=== PATIENT | male | born 1950 | race Caucasian/White ===

== ENCOUNTER 2018-08-28 22:16 | Emergency (ER) | payer MEDICARE, SELFPAY ==
[2018-08-28 22:17] VITALS: BP 112/76; PULSE 125; RESP 20; TEMP 36.4; O2SAT 97; BMI 33.7
[2018-08-28 22:33] VITALS: PULSE 122; RESP 18; O2SAT 99
[2018-08-28 22:34] VITALS: O2SAT 99
--- NOTE | 2018-08-28 22:42 | EKG12_ITS ---
Test Reason : Blood Pressure : / mmHG Vent. Rate : 127 BPM Atrial Rate : 127 BPM P-R Int : 000 ms QRS Dur : 168 ms QT Int : 432 ms P-R-T Axes : 000 258 088 degrees QTc Int : 627 ms Atrial fibrillation with rapid ventricular response with occasional ventricular-paced complexes Right bundle branch block Septal infarct , age undetermined Possible Lateral infarct , age undetermined Inferior infarct , age undetermined Abnormal ECG Confirmed by WOLF MACK, NESTOR ([id number]), video news editor NANI REA ([id number]) on 08/30/2018 2:43:21 PM Referred By: PATY Confirmed By:NESTOR BLOOM MD
--- NOTE | 2018-08-28 22:42 | RAD_ITS ---
STUDY: X-RAY CHEST REASON FOR EXAM: Male, 67 years old. Patient felt a flutter in this chest TECHNIQUE: Single AP portable view of the chest. COMPARISON: None. FINDINGS: Central catheter on the right extending to the right atrium. Pacemaker device on the left. There are monitoring devices The lungs are clear and expanded. There is no demonstrated pleural abnormality. Sternal cerclage wires are present from a prior sternotomy. There is cardiac enlargement. Normal mediastinum and elle. Normal visualized pulmonary arteries. Normal visualized aortic arch and descending thoracic aorta. There are diffuse degenerative changes of the visualized thoracic spine. Normal visualized ribs, clavicles, and shoulders. There is no demonstrated abnormality of the visualized soft tissue structures of the upper abdomen. RAD/Chest 1 View (Portable) IMPRESSION: Cardiac enlargement. Electronically Signed: Corey Staley MD at 23:06 EST , Service support ,
[2018-08-28 22:49] VITALS: O2SAT 99
--- NOTE | 2018-08-28 22:51 | ED.VISSUMM ---
- ER Visit Summary Date of Service: 08/28/18 Chief Complaint: Serious flutter History of Present Illness: The patient is a 67 M with a history of atrial fibrillation. He presents today for heart racing and palpitations. This has been going on for over a week. Symptoms are worse with ambulation and they were worse at bedtime tonight, so he came in to be evaluated. He has a history of ablation, but continues to have issues with atrial fibrillation. He had synchronized cardioversion in the past, and he returned to atrial fibrillation. He is waiting on a repeat ablation and some type of 3 wire device to be placed at [facility]. He is denying chest pain but does get short of breath with walking. He has also had some chest congestion. He recently started hemodialysis, and he thinks that his session today made his symptoms worse. He was told that hemodialysis should make his heart better. He is on Eliquis and compliant. Physical Examination: Afebrile. Heart rate 122. Blood pressure 112/76. 99% on room air. The patient is sitting upright in no apparent distress. Speaking in full sentences and breathing comfortably. Heart is irregularly irregular. Lungs are clear. Skin appears normal. Test Results: EKG shows atrial fibrillation at a rate of 127 with right bundle branch block. Laboratory studies and chest x-ray pending. Emergency Department Course and Treatment: Patient was placed on a monitor. He is having some symptomatic shortness of breath and palpitations but is otherwise stable. He was treated with Cardizem. We will check basic labs, EKG, and chest x-ray. X-rays show degenerative changes and postoperative changes. Nothing acute. Troponin normal. Hemoglobin 10.9. BUN 25 and creatinine 3.47, consistent with his end-stage renal disease. On reevaluation, the patient remained tachycardic and in atrial fibrillation after the Cardizem. His pressure dropped to the 80s systolic. He had no new or worsening of his symptoms. At this point, we consented him for synchronized cardioversion. Risks were discussed. He had this before 3 weeks ago. He had propofol before. He received a total of 70 mg of propofol and was cardioverted with 150 J, synchronized. Patient tolerated the procedure well. Sinus rhythm rate of 78. Pressures stable for him. Feeling better. Patient will be discharged to follow-up with his bobbin inspector tomorrow. Treatment Plan: As above Disposition: Discharge Impression: 1. Atrial fibrillation with RVR This note was generated with [employer] dictation software. It may contain incorrect words, spelling, and punctuation that were not noted in review of the chart prior to signing ED Disposition - Plan for ED Patient: Chief Complaint: Shortness of Breath Referrals: NOT,DEFINED [NON-STAFF] -
--- NOTE | 2018-08-28 22:55 | ED.DCSUM_ITS ---
- ER Visit Summary Date of Service: 08/28/18 Chief Complaint: Serious flutter History of Present Illness: The patient is a 67 M with a history of atrial fibrillation. He presents today for heart racing and palpitations. This has been going on for over a week. Symptoms are worse with ambulation and they were worse at bedtime tonight, so he came in to be evaluated. He has a history of ablation, but continues to have issues with atrial fibrillation. He had synchronized cardioversion in the past, and he returned to atrial fibrillation. He is waiting on a repeat ablation and some type of 3 wire device to be placed at [facility]. He is denying chest pain but does get short of breath with walking. He has also had some chest congestion. He recently started hemodialysis, and he thinks that his session today made his symptoms worse. He was told that hemodialysis should make his heart better. He is on Eliquis and compliant. Physical Examination: Afebrile. Heart rate 122. Blood pressure 112/76. 99% on room air. The patient is sitting upright in no apparent distress. Speaking in full sentences and breathing comfortably. Heart is irregularly irregular. Lungs are clear. Skin appears normal. Test Results: EKG shows atrial fibrillation at a rate of 127 with right bundle branch block. Laboratory studies and chest x-ray pending. Emergency Department Course and Treatment: Patient was placed on a monitor. He is having some symptomatic shortness of breath and palpitations but is otherwise stable. He was treated with Cardizem. We will check basic labs, EKG, and chest x-ray. X-rays show degenerative changes and postoperative changes. Nothing acute. Troponin normal. Hemoglobin 10.9. BUN 25 and creatinine 3.47, consistent with his end-stage renal disease. On reevaluation, the patient remained tachycardic and in atrial fibrillation after the Cardizem. His pressure dropped to the 80s systolic. He had no new or worsening of his symptoms. At this point, we consented him for synchronized cardioversion. Risks were discussed. He had this before 3 weeks ago. He had propofol before. He received a total of 70 mg of propofol and was cardioverted with 150 J, synchronized. Patient tolerated the procedure well. Sinus rhythm rate of 78. Pressures stable for him. Feeling better. Patient will be discharged to follow-up with his company pilot tomorrow. Treatment Plan: As above Disposition: Discharge Impression: 1. Atrial fibrillation with RVR This note was generated with [employer] dictation software. It may contain incorrect words, spelling, and punctuation that were not noted in review of the chart prior to signing ED Disposition - Plan for ED Patient: Chief Complaint: Shortness of Breath Referrals: NOT,DEFINED [NON-STAFF] -
[2018-08-28] MEDS: dilTIAZem 25 MG/5 ML Vial 10 MG IV BOLUS (22:58)
[2018-08-28 23:00] LABS: Absolute Lymphocyte Count 1.22 X10^3/ul (0.83-4.51); Absolute Neutrophil Count 4.3 X10^3/uL (2.0-7.7); Basophil# 0.02 X10^3/uL; Basophil% 0.3 % (0-1); Eosinophil# 0.09 X10^3/uL; Eosinophils% 1.4 % (0-5); Hematocrit 34.4 % (40-54); Hemoglobin 10.9 g/dl (13.0-16.5); Lymphocyte # 1.22 X10^3/ul (4.0); Lymphocyte % 19.5 % (19-41); Mean Corp Hgb Conc 31.7 g/gl (32-36); Mean Corpuscular Hgb 27.9 pg (27.0-32.0); Mean Platelet Vol. 11.5 fl (6.2-12.0); Monocyte# 0.59 X10^3/uL; Monocyte% 9.4 % (0-10); Neutrophil % 68.8 % (47-70); Platelet Count 176 K/mm3 (150-450); RBC Distribution Width CV 15.5 % (11.6-14.6); RBC Distribution Width SD 48.8 fl (35.1-43.9); Red Blood Count 3.91 M/mm3 (4.6-6.2); White Blood Count 6.3 K/mm3 (4.4-11.0)
[2018-08-28 23:01] LABS: POSITIVE COUNT NO; POSITIVE DIFFERENTIAL NO; POSITIVE MORPHOLOGY NO
[2018-08-28 23:16] LABS: Anion Gap 11 (5-15); BUN 25 mg/dL (7-18); BUN/Creat Ratio 7.2 RATIO (10-20); Calcium,Total 8.3 mg/dL (8.5-10.1); Chloride 97 mmol/L (98-107); Creatinine, Serum 3.47 mg/dL (0.70-1.30); EST Glomerular Filtration Rate 19 mL/min (>60); Est Glom Filt Rate - Afr Amer 23 mL/min (>60); Glucose 217 mg/dL (74-106); Sodium Level 136 mmol/L (136-145)
[2018-08-29] VITALS (7 sets, daily range): BP systolic 77–96; BP diastolic 60–68; PULSE 70–120; RESP 18–22; O2SAT 96–100
[2018-08-29] MEDS: Propofol 200 MG/20 ML Vial 70 MG IV BOLUS (00:38)
--- NOTE | 2018-08-29 00:59 | EKG12_ITS ---
Test Reason : REPEAT Blood Pressure : / mmHG Vent. Rate : 078 BPM Atrial Rate : 078 BPM P-R Int : 168 ms QRS Dur : 148 ms QT Int : 512 ms P-R-T Axes : 081 255 017 degrees QTc Int : 583 ms Normal sinus rhythm Right bundle branch block Abnormal ECG Confirmed by NESTOR BLOOM MD ([id number]), news copy editor NANI REA ([id number]) on 08/30/2018 2:44:52 PM Referred By: HERNANDO Confirmed By:NESTOR BLOOM MD
--- NOTE | 2018-08-29 01:21 | ED.DEP ---
ED Disposition - Plan for ED Patient: Chief Complaint: Shortness of Breath Instructions: ED Cardioversion Electrical Additional Instructions: Follow-up with your refrigeration technician. Call tomorrow.
== END 2018-08-29 01:33 | disposition home or self-care (01) ==
LOC: ED 23:23
PROVIDERS: Emergency Provider Emergency Medicine
DX: I48.91 Unspecified atrial fibrillation (principal); I45.10 Unspecified right bundle-branch block; I12.0 Hypertensive chronic kidney disease with stage 5 chronic kidney disease or end stage renal disease; E11.22 Type 2 diabetes mellitus with diabetic chronic kidney disease; N18.6 End stage renal disease; I25.10 Atherosclerotic heart disease of native coronary artery without angina pectoris; K21.9 Gastro-esophageal reflux disease without esophagitis; Z99.2 Dependence on renal dialysis; Z79.4 Long term (current) use of insulin; Z79.01 Long term (current) use of anticoagulants; Z79.899 Other long term (current) drug therapy; Z95.1 Presence of aortocoronary bypass graft
CPT/HCPCS: 71045; 80048; 84484; 85025; 93005; 96374; 99152; 99284; J7030; A4216

== ENCOUNTER 2018-09-02 15:46 | Emergency (ER) | payer MEDICARE, MEDICAID, SELFPAY ==
[2018-09-02 15:48] VITALS: BP 109/89; PULSE 111; RESP 22; TEMP 36.6; O2SAT 97; BMI 34.7
--- NOTE | 2018-09-02 16:01 | EKG12_ITS ---
Test Reason : SOB Blood Pressure : / mmHG Vent. Rate : 127 BPM Atrial Rate : 136 BPM P-R Int : 000 ms QRS Dur : 158 ms QT Int : 438 ms P-R-T Axes : 000 261 049 degrees QTc Int : 636 ms Atrial fibrillation Right bundle branch block Abnormal ECG Confirmed by NESTOR BLOMO MD ([id number]), photograph editor NANI REA ([id number]) on 09/06/2018 10:42:57 AM Referred By: KIRTI Confirmed By:NESTOR BLOOM MD
--- NOTE | 2018-09-02 16:05 | ED.VISSUMM ---
- ER Visit Summary Date of Service: 09/02/18 Chief Complaint: [] A. fib RVR shortness of breath end-stage renal disease malfunctioning dialysis catheter History of Present Illness: The patient is a 67 M [] history of A. fib RVR, cardiac pacemaker, renal failure, right chest dialysis catheter dialysis Sunday, he indicates that basically he has been going in and out of A. fib RVR for months he is scheduled to be seen at [facility] by Dr. Li to have his cardiac pacemaker change to he describes a 3-lead cardiac pacemaker that will blunt the effects of his A. fib RVR, that procedure is to be done later this month, in addition he is dialyzed Sunday via right chest dialysis catheter, the catheter was placed , dialysis unit today was unable to dialyzing the catheter would not function he was given some type of medication through the catheter and told to return Sunday he indicates he is too short of breath to be at home, he presents with a heart rate of 130 irregular he has no fever cough or other complaints he was in the emergency room about a week ago and was cardioverted he is taking amiodarone only for his A. fib Physical Examination: [] Heart rate 130 A. fib RVR pulse ox 97% on oxygen General, no distress resting comfortably HEENT is generally unremarkable The neck is supple no adenopathy Cardiovascular, irregular rate and rhythm Lungs, clear bilateral Abdomen, soft nontender Extremities, 3-4 edema bilaterally able Neurologic, awake alert answering questions appropriately moving all 4 extremities To establish IV access within screening labs All the above will obtain IV access screening labs, discussed with Dr. cline on-call for [facility] service arrange for transfer to [facility] for all the above Test Results: [] Emergency Department Course and Treatment: [] EKG shows irregular rhythm some components wide-complex some narrow consistent with history of A. fib rate 127, troponin returns at 0.104 creatinine elevated 6, the rest of the chemistry panel and CBC were unremarkable chest x-ray was unremarkable per radiology [facility] transfer service they spoke with the physician team there, they have accepted him in transfer with [place] to slow down his heart rate, he remains very stable here in the department he agrees to the transfer, and I explained to the [facility] team that he would need to be seen by cardiology and dialysis and would require urgent dialysis on arrival and they would arrange for that Treatment Plan: [] Disposition: [] Transfer to [facility] to be seen by patient subspecialty physicians Impression: [] A. fib RVR with history of same, end-stage renal disease, malfunctioning dialysis catheter This note was generated with [employer] dictation software. It may contain incorrect words, spelling, and punctuation that were not noted in review of the chart prior to signing ED Disposition - Plan for ED Patient: Chief Complaint: Shortness of Breath Referrals: Care Physician,No Primary [NON-STAFF] -
--- NOTE | 2018-09-02 16:06 | RAD_ITS ---
STUDY: X-RAY CHEST REASON FOR EXAM: Male, 67 years old. Shortness of breath TECHNIQUE: Frontal view of the chest COMPARISON: 08/28/2018 FINDINGS: The lungs are clear. There are no pleural effusions. There is no pneumothorax. The heart is enlarged, but stable. Again noted is a pacemaker and a right-sided central catheter with its tip in the superior vena cava. The patient is status post sternotomy. RAD/Chest 1 View (Portable) IMPRESSION: Stable cardiomegaly. No acute thoracic pathology. Electronically Signed: Jose Elias Malone, at 16:22 EST Tel , Service support ,
--- NOTE | 2018-09-02 16:11 | ED.DCSUM_ITS ---
- ER Visit Summary Date of Service: 09/02/18 Chief Complaint: [] A. fib RVR shortness of breath end-stage renal disease malfunctioning dialysis catheter History of Present Illness: The patient is a 67 M [] history of A. fib RVR, cardiac pacemaker, renal failure, right chest dialysis catheter dialysis Sunday, he indicates that basically he has been going in and out of A. fib RVR for months he is scheduled to be seen at [facility] by Dr. Li to have his cardiac pacemaker change to he describes a 3-lead cardiac pacemaker that will blunt the effects of his A. fib RVR, that procedure is to be done later this month, in addition he is dialyzed Sunday via right chest dialysis catheter, the catheter was placed , dialysis unit today was unable to dialyzing the catheter would not function he was given some type of medication through the catheter and told to return Sunday he indicates he is too short of breath to be at home, he presents with a heart rate of 130 irregular he has no fever cough or other complaints he was in the emergency room about a week ago and was cardioverted he is taking amiodarone only for his A. fib Physical Examination: [] Heart rate 130 A. fib RVR pulse ox 97% on oxygen General, no distress resting comfortably HEENT is generally unremarkable The neck is supple no adenopathy Cardiovascular, irregular rate and rhythm Lungs, clear bilateral Abdomen, soft nontender Extremities, 3-4 edema bilaterally able Neurologic, awake alert answering questions appropriately moving all 4 extremities To establish IV access within screening labs All the above will obtain IV access screening labs, discussed with Dr. cline on-call for [facility] service arrange for transfer to [facility] for all the above Test Results: [] Emergency Department Course and Treatment: [] EKG shows irregular rhythm some components wide-complex some narrow consistent with history of A. fib rate 127, troponin returns at 0.104 creatinine elevated 6, the rest of the chemistry panel and CBC were unremarkable chest x-ray was unremarkable per radiology [facility] transfer service they spoke with the physician team there, they have accepted him in transfer with [place] to slow down his heart rate, he remains very stable here in the department he agrees to the transfer, and I explained to the [facility] team that he would need to be seen by cardiology and dialysis and would require urgent dialysis on arrival and they would arrange for that Treatment Plan: [] Disposition: [] Transfer to [facility] to be seen by patient subspecialty physicians Impression: [] A. fib RVR with history of same, end-stage renal disease, malfunctioning dialysis catheter This note was generated with [employer] dictation software. It may contain incorrect words, spelling, and punctuation that were not noted in review of the chart prior to signing ED Disposition - Plan for ED Patient: Chief Complaint: Shortness of Breath Referrals: Care Physician,No Primary [NON-STAFF] -
[2018-09-02 16:18] LABS: Absolute Lymphocyte Count 1.98 X10^3/ul (0.83-4.51); Basophil# 0.02 X10^3/uL; Basophil% 0.2 % (0-1); Eosinophil# 0.01 X10^3/uL; Eosinophils% 0.1 % (0-5); Hematocrit 34.8 % (40-54); Hemoglobin 10.8 g/dl (13.0-16.5); Lymphocyte # 1.98 X10^3/ul (4.0); Lymphocyte % 22.3 % (19-41); Mean Corpuscular Hgb 26.9 pg (27.0-32.0); Mean Corpuscular Volume 86.6 fL (80-94); Mean Platelet Vol. 11.8 fl (6.2-12.0); Neutrophil # 6.03 X10^3/uL (2.7-7.7); Neutrophil % 67.9 % (47-70); Platelet Count 214 K/mm3 (150-450); RBC Distribution Width CV 16.3 % (11.6-14.6); Red Blood Count 4.02 M/mm3 (4.6-6.2); White Blood Count 8.9 K/mm3 (4.4-11.0)
[2018-09-02 16:26] LABS: Anion Gap 13 (5-15); BUN 73 mg/dL (7-18); BUN/Creat Ratio 12.5 RATIO (10-20); Calcium,Total 9.3 mg/dL (8.5-10.1); Chloride 99 mmol/L (98-107); Creatinine, Serum 5.84 mg/dL (0.70-1.30); EST Glomerular Filtration Rate 10 mL/min (>60); Est Glom Filt Rate - Afr Amer 12 mL/min (>60); Estimated Creatinine Clearance 12.71 ml/min; Glucose 238 mg/dL (74-106); Potassium 4.7 mmol/L (3.5-5.1); Sodium Level 137 mmol/L (136-145)
[2018-09-02 16:31] LABS: POSITIVE COUNT NO; POSITIVE DIFFERENTIAL NO; POSITIVE MORPHOLOGY NO
[2018-09-02 16:33] VITALS: O2SAT 100
[2018-09-02] MEDS: dilTIAZem 25 MG/5 ML Vial 10 MG IV BOLUS (16:56)
[2018-09-02 17:54] VITALS: BP 102/86; PULSE 101; RESP 22; O2SAT 96
[2018-09-02 18:38] VITALS: BP 103/62; PULSE 114; RESP 18; O2SAT 99
--- OUTSIDE RECORDS SUMMARY | 2018-10-20 01:16 | XMS RPT_ITS ---
:1950 Author Organization OHIP Support Name Relationship Address Phone Colleen Piña Unavailable Unavailable + D Unavailable Unavailable Unavailable PIÑA, GOPAL Unavailable [address] + [place] [address] PIÑA, COLLEEN Unavailable [address] + [place] [address] D Unavailable Unavailable Unavailable PIÑA, GOPAL Unavailable [address] + [place] [address] PIÑA, COLLEEN Unavailable [address] + [place] [address] D Unavailable Unavailable Unavailable PIÑA, GOPAL Unavailable [address] + [place] [address] PIÑA, COLLEEN Unavailable [address] + [place] [address] Piña, Colleen Unavailable Unavailable + D Unavailable Unavailable Unavailable PIÑA, GOPAL Unavailable [address] + [place] [address] PIÑA, COLLEEN Unavailable [address] + [place] [address] D Unavailable Unavailable Unavailable PIÑA, GOPAL Unavailable [address] + [place] [address] PIÑA, COLLEEN Unavailable [address] + [place] [address] D Unavailable Unavailable Unavailable PIÑA, GOPAL Unavailable [address] + [place] [address] PIÑA, COLLEEN Unavailable [address] + [place] [address] D Unavailable Unavailable Unavailable Piña, Gopal Unavailable [address] + [place] [address] Piña, Colleen Unavailable [address] + [place] [address] Piña, Colleen Unavailable Unavailable + Piña, Colleen Unavailable Unavailable + D Unavailable Unavailable Unavailable AYANA, GOPAL Unavailable [address] + [place] [address] PIÑA, COLLEEN Unavailable [address] + [place] [address] Piña, Colleen Unavailable Unavailable + D Unavailable Unavailable Unavailable Piña, Gopal Unavailable [address] + [place] [address] Piña, Colleen Unavailable [address] + [place] [address] Piña, Colleen Unavailable Unavailable + Piña, Colleen Unavailable Unavailable + Piña, Colleen Unavailable Unavailable + Piña, Colleen Unavailable Unavailable + Piña, Colleen Unavailable Unavailable + Piña, Colleen Unavailable Unavailable + Piña, Colleen Unavailable Unavailable + Piña, Colleen Unavailable Unavailable + Piña, Colleen Unavailable Unavailable + Piña, Colleen Unavailable Unavailable + Care Team Providers Name Role Phone Lola Monte Attending Unavailable Darryl Kennedy Referring Unavailable Darryl Kennedy Primary Care Unavailable PRASHANTH WANG Attending Unavailable Darryl Kennedy Referring Unavailable Darryl Kennedy Primary Care Unavailable PRASHANTH WANG Attending Unavailable Darryl Kennedy Referring Unavailable Sukhwinder'Darryl Lowe Primary Care Unavailable BOOKER JOYA Attending Unavailable Sukhwinder'Darryl Lowe Referring Unavailable Sukhwinder'Darryl Lowe Primary Care Unavailable Lola Monte Attending Unavailable Sukhwinder'Darryl Lowe Referring Unavailable Sukhwinder'ChrissyDarryl Primary Care Unavailable Lola Monte Attending Unavailable Sukhwinder'Darryl Lowe Referring Unavailable Sukhwinder'Darryl Lowe Primary Care Unavailable PRASHANTH WANG Attending Unavailable Sukhwinder'Darryl Lowe Referring Unavailable Sukhwinder'Darryl Lowe Primary Care Unavailable PRASHANTH WANG Attending Unavailable Darryl Kennedy Referring Unavailable O'Chrissy, Darryl Primary Care Unavailable O'Chrissy, Darryl Referring Unavailable O'Chrissy, Darryl Primary Care Unavailable JAYDE ALBA Attending Unavailable [place], Darryl Referring Unavailable [place], Darryl Primary Care Unavailable Jagdish Lopes Attending Unavailable Neil Marie Attending Unavailable O'Chrissy, Darryl Referring Unavailable [place], Darryl Primary Care Unavailable O'Chrissy, Darryl Attending Unavailable O'Chrissy, Darryl Referring Unavailable [place], Darryl Primary Care Unavailable PROVIDER, UNKNOWN Attending Unavailable O'Chriss[place], Darryl Referring Unavailable PROVIDER, UNKNOWN Primary Care Unavailable O'Chrissy, Darryl Referring Unavailable O'Chrissy, Darryl Primary Care Unavailable Ney Dave Attending Unavailable Neil Marie Attending Unavailable O'Chrissy, Darryl Referring Unavailable O'[place]iss[place], Darryl Primary Care Unavailable Primay Care Physicia, No Primary Care Unavailable Darlin Montanez Attending Unavailable Vikas Pastrana Attending Unavailable Pastrana, Vikas Attending Unavailable Vikas Pastrana Attending Unavailable Suhas Womack Attending Unavailable Primay Care Physicia, No Primary Care Unavailable Pastrana, Vikas Attending Unavailable Pastrana, Vikas Primary Care Unavailable Jopperi, Naresh Admitting Unavailable Jozoniaeri, Naresh Attending Unavailable Barrington Welsh Consulting Unavailable Saba, Jayaprakash Consulting Unavailable Jopperi, Naresh Admitting Unavailable Jopperi, Naresh Attending Unavailable Pastrana, Vikas Primary Care Unavailable Jopperi, Naresh Consulting Unavailable Jopperi, Naresh Admitting Unavailable Barrington Welsh Attending Unavailable Pastrana, Vikas Primary Care Unavailable Blaise, Barrington Consulting Unavailable Saba, Jayaprakash Consulting Unavailable Jopperi, Naresh Consulting Unavailable PROBLEMS PROBLEMS DATE TYPE CONDITION / CODE ATTENDING STATUS SOURCE Unknown B34.9 - Viral infection, Vikas Pastrana Active [facility] 9 unspecified / Community B34.9(ICD-10) Hospital Repository Unknown I48.91 - Unspecified Vikas Pastrana Active [facility] 9 atrial fibrillation / Community I48.91(ICD-10) Hospital Repository Unknown E78.5 - Hyperlipidemia, Vikas Pastrana Active [facility] 9 unspecified / Community E78.5(ICD-10) Hospital Repository Admitting Athscl heart disease of Feitl, [facility] 8 Diagnosis [place] coronary artery System w/o ang pctrs / Repository I25.10(ICD-10) Admitting watermaster (current) use Jolie, [facility] 8 Diagnosis of insulin / System Z79.4(ICD-10) Repository Admitting Acute on chronic [facility], [facility] 8 Diagnosis systolic (congestive) System heart failure / Repository I50.23(ICD-10) Admitting End stage renal disease Jolie, [facility] [facility] 8 Diagnosis / N18.6(ICD-10) System Repository Admitting Hyp chr kidney disease w Jolie, [facility] 8 Diagnosis stage 5 chr kidney System disease or ESRD / Repository I12.0(ICD-10) Admitting skilled nursing (current) use Jolie, [facility] 8 Diagnosis of systemic steroids / System Z79.52(ICD-10) Repository Admitting Type 2 diabetes mellitus [facility] 8 Diagnosis w diabetic chronic System kidney disease / Repository E11.22(ICD-10) Admitting Dependence on renal Jolie [employer] 8 Diagnosis dialysis / Z99.2(ICD-10) System Repository Admitting Obesity, unspecified / [facility], [facility] 8 Diagnosis E66.9(ICD-10) System Repository Admitting Presence of automatic Jolie [facility] 8 Diagnosis (implantable) cardiac System defibrillator / Repository Z95.810(ICD-10) Admitting Other malaise / [place], [facility] [facility] 8 Diagnosis R53.81(ICD-10) System Repository Admitting Presence of [place], [employer] 8 Diagnosis aortocoronary bypass System graft / Z95.1(ICD-10) Repository Admitting Presence of coronary Jolie, [facility] 8 Diagnosis angioplasty implant and System graft / Z95.5(ICD-10) Repository Admitting Hyperlipidemia, [place], [employer] 8 Diagnosis unspecified / System E78.5(ICD-10) Repository Admitting Foot drop, left foot / Ney Dave [facility] 8 Diagnosis M21.372(ICD-10) System Repository Admitting Ischemic cardiomyopathy [facility] 8 Diagnosis / I25.5(ICD-10) System Repository Admitting Anemia in chronic kidney Ney Dave [employer] 8 Diagnosis disease / D63.1(ICD-10) System Repository Admitting Unspecified atrial Jolie [employer] 8 Diagnosis flutter / I48.92(ICD-10) System Repository Admitting skilled nursing (current) use [facility] 8 Diagnosis of anticoagulants / System Z79.01(ICD-10) Repository Admitting Chronic atrial Jolie [employer] 8 Diagnosis fibrillation / System I48.2(ICD-10) Repository Admitting Pneumonia, unspecified [facility] 8 Diagnosis organism / J18.9(ICD-10) System Repository Admitting Osteomyelitis, [facility] 8 Diagnosis unspecified / System M86.9(ICD-10) Repository Admitting Hemiplga following [facility] 8 Diagnosis cerebral infrc affecting System left nondom side / Repository I69.354(ICD-10) Admitting Oth complication of [facility] 8 Diagnosis vascular prosth System dev/grft, init / Repository T82.898A(ICD-10) Admitting Type 2 diabetes mellitus Jolie [employer] 8 Diagnosis with other specified System complication / Repository E11.69(ICD-10) Admitting Type 2 diabetes mellitus [facility] [employer] 8 Diagnosis with hyperglycemia / System E11.65(ICD-10) Repository Admitting Nonspec elev of levels [facility] 8 Diagnosis of transamns & lactic System acid dehydrgnse / Repository R74.0(ICD-10) Admitting Other abnormalities of Ney Dave [place] [address] Diagnosis breathing / System R06.89(ICD-10) Repository Admitting Rheumatoid arthritis [facility]ander [facility] [employer] [place] [address] Diagnosis with rheumatoid factor, System unspecified / Repository M05.9(ICD-10) Admitting Body mass index (BMI) [place] [address] Diagnosis 33.0-33.9, adult / System Z68.33(ICD-10) Repository Admitting Other nonspecific Ney Dave [place] [address] Diagnosis abnormal finding of lung System field / R91.8(ICD-10) Repository Admitting Adverse effect of other [facility] [employer] [place] [address] Diagnosis antidysrhythmic drugs, System init encntr / Repository T46.2X5A(ICD-10) Admitting Pressure ulcer of left Jolie Ney [employer] [place] [address] Diagnosis heel, stage 2 / System L89.622(ICD-10) Repository Admitting Venous insufficiency [place] [place] [address] Diagnosis (chronic) (peripheral) / System I87.2(ICD-10) Repository Admitting Oth complication of Unknown [facility] [employer] Diagnosis vascular dialysis System catheter, init encntr / Repository T82.49XA(ICD-10) Unknown I49.8 - Other specified Suhas Womack [facility] 9 cardiac arrhythmias / Community I49.8(ICD-10) Hospital Repository Admitting Cardiomegaly / O'Chrissy, [facility] 8 Diagnosis I51.7(ICD-10) Darryl System Repository Admitting Interstitial pulmonary O'Chrissy, [facility] 8 Diagnosis disease, unspecified / Darryl System J84.9(ICD-10) Repository Admitting Dyspnea, unspecified / Jagdish Lopes [employer] [facility] 8 Diagnosis R06.00(ICD-10) System Repository Admitting Persistent atrial Jagdish Lopes [employer] [facility] 8 Diagnosis fibrillation / System I48.1(ICD-10) Repository Admitting Rheumatoid arthritis, Evelyne Lopesry [employer] 8 Diagnosis unspecified / System M06.9(ICD-10) Repository Admitting Hemiplga following Moses Jagdish [facility] 8 Diagnosis cerebral infarction System affecting unsp side / Repository I69.359(ICD-10) Admitting Hyp hrt & chr kdny dis w Moses Jagdish [facility] 8 Diagnosis hrt fail and w stg 5 chr System kdny/ESRD / Repository I13.2(ICD-10) Admitting Heart failure, Moses Jagdish [employer] 8 Diagnosis unspecified / System I50.9(ICD-10) Repository Admitting Cataract extraction Moses Jagdish [employer] 8 Diagnosis status, unspecified eye System / Z98.49(ICD-10) Repository Admitting Shortness of breath / Moses Jagdish [employer] 8 Diagnosis R06.02(ICD-10) System Repository Admitting Hemiplga fol oth ntrm ANJALI [employer] 8 Diagnosis intcrn hemor aff left JAYDE M System nondom side / Repository I69.254(ICD-10) Admitting Secondary ANJALI [employer] 8 Diagnosis hyperparathyroidism of JAYDE M System renal origin / Repository N25.81(ICD-10) Admitting Encounter for ANJALI [employer] 8 Diagnosis immunization / JAYDE M System Z23(ICD-10) Repository Admitting Body mass index (BMI) ANJALI [employer] 8 Diagnosis 34.0-34.9, adult / JAYDE M System Z68.34(ICD-10) Repository Admitting Paroxysmal atrial PIETROLUNGO, Active [facility] 8 Diagnosis fibrillation / PRASHANTH System I48.0(ICD-10) Repository Admitting Rheumatic tricuspid PIETROLUNGO, 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 / PRASHANTH System I07.1(ICD-10) Repository Admitting Nonrheumatic mitral PIETROLUNGO, Active [facility] 8 Diagnosis (valve) insufficiency / PRASHANTH System I34.0(ICD-10) Repository Admitting Atherosclerosis of aorta [facility], Active [facility] Diagnosis / I70.0(ICD-10) PRASHANTH System Repository Admitting Pulmonary hypertension, [facility], [place] [address] Diagnosis unspecified / PRASHANTH System I27.20(ICD-10) Repository Admitting Hypertensive heart [facility], Active [place] [address] Diagnosis disease with heart PRASHANTH System failure / I11.0(ICD-10) Repository Admitting Unspecified systolic [facility], Active [place] [address] Diagnosis (congestive) heart PRASHANTH System failure / I50.20(ICD-10) Repository Admitting Old myocardial [facility], [place] [address] Diagnosis infarction / PRASHANTH System I25.2(ICD-10) Repository Admitting Peripheral vascular [facility], [place] [address] Diagnosis disease, unspecified / PRASHANTH System I73.9(ICD-10) Repository Admitting Type 2 diabetes mellitus [facility], [place] [address] Diagnosis without complications / PRASHANTH System E11.9(ICD-10) Repository Admitting Unspecified kidney [facility], [place] [address] Diagnosis failure / N19(ICD-10) PRASHANTH System Repository Admitting Prsnl hx of TIA (TIA), [facility], [place] [address] Diagnosis and cereb infrc w/o PRASHANTH System resid deficits / Repository Z86.73(ICD-10) PROCEDURES PROCEDURES No Procedure Records FoundRESULTS RESULTS 12 LEAD ELECTROCARDIOGRAM Observed: 10/02/2018 Status: F Source: [place] 2:38 PM [facility] REPOSITORY [facility] Cardiovascular Services [address] [place] [address] 12 Lead EKG 09/30/18 1055 MR#: [id number] Acct: [id number] Name: CEFERINO PIÑA Rep #: [id number] : 1950 67 From: Vikas Fontaine MD Attending Dr: Naresh Rose DO Status: DIS IN Ordering Dr: Suhas Womack MD Date: 09/30/18 Location: ICU Sex: M C Admitted: 09/30/18 Test Reason : AFIB Blood Pressure : / mmHG Vent. Rate : 120 BPM Atrial Rate : 120 BPM P-R Int : 000 ms QRS Dur : 148 ms QT Int : 378 ms P-R-T Axes : 000 252 114 degrees QTc Int : 534 ms Atrial fibrillation with rapid ventricular response with frequent ventricular-paced complexes Right bundle branch block T wave abnormality, consider lateral ischemia Abnormal ECG Confirmed by SHAWNA MACK, VIKAS ([id number]), assistant editor NANI REA ([id number]) on 10/02/2018 2:38:27 PM Referred By: PATY Confirmed By:VIKAS FONTAINE MD 10/02/18 1438 Date Vikas Fontaine MD CC: Suhas Womack MD; Naresh Rose DO; Vikas Pastrana MD Signed CONSULTATION Observed: 10/01/2018 Status: F Source: [place] 5:51 AM [facility] REPOSITORY [facility] Medical Records Department [address] [place] [address] Consultation 09/30/18 1501 MR#: [id number] Acct: [id number] Name: CEFERINO PIÑA Rep #: [id number] : 1950 67 From: Barrington Welsh MD PCP: Vikas Pastrana MD Status: DIS IN Y Location: ICU ICU02-1 Problem List (1) Hx of CABG Status: Chronic (2) Diabetes mellitus, type 2 Status: Chronic Qualifiers: Diabetes mellitus terminal worker insulin use: with terminal worker use Diabetes mellitus complication status: with kidney complications Diabetes mellitus complication detail: with chronic kidney disease Chronic kidney disease stage: on chronic dialysis Qualified Code(s): E11.22 - Type 2 diabetes mellitus with diabetic chronic kidney disease; N18.6 - End stage renal disease; Z79.4 - watermaster (current) use of insulin; Z99.2 - Dependence on renal dialysis (3) GERD (gastroesophageal reflux disease) Status: Chronic Qualifiers: Esophagitis presence: esophagitis presence not specified Qualified Code(s): K21.9 - Gastro-esophageal reflux disease without esophagitis (4) Hyperlipemia Status: Chronic Qualifiers: Hyperlipidemia type: pure hypercholesterolemia Qualified Code(s): E78.00 - Pure hypercholesterolemia, unspecified; E78.0 - Pure hypercholesterolemia (5) Hypertension Status: Chronic Qualifiers: Hypertension type: essential hypertension Qualified Code(s): I10 - Essential (primary) hypertension (6) Cerebral aneurysm Status: Chronic (7) Chronic kidney disease Status: Chronic (8) Coronary artery disease Status: Chronic Qualifiers: Coronary Disease-Associated Artery/Lesion type: [place] artery [place] vs. transplanted heart: [place] heart Associated angina: with unspecified angina Qualified Code(s): I25.119 - Atherosclerotic heart disease of [place] coronary artery with unspecified angina pectoris (9) Left hemiparesis Status: Chronic (10) Metabolic encephalopathy Status: Acute (11) Septic shock Status: Acute (12) Acute respiratory failure with hypoxia Status: Acute Reason for Consult Date of Consultation: 09/30/18 Reason for Consultation: Septic shock History of Present Illness: The patient is a 67 year old M, with past medical history listed below, who presented to [facility] on 09/30/2018 after being found unresponsive at a senior care facility. At that time, patient reportedly had a blood sugar in the 30s and EMS was contacted and transported to the ER for evaluation. Patient reportedly did not receive any glucose therapy prior to that point. At that time, patient was given 2 A of D50 and still remained unresponsive. Patient was intubated emergently by ER staff. Patient did receive IV fluids given hypotension and was started on Levophed. Patient also was initiated on D10 secondary to blood sugars. Patient is reportedly on vancomycin and Zosyn secondary to osteomyelitis of his left foot. Patient reportedly has been at the senior care facility for 2 weeks, but has had multiple admissions at [facility] secondary to A. fib with RVR and osteomyelitis. Patient was evaluated in the ER, but had been intubated and paralyzed at that point. Discussion with family at the bedside states the patient was of his usual health until at least approximately 7 PM last night. The patient reportedly has had a very complicated course over the last 2-4 weeks. Did discuss with the family about CODE STATUS. After review of all options, patient will be made a DNR Comfort Care arrest with intubation. Family would like to initiate aggressive measures for at least 24-48 hours, but may choose palliative measures if patient is not responsive. Unable to perform a review of systems secondary to paralytic. Family thought he was of his baseline health yesterday. Past Medical History Past Medical History (Chronic Problems): Chronic Problems (Last Updated 09/30/18 @ 13:54 by Naresh Rose DO) Hx of CABG (Chronic) Diabetes mellitus, type 2 (Chronic) GERD (gastroesophageal reflux disease) (Chronic) Hyperlipemia (Chronic) Hypertension (Chronic) Cerebral aneurysm (Chronic) Chronic kidney disease (Chronic) Coronary artery disease (Chronic) Left hemiparesis (Chronic) Medical History: Medical History (Last Updated 09/30/18 @ 13:54 by Naresh Rose DO) CAD (coronary artery disease) I25.10 CVA (cerebrovascular accident due to intracerebral hemorrhage) I61.9 DM2 (diabetes mellitus, type 2) E11.9 ESRD (end stage renal disease) N18.6 Hyperlipidemia E78.5 PAD (peripheral artery disease) I73.9 HTN (hypertension) I10 Allergies No Known Allergies Allergy (Verified 09/30/18 11:08) Home Medications: Ambulatory Orders Medication Instructions Recorded Allopurinol [Zyloprim] 200 mg PO DAILY 08/28/18 Apixaban [Eliquis] 2.5 mg PO BID 08/28/18 Surgical History: Surgical History (Last Updated 09/30/18 @ 13:55 by Naresh Rose DO) History of appendectomy Z90.49 Hx of CABG Z95.1 Surgical History: angioplasty, appendectomy, coronary bypass surgery Lives: [facility] Smoking Status: Never smoker Tobacco Use: Non-smoker Alcohol: None Drugs: None - *Family History Maternal Family History: Family History (Last Updated 09/30/18 @ 13:55 by Naresh Rose DO) Other CAD (coronary artery disease) Review of Systems Comment: See HPI Patient Problems: Active and Suspected Problems (Last Updated 09/30/18 @ 13:54 by Naresh Rose DO) Metabolic encephalopathy (Acute) Septic shock (Acute) Acute respiratory failure with hypoxia (Acute) Objective: CT of the head was personally reviewed and showed no acute bleed. Chest x-ray showed patchy bilateral infiltrates. - Physical Exam General: - - Intubated and paralyzed. Obese. Good chest rise with ventilation. HEENT: Atraumatic, Normocephalic, - - No pupillary response noted. Oral: No Gingival or Mucosal Lesions/ Ulcerations, Dry Mucosa, - - Crowded posterior pharynx Neck: Supple, No Nodes, Trachea Midline, JVD, Right Lungs: No rhonchi, No wheeze, No rales, Diminished, - - Hemodialysis catheter noted in right chest, tunneled PICC line noted in left chest. Cardiovascular: Normal S1, Normal S2, No murmurs, Irregular Rate, No rub noted, No Gallop, - - A. fib with aberrancy and occasional pacemaker overdrive noted on telemetry Abdomen: Bowel Sounds Present, Soft, Non Tender, Non-Distended, Obese Extremities: No cyanosis, Clubbing Skin: - - Erythema noted of the right flank. Significant venous stasis changes of bilateral lower extremities, left greater than right with superficial ulcers. Buttock appears to have multiple healed Musculoskeletal: No Tenderness to Palpation of Joints or Extremities, Muscle Wasting Lymphatic: No Cervical, Supraclavicular, or Inguinal Adenopathy Neurological: - - Currently paralyzed Psych/Mental Status: Flat Affect Vital Signs Temp Pulse Resp BP Pulse Ox 38.1 C H 105 H 17 56/29 L 100 09/30/18 13:17 09/30/18 14:38 09/30/18 14:38 09/30/18 14:03 09/30/18 14:38 Oxygen Flow Rate (L/min) 4 Oxygen Delivery Method Mechanical Ventilator Weight: 119.1 kg Body Mass Index (BMI) 35.6 Finger Stick Blood Glucose 132 Laboratory Tests Past 24 Hrs WBC 1.7 L RBC 4.12 L WBC RBC Hgb Hct MCV MCH MCHC RDW RDW Differential Plt Count MPV POC Glucose POC Glucose 132 H 137 H 92 Clinical Impression(s) from Imaging Studies Chest X-Ray 09/30/18 10:59 IMPRESSION: Findings in keeping with vascular congestion and mild CHF. Electronically Signed: Tyshawn Gleason MD at 11:25 EST Tel [phone], Service support , Brain CT 09/30/18 11:24 IMPRESSION: Chronic involutional changes of the brain. 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 Electronically Signed: Tyshawn Gleason MD at 14:48 EST Tel [phone], Service support , Chest X-Ray 09/30/18 13:05 IMPRESSION: The tip of the endotracheal tube is at 3.5 cm proximal to caroline. Findings incomplete with mild degree of CHF with bibasilar atelectasis. Electronically Signed: Tyshawn Gleason MD at 13:28 EST Tel [phone], Service support , Assessment/Plan Active and Suspected Problems (Last Updated 09/30/18 @ 13:54 by Naresh Rose DO) Metabolic encephalopathy (Acute) Septic shock (Acute) Acute respiratory failure with hypoxia (Acute) RECOMMENDATIONS: 1. Transition antibiotics to meropenem and vancomycin 2. Initiate stress dose steroids, vasopressin if needed 3. Wean FiO2 and PEEP as tolerated 4. Initiate sedation 5. Change CODE STATUS to DNR Comfort Care arrest 6. Transition to D10 water, wean as tolerated 7. Discontinue allopurinol and Eliquis IMPRESSIONS: 1. 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 Patient should have random vancomycin level obtained. Echocardiogram has been ordered. Pressors will be transition to central access. Zepeda cultures are currently pending. Another possible etiology would be line sepsis. The patient have an element of adrenal insufficiency as he is reportedly on 10 mg of prednisone at baseline. Patient will be placed on stress dose steroids for relative adrenal insufficiency area 2. Acute hypoxic respiratory failure Unclear etiology at this time. Differential diagnosis would include ARDS versus congestive heart failure. Patient with significant PEEP requirements at this time, but this may have a perfusion component. We will continue to wean FiO2 and PEEP as tolerated. Possibly repeat chest x-ray tomorrow for evaluation if not improving. Doubt pneumonia given lack of reported prodromal symptoms unless embolic in nature 3. Reported metabolic encephalopathy secondary to hypoglycemia Patient currently paralyzed, so evaluation of mental status is severely limited. Patient was significantly hypoglycemic initially, but this has been normalized. We will continue to wean D10 as tolerated. 4. End-stage renal disease Patient is reportedly receiving dialysis every Sunday, Sunday and Sunday. Patient has tunneled access. Nephrology has been consulted. Unclear if patient would be able to tolerate hemodialysis at this time given blood pressure requirements. Patient does have significant uremia at this time. May tolerate 24 hours until hemodynamic stability can be obtained. 5. Diabetes mellitus type 2 Patient is on Lantus and Levemir at baseline. Patient was significantly hypoglycemic earlier today. Patient currently on D10. We will continue to wean D10 as tolerated. 6. A. fib with RVR status post pacemaker Likely secondary to #1. We will continue to monitor with telemetry. Patient does have serial troponins. Initial elevation may be secondary to supply demand mismatch. 7. History of cerebral aneurysm/hypertension/hyperlipidemia/GERD/history of CABG/obesity/debility Complicates care, management, recovery and prognosis. Patient reportedly has a history of left-sided hemiparesis. This cannot be verified at this time. Reasonable to continue with PPI. ADDENDUM 4:12 PM: Called to patient's bedside at the end of patient's echocardiogram. Patient was not having definitive pass through the left side of the heart. Patient was evaluated and thought to have a thready pulse. Patient was given 2 A of bicarbonate with no improvement. Family was brought to the bedside. Patient was pronounced at 4:10 PM by myself after no heart sounds could be auscultated. No spontaneous breathing was noted. No CPR was performed given patient's CODE STATUS. TIME: 145 minutes of critical care time spent addressing patient's septic shock, respiratory failure, metabolic encephalopathy, hypoglycemia, review of all data and collaboration with care team (1:45 PM to 4:10 PM) Code Visit Procedures: 75705 Critial Care Addl 30 Min - 16745 x 3. 145 total time of critical care time. 9xxxx: 30232 Critical care first hour 10/01/18 0551 <Electronically signed by Barrington Welsh MD> Date Barrington Welsh MD Cosigner Signature (if applicable): Date CC: Barrington Welsh MD; Shwetha Walter M.D.; Vikas Pastrana MD Signed ECHO, COMPLETE W/ Observed: 09/30/2018 Status: F Source: [place] CONTRAST 5:55 PM [facility] REPOSITORY [facility] Cardiovascular Services [address] [place] [address] Echo Complete W/ Contrast 09/30/18 1532 MR#: [id number] Acct: [id number] Name: CEFERINO PIÑA Rep #: [id number] : 1950 67 From: Don Bowie MD Attending Dr: Naresh Rose DO Status: ADM IN Ordering Dr: Naresh Rose DO Date: 09/30/18 Location: ICU Sex: M C Admitted: 09/30/18 Reason For Study: HYPOTENSION Procedure This was a 2D Doppler, Color Flow transthoracic echocardiogram. Contrast injection was performed. Exam performed portable in ICU/CCU. Left Ventricle Moderately dilated left ventricle. The estimated ejection fraction is 25 %. Severe segmental systolic dysfunction (see wall motion). There are regional wall motion abnormalities as specified. Right Ventricle Normal RV size. ICD or pacer leads identified within the right ventricle. Normal systolic function. Atria The left atrium is moderately enlarged. The right atrium is mildly enlarged. Mitral Valve Normal mitral valve. Mild (1+) eccentric mitral valve insufficiency. Tricuspid Valve Normal tricuspid valve. Mild tricuspid valve insufficiency. Aortic Valve Normal aortic valve. Pulmonic Valve Normal pulmonic valve. Great Vessels Normal aortic root. The pulmonary artery is normal size. Normal inferior vena cava. Pericardium/Pleural No pericardial effusion. Medication Diluted definity 2ml given slow IV push to enhance endocardial definition. MMode/2D Measurements AND Calculations LVIDd: 6.1 cm IVSd: 1.2 cm Ao root diam: 3.5 cm LVIDs: 5.5 cm LVPWd: 1.2 cm FS: 9.7 % LAV(MOD-bp): 86.9 ml LA A4 area: 23.4 cm2 LA dimension(2D): 5.5 cm LAV(MOD-bp) Indexed: 36.3 ml/m2 LAV(MOD-sp2): 108.5 ml LAV(MOD-sp4): 65.4 ml RA A4 area: 20.5 cm2 Doppler Measurements AND Calculations Ao V2 max: 123.6 cm/sec LV V1 max: 54.9 cm/sec TR max maximo: 204.1 cm/sec Ao max P.1 mmHg LV V1 max P.3 mmHg TR max P.7 mmHg Interpretation Summary Moderately dilated left ventricle. The estimated ejection fraction is 25 %. Severe segmental systolic dysfunction (see wall motion). Mild (1+) eccentric mitral valve insufficiency. Mild tricuspid valve insufficiency. Ordering Physician: Naresh Rose Referring Physician: VIKAS PASTRANA Performed By: Liana Santiago, LITO, RVT 09/30/18 1754 Date Don Bowie MD CC: Naresh Rose DO; Vikas Pastrana MD Date Dictated: 09/30/18 1532 Date Transcribed: 09/30/18 430 Freight Car Cleaner: Signed EMERGENCY DEPARTMENT Observed: 09/30/2018 Status: F Source: [place] SUMMARY 5:07 PM [facility] REPOSITORY [facility] Medical Records Department [address] [place] [address] Emergency Department Summary 09/30/18 1651 MR#: [id number] Acct: [id number] Name: CEFERINO PIÑA Rep #: [id number] : 1950 67 From: Suhas Womack MD PCP: Vikas Pastrana MD Status: ADM IN - ER Visit Summary Date of Service: 09/30/18 Chief Complaint: Unresponsive History of Present Illness: The patient is a 67 M who presents for a change in mental status. History is obtained through EMS and family. He has been residing at a rehab facility, trying to get his strength back. He is being treated for a bone infection in his left foot and is on Zosyn. He has multiple medical issues including but not limited to atrial fibrillation and he is on Eliquis, diabetes, end-stage renal disease on dialysis, CHF, stroke. Per family, the patient was altered at the rehab facility for 2 hours. He was found to have a blood sugar of 50. He was treated with glucose gel and then glucagon. EMS was contacted. EMS noted that his blood sugar was 38 and they apparently treated with bicarb instead of D50. Patient responds to verbal and gives very short responses. He is denying any focal pain. Denies any shortness of breath. Denying any other recent symptoms or new issues. History is extremely limited. He is full code. Physical Examination: Tachycardic at 126 and respiratory rate 31. Blood pressure 67/47. 95% on nasal cannula. Temperature is 98 degrees. Head and neck are atraumatic. He has moist mucous membranes. Heart is irregularly irregular and tachycardic. Lung sounds are diminished in all walker. Abdomen is soft and nontender. He has bilateral lower extremity wounds that are wrapped. He is responding to verbal and gives only very short responses. GCS is 13. Test Results: EKG showed atrial fibrillation at a rate of 120 with a right bundle branch block pattern and T wave changes laterally, possibly rate related or related to ischemia. Blood sugar was 33 on arrival here and he was treated with D50. Repeat blood sugar was normal. See below for the remainder of his results. Emergency Department Course and Treatment: Patient presents in shock. I was concerned for septic shock primarily, but other causes of shock were considered. Fluid resuscitation started and shock orders were placed. Patient was altered, but he was maintaining his airway and had good oxygenation. He was placed on a nasal cannula. I wanted to see if he would respond to glucose and fluids. Patient had a liter of fluids, and he continued to be hypotensive. His lab work showed a white count of 1.7, hemoglobin 11, platelets 84, CO2 18, anion gap 19, glucose 107, BUN 128, and creatinine 5.59. INR 1.7. Urinalysis fairly unremarkable after a Almeida catheter was placed. Troponin was 0.267 and lactate was 8.1. I continued fluid resuscitation, but his labs indicated shock. He began to spike a fever, and I suspect this was septic shock. He was cultured. Started on Azactam and vancomycin for broad-spectrum coverage. Patient was not responding to fluids and did not improve with correction of his hypoglycemia. He was becoming less responsive. His oxygen was dropping into the low 90s on nasal cannula. He was prepared for intubation. Patient was treated with etomidate and rocuronium. He was bagged on 100% oxygen. First attempt with the direct visualization was unsuccessful. He was rebagged without oxygen desaturation, and then the second attempt with the glidescope was successful. Tube was visualized passing through the cords. He had good color change. Good chest rise. Equal breath sounds. Quiet stomach. Confirmed on chest x-ray which also showed findings concerning for CHF. A third liter of fluids was ordered, but the patient continued to be hypotensive. Levophed was ordered. I suspect the patient is in septic shock from his wounds. His glucose is improved. I did check a head CT which showed chronic changes. The hospitalist and consulting utility forester were contacted. They both evaluated the patient in the emergency department. Patient was continued on fluids and pressors. Continued on antibiotics. His family made him DNR Comfort Care arrest. He was admitted to the ICU. See template for additional notes. Treatment Plan: As above Disposition: Admission to ICU Impression: 1. Septic shock 2. Respiratory failure 3. Hypoglycemia 4. End-stage renal disease 5. Elevated troponin This note was generated with [employer] software. It may contain incorrect words, spelling, and punctuation that were not noted in review of the chart prior to signing ED Disposition - Plan for ED Patient: Disposition: Acute Care Hospital [facility] Chief Complaint: Hypoglycemia What to do if you have Problems For any increased pain, shortness of breath, bleeding, nausea or vomiting, chest pain, or any unexpected problems, contact your Primary Care Provider. Call [facility] ([phone]) or report to the closest Emergency Room. Call 911 if necessary. 09/30/18 1707 <Electronically signed by Suhas Womack MD> Date Suhas Womack MD Cosigner Signature (If Indicated): Date CC: Vikas Pastrana MD SUMMARY Observed: 09/30/2018 Status: F Source: [place] 5:05 PM [facility] REPOSITORY [facility] Medical Records Department [address] [place] [address] Summary 09/30/18 1700 MR#: [id number] Acct: [id number] Name: CEFERINO PIÑA Rep #: [id number] : 1950 67 From: Naresh Rose DO PCP: Vikas Pastrana MD Status: ADM IN Location: ICU ICU02-1 Preliminary Cause of septic shock Date of Admission: 09/30/18 Date of : 09/30/18 - Principle Diagnosis septic shock Problem List: Active and Suspected Problems (Last Updated 09/30/18 @ 13:54 by Naresh Rose DO) Metabolic encephalopathy (Acute) Septic shock (Acute) Acute respiratory failure with hypoxia (Acute) Hospital Course 67-year was noted to be hypoglycemic with micro-blood sugar in the 30s. Patient did receive D50 and serum. Patient continued to be unresponsive. Patient was intubated in the emergency room. Patient was hypotensive throughout. Patient did receive IV fluids as well as levo fed. Patient was admitted to the ICU. In the ICU, patient remained hypotensive despite Levophed and vasopressin. Stress dose steroids were also initiated. Patient received 2 A of bicarbonate. Patient was pronounced at 1610. Patient's CODE STATUS was changed to DNR Comfort Care arrest. Cause of appeared to be related with his septic shock, source of which was not clearly evident. Greater than 45 minutes spent on H+P, family discussion. Code Visit OBSV E AND M: [id number] Observ/hosp same date L3 09/30/18 1705 <Electronically signed by Naresh Rose DO> Date Naresh Rose DO Cosigner Signature (if applicable): Date CC: Barrington Welsh MD; Shwetha Walter M.D.; Vikas Pastrana MD Signed BEDSIDE GLUCOSE Collected: 09/30/2018 Status: F Source: [place] 3:15 PM [facility] REPOSITORY TYPE CODE TESTS RESULT OUT OF REFERENCE UNITS RANGE LAB L501.080 70-110 mg/dL High BEDSIDE GLU 123 Result Comment: MANAGEMENT OF PATIENT CARE PER NURSING PROTOCOL Performed By: #### L501.080 #### [facility] Laboratory Point of Care [address] [place] [address] TROPONIN-I Collected: 09/30/2018 Status: F Source: [place] 3:00 PM [facility] REPOSITORY TYPE CODE TESTS RESULT OUT OF RANGE REFERENCE UNITS LAB L501.4010 <0.045 ng/mL High 0.247 TROPONIN-I Result Comment: TROPONIN-I EXPECTED VALUES <0.045 Negative 0.045 - 0.590 Consistent with Cardiac Damage > OR = 0.600 Critical Value Not every elevated troponin is indicative of NE. These values should be used with clinical judgement in examining the patient's clinical picture for diagnosis. To establish a diagnosis of NE versus myocardial injury, there must be a demonstrated rise and/or fall in the troponin values, in addition to ischemic symptoms, EKG changes, new regional wall motion abnormality, and/or angiographical evidence. PLEASE NOTE: REFERENCE RANGES EDITED 18 Performed By: #### L501.4010 #### [facility] Laboratory [address] [place], [address] LACTIC ACID Collected: 09/30/2018 Status: F Source: [place] 3:00 PM [facility] REPOSITORY Order Comment: Yes/No query for Sepsis Lactate Rule Y TYPE CODE TESTS RESULT OUT OF REFERENCE UNITS RANGE LAB L503.6005 0.4-2.0 mmol/L High alert LACTIC ACID 6.9 Result Comment: Critical Result(s) Called at: 16:14:36 09/30/2018 by: Ginny Garcia to DKnoble Performed By: #### L503.6005 #### [facility] Laboratory [address] [place], [address] HISTORY AND PHYSICAL Observed: 09/30/2018 Status: F Source: [place] EXAM 2:06 PM [facility] REPOSITORY [facility] Medical Records Department [address] [place] [address] History and Physical 09/30/18 1349 MR#: [id number] Acct: [id number] Name: CEFERINO PIÑA Rep #: [id number] : 1950 67 From: Naresh Rose DO PCP: Vikas Pastrana MD Status: ADM IN Y Location: ICU ICU02-1 Problem List (1) Metabolic encephalopathy Status: Acute (2) Septic shock Status: Acute (3) Acute respiratory failure with hypoxia Status: Acute History of Present Illness Date of Admission: 09/30/18 Chief Complaint: unresponsive. The patient is a 67 year old M found unresponsive that is a senior care facility. Patient did have blood sugar that was noted to be in the 30s. EMS was contacted and per emergency room physician, patient did not receive D50 until he arrived. She did receive 2 ampoules of D50. Patient still remained unresponsive. Patient was intubated emergently. Patient was concerned to have a septic shock with a lactic acid of 8, white count of 1.7 and tachycardia and tachypnea. Patient received years of IV fluids and still remained hypotensive and started on levo fed. Patient was started on D10 to maintain his blood sugars. Patient was on Zosyn for osteomyelitis of his left foot. Patient did receive aztreonam and vancomycin in the emergency room. Patient is intubated and sedated and unable provide any history is obtained through the emergency room physician but also patient's family. Patient states that he has been at the senior care facility for the past 2weeks. Patient was in [facility] for atrial fibrillation with RVR and a left foot infection and osteomyelitis. The left foot infection has healed up well but there is no plans for any surgery for the osteomyelitis. Patient's family stated that he was doing well as night and other than being fatigued since being started on dialysis around , there is been no new complaints. [] Past Medical History Past Medical History (Chronic Problems): Chronic Problems Left hemiparesis (Chronic) Coronary artery disease (Chronic) Chronic kidney disease (Chronic) Cerebral aneurysm (Chronic) Hypertension (Chronic) Hyperlipemia (Chronic) GERD (gastroesophageal reflux disease) (Chronic) Diabetes mellitus, type 2 (Chronic) Hx of CABG (Chronic) Medical History: Medical History (Last Updated 09/30/18 @ 13:54 by Naresh Rose DO) CAD (coronary artery disease) I25.10 CVA (cerebrovascular accident due to intracerebral hemorrhage) I61.9 DM2 (diabetes mellitus, type 2) E11.9 ESRD (end stage renal disease) N18.6 Hyperlipidemia E78.5 PAD (peripheral artery disease) I73.9 HTN (hypertension) I10 Allergies No Known Allergies Allergy (Verified 09/30/18 11:08) Home Medications: Ambulatory Orders Medication Instructions Recorded Allopurinol [Zyloprim] 100 mg PO DAILY 08/28/18 Surgical History: Surgical History (Last Updated 09/30/18 @ 13:55 by Naresh Rose DO) History of appendectomy Z90.49 Hx of CABG Z95.1 Surgical History: angioplasty, appendectomy, coronary bypass surgery Lives: [facility] Smoking Status: Never smoker Tobacco Use: Non-smoker Alcohol: None Drugs: None - *Family History Maternal Family History: Family History (Last Updated 09/30/18 @ 13:55 by Naresh Rose DO) Other CAD (coronary artery disease) Review of Systems Comment: Patient intubated and sedated, therefore, unable to get any review of systems. VTE Information - Inpt Only VTE Present on Admission: No VTE Pharm Prophylaxis ordered?: Yes Patient Problems: Active and Suspected Problems Metabolic encephalopathy (Acute) Septic shock (Acute) Acute respiratory failure with hypoxia (Acute) - Physical Exam General: - - Weighted. Sedated. Afebrile. HEENT: Atraumatic, PERRLA, Normocephalic Oral: Moist Mucosa, No Gingival or Mucosal Lesions/ Ulcerations, - - The tracheal tube and orogastric tube in place Neck: No Nodes, Thyroid Normal Size and Texture Lungs: Diminished, - - Coarse breath sounds bilaterally Cardiovascular: No murmurs, Irregular Rate, Tachycardic Abdomen: Soft, Non Tender, Non-Distended, Hypoactive Bowel Sounds Extremities: - - 2+ right lower extremity edema. Diminished pulses bilaterally in lower extremities. Skin: - - Venous stasis dermatitis of the lower extremities bilaterally. Appears to be an unroofed bullae on the dorsum of the right foot. No surrounding erythema. Musculoskeletal: No Tenderness to Palpation of Joints or Extremities, No Muscle Wasting Lymphatic: No Cervical, Supraclavicular, or Inguinal Adenopathy Neurological: - - No clonus. Vital Signs Temp Pulse Resp BP Pulse Ox 38.1 C H 112 H 21 H 67/40 L 100 09/30/18 13:17 09/30/18 13:41 09/30/18 13:41 09/30/18 13:41 09/30/18 13:17 Oxygen Flow Rate (L/min) 4 Oxygen Delivery Method Mechanical Ventilator Weight: 119.1 kg Body Mass Index (BMI) 35.6 Finger Stick Blood Glucose 132 Laboratory Tests Past 24 Hrs WBC 1.7 L RBC 4.12 L WBC RBC Hgb Hct MCV MCH MCHC RDW RDW Differential Plt Count MPV POC Glucose POC Glucose 132 H 137 H 92 Clinical Impression(s) from Imaging Studies Chest X-Ray 09/30/18 10:59 IMPRESSION: Findings in keeping with vascular congestion and mild CHF. Electronically Signed: Tyshawn Gleason MD at 11:25 EST Tel [phone], Service support , Chest X-Ray 09/30/18 13:05 IMPRESSION: The tip of the endotracheal tube is at 3.5 cm proximal to caroline. Findings incomplete with mild degree of CHF with bibasilar atelectasis. Electronically Signed: Tyshawn Gleason MD at 13:28 EST Tel [phone], Service support , Assessment/Plan All Active Problems Metabolic encephalopathy (Acute) Septic shock (Acute) Acute respiratory failure with hypoxia (Acute) 1. Septic shock Presumed with tachycardia, tachypnea, lactic acidosis and leukopenia. Continue with aztreonam and vancomycin Follow-up cultures Unclear source at this time Troponin slightly elevated and we will cycle another 1 and check an echocardiogram 2. Acute hypoxic respiratory failure PO2 on ABG was 42 and patient was tachypneic with respiratory rates in the 20s. Patient intubated and on vent Critical care medicine for ventilator management ABG consistent with metabolic acidosis and alkalosis 3. Metabolic encephalopathy Presumably due to hypoglycemia Unclear how long the patient was hypoglycemic and if there are any sequelae due to potential sustained hypoglycemic episode May need further evaluation and assessment depending on the patient's clinical course Head CT ordered and currently pending no mention of any head trauma, but given the patient being on Eliquis, will need to rule out intracranial hemorrhage before the patient can be admitted to this hospital 4. End-stage renal disease Patient's dialysis days every Sunday Has a right chest vascular catheter Nephrology on consultation Patient follows up with Dr. Cao in [place] 5. diabetes mellitus type II Was hypoglycemic in the field Improved We will continue with D10 for now but will likely need to de-escalate depending on the patient's blood sugars 6. Atrial fibrillation Has been in RVR, but I feel that much of this is reactive with the patient clinical presentation Amiodarone is currently on the med list with patient's family denies that he is on this anymore said he was taken off during his most recent hospitalization in [facility] We will request the records from [facility] Patient follows up with Dr. Izaguirre for cardiology 7. DVT prophylaxis: Patient on Eliquis and we will add SCDs 8. Advanced care planning: Discussed with the patient's son and daughter. They confirmed that the patient has desire to be full CODE STATUS. Code Visit Inpatient E AND M: 92940 Init Hosp L3 09/30/18 1406 <Electronically signed by Naresh Rose DO> Date Naresh Rose DO Cosigner Signature: Date (if applicable) CC: Naresh Rose DO; Bennie Finnegan MD; Vikas Pastrana MD Signed CHEST 1 VIEW Observed: 09/30/2018 Status: F Source: [place] (PORTABLE) 1:06 PM [facility] REPOSITORY [facility] Imaging Services [address] [place] [address] Chest 1 View (Portable) MR#: [id number] Acct: [id number] Name: CEFERINO PIÑA Rep #: [id number] : 1950 M 67 From: Tyshawn Gleason MD PCP: Vikas Pastrana MD Status: REG ER Study: Chest 1 View (Portable) Date of Exam: 09/30/18 Exam# [id number] Ordering Dr: Suhas Womack MD STUDY: X-RAY CHEST REASON FOR EXAM: Male, 67 years old. Endotracheal tube and nasogastric tube placement. TECHNIQUE: Single AP portable view of the chest. COMPARISON: Comparison is made with prior study done earlier today. FINDINGS: An endotracheal tube is in situ. The tip is at 3.5 cm proximal to the caroline. An orogastric tube is seen with the tip below the left hemidiaphragm. A right-sided double-lumen catheter is seen with the tip at the junction of the superior vena cava and right atrium. Configuration at both lung bases secondary to poor inspiratory effort. Basket congestion and mild degree of CHF. Sternal cerclage wires and vascular clips are present from a prior sternotomy and coronary artery bypass graft procedure (CABG). A left-sided ventricular chamber pacemaker is seen. Cardiomegaly. Normal mediastinum and elle. Normal visualized pulmonary arteries. Normal visualized aortic arch and descending thoracic aorta. Normal visualized thoracic spine. Normal visualized ribs, clavicles, and shoulders. There is no demonstrated abnormality of the visualized soft tissue structures of the upper abdomen. RAD/Chest 1 View (Portable) IMPRESSION: The tip of the endotracheal tube is at 3.5 cm proximal to caroline. Findings incomplete with mild degree of CHF with bibasilar atelectasis. Electronically Signed: Tyshawn Gleason MD at 13:28 EST Tel [phone], Service support , CC: Suhas Womack MD; Vikas Pastrana MD Freight Car Cleaner: Signed BEDSIDE GLUCOSE Collected: 09/30/2018 Status: F Source: [place] 1:04 PM [facility] REPOSITORY TYPE CODE TESTS RESULT OUT OF REFERENCE UNITS RANGE LAB L501.080 70-110 mg/dL High BEDSIDE GLU 132 Result Comment: MANAGEMENT OF PATIENT CARE PER NURSING PROTOCOL Performed By: #### L501.080 #### [facility] Laboratory Point of Care [address] [place] [address] BLOOD GASES BY CPS Collected: 09/30/2018 Status: F Source: [place] 12[facility] [place] REPOSITORY TYPE CODE TESTS RESULT OUT OF RANGE REFERENCE UNITS LAB L9000.9990 Normal BLD GAS TYPE ART LAB L9001.1000 Normal SITE R Radial LAB L9001.1010 Normal EVE TEST POS LAB L9001.1050 O2 Normal Delivery Dev Nasal Can LAB L9001.1055 /min Normal LPM 4.0 LAB L9001.1104 Normal Results To ED LAB L9001.1105 Normal Time Given 1220 LAB L9001.1110 7.35-7.45 Low pH - I-STAT 7.33 LAB L9001.1210 35-45 mmHg Low pCO2 - ISTAT 21.9 LAB L9001.1310 75-100 mmHG Low PO2 I-STAT 42 LAB L9001.2300 22-26 mmol/L Low HCO3 ISTAT 11.6 LAB L9001.2400 -2 to +2 mmol/L Low BE ISTAT -14 LAB L9001.2415 mmol/L Normal TOTAL CO2 12 ISTAT LAB L9001.2425 95-99 % Low SO2 ISTAT 76 Performed By: #### L9000.0800 #### [facility] Point of Care [address] [place] [address] BEDSIDE GLUCOSE Collected: 09/30/2018 Status: F Source: [place] 12:00 PM [facility] [place] REPOSITORY TYPE CODE TESTS RESULT OUT OF REFERENCE UNITS RANGE LAB L501.080 70-110 mg/dL High BEDSIDE GLU 137 Result Comment: MANAGEMENT OF PATIENT CARE PER NURSING PROTOCOL Performed By: #### L501.080 #### [facility] Point of Care [address] [place] [address] URINALYSIS, COMPLETE Collected: 09/30/2018 Status: F Source: [place] 11:58 AM [facility] [place] REPOSITORY Order Comment: How was Urine Obtained? FOOD TRAY ASSEMBLER TO SPECIFY TYPE CODE TESTS RESULT OUT OF RANGE REFERENCE UNITS LAB L400.3000 Yellow COLOR Normal Yellow LAB L400.3050 Clear Normal CLARITY Sl. Cloudy LAB L400.3200 Normal mg/dl High GLUCOSE, UR 100 LAB L400.3300 Negative mg/dL Normal BILIRUBIN URINE Negative LAB L400.3400 Negative mg/dl Normal KETONE UR Negative LAB L400.3465 1.002-1.030 Normal SP.GR. DIPSTX 1.015 LAB L400.3550 5.0 - 8.0 pH UR Normal 5.0 LAB L400.3600 Negative mg/dl High PROT DIPSTX 100 LAB L400.3700 Normal mg/dl Normal UROBILI Normal LAB L400.3750 Negative Normal NITRITE UR Negative LAB L400.3780 Negative /ul High 10 OCCULT BLOOD-UR LAB L400.3800 Negative /ul High LEUK 25 ESTERASE LAB L400.4050 0-5 /hpf WBC Normal 0-5 SEEN LAB L400.4100 0-5 /hpf Normal RBC-UA 0-5 SEEN LAB L400.4150 0-5 /hpf SQUAM Normal EPI 0-5 SEEN LAB L400.4300 None Seen /hpf 3+ Normal BACTERIA LAB L400.4350 <or=2+ /hpf 1+ Normal MUCUS, URINE Performed By: #### L400.0001 #### [facility] [address] [place], [address] Observed: 09/30/2018 Status: F Source: [place] CULTURE, URINE 11:58 AM [facility] [place] REPOSITORY Urine Culture Culture exhibits no growth. Performed By: #### M100.0650 #### [facility] [address] [place], [address] BEDSIDE GLUCOSE Collected: 09/30/2018 Status: F Source: [place] 11:33 AM [facility] [place] REPOSITORY TYPE CODE TESTS RESULT OUT OF RANGE REFERENCE UNITS LAB L501.080 70-110 mg/dL Normal BEDSIDE GLU 92 Result Comment: MANAGEMENT OF PATIENT CARE PER NURSING PROTOCOL Performed By: #### L501.080 #### [facility] Point of Care [address] [place] [address] BRAIN/HEAD WITHOUT Observed: 09/30/2018 Status: F Source: [place] CONTRAST 11:25 AM [facility] [place] REPOSITORY [facility] Imaging Services [address] [place] [address] Brain/Head without Contrast MR#: [id number] Acct: [id number] Name: CEFERINO PIÑA Rep #: [id number] : 1950 M 67 From: Tyshawn Gleason MD PCP: Vikas Pastrana MD Status: ADM IN Study: Brain/Head without Contrast Date of Exam: 09/30/18 Exam# [id number] Ordering Dr: Suhas Womack MD STUDY: CT BRAIN WITHOUT CONTRAST REASON FOR EXAM: Male, 67 years old. Altered mental status. Unresponsive. Hypotension. RADIATION DOSAGE (If Supplied By Facility): CTDIvol = ( 44.99 ) mGy, DLP = ( 812.98 ) mGycm TECHNIQUE: Transaxial CT imaging of the brain was performed without administration of intravenous contrast material. Individualized dose optimization techniques were used for this CT. COMPARISON: None. FINDINGS: Normal soft tissue structures. Normal calvarium. There is mild cerebral atrophy with widening of the extra- axial spaces and ventricular dilatation. Encephalomalacia is seen in the insular cortex of the right temporal lobe. Normal basal ganglia and thalami. Normal brainstem. Normal cerebellum. There is no intracranial hemorrhage. There are no findings of an acute ischemic infarction. Normal visualized paranasal sinuses. CT/Brain/Head without Contrast IMPRESSION: Chronic involutional changes of the brain. 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 Electronically Signed: Tyshawn Gleason MD at 14:48 EST Tel [phone], Service support , CC: Suhas Womack MD; Vikas Pastrana MD Freight Car Cleaner: Signed Observed: 09/30/2018 Status: F Source: [place] CULTURE, BLOOD (WB) 11:15 AM [facility] [place] REPOSITORY BC AEROBIC BOTTLE GRAM STAIN COLLECTED ON 09/30/18 AT 1115. UPON FURTHER REVIEW, GRAM NEGATIVE RODS ARE PRESENT. REFER TO BC74 FOR ID AND SENSITIVITY. ORGANISM 1: Gram negative aki Performed By: #### M200.1000 #### [facility] [address] [place], [address] PROTHROMBIN TIME W/INR Collected: 09/30/2018 Status: F Source: [place] 11:10 AM [facility] [place] REPOSITORY TYPE CODE TESTS RESULT OUT OF RANGE REFERENCE UNITS LAB L300.4150 11.7-14.9 SECONDS High PROTIME 20.1 LAB L300.4200 Normal INR 1.7 Performed By: #### L300.3900, L300.4310 #### [facility] [address] [place], [address] PARTIAL THROMBOPLAST Collected: 09/30/2018 Status: F Source: [place] TIME 11:10 AM [facility] [place] REPOSITORY TYPE CODE TESTS RESULT OUT OF RANGE REFERENCE UNITS LAB L300.4310 24.1-36.2 Seconds Normal PTT 35.8 Performed By: #### L300.3900, L300.4310 #### [facility] [address] [place], [address] CBC W/DIFF, AUTOMATED Collected: 09/30/2018 Status: C Source: [place] 11:10 AM [facility] [place] REPOSITORY TYPE CODE TESTS RESULT OUT OF RANGE REFERENCE UNITS LAB L100.1000 4.4-11.0 K/mm3 Low WBC 1.7 LAB L100.1200 4.6-6.2 M/mm3 Low RBC 4.12 LAB L100.1300 13.0-16.5 g/dl Low HGB 11.0 LAB L100.1400 40-54 % Low HCT 35.4 LAB L100.1500 80-94 fL Normal MCV 85.9 LAB L100.1600 27.0-32.0 pg Low MCH 26.7 LAB L100.1700 32-36 g/gl Low MCHC 31.1 LAB L100.1810 11.6-14.6 % High RDW CV 19.8 LAB L100.1820 35.1-43.9 fl High RDW SD 59.9 LAB L100.1900 150-450 K/mm3 Low PLT 84 LAB L100.2000 6.2-12.0 fl High MPV 12.2 LAB L100.2100 47-70 % Normal NEUT% 65.3 LAB L100.2200 19-41 % Normal LY% 31.2 LAB L100.2300 0-10 % Normal MONO% 2.3 LAB L100.2400 0-5 % Normal EO% 0.0 LAB L100.2500 0-1 % Normal BASO% 0.6 LAB L100.2550 0.0-0.9 % Normal IM GRAN % 0.600 Result Comment: IG% - Immature Granulocytes (promyelocytes, myelocytes and metamyelocytes) > 1% indicates that a LEFT SHIFT is Present. LAB L100.2620 2.0-7.7 X10 3/uL Low Absolute Neut 1.1 LAB L100.2720 0.83-4.51 X10 3/ul Low Absolute Lymph 0.54 LAB L100.4500 SMEAR Normal COMMENT Result Comment: LYMPHOPENIA NOTED LAB L100.5500 ADEQ Normal PLT MOD DEC EST LAB L100.7000 NORM C AND NORMAL C N Normal RED CHROM CELL MORPH LAB L100.7300 1+ Normal ANISO LAB L100.9900 Normal PATH Reviewed REV Result Comment: Pancytopenia. Leukopenia. Normocytic anemia. Moderate Thrombocytopenia. Clinical correlation necessary. Gera Carpenter D.O. 10/01/18 AMENDED REPORT 10/01/18 1333 PATH REV previously reported as: Rowena dunlap Performed By: #### L100.0100, L100.4425 #### [facility] [address] [place], [address] NRBC PANEL Collected: 09/30/2018 Status: F Source: [place] 11:10 AM [facility] [place] REPOSITORY TYPE CODE TESTS RESULT OUT OF RANGE REFERENCE UNITS LAB L100.4450 0-5 % High NRBC, FLAGGED 15.6 LAB L100.4455 0-5 10 3/uL Normal NRBC # 0.27 Performed By: #### L100.0100, L100.4425 #### [facility] [address] [place], [address] COMPREHENSIVE METABOLIC Collected: 09/30/2018 Status: F Source: [place] [facility] 11:10 AM [facility] [place] REPOSITORY Order Comment: 'TROP' Serial specimen #1, #2, #3, or #4: 1 TYPE CODE TESTS RESULT OUT OF RANGE REFERENCE UNITS LAB L501.0100 74-106 mg/dL High GLU 107 Result Comment: Fasting Glucose result from 100 to 125 mg/dL suggests IMPAIRED HOMEOSTASIS per A.D.A. criteria. Please note revised GLUCOSE reference range effective 2017. LAB L501.1000 7-18 mg/dL High alert BUN 128 LAB L501.1100 0.70-1.30 mg/dL High 5.59 CREAT,SERUM Result Comment: The validity of the calculated GFR AND GFRAA in patients over 70 years has not been determined. Clinical correlation is essential. LAB L501.1110 >60 mL/min Low EST GFR 11 Result Comment: Non- GFR Calc LAB L501.1115 >60 mL/min Low EST GFR - AA 13 Result Comment: GFR Calc LAB L501.1255 ml/min Normal Estimated CRCL 13.69 LAB L501.1300 10-20 RATIO High BUN/CRE 22.9 LAB L501.1500 6.4-8. g/dL Low 2 T PROT 4.9 LAB L501.1800 3.2-5. g/dL Low 0 ALB 1.9 LAB L501.1950 2.2-4. g/dL Normal 2 GLOB 3.0 LAB L501.2000 0.9-2. RATIO Low 4 A/G 0.6 LAB L501.2200 8.5-10 mg/dL Low .1 CA 7.9 LAB L501.4100 15-37 U/L Normal AST 27 LAB L501.4305 45-117 U/L Normal ALK P 100 LAB L501.4405 16-61 U/L Normal ALT 39 LAB L501.4600 0.20-1 mg/dL Normal .00 T BILI 1.00 LAB L501.5300 136-14 mmol/L Normal 5 NA 137 Result Comment: Critical Result(s) Called at: 12:09:29 09/30/2018 by: Jreemy Israel RN (). LAB L501.5600 3.5-5.1 mmol/L Normal K 4.8 LAB L501.5900 98-107 mmol/L Normal CL 100 LAB L501.6100 21.0-32.0 mmol/L Low CO2 18.0 LAB L501.6200 5-15 High GAP 19 Performed By: #### L500.4050, L501.4010 #### [facility] [address] [place], [place], [address] TROPONIN-I Collected: 09/30/2018 Status: F Source: [place] 11:10 AM [facility] REPOSITORY Order Comment: 'TROP' Serial specimen #1, #2, #3, or #4: 1 TYPE CODE TESTS RESULT OUT OF RANGE REFERENCE UNITS LAB L501.4010 <0.045 ng/mL High 0.267 TROPONIN-I Result Comment: TROPONIN-I EXPECTED VALUES <0.045 Negative 0.045 - 0.590 Consistent with Cardiac Damage > OR = 0.600 Critical Value Not every elevated troponin is indicative of NE. These values should be used with clinical judgement in examining the patient's clinical picture for diagnosis. To establish a diagnosis of NE versus myocardial injury, there must be a demonstrated rise and/or fall in the troponin values, in addition to ischemic symptoms, EKG changes, new regional wall motion abnormality, and/or angiographical evidence. PLEASE NOTE: REFERENCE RANGES EDITED 18 Performed By: #### L500.4050, L501.4010 #### [facility] [address] [place], [address] LACTIC ACID Collected: 09/30/2018 Status: F Source: [place] 11:10 AM [facility] REPOSITORY Order Comment: Yes/No query for Sepsis Lactate Rule Y TYPE CODE TESTS RESULT OUT OF REFERENCE UNITS RANGE LAB L503.6005 0.4-2.0 mmol/L High alert LACTIC ACID 8.1 Result Comment: Critical Result(s) Called at: 12:11:07 09/30/2018 by: Patti Huddleston RN (ER). Performed By: #### L503.6005 #### [facility] [address] [place], [address] Observed: 09/30/2018 Status: F Source: [place] CULTURE, BLOOD (WB) 11:10 AM [facility] REPOSITORY BC AEROBIC BOTTLE GRAM STAIN COLLECTED ON 09/30/18 AT 1110. UPON FURTHER REVIEW, GRAM NEGATIVE RODS ARE PRESENT. Possible Multi-Drug Resistant Organism. ORGANISM 1: Acinetobacter baumannii Amount Growth Growth Acinetobacter baumannii: REACTION Meropenem $ >=16 R Tigecycline $$$$ 2 S Tetracycline NF >=16 R (NF) indicates non-formulary drug at [facility]. Approval by Infectious Disease Specialist required before non-formulary drugs may be ordered and/or dispensed. Acinetobacter baumannii: REACTION Cefepime $ 32 R Ceftazidime *NF 4 R Ceftriaxone $ 32 I Ciprofloxacin $ >=4 R Gentamicin $ 4 S Imipenem *NF >=16 R Levofloxacin $ >=8 R Tobramycin $ 8 I Trimethoprim/Sulfametho $ >=320 R (NF) indicates non-formulary drug at [facility]. Approval by Infectious Disease Specialist required before non-formulary drugs may be ordered and/or dispensed. Performed By: #### M200.1000 #### [facility] [address] [place], [address] BEDSIDE GLUCOSE Collected: 09/30/2018 Status: F Source: [place] 11:06 AM [facility] [place] REPOSITORY TYPE CODE TESTS RESULT OUT OF REFERENCE UNITS RANGE LAB L501.080 70-110 mg/dL High BEDSIDE GLU 132 Result Comment: MANAGEMENT OF PATIENT CARE PER NURSING PROTOCOL Performed By: #### L501.080 #### [facility] Point of Care [address] [place] [address] CHEST 1 VIEW Observed: 09/30/2018 Status: F Source: [place] (PORTABLE) 11:03 AM [facility] [place] REPOSITORY [facility] Imaging Services [address] [place] [address] Chest 1 View (Portable) MR#: [id number] Acct: [id number] Name: Ceferino Piña Rep #: [id number] : 1950 M 67 From: Tyshawn Gleason MD PCP: Care Physician, No Primary Status: PRE ER Study: Chest 1 View (Portable) Date of Exam: 09/30/18 Exam# [id number] Ordering Dr: Suhas Womack MD STUDY: X-RAY CHEST REASON FOR EXAM: Male, 67 years old. Unresponsive. Hypoglycemic. Hypotensive. TECHNIQUE: Single AP portable view of the chest. COMPARISON: Comparison is made with prior study dated September 02, 2018. FINDINGS: A right-sided double-lumen catheter is seen with the tip at the junction of the superior vena cava and right atrium. There is evidence of vascular congestion and mild degree of CHF. There is no demonstrated pleural abnormality. Sternal cerclage wires and vascular clips are present from a prior sternotomy and coronary artery bypass graft procedure (CABG). Mild cardiomegaly. A left-sided dual-chamber pacemaker is seen. Normal mediastinum and elle. Normal visualized pulmonary arteries. Normal visualized aortic arch and descending thoracic aorta. Normal visualized thoracic spine. Normal visualized ribs, clavicles, and shoulders. There is no demonstrated abnormality of the visualized soft tissue structures of the upper abdomen. RAD/Chest 1 View (Portable) IMPRESSION: Findings in keeping with vascular congestion and mild CHF. Electronically Signed: Tyshawn Gleason MD at 11:25 EST Tel [phone], Service support , CC: No Primary Care Physician; Suhas Womack MD Freight Car Cleaner: Signed BEDSIDE GLUCOSE Collected: 09/30/2018 Status: F Source: [place] 10:53 AM [facility] REPOSITORY TYPE CODE TESTS RESULT OUT OF REFERENCE UNITS RANGE LAB L501.080 70-110 mg/dL High BEDSIDE GLU 136 Result Comment: MANAGEMENT OF PATIENT CARE PER NURSING PROTOCOL Performed By: #### L501.080 #### [facility] Point of Care [address] [place], [place] [id number] BEDSIDE GLUCOSE Collected: 09/30/2018 Status: F Source: [place] 10:42 AM [facility] REPOSITORY TYPE CODE TESTS RESULT OUT OF REFERENCE UNITS RANGE LAB L501.080 70-110 mg/dL Low alert BEDSIDE GLU 33 Result Comment: Dextrose 50 Given MANAGEMENT OF PATIENT CARE PER NURSING PROTOCOL Performed By: #### L501.080 #### [facility] Point of Care [address] [place] [address] COMPREHENSIVE METABOLIC Collected: 09/28/2018 Status: F [facility] RE[facility] TYPE CODE TESTS RESULT OUT OF RANGE REFERENCE UNITS LAB L501.0100 74-106 mg/dL Normal GLU 94 Result Comment: Please note revised GLUCOSE reference range effective 2017. LAB L501.1000 7-18 mg/dL High BUN 96 LAB L501.1100 0.70-1.30 mg/dL High CREAT,SERUM 4.16 Result Comment: The validity of the calculated GFR AND GFRAA in patients over 70 years has not been determined. Clinical correlation is essential. LAB L501.1110 >60 mL/min Low EST GFR 15 Result Comment: Non- GFR Calc LAB L501.1115 >60 mL/min Low EST GFR - AA 18 Result Comment: GFR Calc LAB L501.1300 10-20 RATIO High BUN/CRE 23.1 LAB L501.1500 6.4-8.2 g/dL T Normal PROT 6.7 LAB L501.1800 3.2-5.0 g/dL Low ALB 2.9 LAB L501.1950 2.2-4.2 g/dL Normal GLOB 3.8 LAB L501.2000 0.9-2.4 RATIO Low A/G 0.8 LAB L501.2200 8.5-10.1 mg/dL CA Normal 8.7 LAB L501.4100 15-37 U/L Normal AST 28 LAB L501.4305 45-117 U/L High ALK P 159 LAB L501.4405 16-61 U/L High ALT 65 LAB L501.4600 0.20-1.00 mg/dL T Normal BILI 0.70 LAB L501.5300 136-145 mmol/L NA Normal 137 LAB L501.5600 3.5-5.1 mmol/L K Normal 4.5 LAB L501.5900 98-107 mmol/L CL Normal 98 LAB L501.6100 21.0-32.0 mmol/L Normal CO2 24.0 LAB L501.6200 5-15 Normal GAP 15 Performed By: #### L500.4050 #### [facility] [address] [place], [address] CBC W/DIFF, AUTOMATED Collected: 09/27/2018 Status: C Source: [place] 6:35 AM [facility] REPOSITORY Order Comment: 110 TYPE CODE TESTS RESULT OUT OF RANGE REFERENCE UNITS LAB L100.1000 4.4-11.0 K/mm3 Normal WBC 8.7 LAB L100.1200 4.6-6.2 M/mm3 Low RBC 4.48 LAB L100.1300 13.0-16.5 g/dl Low HGB 12.2 LAB L100.1400 40-54 % Low HCT 38.8 LAB L100.1500 80-94 fL Normal MCV 86.6 LAB L100.1600 27.0-32.0 pg Normal MCH 27.2 LAB L100.1700 32-36 g/gl Low MCHC 31.4 LAB L100.1810 11.6-14.6 % High RDW CV 19.3 LAB L100.1820 35.1-43.9 fl High RDW SD 58.3 LAB L100.1900 150-450 K/mm3 Low PLT 112 LAB L100.2000 6.2-12.0 fl Normal MPV 12.0 LAB L100.2100 47-70 % High NEUT% 78.5 LAB L100.2200 19-41 % Low LY% 14.1 LAB L100.2300 0-10 % Normal MONO% 4.5 LAB L100.2400 0-5 % Normal EO% 0.5 LAB L100.2500 0-1 % Normal BASO% 0.2 LAB L100.2550 0.0-0.9 % High IM GRAN % 2.200 Result Comment: IG% - Immature Granulocytes (promyelocytes, myelocytes and metamyelocytes) > 1% indicates that a LEFT SHIFT is Present. LAB L100.2620 2.0-7.7 X10 3/uL Normal Absolute Neut 6.9 LAB L100.2720 0.83-4.51 X10 3/ul Normal Absolute Lymph 1.23 LAB L100.9900 Normal PATH REV Reviewed Result Comment: Neutrophilic left shift. Mild Thrombocytopenia. Clinical correlation necessary. Odilon Tavares M.D. 09/27/18 AMENDED REPORT 09/27/18 1358 PATH REV previously reported as: January germán Performed By: #### L100.0100 #### [facility] [address] [place] [address]. [place], [place], [address] CBC W/DIFF, AUTOMATED Collected: 09/23/2018 Status: C Source: [place] 4:50 AM [facility] REPOSITORY Order Comment: 110 TYPE CODE TESTS RESULT OUT OF RANGE REFERENCE UNITS LAB L100.1000 4.4-11.0 K/mm3 High WBC 11.4 LAB L100.1200 4.6-6.2 M/mm3 Low RBC 4.36 LAB L100.1300 13.0-16.5 g/dl Low HGB 11.8 LAB L100.1400 40-54 % Low HCT 37.6 LAB L100.1500 80-94 fL Normal MCV 86.2 LAB L100.1600 27.0-32.0 pg Normal MCH 27.1 LAB L100.1700 32-36 g/gl Low MCHC 31.4 LAB L100.1810 11.6-14.6 % High RDW CV 18.5 LAB L100.1820 35.1-43.9 fl High RDW SD 55.4 LAB L100.1900 150-450 K/mm3 Normal PLT 162 LAB L100.2000 6.2-12.0 fl Normal MPV 11.7 LAB L100.2100 47-70 % High NEUT% 75.4 LAB L100.2200 19-41 % Low LY% 15.0 LAB L100.2300 0-10 % Normal MONO% 7.2 LAB L100.2400 0-5 % Normal EO% 0.2 LAB L100.2500 0-1 % Normal BASO% 0.2 LAB L100.2550 0.0-0.9 % High IM GRAN % 2.000 Result Comment: IG% - Immature Granulocytes (promyelocytes, myelocytes and metamyelocytes) > 1% indicates that a LEFT SHIFT is Present. LAB L100.2620 2.0-7.7 X10 3/uL High Absolute Neut 8.6 LAB L100.2720 0.83-4.51 X10 3/ul Normal Absolute Lymph 1.70 LAB L100.9900 Normal PATH REV Reviewed Result Comment: Neutrophilic leukocytosis. Clinical correlation necessary. Odilon Tavares M.D. 09/25/18 AMENDED REPORT 09/25/18 1320 PATH REV previously reported as: January Performed By: #### L100.0100, L100.4425 #### [facility] [address] [place] [address]. [place], [place], [id number] NRBC PANEL Collected: 09/23/2018 Status: F Source: [place] 4:50 AM [facility] REPOSITORY Order Comment: 110 TYPE CODE TESTS RESULT OUT OF RANGE REFERENCE UNITS LAB L100.4450 0-5 % Normal NRBC, FLAGGED 0.9 LAB L100.4455 0-5 10 3/uL Normal NRBC # 0.10 Performed By: #### L100.0100, L100.4425 #### [facility] [address] [facility] [place], [place], [address] COMPREHENSIVE METABOLIC Collected: 09/23/2018 Status: F Source: [facility] 4:50 AM [facility] REPOSITORY Order Comment: 110 TYPE CODE TESTS RESULT OUT OF RANGE REFERENCE UNITS LAB L501.0100 74-106 mg/dL Normal GLU 94 Result Comment: Please note revised GLUCOSE reference range effective 2017. LAB L501.1000 7-18 mg/dL High BUN 68 LAB L501.1100 0.70-1.30 mg/dL High CREAT,SERUM 3.46 Result Comment: The validity of the calculated GFR AND GFRAA in patients over 70 years has not been determined. Clinical correlation is essential. LAB L501.1110 >60 mL/min Low EST GFR 19 Result Comment: Non- GFR Calc LAB L501.1115 >60 mL/min Low EST GFR - AA 23 Result Comment: GFR Calc LAB L501.1300 10-20 RATIO Normal BUN/CRE 19.7 LAB L501.1500 6.4-8.2 g/dL T Normal PROT 6.7 LAB L501.1800 3.2-5.0 g/dL Low ALB 2.8 LAB L501.1950 2.2-4.2 g/dL Normal GLOB 3.9 LAB L501.2000 0.9-2.4 RATIO Low A/G 0.7 LAB L501.2200 8.5-10.1 mg/dL CA Normal 8.7 LAB L501.4100 15-37 U/L Normal AST 25 LAB L501.4305 45-117 U/L High ALK P 203 LAB L501.4405 16-61 U/L High ALT 87 LAB L501.4600 0.20-1.00 mg/dL T Normal BILI 0.60 LAB L501.5300 136-145 mmol/L NA Normal 138 LAB L501.5600 3.5-5.1 mmol/L K Normal 4.8 LAB L501.5900 98-107 mmol/L Low CL 96 LAB L501.6100 21.0-32.0 mmol/L Normal CO2 28.0 LAB L501.6200 5-15 Normal GAP 14 Performed By: #### L500.4050 #### [facility] [address] [place], [address] CBC W/DIFF, AUTOMATED Collected: 09/20/2018 Status: F Source: [place] 5:35 AM [facility] REPOSITORY Order Comment: 110 TYPE CODE TESTS RESULT OUT OF RANGE REFERENCE UNITS LAB L100.1000 4.4-11.0 K/mm3 High WBC 13.6 LAB L100.1200 4.6-6.2 M/mm3 Normal RBC 4.67 LAB L100.1300 13.0-16.5 g/dl Low HGB 12.5 LAB L100.1400 40-54 % Normal HCT 40.0 LAB L100.1500 80-94 fL Normal MCV 85.7 LAB L100.1600 27.0-32.0 pg Low MCH 26.8 LAB L100.1700 32-36 g/gl Low MCHC 31.3 LAB L100.1810 11.6-14.6 % High RDW CV 17.9 LAB L100.1820 35.1-43.9 fl High RDW SD 53.5 LAB L100.1900 150-450 K/mm3 Normal PLT 196 LAB L100.2000 6.2-12.0 fl Normal MPV 11.8 LAB L100.2100 47-70 % High NEUT% 71.4 LAB L100.2200 19-41 % Low LY% 18.6 LAB L100.2300 0-10 % Normal MONO% 8.1 LAB L100.2400 0-5 % Normal EO% 0.1 LAB L100.2500 0-1 % Normal BASO% 0.2 LAB L100.2550 0.0-0.9 % High IM GRAN % 1.600 Result Comment: IG% - Immature Granulocytes (promyelocytes, myelocytes and metamyelocytes) > 1% indicates that a LEFT SHIFT is Present. LAB L100.2620 2.0-7.7 X10 3/uL High Absolute Neut 9.7 LAB L100.2720 0.83-4.51 X10 3/ul Normal Absolute Lymph 2.52 Performed By: #### L100.0100 #### [facility] [address] [facility] [place], [address] GLUCOSE,BEDSIDE Collected: 09/14/2018 Status: F Source: [facility] 3:51 PM SYSTEM REPOSITORY TYPE CODE TESTS RESULT OUT OF RANGE REFERENCE UNITS LAB BGLU 70-100 mg/dL High 242 Glucose,Beds gaby Result Comment: Test performed by glucose meter. Results may be 10%-15% lower than serum/plasma values. (CLIA ID [id number]) Performed By: #### BGLU #### [facility] [address] [place] [id number] XA SPECIAL ANGIOGRAPHY Observed: 09/14/2018 Status: F Source: [facility] PROCEDURE 3:07 PM SYSTEM REPOSITORY Patient Name: CEFERINO PIÑA Special Procedures Exam Date/Time 09/14/2018 15:05:17 EST Exam XA Special Angiography Procedure Ordering Physician MOUSTAPHA GONSALEZ ANDREA Accession Number [id number] Reason For Exam tunneled catheter Report FLUOROSCOPIC AND ULTRASOUND-GUIDED TUNNELED CENTRAL VENOUS CATHETER PLACEMENT. 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 All of the patient's questions were answered and the patient signed informed consent. The patient was brought into the interventional radiology suite and placed supine on the table. An audible timeout was performed. The patient's right internal jugular vein was interrogated with ultrasound and found to be severely stenotic at the level that the existing right internal jugular tunneled hemodialysis catheter enters the vein. Therefore, the left internal jugular vein was interrogated with ultrasound and was found to be widely patent and compressible. The patient's left neck and chest were prepped and draped in the usual sterile fashion. Maximal sterile barrier technique was utilized. All elements of maximal sterile barrier technique including a mask, hat, sterile gown, sterile gloves, and large sterile sheet were utilized. 2% Chlorhexidine antiseptic was utilized for skin sterilization. Sterile ultrasound gel and a sterile ultrasound probe cover were also used. The subcutaneous tissues were anesthetized using 1 % lidocaine. Under direct ultrasound visualization, a 21-gauge micropuncture needle was advanced into the left internal jugular vein. A 0.018 micro puncture wire was then advanced through the needle and into the SVC under fluoroscopic guidance and the access needle was exchanged for a peel-away sheath over the wire. Attention was then directed to the patient's left chest. A subcutaneous tract was created in the right chest to the venotomy site after subcutaneous anesthesia using 1% lidocaine. A dual-lumen tunneled powerline was then pulled through the tunnel and out the venotomy site. The catheter was placed through the peel-away sheath. Postplacement imaging showed proper positioning of the tunneled central venous catheter with the tip terminating in the proximal right atrium. Both lumens of the catheter flushed and aspirated appropriately. The catheter was then sutured to the patient's skin using 2-0 silk suture. The venotomy site was closed using skin glue. The patient tolerated the procedure well and suffered no immediate complication. The patient was transferred to the recovery area in stable condition. IMPRESSION: 1. Successful uncomplicated ultrasound and fluoroscopic guided placement of a left internal jugular tunneled central venous catheter. The catheter is ready for use. Report Dictated on Final Dictated: 09/14/2018 3:07 pm Dictating Physician: MD GIFTY, QUINCY NASSAR Signed Date and Time: 09/14/2018 3:11 pm Signed by: MD DURBIN GEORGE RICHARD Transcribed Date and Time: 09/14/2018 3:07 GLUCOSE,BEDSIDE Collected: 09/14/2018 Status: F Source: [facility] 11:56 AM SYSTEM REPOSITORY TYPE CODE TESTS RESULT OUT OF RANGE REFERENCE UNITS LAB BGLU 70-100 mg/dL High 228 Glucose,Beds gaby Result Comment: Test performed by glucose meter. Results may be 10%-15% lower than serum/plasma values. (CLIA ID [id number]) Performed By: #### BGLU #### [facility] [address] [place] [phone] DISCHARGE SUMMARY Observed: 09/14/2018 Status: F Source: [facility] 7:24 AM SYSTEM REPOSITORY [facility] Discharge Summary with Discharge DayProgress Note and Transition Note Ceferino Piña : 1950 ADMIT DATE: 09/02/2018 DISCHARGE DATE: 09/14/2018 PRIMARYCARE PHYSICIAN: Darryl Kennedy MD VISIT STATUS: Admission CODE STATUS: Full Code DISCHARGE DIAGNOSES: Principal Problem: Permanent atrial fibrillation with rapid ventricular response (HCC) Active Problems: Type 2 diabetes mellitus with hyperglycemia, with long-term current use of insulin (HCC) Acute on chronic systolic heart failure (HCC) ESRD (end stage renal disease) on dialysis (HCC) Transaminitis Pulmonary infiltrate Current chronic use of systemic steroids Acute respiratory insufficiency Acute osteomyelitis (HCC) Resolved Problems: * No resolved hospital problems. * HOSPITAL COURSE: 67 yo male with multiple medical problems presents to the hospital complaining of shortness of breath. 1. Acute respiratory insufficiency --> multifactorial due to below 2. A/C HFrEF due to ischemic cardiomyopathy exacerbated by atrial fibrillation --> I/O negative 7 liters --> discharge weight 239 punds 3. Atrial fibrillation on apixaban --> amiodarone discontinued due to toxicity --> per cardiology fdc plan would be AV node ablation and BiV device placement 4. GGO on CT thorax --> nonspecific but differential includes amiodarone toxicity, pneumonia, pulmonary edema. Treatment with steroid taper, antibiotcs, volume management by HD. Needs repeat CT thorax in 4-6 weeks. 5. Transaminitis --> significantly improving --> due to amiodarone --> statin temporarily on hold as well, if LFTs normalize this needs to be resumed. 6. ESRD on HD --> access has been a challenge but now tolerating HD via tunneled catheter 7. Osteomyelitis left foot --> tunneled PICC placed and plan for 6 weeks of antimicrobial therapy, wound care, hyperbaric oxygen 8. DMII --> blood glucose needs close monitor while on higher dose prednisone 9. RA with chronic prednisone use --> baseline dose 10mg daily 10. Physical debility He is discharged to SNF. DAY OF DISCHARGE: Review of Systems Respiratory: Negative for cough and wheezing. Cardiovascular: Negative for chest pain and palpitations. Patient Vitals for the past 24 hrs: BP Temp Temp src Pulse Resp SpO2 Weight 09/14/18 0713 117/79 97.6 ?F (36.4 ?C) Temporal 81 16 97 % - 09/14/18 0458 100/69 97.3 ?F (36.3 ?C) Temporal 88 20 99 % 239 lb 4.8 oz (108.5 kg) 09/13/18 2352 98/71 97.7 ?F (36.5 ?C) Temporal 85 18 98 % - 09/13/18 2048 104/70 96.1 ?F (35.6 ?C) Temporal 91 18 93 % - 09/13/18 1540 97/72 97.3 ?F (36.3 ?C) Temporal 70 18 99 % - 09/13/18 1252 117/66 97.4 ?F (36.3 ?C) Temporal 81 18 99 % - 09/13/18 1211 93/66 98.6 ?F (37 ?C) - 60 - - 237 lb 14 oz (107.9 kg) 09/13/18 0756 126/77 97.9 ?F (36.6 ?C) Temporal 78 18 98 % - Average, Min, and Max forlast 24 hours Vitals: TEMPERATURE: Temp Av.5 ?F (36.4 ?C) Min: 96.1 ?F (35.6 ?C) Max: 98.6 ?F (37 ?C) RESPIRATIONS RANGE: Resp Av Min: 16 Max: 20 PULSE RANGE: Pulse Av.3 Min: 60 Max: 91 BLOOD PRESSURE RANGE: Systolic (24hrs), Av , Min:93 , Max:126 ; Diastolic (24hrs), Av, Min:66, Max:79 PULSE OXIMETRYRANGE: SpO2 Av.6 % Min: 93 % Max: 99 % I/O last 3 completed shifts: In: 800 [P.O.:300] Out: 3300 [Urine:300] Physical Exam Constitutional: He is oriented to person, place, and time. He appears well-developed and well-nourished. HENT: Head: Normocephalic. Mouth/Throat: Oropharynx is clear and moist. Eyes: Conjunctivae are normal. No scleral icterus. Neck: Neck supple. No JVD present. Cardiovascular: Normal rate. An irregularly irregular rhythm present. Exam reveals no gallop. No murmur heard. Pulmonary/Chest: Effort normal. He has no wheezes. He has no rales. He exhibits no tenderness. Abdominal: Soft. Bowel sounds are normal. He exhibits no distension. There is no tenderness. Musculoskeletal: He exhibits no edema or tenderness. Left foot in dressing Neurological: He is alert and oriented to person, place, and time. No cranial nerve deficit. Coordination normal. Skin: Skin is warm and dry. Psychiatric: He has a normal mood and affect. Judgment normal. PROCEDURES: Multiple revisions of VasCath Tunneled PICC CONSULTANTS: Cardiology - Dr. Wang Pulmonology - Dr. Mino ROGERS - Dr. Gomez Nephrology - Dr. Ross Vascular surgery - Dr. Marie [facility] DISCHARGE MEDICATIONS: Significant Medication Changes: amiodarone discontinued toprol XL increased Prednisone taper Atorvastatin on hold --> ok to resume when LFTs normalize renvela started Ceferino Piña Home Medication Instructions [place]:[id number] Printed on:09/14/18 8096 Medication Information allopurinol (ZYLOPRIM) 100 MG tablet Take 2 tablets by mouth daily apixaban (ELIQUIS) 2.5 MG TABS tablet Take 1 tablet by mouth 2 times daily blood glucose monitor strips Test twice daily. Brand: accucheck esperanza or patient/insurance preference. Dx: E11.9. Blood Glucose Monitoring Suppl ERIKA Test twice daily. Brand: accucheck esperanza or patient/insurance preference. Dx: E11.9. calcitRIOL (ROCALTROL) 0.25 MCG capsule Take 1 capsule by mouth daily insulin detemir (LEVEMIR FLEXTOUCH) 100 UNIT/ML injection pen Inject 21 Units into the skin nightly insulin lispro (HUMALOG) 100 UNIT/ML injection vial Inject 0-3 Units into the skin nightly insulin lispro (HUMALOG) 100 UNIT/ML injection vial Inject 0-6 Units into the skin 3 times daily (with meals) Insulin Pen Needle 30G X 8 MM MISC 1 each by Does not apply route 4 times daily Lancets MISC Test twice daily. Brand: patient/insurance preference. Dx: E11.9. LORazepam (ATIVAN) 0.5 MG tablet Take 1 tablet by mouth 2 times daily as needed for Anxiety for up to 30 days.. metoprolol succinate (TOPROL XL) 200 MG extended release tablet Take 1 tablet by mouth daily piperacillin-tazobactam (ZOSYN) infusion See IV antibiotic orders predniSONE (DELTASONE) 10 MG tablet 4 po daily x3 weeks, then 3 po daily x3 weeks, then 2 po daily x3 weeks, then resume 1 po daily indefinitely sevelamer (RENVELA) 800 MG tablet Take 2 tablets by mouth 3 times daily (with meals) vancomycin (VANCOCIN) infusion See IV antibiotic infusion sheet for instructions DIET: carb controlled ACTIVITY: resume regular activity SIGNIFICANT DIAGNOSTIC STUDIES: n/a DISPOSITION: Skilled Facility FACILITY/HOME CARE AGENCY NAME: [facility] Follow up with Darryl Kennedy MD when out of SNF Notification (telephone encounter) to PCP initiated: [x] Yes [] No INSTRUCTIONS TO MA/SW: Please call patient on day after discharge (must document patient contacted within 2 business days of discharge). FOLLOW UP QUESTIONS FOR MA/SW: 1. Did you get medications filled and takingthem as instructed from discharge? 2. Are you following your discharge instructions from your hospital stay? 3. Please confirm patient is scheduled for a follow up appointment within the above time frame. DISCHARGE TIME: > 30 minutes OSE,BEDSIDE Collected: 09/14/2018 Status: F Source: [facility] 7:14 AM SYSTEM REPOSITORY TYPE CODE TESTS RESULT OUT OF RANGE REFERENCE UNITS LAB BGLU 70-100 mg/dL High 254 Glucose,Beds gaby Result Comment: Test performed by glucose meter. Results may be 10%-15% lower than serum/plasma values. (CLIA ID [id number]) Performed By: #### BGLU #### [facility] [address] [place] [phone] HEMOGRAM Collected: 09/14/2018 Status: F Source: [facility] 5:15 AM SYSTEM REPOSITORY TYPE CODE TESTS RESULT OUT OF RANGE REFERENCE UNITS LAB IWBC 3.6-10.7 10*3/uL WBC Normal 7.8 LAB RBC 4.40-5.90 10*6/uL Low RBC 4.13 LAB HGB 13.0-18.0 g/dL Low Hemoglobin 11.2 LAB HCT 40.0-52.0 % Low Hematocrit 34.5 LAB MCV 80.0-98.0 fL MCV Normal 83.6 LAB MCH 26.0-34.0 pg MCH Normal 27.1 LAB MCHC 32.0-36.0 % MCHC Normal 32.4 LAB RDW 11.5-14.5 % High RDW 17.4 LAB PLT 140-440 10*3/uL Platelet Normal 187 LAB MPV 7.4-10.4 fL MPV Normal 10.0 Performed By: #### HEMOG, BMP3M, PHOS3, LFT3 #### [facility] [address] [place] [phone] BASIC METABOLIC PANEL Collected: 09/14/2018 Status: F Source: [facility] 5:15 AM SYSTEM REPOSITORY TYPE CODE TESTS RESULT OUT OF REFERENCE UNITS RANGE LAB NA3 135-145 mmol/L Low Sodium 132 Result Comment: NOTE: New Sodium Reference Range effective 2018 @ 10:00 LAB K3 3.5-5.1 mmol/L Normal Potassium 4.2 LAB CL3 98-107 mmol/L Low Chloride 94 LAB CO23 22-30 mmol/L Normal Carbon Dioxide 25 LAB ANIN3 NA Anion Gap 13 LAB GLUC3 70-100 mg/dL High Glucose 252 LAB BUN3 7-20 mg/dL High Urea Nitrogen 81 LAB CRET3 0.52-1.25 mg/dL High Creatinine 5.11 LAB GF3BR >60 mL/min eGFR 13.6 LAB GF3WR >60 mL/min eGFR OTHER 11.2 Result Comment: Source- MDRD equation with creatinine calibration to IDMS(NKDEP) eGFR not recommended for drug dose adjustment LAB CA3 8.4-10.4 mg/dL Normal Calcium 8.6 Performed By: #### HEMOG, BMP3M, PHOS3, LFT3 #### [facility] [address] [place] [phone] PHOSPHORUS Collected: 09/14/2018 Status: F Source: [facility] 5:15 AM SYSTEM REPOSITORY TYPE CODE TESTS RESULT OUT OF REFERENCE UNITS RANGE LAB PHOS3 2.5-4.5 mg/dL High Phosphorus 6.6 Performed By: #### HEMOG, BMP3M, PHOS3, LFT3 #### [facility] [address] [place] [phone] HEPATIC FUNCTION Collected: 09/14/2018 Status: F Source: [facility] 5:15 AM SYSTEM REPOSITORY TYPE CODE TESTS RESULT OUT OF RANGE REFERENCE UNITS LAB ALB3 3.5-5.0 g/dL Low Albumin, Serum 3.3 LAB TP3 6.3-8.2 g/dL Low Total Protein 6.0 LAB BILT3 0.2-1.3 mg/dL Normal Bilirubin,Total 0.8 LAB BILD3 0.0-0.3 mg/dL Normal Bilirubin,Direct 0.0 LAB ALKP3 38-126 U/L High Alkaline Phosphatase 192 LAB ALT3 13-69 U/L High ALT (SGPT) 221 LAB AST3 15-46 U/L High AST (SGOT) 66 Performed By: #### HEMOG, BMP3M, PHOS3, LFT3 #### [facility] [address] [place] [address] GLUCOSE,BEDSIDE Collected: 09/13/2018 Status: F Source: [facility] 9:06 PM SYSTEM REPOSITORY TYPE CODE TESTS RESULT OUT OF RANGE REFERENCE UNITS LAB BGLU 70-100 mg/dL High 254 Glucose,Beds gaby Result Comment: Test performed by glucose meter. Results may be 10%-15% lower than serum/plasma values. (CLIA ID [id number]) Performed By: #### BGLU #### [facility] [address] [place] [address] GLUCOSE,BEDSIDE Collected: 09/13/2018 Status: F Source: [facility] 2:35 PM SYSTEM REPOSITORY TYPE CODE TESTS RESULT OUT OF RANGE REFERENCE UNITS LAB BGLU 70-100 mg/dL High 134 Glucose,Beds gaby Result Comment: Test performed by glucose meter. Results may be 10%-15% lower than serum/plasma values. (CLIA ID [id number]) Performed By: #### BGLU #### [facility] [address] [place] [address] GLUCOSE,BEDSIDE Collected: 09/13/2018 Status: F Source: [facility] 12:54 PM SYSTEM REPOSITORY TYPE CODE TESTS RESULT OUT OF RANGE REFERENCE UNITS LAB BGLU 70-100 mg/dL High 182 Glucose,Beds gaby Result Comment: Test performed by glucose meter. Results may be 10%-15% lower than serum/plasma values. (CLIA ID [id number]) Performed By: #### BGLU #### [facility] [address] [place] [address] GLUCOSE,BEDSIDE Collected: 09/13/2018 Status: F Source: [facility] 7:08 AM SYSTEM REPOSITORY TYPE CODE TESTS RESULT OUT OF RANGE REFERENCE UNITS LAB BGLU 70-100 mg/dL High 177 Glucose,Beds gaby Result Comment: Test performed by glucose meter. Results may be 10%-15% lower than serum/plasma values. (CLIA ID [id number]) Performed By: #### BGLU #### [facility] [address] [place] [address] HEMOGRAM Collected: 09/13/2018 Status: F Source: [facility] 4:54 AM SYSTEM REPOSITORY TYPE CODE TESTS RESULT OUT OF RANGE REFERENCE UNITS LAB IWBC 3.6-10.7 10*3/uL WBC Normal 8.4 LAB RBC 4.40-5.90 10*6/uL Low RBC 4.15 LAB HGB 13.0-18.0 g/dL Low Hemoglobin 11.2 LAB HCT 40.0-52.0 % Low Hematocrit 34.7 LAB MCV 80.0-98.0 fL MCV Normal 83.6 LAB MCH 26.0-34.0 pg MCH Normal 26.9 LAB MCHC 32.0-36.0 % MCHC Normal 32.2 LAB RDW 11.5-14.5 % High RDW 17.6 LAB PLT 140-440 10*3/uL Platelet Normal 173 LAB MPV 7.4-10.4 fL MPV Normal 9.7 Performed By: #### HEMOG, BMP3M, PHOS3, LFT3 #### [facility] [address] [place] [phone] BASIC METABOLIC PANEL Collected: 09/13/2018 Status: F Source: [facility] 4:54 AM SYSTEM REPOSITORY TYPE CODE TESTS RESULT OUT OF RANGE REFERENCE UNITS LAB NA3 135-145 mmol/L Normal Sodium 138 Result Comment: NOTE: New Sodium Reference Range effective 2018 @ 10:00 LAB K3 3.5-5.1 mmol/L Normal Potassium 3.7 LAB CL3 98-107 mmol/L Low Chloride 97 LAB CO23 22-30 mmol/L Normal Carbon Dioxide 25 LAB ANIN3 NA Anion Gap 15 LAB GLUC3 70-100 mg/dL High Glucose 148 LAB BUN3 7-20 mg/dL High Urea Nitrogen 93 LAB CRET3 0.52-1.25 mg/dL High Creatinine 5.45 LAB GF3BR >60 mL/min eGFR 12.7 LAB GF3WR >60 mL/min eGFR OTHER 10.4 Result Comment: Source- MDRD equation with creatinine calibration to IDMS(NKDEP) eGFR not recommended for drug dose adjustment LAB CA3 8.4-10.4 mg/dL Low Calcium 8.3 Performed By: #### HEMOG, BMP3M, PHOS3, LFT3 #### [facility] [address] [phone] PHOSPHORUS Collected: 09/13/2018 Status: F Source: [facility] 4:54 AM SYSTEM REPOSITORY TYPE CODE TESTS RESULT OUT OF REFERENCE UNITS RANGE LAB PHOS3 2.5-4.5 mg/dL High Phosphorus 7.4 Performed By: #### HEMOG, BMP3M, PHOS3, LFT3 #### [facility] [address] [place] [phone] HEPATIC FUNCTION Collected: 09/13/2018 Status: F Source: [facility] 4:54 AM SYSTEM REPOSITORY TYPE CODE TESTS RESULT OUT OF RANGE REFERENCE UNITS LAB ALB3 3.5-5.0 g/dL Low Albumin, Serum 3.1 LAB TP3 6.3-8.2 g/dL Low Total Protein 5.6 LAB BILT3 0.2-1.3 mg/dL Normal Bilirubin,Total 0.8 LAB BILD3 0.0-0.3 mg/dL Normal Bilirubin,Direct 0.0 LAB ALKP3 38-126 U/L High Alkaline Phosphatase 143 LAB ALT3 13-69 U/L High ALT (SGPT) 271 LAB AST3 15-46 U/L High AST (SGOT) 82 Performed By: #### HEMOG, BMP3M, PHOS3, LFT3 #### [facility] [address] [place] [address] GLUCOSE,BEDSIDE Collected: 09/12/2018 Status: F Source: [facility] 9:41 PM SYSTEM REPOSITORY TYPE CODE TESTS RESULT OUT OF RANGE REFERENCE UNITS LAB BGLU 70-100 mg/dL High 181 Glucose,Beds gaby Result Comment: Test performed by glucose meter. Results may be 10%-15% lower than serum/plasma values. (CLIA ID [id number]) Performed By: #### BGLU #### [facility] [address] [address] GLUCOSE,BEDSIDE Collected: 09/12/2018 Status: F Source: [facility] 6:27 PM SYSTEM REPOSITORY TYPE CODE TESTS RESULT OUT OF RANGE REFERENCE UNITS LAB BGLU 70-100 mg/dL High 156 Glucose,Beds gaby Result Comment: Test performed by glucose meter. Results may be 10%-15% lower than serum/plasma values. (CLIA ID [id number]) Performed By: #### BGLU #### [facility] [address] [place] [address] GLUCOSE,BEDSIDE Collected: 09/12/2018 Status: F Source: [facility] 12:04 PM SYSTEM REPOSITORY TYPE CODE TESTS RESULT OUT OF RANGE REFERENCE UNITS LAB BGLU 70-100 mg/dL High 219 Glucose,Beds gaby Result Comment: Test performed by glucose meter. Results may be 10%-15% lower than serum/plasma values. (CLIA ID [id number]) Performed By: #### BGLU #### [facility] [address] [place] [address] ADD ON TEST FROM Collected: 09/12/2018 Status: F Source: [facility] 11:36 AM SYSTEM REPOSITORY TYPE CODE TESTS RESULT OUT OF REFERENCE UNITS RANGE LAB ADDON NA Add Accepted on test from [facility] Result Comment: Specimen available & acceptable for analysis. Performed By: #### ADDON #### [facility] [address] [place] [address] GLUCOSE,BEDSIDE Collected: 09/12/2018 Status: F Source: [facility] 7:15 AM SYSTEM REPOSITORY TYPE CODE TESTS RESULT OUT OF RANGE REFERENCE UNITS LAB BGLU 70-100 mg/dL High 130 Glucose,Beds gaby Result Comment: Test performed by glucose meter. Results may be 10%-15% lower than serum/plasma values. (CLIA ID [id number]) Performed By: #### BGLU #### [facility] [address] [place] [address] [address] CHEST W/O CONTRAST Observed: 09/12/2018 Status: F Source: [facility] 5:48 AM SYSTEM REPOSITORY Patient Name: CEFERINO PIÑA CT Exam Date/Time 09/11/2018 21:54:[address] Chest w/o Contrast Ordering Physician DO AC BENSON Accession Number [id number] CPT4 Codes 88638 (CT Chest w/o Contrast) Reason For Exam INTERSTITIAL LUNG DISEASE Report CT CHEST WITHOUT CONTRAST: CLINICAL INDICATION: Shortness of breath and interstitial lung disease. Renal failure TECHNIQUE: Transaxial sequence through the chest from apices through the bases at 1 mm reconstruction interval. Coronal and sagittal reconstruction images reviewed. Dose reduction was employed with automated exposure control. COMPARISON: Chest radiograph from 09/03/2018 FINDINGS: Lungs: Extensive groundglass opacities are noted throughout the right lung and throughout the left lower lobe with relative sparing of the periphery and sparing of the left upper lobe. There are also thin irregular reticular opacities in association with the groundglass opacities as well. A bleb is noted in the left lower hemithorax adjacent to the major fissure measuring 2.5 cm. There is no other evidence for emphysema. No bronchiectasis is noted. There are no nodular foci and no honeycombing is noted. There is no parenchymal or pleural-based nodule throughout the aerated portions of the lungs. Pleural fluid: None. Heart/Great vessels: Cardiac chambers are moderately enlarged. Pacemaker wires are noted. There are dense coronary artery calcifications, although there has been coronary artery bypass surgery. Mediastinum/Elle: No enlarged mediastinal or hilar lymph nodes are identified. Chest wall and lower neck: Pacemaker device is noted in the left chest wall without other abnormality. Upper abdomen: No abnormality throughout the visualized portions of liver. Visualized portions of the spleen are normal. The adrenals are unremarkable. Multiple gallstones fill the gallbladder. The kidneys are diminutive in size Osseous structures: Degenerative change of the thoracic spine is noted. IMPRESSION: 1. Pattern of interstitial opacities mostly groundglass throughout the right lung and left lower lobe with sparing of the periphery and absent honeycombing. This may correspond to nonspecific interstitial pneumonitis 2. Cardiomegaly. 3. Cholelithiasis Report Dictated on Workstation: [id number] Final Dictated: 09/12/2018 5:48 am Dictating Physician: MD ABURTO JEFFREY Signed Date and Time: 09/12/2018 5:53 am Signed by: MD ABURTO JEFFREY Transcribed Date and Time: 09/12/2018 5:48 HEMOGRAM Collected: 09/12/2018 Status: F Source: [facility] 2:30 AM SYSTEM REPOSITORY TYPE CODE TESTS RESULT OUT OF RANGE REFERENCE UNITS LAB IWBC 3.6-10.7 10*3/uL WBC Normal 9.4 LAB RBC 4.40-5.90 10*6/uL RBC Normal 4.53 LAB HGB 13.0-18.0 g/dL Low Hemoglobin 12.2 LAB HCT 40.0-52.0 % Low Hematocrit 37.6 LAB MCV 80.0-98.0 fL MCV Normal 83.1 LAB MCH 26.0-34.0 pg MCH Normal 26.9 LAB MCHC 32.0-36.0 % MCHC Normal 32.4 LAB RDW 11.5-14.5 % High RDW 17.5 LAB PLT 140-440 10*3/uL Platelet Normal 196 LAB MPV 7.4-10.4 fL MPV Normal 9.9 Performed By: #### HEMOG, BMP3M, PHOS3, LFT3, VANCT, PCAL #### [facility] [address] [place] [phone] BASIC METABOLIC PANEL Collected: 09/12/2018 Status: F Source: [facility] 2:30 AM SYSTEM REPOSITORY TYPE CODE TESTS RESULT OUT OF RANGE REFERENCE UNITS LAB NA3 135-145 mmol/L Normal Sodium 137 Result Comment: NOTE: New Sodium Reference Range effective 2018 @ 10:00 LAB K3 3.5-5.1 mmol/L Normal Potassium 4.1 LAB CL3 98-107 mmol/L Low Chloride 96 LAB CO23 22-30 mmol/L Normal Carbon Dioxide 27 LAB ANIN3 NA Anion Gap 15 LAB GLUC3 70-100 mg/dL High Glucose 107 LAB BUN3 7-20 mg/dL High Urea Nitrogen 81 LAB CRET3 0.52-1.25 mg/dL High Creatinine 5.02 LAB GF3BR >60 mL/min eGFR 13.9 LAB GF3WR >60 mL/min eGFR OTHER 11.5 Result Comment: Source- MDRD equation with creatinine calibration to IDMS(NKDEP) eGFR not recommended for drug dose adjustment LAB CA3 8.4-10.4 mg/dL Normal Calcium 8.8 Performed By: #### HEMOG, BMP3M, PHOS3, LFT3, VANCT, PCAL #### [facility] [address] [place] [phone] PHOSPHORUS Collected: 09/12/2018 Status: F Source: [facility] 2:30 AM SYSTEM REPOSITORY TYPE CODE TESTS RESULT OUT OF REFERENCE UNITS RANGE LAB PHOS3 2.5-4.5 mg/dL High Phosphorus 6.8 Performed By: #### HEMOG, BMP3M, PHOS3, LFT3, VANCT, PCAL #### [facility] [address] [place] [phone] HEPATIC FUNCTION Collected: 09/12/2018 Status: F Source: [facility] 2:30 AM SYSTEM REPOSITORY TYPE CODE TESTS RESULT OUT OF RANGE REFERENCE UNITS LAB ALB3 3.5-5.0 g/dL Low Albumin, Serum 3.3 LAB TP3 6.3-8.2 g/dL Low Total Protein 6.1 LAB BILT3 0.2-1.3 mg/dL Normal Bilirubin,Total 0.8 LAB BILD3 0.0-0.3 mg/dL Normal Bilirubin,Direct 0.0 LAB ALKP3 38-126 U/L High Alkaline Phosphatase 194 LAB ALT3 13-69 U/L High ALT (SGPT) 374 LAB AST3 15-46 U/L High AST (SGOT) 161 Performed By: #### HEMOG, BMP3M, PHOS3, LFT3, VANCT, PCAL #### [facility] [address] [place] [phone] VANCOMYCIN TROUGH Collected: 09/12/2018 Status: F Source: [facility] 2:30 AM SYSTEM REPOSITORY TYPE CODE TESTS RESULT OUT OF REFERENCE UNITS RANGE LAB VNCT 15.0-20.0 ug/mL High Vancomycin 23.0 Trough Result Comment: . Performed By: #### HEMOG, BMP3M, PHOS3, LFT3, VANCT, PCAL #### [facility] [address] [place] [phone] PROCALCITONIN Collected: 09/12/2018 Status: F Source: [facility] 2:30 AM SYSTEM REPOSITORY TYPE CODE TESTS RESULT OUT OF RANGE REFERENCE UNITS LAB PRO <0.10 ng/mL Procalcitonin Abnormal 1.04 LAB INT3 NA Interpretation See Below Result Comment: PCT <0.50 = Low risk of severe sepsis and/or septic shock. PCT >2.00 = High risk of severe sepsis and/or septic shock. Performed By: #### HEMOG, BMP3M, PHOS3, LFT3, VANCT, PCAL #### [facility] [address] [place] [phone] GLUCOSE,BEDSIDE Collected: 09/11/2018 Status: F Source: [facility] 8:27 PM SYSTEM REPOSITORY TYPE CODE TESTS RESULT OUT OF RANGE REFERENCE UNITS LAB BGLU 70-100 mg/dL High 207 Glucose,Beds gaby Result Comment: Test performed by glucose meter. Results may be 10%-15% lower than serum/plasma values. (CLIA ID [id number]) Performed By: #### BGLU #### [facility] [address] [place], [place] GLUCOSE,BEDSIDE Collected: 09/11/2018 Status: F Source: [facility] 5:26 PM SYSTEM REPOSITORY TYPE CODE TESTS RESULT OUT OF RANGE REFERENCE UNITS LAB BGLU 70-100 mg/dL High 139 Glucose,Beds gaby Result Comment: Test performed by glucose meter. Results may be 10%-15% lower than serum/plasma values. (CLIA ID [id number]) Performed By: #### BGLU #### [facility] [place], [place] GLUCOSE,BEDSIDE Collected: 09/11/2018 Status: F Source: [facility] 11:58 AM SYSTEM REPOSITORY TYPE CODE TESTS RESULT OUT OF RANGE REFERENCE UNITS LAB BGLU 70-100 mg/dL High 164 Glucose,Beds gaby Result Comment: Test performed by glucose meter. Results may be 10%-15% lower than serum/plasma values. (CLIA ID [id number]) Performed By: #### BGLU #### [facility] [place], [place] C-REACTIVE PROTEIN Collected: 09/11/2018 Status: F Source: [facility] 11:45 AM SYSTEM REPOSITORY TYPE CODE TESTS RESULT OUT OF REFERENCE UNITS RANGE LAB 2CRP 0.0-6.0 mg/L High C-Reactive 65.0 Protein Result Comment: . Performed By: #### CRP2, ESR #### [facility] [address] [place], [place] SED RATE Collected: 09/11/2018 Status: F Source: [facility] 11:45 AM SYSTEM REPOSITORY TYPE CODE TESTS RESULT OUT OF RANGE REFERENCE UNITS LAB ESR 0-10 mm/h High Sed Rate 24 Performed By: #### CRP2, ESR #### [facility] [place], [place] XA SPECIAL ANGIOGRAPHY Observed: 09/11/2018 Status: F Source: [facility] PROCEDURE 11:40 AM SYSTEM REPOSITORY Patient Name: CEFERINO PIÑA Special Procedures Exam Date/Time 09/11/2018 10:56:23 EST Exam XA Special Angiography Procedure Ordering Physician MD ROSANNA JERE Accession Number [id number] Reason For Exam Patient needs new tunnel dialysis cvc , can push, no pull. worked on arterial got some will not run at 50 ml/minute and need 400 ml/minute. Report EXAM: Superior venacavogram with replacement of right IJ dialysis catheter. CLINICAL INFORMATION: End stage renal disease. Poorly functioning catheter. IV access required fdc for hemodialysis. ANESTHESIA: Local anesthesia is maintained with Lidocaine. OTHER MEDICATIONS: Patient was on pre-existing IV antibiotics. Contrast: 10 mL of Isovue 300. FLUOROSCOPY TIME: 0.4 minutes. FLUOROSCOPIC DOSE: Angiographic runs: 0. Fluoroscopic spot images: 0. Note: Fluoroscopic saved images were obtained. These images do not add additional exposure to ionizing radiation and were captured electronically from the imaging chain. PROCEDURE: The patient was placed supine on the angiographic table. The right neck and chest were prepped and draped in the usual fashion. All elements of sterile technique were applied: cap, mask, sterile gown, proper hand hygiene including sterile gloves, a large sterile sheet, and hospital-approved cutaneous antisepsis at the site. A wire was advanced into the existing right-sided tunneled catheter into the inferior vena cava. Over a stiff Glidewire, the pre- existing catheter was withdrawn to the proximal IVC and contrast was injected. Digital fluoroscopic images show a long segment fibrin sleeve within the superior vena cava attached to the catheter tip. Catheter was then removed over the wire and a 10 x 40 mm balloon was used to dislodge the SVC fibrin sleeve. Balloon was removed over the wire. Over a guidewire the new 23 cm double lumen cuffed hemodialysis catheter was inserted into position. Fluoroscopic spot image was saved. The distal tip of the catheter is within the distal SVC. There were no immediate applications. The patient tolerated the procedure without difficulty and was transferred to the recovery room in stable condition. IMPRESSION: 1. Technically successful disruption of the SVC fibrin sleeve with a balloon angioplasty catheter. 2. Successful exchange of a 23 cm right-sided double- lumen tunneled cuffed catheter as detailed above. The distal tip is in the right atrium and it is ready for use. Report Dictated on Final Dictated: 09/11/2018 11:40 am Dictating Physician: PAYTON JO DO, I Signed Date and Time: 09/11/2018 11:44 am Signed by: PAYTON JO DO, I Transcribed Date and Time: 09/11/2018 11:40 GLUCOSE,BEDSIDE Collected: 09/11/2018 Status: F Source: [facility] 7:02 AM SYSTEM REPOSITORY TYPE CODE TESTS RESULT OUT OF RANGE REFERENCE UNITS LAB BGLU 70-100 mg/dL High 129 Glucose,Beds gaby Result Comment: Test performed by glucose meter. Results may be 10%-15% lower than serum/plasma values. (CLIA ID [id number]) Performed By: #### BGLU #### [facility] [address] [place] [phone] HEMOGRAM Collected: 09/11/2018 Status: F Source: [facility] 4:33 AM SYSTEM REPOSITORY TYPE CODE TESTS RESULT OUT OF RANGE REFERENCE UNITS LAB IWBC 3.6-10.7 10*3/uL WBC Normal 7.3 LAB RBC 4.40-5.90 10*6/uL RBC Normal 4.52 LAB HGB 13.0-18.0 g/dL Low Hemoglobin 12.3 LAB HCT 40.0-52.0 % Low Hematocrit 38.0 LAB MCV 80.0-98.0 fL MCV Normal 84.1 LAB MCH 26.0-34.0 pg MCH Normal 27.1 LAB MCHC 32.0-36.0 % MCHC Normal 32.3 LAB RDW 11.5-14.5 % High RDW 17.2 LAB PLT 140-440 10*3/uL Platelet Normal 232 LAB MPV 7.4-10.4 fL High MPV 10.7 Performed By: #### HEMOG, BMP3M, PHOS3, LFT3 #### [facility] [address] [place] [phone] BASIC METABOLIC PANEL Collected: 09/11/2018 Status: F Source: [facility] 4:33 AM SYSTEM REPOSITORY TYPE CODE TESTS RESULT OUT OF RANGE REFERENCE UNITS LAB NA3 135-145 mmol/L Normal Sodium 137 Result Comment: NOTE: New Sodium Reference Range effective 2018 @ 10:00 LAB K3 3.5-5.1 mmol/L High Potassium 5.3 Result Comment: Moderately hemolysed, interpret with caution. LAB CL3 98-107 mmol/L Low Chloride 94 LAB CO23 22-30 mmol/L Normal Carbon Dioxide 25 LAB ANIN3 NA Anion Gap 18 LAB GLUC3 70-100 mg/dL High Glucose 171 LAB BUN3 7-20 mg/dL High Urea Nitrogen 102 LAB CRET3 0.52-1.25 mg/dL High Creatinine 5.94 LAB GF3BR >60 mL/min eGFR 11.5 LAB GF3WR >60 mL/min eGFR OTHER 9.5 Result Comment: Source- MDRD equation with creatinine calibration to IDMS(NKDEP) eGFR not recommended for drug dose adjustment LAB CA3 8.4-10.4 mg/dL Normal Calcium 8.7 Performed By: #### HEMOG, BMP3M, PHOS3, LFT3 #### [facility] [address] [place] [phone] PHOSPHORUS Collected: 09/11/2018 Status: F Source: [facility] 4:33 AM SYSTEM REPOSITORY TYPE CODE TESTS RESULT OUT OF REFERENCE UNITS RANGE LAB PHOS3 2.5-4.5 mg/dL High Phosphorus 8.8 Performed By: #### HEMOG, BMP3M, PHOS3, LFT3 #### [facility] [address] [place] [phone] HEPATIC FUNCTION Collected: 09/11/2018 Status: F Source: [facility] 4:33 AM SYSTEM REPOSITORY TYPE CODE TESTS RESULT OUT OF RANGE REFERENCE UNITS LAB ALB3 3.5-5.0 g/dL Albumin, Normal Serum 3.6 LAB TP3 6.3-8.2 g/dL Total Normal Protein 6.6 LAB BILT3 0.2-1.3 mg/dL High Bilirubin,Total 1.4 LAB BILD3 0.0-0.3 mg/dL Normal Bilirubin,Direct 0.0 LAB ALKP3 38-126 U/L High Alkaline Phosphatase 193 LAB ALT3 13-69 U/L High ALT (SGPT) 447 LAB AST3 15-46 U/L High AST (SGOT) 314 Result Comment: Moderately hemolysed, interpret with caution. Performed By: #### HEMOG, BMP3M, PHOS3, LFT3 #### [facility] [address] [place] [address] GLUCOSE,BEDSIDE Collected: 09/10/2018 Status: F Source: [facility] 8:48 PM SYSTEM REPOSITORY TYPE CODE TESTS RESULT OUT OF RANGE REFERENCE UNITS LAB BGLU 70-100 mg/dL High 223 Glucose,Beds gaby Result Comment: Test performed by glucose meter. Results may be 10%-15% lower than serum/plasma values. (CLIA ID [id number]) Performed By: #### BGLU #### [facility] [address] [place] [address] GLUCOSE,BEDSIDE Collected: 09/10/2018 Status: F Source: [facility] 5:58 PM SYSTEM REPOSITORY TYPE CODE TESTS RESULT OUT OF RANGE REFERENCE UNITS LAB BGLU 70-100 mg/dL Normal 100 Glucose,Beds gaby Result Comment: Test performed by glucose meter. Results may be 10%-15% lower than serum/plasma values. (CLIA ID [id number]) Performed By: #### BGLU #### [facility] [address] [place] [address] XA SPECIAL ANGIOGRAPHY Observed: 09/10/2018 Status: F Source: [facility] PROCEDURE 5:39 PM SYSTEM REPOSITORY Patient Name: CEFERINO PIÑA Special Procedures Exam Date/Time 09/10/2018 17:35:43 EST Exam XA Special Angiography Procedure [facility]ion Number [id number] Reason For Exam place new tunnel dialysis cvc , not running well. poor flows. no pull with venous port. 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 Report RIGHT INTERNAL JUGULAR VEIN TUNNELED DIALYSIS CATHETER EXCHANGE The benefits and risks of the procedure were discussed with the patient. The patient agreed to proceed. Sterile technique was utilized. The skin was cleaned with 2% chlorhexidine. Sterile drapes were placed. I washed my hands prior to the procedure. I wore a cap, mask, sterile gown and sterile gloves during the procedure. Lidocaine was applied for local anesthesia. The right IJ catheter was removed over a wire. A new 19 cm [place] Path catheter was advanced over the wire. Fluoroscopic guidance was utilized. The catheter was flushed and secured to the skin. The tip of the catheter is in the lower SVC as demonstrated by a last image hold fluoroscopic image. Fluoroscopic time: Less than six seconds Fluoroscopic images: Zero IMPRESSION: Right IJ tunneled dialysis catheter was exchanged. Report Dictated on Final Dictated: 09/10/2018 5:39 pm Dictating Physician: MD BLACKWELL MALAY Signed Date and Time: 09/10/2018 5:40 pm Signed by: MD BLACKWELL MALAY Transcribed Date and Time: 09/10/2018 5:39 NM BONE THREE PHASE Observed: 09/10/2018 Status: F Source: [facility] 3:00 PM SYSTEM REPOSITORY Patient Name: CEFERINO PIÑA Nuc Med Exam Date/Time 09/10/2018 14:29:19 EST Exam NM Bone Three Phase Study Ordering Physician MD ELEANOR, SHELLIE WALDEMAR Accession Number [id number] CPT4 Codes 81351 () Reason For Exam OSTEOMYELITIS Report Indication: Osteoarthritis. Dose: 22.9 mCi technetium 99m MDP. Comparison x-ray 09/06/2018. FINDINGS: A radionuclide angiogram shows increased flow to the left foot. Immediate blood pool imaging was performed of the feet and shows abnormal blood pooling involving the left lower extremity to the extent to which it is visualized, about the mid shaft tibia at the toes. Slightly greater activity seen in the mid foot and first digit. Limited imaging of the feet in multiple projections was performed. There is limitation related to poor tissue clearance. There is however significant asymmetric abnormal uptake involving the left midfoot, ankle region, and the first metatarsophalangeal joint region. Most intense uptake is in the mid foot corresponding to some degenerative spurring on plain film. Uptake in the first metatarsophalangeal joint region corresponds to erosive changes and soft tissue swelling. Please see that report. IMPRESSION: Abnormal study. +3 phase bone scan of the left foot. Multiple focal areas of increased uptake on delayed imaging. The etiology is uncertain. Multiple etiologies possible. Inflammatory conditions including osteomyelitis of the first digit and injury including microfractures of the midfoot are possibilities. This study has intermediate likelihood for the presence of osteomyelitis. Comparison to white blood cell scan may be helpful. Report Dictated on Final Dictated: 09/10/2018 3:00 pm Dictating Physician: MD IPKE JOHN Signed Date and Time: 09/10/2018 3:06 pm Signed by: MD PIKE JOHN Transcribed Date and Time: 09/10/2018 3:00 GLUCOSE,BEDSIDE Collected: 09/10/2018 Status: F Source: [facility] 7:07 AM SYSTEM REPOSITORY TYPE CODE TESTS RESULT OUT OF RANGE REFERENCE UNITS LAB BGLU 70-100 mg/dL Normal 95 Glucose,Beds gaby Result Comment: Test performed by glucose meter. Results may be 10%-15% lower than serum/plasma values. (CLIA ID [id number]) Performed By: #### BGLU #### [facility] [address] [place] [phone] HEMOGRAM Collected: 09/10/2018 Status: F Source: [facility] 3:15 AM SYSTEM REPOSITORY TYPE CODE TESTS RESULT OUT OF RANGE REFERENCE UNITS LAB IWBC 3.6-10.7 10*3/uL WBC Normal 8.5 LAB RBC 4.40-5.90 10*6/uL RBC Normal 4.50 LAB HGB 13.0-18.0 g/dL Low Hemoglobin 12.0 LAB HCT 40.0-52.0 % Low Hematocrit 36.9 LAB MCV 80.0-98.0 fL MCV Normal 82.0 LAB MCH 26.0-34.0 pg MCH Normal 26.8 LAB MCHC 32.0-36.0 % MCHC Normal 32.7 LAB RDW 11.5-14.5 % High RDW 16.8 LAB PLT 140-440 10*3/uL Platelet Normal 210 LAB MPV 7.4-10.4 fL MPV Normal 10.1 Performed By: #### HEMOG, BMP3M, PHOS3, LFT3 #### [facility] [address] [place] [phone] BASIC METABOLIC PANEL Collected: 09/10/2018 Status: F Source: [facility] 3:15 AM SYSTEM REPOSITORY TYPE CODE TESTS RESULT OUT OF RANGE REFERENCE UNITS LAB NA3 135-145 mmol/L Normal Sodium 137 Result Comment: NOTE: New Sodium Reference Range effective 2018 @ 10:00 LAB K3 3.5-5.1 mmol/L Normal Potassium 4.6 LAB CL3 98-107 mmol/L Low Chloride 96 LAB CO23 22-30 mmol/L Normal Carbon Dioxide 23 LAB ANIN3 NA Anion Gap 18 LAB GLUC3 70-100 mg/dL High Glucose 115 LAB BUN3 7-20 mg/dL High Urea Nitrogen 105 LAB CRET3 0.52-1.25 mg/dL High Creatinine 6.25 LAB GF3BR >60 mL/min eGFR 10.8 LAB GF3WR >60 mL/min eGFR OTHER 8.9 Result Comment: Source- MDRD equation with creatinine calibration to IDMS(NKDEP) eGFR not recommended for drug dose adjustment LAB CA3 8.4-10.4 mg/dL Normal Calcium 9.0 Performed By: #### HEMOG, BMP3M, PHOS3, LFT3 #### [facility] [address] [place] [phone] PHOSPHORUS Collected: 09/10/2018 Status: F Source: [facility] 3:15 AM SYSTEM REPOSITORY TYPE CODE TESTS RESULT OUT OF REFERENCE UNITS RANGE LAB PHOS3 2.5-4.5 mg/dL High Phosphorus 9.2 Performed By: #### HEMOG, BMP3M, PHOS3, LFT3 #### [facility] [address] [place] [phone] HEPATIC FUNCTION Collected: 09/10/2018 Status: F Source: [facility] 3:15 AM SYSTEM REPOSITORY TYPE CODE TESTS RESULT OUT OF RANGE REFERENCE UNITS LAB ALB3 3.5-5.0 g/dL Albumin, Normal Serum 3.5 LAB TP3 6.3-8.2 g/dL Low Total Protein 6.1 LAB BILT3 0.2-1.3 mg/dL High Bilirubin,Total 1.4 LAB BILD3 0.0-0.3 mg/dL Normal Bilirubin,Direct 0.0 LAB ALKP3 38-126 U/L High Alkaline Phosphatase 193 LAB ALT3 13-69 U/L High ALT (SGPT) 604 LAB AST3 15-46 U/L High AST (SGOT) 742 Performed By: #### HEMOG, BMP3M, PHOS3, LFT3 #### [facility] [address] [place] [address] GLUCOSE,BEDSIDE Collected: 09/09/2018 Status: F Source: [facility] 11:01 PM SYSTEM REPOSITORY TYPE CODE TESTS RESULT OUT OF RANGE REFERENCE UNITS LAB BGLU 70-100 mg/dL High 107 Glucose,Beds gaby Result Comment: Test performed by glucose meter. Results may be 10%-15% lower than serum/plasma values. (CLIA ID [id number]) Performed By: #### BGLU #### [facility] [place] [address] GLUCOSE,BEDSIDE Collected: 09/09/2018 Status: F Source: [facility] 6:07 PM SYSTEM REPOSITORY TYPE CODE TESTS RESULT OUT OF RANGE REFERENCE UNITS LAB BGLU 70-100 mg/dL High 137 Glucose,Beds gaby Result Comment: Test performed by glucose meter. Results may be 10%-15% lower than serum/plasma values. (CLIA ID [id number]) Performed By: #### BGLU #### [facility] [address] [place] [phone] VANCOMYCIN TROUGH Collected: 09/09/2018 Status: F Source: [facility] 3:15 PM SYSTEM REPOSITORY TYPE CODE TESTS RESULT OUT OF RANGE REFERENCE UNITS LAB VNCT 15.0-20.0 ug/mL Normal Vancomycin 19.4 Trough Result Comment: . Performed By: #### VANCT #### [facility] [address] [address] XA SPECIAL ANGIOGRAPHY Observed: 09/09/2018 Status: F Source: [facility] PROCEDURE 1:13 PM SYSTEM REPOSITORY Patient Name: CEFERINO PIÑA Special Procedures Exam Date/Time 09/09/2018 10:56:35 EST Exam XA Special Angiography Procedure Ordering Physician MD ROSANNA, [facility] Accession Number [id number] Reason For Exam exchange tunnel dialysis catheter will not run on dialysis high pressures tried activase without success. Report Dialysis catheter exchange under fluoroscopy, 09/09/2018. Reason for procedure: Poor blood flow rates using right internal jugular tunneled dialysis catheter. Anesthesia: The procedure was performed local anesthesia. Fluoroscopy time: 0.3 minutes. Images obtained: Two fluoroscopy screen save images. COMPLICATIONS: None immediate. Procedure details and findings: The patient's previous studies were reviewed. After obtaining informed consent the patient brought to the special procedure suite and positioned supine on angiographic table. The right upper chest, including the existing tunneled dialysis catheter, was prepped and draped in usual sterile fashion. A fluoroscopic spot image demonstrates apparent satisfactory course and position of the patient's tunnel dialysis catheter. Following administration of local anesthetic along the subcutaneous catheter tract, the hub of the catheter was freed from the subcutaneous tunnel using a combination of sharp and blunt dissection. The catheter was removed over a 0.035 inch angled tip stiff Glidewire. A new 14 [place] x 23 cm Glidepath catheter was placed over the Glidewire with tips in the superior right atrium, without impingement. Satisfactory catheter position was confirmed by fluoroscopy. The Glidewire was removed. Both lumens of the catheter aspirate and flush easily. The catheter was flushed and capped. The catheter was secured using 2-0 silk suture. A sterile dressing was applied at the access site. The patient tolerated the procedure well. IMPRESSION: Satisfactory exchange of right internal jugular tunneled dialysis catheter. Report Dictated on Final Dictated: 09/09/2018 1:13 pm Dictating Physician: MD CHEATHAM JOE M Signed Date and Time: 09/09/2018 1:14 pm Signed by: MD CHEATHAM JOE M Transcribed Date and Time: 09/09/2018 1:13 GLUCOSE,BEDSIDE Collected: 09/09/2018 Status: F Source: [facility] 12:26 PM SYSTEM REPOSITORY TYPE CODE TESTS RESULT OUT OF RANGE REFERENCE UNITS LAB BGLU 70-100 mg/dL High 258 Glucose,Beds gaby Result Comment: Test performed by glucose meter. Results may be 10%-15% lower than serum/plasma values. (CLIA ID [id number]) Performed By: #### BGLU #### [facility] [address] [place] [phone] GLUCOSE,BEDSIDE Collected: 09/09/2018 Status: F Source: [facility] 6:53 AM SYSTEM REPOSITORY TYPE CODE TESTS RESULT OUT OF RANGE REFERENCE UNITS LAB BGLU 70-100 mg/dL High 210 Glucose,Beds gaby Result Comment: Test performed by glucose meter. Results may be 10%-15% lower than serum/plasma values. (CLIA ID [id number]) Performed By: #### BGLU #### [facility] [address] [phone] HEMOGRAM Collected: 09/09/2018 Status: F Source: [facility] 5:44 AM SYSTEM REPOSITORY TYPE CODE TESTS RESULT OUT OF RANGE REFERENCE UNITS LAB IWBC 3.6-10.7 10*3/uL WBC Normal 6.8 LAB RBC 4.40-5.90 10*6/uL Low RBC 3.99 LAB HGB 13.0-18.0 g/dL Low Hemoglobin 10.9 LAB HCT 40.0-52.0 % Low Hematocrit 33.3 LAB MCV 80.0-98.0 fL MCV Normal 83.5 LAB MCH 26.0-34.0 pg MCH Normal 27.3 LAB MCHC 32.0-36.0 % MCHC Normal 32.7 LAB RDW 11.5-14.5 % High RDW 17.0 LAB PLT 140-440 10*3/uL Platelet Normal 206 LAB MPV 7.4-10.4 fL MPV Normal 9.9 Performed By: #### HEMOG, BMP3M, PHOS3, LFT3 #### [facility] [address] [address] BASIC METABOLIC PANEL Collected: 09/09/2018 Status: F Source: [facility] 5:44 AM SYSTEM REPOSITORY TYPE CODE TESTS RESULT OUT OF RANGE REFERENCE UNITS LAB NA3 135-145 mmol/L Normal Sodium 136 Result Comment: NOTE: New Sodium Reference Range effective 2018 @ 10:00 LAB K3 3.5-5.1 mmol/L Normal Potassium 4.5 LAB CL3 98-107 mmol/L Low Chloride 96 LAB CO23 22-30 mmol/L Normal Carbon Dioxide 22 LAB ANIN3 NA Anion Gap 18 LAB GLUC3 70-100 mg/dL High Glucose 212 LAB BUN3 7-20 mg/dL High Urea Nitrogen 110 LAB CRET3 0.52-1.25 mg/dL High Creatinine 6.45 LAB GF3BR >60 mL/min eGFR 10.4 LAB GF3WR >60 mL/min eGFR OTHER 8.6 Result Comment: Source- MDRD equation with creatinine calibration to IDMS(NKDEP) eGFR not recommended for drug dose adjustment LAB CA3 8.4-10.4 mg/dL Normal Calcium 9.0 Performed By: #### HEMOG, BMP3M, PHOS3, LFT3 #### [facility] [address] [place] [phone] PHOSPHORUS Collected: 09/09/2018 Status: F Source: [facility] 5:44 AM SYSTEM REPOSITORY TYPE CODE TESTS RESULT OUT OF REFERENCE UNITS RANGE LAB PHOS3 2.5-4.5 mg/dL High Phosphorus 9.0 Performed By: #### HEMOG, BMP3M, PHOS3, LFT3 #### [facility] [address] [place] [address] HEPATIC FUNCTION Collected: 09/09/2018 Status: F Source: [facility] 5:44 AM SYSTEM REPOSITORY TYPE CODE TESTS RESULT OUT OF RANGE REFERENCE UNITS LAB ALB3 3.5-5.0 g/dL Low Albumin, Serum 3.3 LAB TP3 6.3-8.2 g/dL Low Total Protein 6.0 LAB BILT3 0.2-1.3 mg/dL Normal Bilirubin,Total 1.0 LAB BILD3 0.0-0.3 mg/dL Normal Bilirubin,Direct 0.0 LAB ALKP3 38-126 U/L High Alkaline Phosphatase 184 LAB ALT3 13-69 U/L High ALT (SGPT) 209 LAB AST3 15-46 U/L High AST (SGOT) 135 Performed By: #### HEMOG, BMP3M, PHOS3, LFT3 #### [facility] [address] [place] [address] GLUCOSE,BEDSIDE Collected: 09/08/2018 Status: F Source: [facility] 9:15 PM SYSTEM REPOSITORY TYPE CODE TESTS RESULT OUT OF RANGE REFERENCE UNITS LAB BGLU 70-100 mg/dL High 127 Glucose,Beds gaby Result Comment: Test performed by glucose meter. Results may be 10%-15% lower than serum/plasma values. (CLIA ID [id number]) Performed By: #### BGLU #### [facility] [address] [address] US ABDOMEN COMPLETE Observed: 09/08/2018 Status: F Source: [facility] 9:01 PM SYSTEM REPOSITORY Patient Name: CEFERINO PIÑA Ultrasound Exam Date/Time 09/08/2018 20:44:51 EST Exam US Abdomen Complete Ordering Physician CORDELL MARTINEZ Accession Number [id number] CPT4 Codes 10984 () Reason For Exam elevated LFTs Report COMPLETE ULTRASOUND OF THE ABDOMEN CLINICAL INDICATION: elevated LFTs TECHNIQUE: Real-time ultrasound of the abdomen. COMPARISON: None FINDINGS: Pancreas is largely obscured by bowel gas. Visualized portions of the liver show no mass or biliary tree dilatation. Common bile duct is 2.6 mm. There are multiple gallstones. Negative sonographic Lion's sign. Gallbladder wall is 3 mm, which is normal. No pericholecystic fluid. Right kidney measures 9.2 x 4.5 x 4.9 cm. Left kidney measures 9.9 x 4.6 x 5.6 cm. No hydronephrosis on either side. Kidneys show increased cortical echotexture, compatible with medical renal disease. Normal appearance of the spleen. Limited visualization of aorta and IVC unremarkable. IMPRESSION: 1. Echogenic kidneys compatible with medical renal disease. Gallstones. Report Dictated on Final Dictated: 09/08/2018 9:01 pm Dictating Physician: MD CEE JOHN R Signed Date and Time: 09/08/2018 9:05 pm Signed by: MD CEE JOHN R Transcribed Date and Time: 09/08/2018 9:01 GLUCOSE,BEDSIDE Collected: 09/08/2018 Status: F Source: [facility] 5:38 PM SYSTEM REPOSITORY TYPE CODE TESTS RESULT OUT OF RANGE REFERENCE UNITS LAB BGLU 70-100 mg/dL High 140 Glucose,Beds gaby Result Comment: Test performed by glucose meter. Results may be 10%-15% lower than serum/plasma values. (CLIA ID [id number]) Performed By: #### BGLU #### [facility] [address] [place] [phone] GLUCOSE,BEDSIDE Collected: 09/08/2018 Status: F Source: [facility] 12:06 PM SYSTEM REPOSITORY TYPE CODE TESTS RESULT OUT OF RANGE REFERENCE UNITS LAB BGLU 70-100 mg/dL High 154 Glucose,Beds gaby Result Comment: Test performed by glucose meter. Results may be 10%-15% lower than serum/plasma values. (CLIA ID [id number]) Performed By: #### BGLU #### [facility] [address] [place] [address] GLUCOSE,BEDSIDE Collected: 09/08/2018 Status: F Source: [facility] 7:50 AM SYSTEM REPOSITORY TYPE CODE TESTS RESULT OUT OF RANGE REFERENCE UNITS LAB BGLU 70-100 mg/dL High 156 Glucose,Beds gaby Result Comment: Test performed by glucose meter. Results may be 10%-15% lower than serum/plasma values. (CLIA ID [id number]) Performed By: #### BGLU #### [facility] [address] [place] [phone] HEMOGRAM Collected: 09/08/2018 Status: F Source: [facility] 4:08 AM SYSTEM REPOSITORY TYPE CODE TESTS RESULT OUT OF RANGE REFERENCE UNITS LAB IWBC 3.6-10.7 10*3/uL WBC Normal 8.2 LAB RBC 4.40-5.90 10*6/uL Low RBC 4.27 LAB HGB 13.0-18.0 g/dL Low Hemoglobin 11.7 LAB HCT 40.0-52.0 % Low Hematocrit 35.6 LAB MCV 80.0-98.0 fL MCV Normal 83.4 LAB MCH 26.0-34.0 pg MCH Normal 27.3 LAB MCHC 32.0-36.0 % MCHC Normal 32.8 LAB RDW 11.5-14.5 % High RDW 16.9 LAB PLT 140-440 10*3/uL Platelet Normal 235 LAB MPV 7.4-10.4 fL MPV Normal 10.4 Performed By: #### HEMOG, BMP3M, PHOS3, LFT3, VANL #### [facility] [address] [place] [phone] BASIC METABOLIC PANEL Collected: 09/08/2018 Status: F Source: [facility] 4:08 AM SYSTEM REPOSITORY TYPE CODE TESTS RESULT OUT OF RANGE REFERENCE UNITS LAB NA3 135-145 mmol/L Normal Sodium 136 Result Comment: NOTE: New Sodium Reference Range effective 2018 @ 10:00 LAB K3 3.5-5.1 mmol/L Normal Potassium 4.4 LAB CL3 98-107 mmol/L Low Chloride 93 LAB CO23 22-30 mmol/L Normal Carbon Dioxide 24 LAB ANIN3 NA Anion Gap 19 LAB GLUC3 70-100 mg/dL High Glucose 176 LAB BUN3 7-20 mg/dL High Urea Nitrogen 88 LAB CRET3 0.52-1.25 mg/dL High Creatinine 5.57 LAB GF3BR >60 mL/min eGFR 12.3 LAB GF3WR >60 mL/min eGFR OTHER 10.2 Result Comment: Source- MDRD equation with creatinine calibration to IDMS(NKDEP) eGFR not recommended for drug dose adjustment LAB CA3 8.4-10.4 mg/dL Normal Calcium 9.3 Performed By: #### HEMOG, BMP3M, PHOS3, LFT3, VANL #### [facility] [address] [place] [phone] PHOSPHORUS Collected: 09/08/2018 Status: F Source: [facility] 4:08 AM SYSTEM REPOSITORY TYPE CODE TESTS RESULT OUT OF REFERENCE UNITS RANGE LAB PHOS3 2.5-4.5 mg/dL High Phosphorus 7.0 Performed By: #### HEMOG, BMP3M, PHOS3, LFT3, VANL #### [facility] [address] [place] [phone] HEPATIC FUNCTION Collected: 09/08/2018 Status: F Source: [facility] 4:08 AM SYSTEM REPOSITORY TYPE CODE TESTS RESULT OUT OF RANGE REFERENCE UNITS LAB ALB3 3.5-5.0 g/dL Albumin, Normal Serum 3.8 LAB TP3 6.3-8.2 g/dL Total Normal Protein 6.8 LAB BILT3 0.2-1.3 mg/dL Normal Bilirubin,Total 1.0 LAB BILD3 0.0-0.3 mg/dL Normal Bilirubin,Direct 0.0 LAB ALKP3 38-126 U/L High Alkaline Phosphatase 244 LAB ALT3 13-69 U/L High ALT (SGPT) 181 LAB AST3 15-46 U/L High AST (SGOT) 132 Performed By: #### HEMOG, BMP3M, PHOS3, LFT3, VANL #### [facility] [address] [place] [phone] VANCOMYCIN Collected: 09/08/2018 Status: F Source: [facility] 4:08 AM SYSTEM REPOSITORY TYPE CODE TESTS RESULT OUT OF REFERENCE UNITS RANGE LAB VNCL 15.0-20.0 ug/mL High Vancomycin 24.5 Result Comment: . Performed By: #### HEMOG, BMP3M, PHOS3, LFT3, VANL #### [facility] [address] [place] [address] PROCALCITONIN Collected: 09/08/2018 Status: F Source: [facility] 4:08 AM SYSTEM REPOSITORY TYPE CODE TESTS RESULT OUT OF RANGE REFERENCE UNITS LAB PRO <0.10 ng/mL Procalcitonin Abnormal 1.58 LAB INT3 NA Interpretation See Below Result Comment: PCT <0.50 = Low risk of severe sepsis and/or septic shock. PCT >2.00 = High risk of severe sepsis and/or septic shock. Performed By: #### PCAL #### [facility] [address] [place] [address] GLUCOSE,BEDSIDE Collected: 09/07/2018 Status: F Source: [facility] 8:48 PM SYSTEM REPOSITORY TYPE CODE TESTS RESULT OUT OF RANGE REFERENCE UNITS LAB BGLU 70-100 mg/dL High 215 Glucose,Beds gaby Result Comment: Test performed by glucose meter. Results may be 10%-15% lower than serum/plasma values. (CLIA ID [id number]) Performed By: #### BGLU #### [facility] [address] [place] [address] GLUCOSE,BEDSIDE Collected: 09/07/2018 Status: F Source: [facility] 5:45 PM SYSTEM REPOSITORY TYPE CODE TESTS RESULT OUT OF RANGE REFERENCE UNITS LAB BGLU 70-100 mg/dL High 223 Glucose,Beds gaby Result Comment: Test performed by glucose meter. Results may be 10%-15% lower than serum/plasma values. (CLIA ID [id number]) Performed By: #### BGLU #### [facility] [address] [place] [address] VL PVR ARTERIAL Observed: 09/07/2018 Status: F Source: [facility] DOPPLER LWR W/O 4:33 PM SYSTEM REPOSITORY EXERCISE Patient Name: CEFERINO PIÑA Ultrasound Exam Date/Time 09/07/2018 17:22:38 EST Exam VL PVR Arterial Doppler Lwr w/o Exercise Ordering Physician CORDELL MARTINEZ Accession Number [id number] CPT4 Codes 31221 () Reason For Exam diminished pulses Report [facility] --- Multilevel Lower Extremity Arterial Evaluation Report Patient Name: Ceferino Piña : 1950 Study Date: 09/07/2018 J (67yrs) Age: 67 Account: [id number] Gender: M Loc: 1524 BP: Ordering: Cordell Martinez Technologist: Ordering Physician: Cordell Martinez Mapping Supervisor: Pranay Gresham RVT [facility] Interpreting Physician: Neil Marie MD --- Location: [facility] --- INDICATIONS: diminshed pulses. --- CONCLUSIONS 1. Right resting ANGELIA is 1.4 and TBI is 1.1. Segmental pressures and waveforms show mild arterial insufficiency due to small vessel disease. Left resting ANGELIA is 1.2 and TBI is 0.7. Segmental pressures and waveforms show mild arterial insufficiency due to small vessel disease. --- IMPRESSIONS: - Right resting ANGELIA is 1.4 and TBI is 1.1. Segmental pressures and waveforms show mild arterial insufficiency due to small vessel disease. - Left resting ANGELIA is 1.2 and TBI is 0.7. Segmental pressures and waveforms show mild arterial insufficiency due to small vessel disease. --- HISTORY: Risk factors: Hypertension. Diabetes mellitus. Obese. Dyslipidemia. Previous myocardial infarction. Previous cerebrovascular accident. --- STUDY DATA: Lower extremity multilevel physiologic evaluation. Birthdate: Patient birthdate: 1950. Age: Patient is 67 yr old. Sex: Gender: male. Ethnicity: Ethnicity: white. Pressure measurement and pulse volume recording. Patient status: Inpatient. Procedure: A vascular evaluation was performed. The images were obtained using a [employer] 2100 vascular ultrasound machine. --- PVR / Doppler waveforms: + +---------+-----+ + + !Segment !Pressure !Index!Waveform grading!Comment ! + +---------+-----+ + + !R brachial !102 mm Hg!-----! ! ! + +---------+-----+ + + !R thigh - high!---------!-----!Category 1 ! ! + +---------+-----+ + + !R thigh - low !---------!-----!Category 1 ! ! + +---------+-----+ + + !R calf !178 mm Hg!1.75 !Category 1 ! ! + +---------+-----+ + + !R DP !138 mm Hg!1.35 !Category 1 ! ! + +---------+-----+ + + !R PT !254 mm Hg!-----!Category 1 !non-compressible.! + +---------+-----+ + + !R great toe !107 mm Hg!1.05 !Category 3 ! ! + +---------+-----+ + + !L brachial !96 mm Hg !-----! ! ! + +---------+-----+ + + !L thigh - high!---------!-----!Category 1 ! ! + +---------+-----+ + + !L thigh - low !---------!-----!Category 1 ! ! + +---------+-----+ + + !L calf !116 mm Hg!1.14 !Category 1 ! ! + +---------+-----+ + + !L DP !115 mm Hg!1.13 !Category 1 ! ! + +---------+-----+ + + !L PT !124 mm Hg!1.22 !Category 1 ! ! + +---------+-----+ + + !L great toe !75 mm Hg !0.74 !Category 3 ! ! + +---------+-----+ + + Electronically signed by: Neil Marie MD [id number] Final Dictated: 09/08/2018 1:17 pm Dictating Physician: NEIL MARIE Signed Date and Time: 09/08/2018 1:17 pm Signed by: NEIL MARIE GLUCOSE,BEDSIDE Collected: 09/07/2018 Status: F Source: [facility] 1:10 PM SYSTEM REPOSITORY TYPE CODE TESTS RESULT OUT OF RANGE REFERENCE UNITS LAB BGLU 70-100 mg/dL High 182 Glucose,Beds gaby Result Comment: Test performed by glucose meter. Results may be 10%-15% lower than serum/plasma values. (CLIA ID [id number]) Performed By: #### BGLU #### [facility] [address] [place] [address] ADD ON TEST FROM Collected: 09/07/2018 Status: F Source: [facility] HIS 8:50 AM SYSTEM REPOSITORY TYPE CODE TESTS RESULT OUT OF REFERENCE UNITS RANGE LAB ADDON NA Add Accepted on test from HIS Result Comment: Specimen available & acceptable for analysis. Performed By: #### ADDON #### [facility] [address] [place] [address] GLUCOSE,BEDSIDE Collected: 09/07/2018 Status: F Source: [facility] 7:28 AM SYSTEM REPOSITORY TYPE CODE TESTS RESULT OUT OF RANGE REFERENCE UNITS LAB BGLU 70-100 mg/dL High 137 Glucose,Beds gaby Result Comment: Test performed by glucose meter. Results may be 10%-15% lower than serum/plasma values. (CLIA ID [id number]) Performed By: #### BGLU #### [facility] [address] [place] [phone] HEMOGRAM Collected: 09/07/2018 Status: F Source: [facility] 2:46 AM SYSTEM REPOSITORY TYPE CODE TESTS RESULT OUT OF RANGE REFERENCE UNITS LAB IWBC 3.6-10.7 10*3/uL WBC Normal 8.5 LAB RBC 4.40-5.90 10*6/uL Low RBC 4.06 LAB HGB 13.0-18.0 g/dL Low Hemoglobin 11.0 LAB HCT 40.0-52.0 % Low Hematocrit 33.6 LAB MCV 80.0-98.0 fL MCV Normal 82.8 LAB MCH 26.0-34.0 pg MCH Normal 27.1 LAB MCHC 32.0-36.0 % MCHC Normal 32.7 LAB RDW 11.5-14.5 % High RDW 16.7 LAB PLT 140-440 10*3/uL Platelet Normal 209 LAB MPV 7.4-10.4 fL MPV Normal 10.0 Performed By: #### HEMOG, BMP3M, PHOS3, LFT3, VANL, PCAL #### [facility] [address] [place] [phone] BASIC METABOLIC PANEL Collected: 09/07/2018 Status: F Source: [facility] 2:46 AM SYSTEM REPOSITORY TYPE CODE TESTS RESULT OUT OF RANGE REFERENCE UNITS LAB NA3 135-145 mmol/L Normal Sodium 135 Result Comment: NOTE: New Sodium Reference Range effective 2018 @ 10:00 LAB K3 3.5-5.1 mmol/L Normal Potassium 4.5 LAB CL3 98-107 mmol/L Low Chloride 95 LAB CO23 22-30 mmol/L Normal Carbon Dioxide 24 LAB ANIN3 NA Anion Gap 17 LAB GLUC3 70-100 mg/dL High Glucose 164 LAB BUN3 7-20 mg/dL High Urea Nitrogen 84 LAB CRET3 0.52-1.25 mg/dL High Creatinine 5.27 LAB GF3BR >60 mL/min eGFR 13.2 LAB GF3WR >60 mL/min eGFR OTHER 10.9 Result Comment: Source- MDRD equation with creatinine calibration to IDMS(NKDEP) eGFR not recommended for drug dose adjustment LAB CA3 8.4-10.4 mg/dL Normal Calcium 9.1 Performed By: #### HEMOG, BMP3M, PHOS3, LFT3, VANL, PCAL #### [facility] [address] [place] [address] PHOSPHORUS Collected: 09/07/2018 Status: F Source: [facility] 2:46 AM SYSTEM REPOSITORY TYPE CODE TESTS RESULT OUT OF REFERENCE UNITS RANGE LAB PHOS3 2.5-4.5 mg/dL High Phosphorus 6.4 Performed By: #### HEMOG, BMP3M, PHOS3, LFT3, VANL, PCAL #### [place] [address] HEPATIC FUNCTION Collected: 09/07/2018 Status: F Source: [facility] 2:46 AM SYSTEM REPOSITORY TYPE CODE TESTS RESULT OUT OF RANGE REFERENCE UNITS LAB ALB3 3.5-5.0 g/dL Albumin, Normal Serum 3.6 LAB TP3 6.3-8.2 g/dL Total Normal Protein 6.4 LAB BILT3 0.2-1.3 mg/dL Normal Bilirubin,Total 0.9 LAB BILD3 0.0-0.3 mg/dL Normal Bilirubin,Direct 0.0 LAB ALKP3 38-126 U/L High Alkaline Phosphatase 246 LAB ALT3 13-69 U/L High ALT (SGPT) 126 LAB AST3 15-46 U/L High AST (SGOT) 70 Performed By: #### HEMOG, BMP3M, PHOS3, LFT3, VANL, PCAL #### [facility] [address] VANCOMYCIN Collected: 09/07/2018 Status: F Source: [facility] 2:46 AM SYSTEM REPOSITORY TYPE CODE TESTS RESULT OUT OF REFERENCE UNITS RANGE LAB VNCL 15.0-20.0 ug/mL High Vancomycin 32.9 Result Comment: . Performed By: #### HEMOG, BMP3M, PHOS3, LFT3, VANL, PCAL #### [facility] [place] [address] PROCALCITONIN Collected: 09/07/2018 Status: F Source: [facility] 2:46 AM SYSTEM REPOSITORY TYPE CODE TESTS RESULT OUT OF RANGE REFERENCE UNITS LAB PRO <0.10 ng/mL Procalcitonin Abnormal 2.31 LAB INT3 NA Interpretation See Below Result Comment: PCT <0.50 = Low risk of severe sepsis and/or septic shock. PCT >2.00 = High risk of severe sepsis and/or septic shock. Performed By: #### HEMOG, BMP3M, PHOS3, LFT3, VANL, PCAL #### [facility] [address] [place] [address] GLUCOSE,BEDSIDE Collected: 09/06/2018 Status: F Source: [facility] 9:13 PM SYSTEM REPOSITORY TYPE CODE TESTS RESULT OUT OF RANGE REFERENCE UNITS LAB BGLU 70-100 mg/dL High 240 Glucose,Beds gaby Result Comment: Test performed by glucose meter. Results may be 10%-15% lower than serum/plasma values. (CLIA ID [id number]) Performed By: #### BGLU #### [facility] [address] [place] [address] CR FOOT 2 VIEWS Observed: 09/06/2018 Status: F Source: [facility] LEFT 6:17 PM SYSTEM REPOSITORY Patient Name: CEFERINO PIÑA Diagnostic Radiology Exam Date/Time 09/06/2018 16:22:37 EST Exam CR Foot 2 Views Left Ordering Physician CORDELL MARTINEZ Accession Number [id number] CPT4 Codes 47407 () Reason For Exam left foot wound Report Left foot CLINICAL INDICATION: Left foot wound AP and lateral views of the left foot were obtained. Soft tissue swelling is noted in the great toe and the metatarsal phalangeal joint region. Along the medial aspect of the base of the proximal phalanx and the medial first metatarsal head there are areas of subcortical cystic lucency and interruption of the overlying cortex. The bones are otherwise osteopenic. No other areas of bone destruction are identified. There is extensive arterial sclerosis of posterior tibial and dorsalis pedis arteries and the pedal arcade. IMPRESSION: Focal cortical bone loss with subcortical cystic lucencies along the medial aspect of the first metatarsal phalangeal joint could be related to gout or osteomyelitis and is associated with overlying soft tissue swelling. In the face of an overlying wound, presumably in a diabetic patient foot, osteomyelitis is favored. Report Dictated on Final Dictated: 09/06/2018 6:17 pm Dictating Physician: MD RICHARDSON DIANE Signed Date and Time: 09/06/2018 6:19 pm Signed by: MD RICHARDSON DIANE Transcribed Date and Time: 09/06/2018 6:17 GLUCOSE,BEDSIDE Collected: 09/06/2018 Status: F Source: [facility] 5:34 PM SYSTEM REPOSITORY TYPE CODE TESTS RESULT OUT OF RANGE REFERENCE UNITS LAB BGLU 70-100 mg/dL High 324 Glucose,Beds gaby Result Comment: Test performed by glucose meter. Results may be 10%-15% lower than serum/plasma values. (CLIA ID [id number]) Performed By: #### BGLU #### [facility] [address] [place] [phone] Observed: 09/06/2018 Status: F Source: [facility] RESPIRATORY PCR PANEL 3:06 PM SYSTEM REPOSITORY Order Comment: Specimen Source Comment:Nasopharyngeal RESPIRATORY PCR PANEL --> Status: F NEGATIVE: No targets were detected by the [employer] Upper Respiratory Pathogens PCR Panel. The [employer] Upper Respiratory Pathogens PCR Panel detects the following targets: Adenovirus Coronavirus 229E Coronavirus HKU1 Coronavirus NL63 Coronavirus OC43 Human Metapneumovirus Human Rhinovirus/Enterovirus Influenza A Influenza B Parainfluenza Virus 1 Parainfluenza Virus 2 Parainfluenza Virus 3 Parainfluenza Virus 4 Respiratory Syncytial Virus Bordetella pertussis Bordetella parapertussis Chlamydia pneumoniae Mycoplasma pneumoniae Respiratory Pathogens PCR Panel. The [employer] Upper Respiratory Pathogens PCR Panel detects the following targets: Adenovirus Coronavirus 229E Coronavirus HKU1 Coronavirus NL63 Coronavirus OC43 Human Metapneumovirus Human Rhinovirus/Enterovirus Influenza A Influenza B Parainfluenza Virus 1 Parainfluenza Virus 2 Parainfluenza Virus 3 Parainfluenza Virus 4 Respiratory Syncytial Virus Bordetella pertussis Bordetella parapertussis Chlamydia pneumoniae Mycoplasma pneumoniae Performed By: #### RESBF #### [facility] [address] [place] [phone] GLUCOSE,BEDSIDE Collected: 09/06/2018 Status: F Source: [facility] 12:24 PM SYSTEM REPOSITORY TYPE CODE TESTS RESULT OUT OF RANGE REFERENCE UNITS LAB BGLU 70-100 mg/dL High 232 Glucose,Beds gaby Result Comment: Test performed by glucose meter. Results may be 10%-15% lower than serum/plasma values. (CLIA ID [id number]) Performed By: #### BGLU #### [facility] [address] [place] [phone] 12 LEAD ELECTROCARDIOGRAM Observed: 09/06/2018 Status: F Source: [facility] 10:43 AM [facility] REPOSITORY [facility] Cardiovascular Services [address] [place] [address] 12 Lead EKG 09/02/18 1559 MR#: [id number] Acct: [id number] Name: CEFERINO PIÑA Rep #: [id number] : 1950 67 From: Don Bowie MD Attending Dr: Status: DEP ER Ordering Dr: Darlin Montanez MD Date: 09/02/18 Location: ED Sex: M C Admitted: Test Reason : SOB Blood Pressure : / mmHG Vent. Rate : 127 BPM Atrial Rate : 136 BPM P-R Int : 000 ms QRS Dur : 158 ms QT Int : 438 ms P-R-T Axes : 000 261 049 degrees QTc Int : 636 ms Atrial fibrillation Right bundle branch block Abnormal ECG Confirmed by WOLF MACK, DON ([id number]), assistant editor NANI REA ([id number]) on 09/06/2018 10:42:57 AM Referred By: LD Confirmed By:DON BOWIE MD 09/06/18 1043 Date Don Bowie MD CC: MD Mert Montanez; No Primary Care Physician Signed GLUCOSE,BEDSIDE Collected: 09/06/2018 Status: F Source: [facility] 6:59 AM SYSTEM REPOSITORY TYPE CODE TESTS RESULT OUT OF RANGE REFERENCE UNITS LAB BGLU 70-100 mg/dL High 200 Glucose,Beds gaby Result Comment: Test performed by glucose meter. Results may be 10%-15% lower than serum/plasma values. (CLIA ID [id number]) Performed By: #### BGLU #### [facility] [address] [place] [address] HEMOGRAM Collected: 09/06/2018 Status: F Source: [facility] 5:52 AM SYSTEM REPOSITORY TYPE CODE TESTS RESULT OUT OF RANGE REFERENCE UNITS LAB IWBC 3.6-10.7 10*3/uL WBC Normal 8.4 LAB RBC 4.40-5.90 10*6/uL Low RBC 4.16 LAB HGB 13.0-18.0 g/dL Low Hemoglobin 11.3 LAB HCT 40.0-52.0 % Low Hematocrit 34.9 LAB MCV 80.0-98.0 fL MCV Normal 83.9 LAB MCH 26.0-34.0 pg MCH Normal 27.1 LAB MCHC 32.0-36.0 % MCHC Normal 32.3 LAB RDW 11.5-14.5 % High RDW 16.9 LAB PLT 140-440 10*3/uL Platelet Normal 207 LAB MPV 7.4-10.4 fL MPV Normal 10.2 Performed By: #### HEMOG, BMP3M, PHOS3, LFT3, VANCT #### [facility] [address] [place] [address] BASIC METABOLIC PANEL Collected: 09/06/2018 Status: F Source: [facility] 5:39 AM SYSTEM REPOSITORY TYPE CODE TESTS RESULT OUT OF RANGE REFERENCE UNITS LAB NA3 135-145 mmol/L Normal Sodium 137 Result Comment: NOTE: New Sodium Reference Range effective 2018 @ 10:00 LAB K3 3.5-5.1 mmol/L Normal Potassium 4.5 LAB CL3 98-107 mmol/L Low Chloride 96 LAB CO23 22-30 mmol/L Normal Carbon Dioxide 26 LAB ANIN3 NA Anion Gap 15 LAB GLUC3 70-100 mg/dL High Glucose 185 LAB BUN3 7-20 mg/dL High Urea Nitrogen 66 LAB CRET3 0.52-1.25 mg/dL High Creatinine 4.21 LAB GF3BR >60 mL/min eGFR 17.1 LAB GF3WR >60 mL/min eGFR OTHER 14.1 Result Comment: Source- MDRD equation with creatinine calibration to IDMS(NKDEP) eGFR not recommended for drug dose adjustment LAB CA3 8.4-10.4 mg/dL Normal Calcium 8.8 Performed By: #### HEMOG, BMP3M, PHOS3, LFT3, VANCT #### [facility] [address] [place] [address] PHOSPHORUS Collected: 09/06/2018 Status: F Source: [facility] 5:39 AM SYSTEM REPOSITORY TYPE CODE TESTS RESULT OUT OF REFERENCE UNITS RANGE LAB PHOS3 2.5-4.5 mg/dL High Phosphorus 5.9 Performed By: #### HEMOG, BMP3M, PHOS3, LFT3, VANCT #### [facility] [address] [place] [phone] HEPATIC FUNCTION Collected: 09/06/2018 Status: F Source: [facility] 5:39 AM SYSTEM REPOSITORY TYPE CODE TESTS RESULT OUT OF RANGE REFERENCE UNITS LAB ALB3 3.5-5.0 g/dL Albumin, Normal Serum 3.7 LAB TP3 6.3-8.2 g/dL Total Normal Protein 6.6 LAB BILT3 0.2-1.3 mg/dL Normal Bilirubin,Total 1.1 LAB BILD3 0.0-0.3 mg/dL Normal Bilirubin,Direct 0.0 LAB ALKP3 38-126 U/L High Alkaline Phosphatase 212 LAB ALT3 13-69 U/L High ALT (SGPT) 123 LAB AST3 15-46 U/L High AST (SGOT) 85 Performed By: #### HEMOG, BMP3M, PHOS3, LFT3, VANCT #### [facility] [address] [place] [phone] VANCOMYCIN TROUGH Collected: 09/06/2018 Status: F Source: [facility] 5:39 AM SYSTEM REPOSITORY TYPE CODE TESTS RESULT OUT OF REFERENCE UNITS RANGE LAB VNCT 15.0-20.0 ug/mL Low Vancomycin 13.0 Trough Result Comment: . Performed By: #### HEMOG, BMP3M, PHOS3, LFT3, VANCT #### [facility] [address] [address] GLUCOSE,BEDSIDE Collected: 09/05/2018 Status: F Source: [facility] 7:01 PM SYSTEM REPOSITORY TYPE CODE TESTS RESULT OUT OF RANGE REFERENCE UNITS LAB BGLU 70-100 mg/dL High 238 Glucose,Beds gaby Result Comment: Test performed by glucose meter. Results may be 10%-15% lower than serum/plasma values. (CLIA ID [id number]) Performed By: #### BGLU #### [facility] [address] [place], [place] GLUCOSE,BEDSIDE Collected: 09/05/2018 Status: F Source: [facility] 2:03 PM SYSTEM REPOSITORY TYPE CODE TESTS RESULT OUT OF RANGE REFERENCE UNITS LAB BGLU 70-100 mg/dL High 154 Glucose,Beds gaby Result Comment: Test performed by glucose meter. Results may be 10%-15% lower than serum/plasma values. (CLIA ID [id number]) Performed By: #### BGLU #### [facility] [address] [place] [address] GLUCOSE,BEDSIDE Collected: 09/05/2018 Status: F Source: [facility] 7:16 AM SYSTEM REPOSITORY TYPE CODE TESTS RESULT OUT OF RANGE REFERENCE UNITS LAB BGLU 70-100 mg/dL High 153 Glucose,Beds gaby Result Comment: Test performed by glucose meter. Results may be 10%-15% lower than serum/plasma values. (CLIA ID [id number]) Performed By: #### BGLU #### [facility] [address] [place] [address] HEMOGRAM Collected: 09/05/2018 Status: F Source: [facility] 5:51 AM SYSTEM REPOSITORY TYPE CODE TESTS RESULT OUT OF RANGE REFERENCE UNITS LAB IWBC 3.6-10.7 10*3/uL WBC Normal 8.8 LAB RBC 4.40-5.90 10*6/uL Low RBC 4.06 LAB HGB 13.0-18.0 g/dL Low Hemoglobin 11.1 LAB HCT 40.0-52.0 % Low Hematocrit 34.4 LAB MCV 80.0-98.0 fL MCV Normal 84.7 LAB MCH 26.0-34.0 pg MCH Normal 27.4 LAB MCHC 32.0-36.0 % MCHC Normal 32.3 LAB RDW 11.5-14.5 % High RDW 16.9 LAB PLT 140-440 10*3/uL Platelet Normal 207 LAB MPV 7.4-10.4 fL High MPV 10.5 Performed By: #### HEMOG, BMP3M, PHOS3, LFT3 #### [facility] [address] BASIC METABOLIC PANEL Collected: 09/05/2018 Status: F Source: [facility] 5:51 AM SYSTEM REPOSITORY TYPE CODE TESTS RESULT OUT OF RANGE REFERENCE UNITS LAB NA3 135-145 mmol/L Normal Sodium 135 Result Comment: NOTE: New Sodium Reference Range effective 2018 @ 10:00 LAB K3 3.5-5.1 mmol/L Normal Potassium 4.7 LAB CL3 98-107 mmol/L Normal Chloride 99 LAB CO23 22-30 mmol/L Low Carbon Dioxide 18 LAB ANIN3 NA Anion Gap 18 LAB GLUC3 70-100 mg/dL High Glucose 156 LAB BUN3 7-20 mg/dL High Urea Nitrogen 80 LAB CRET3 0.52-1.25 mg/dL High Creatinine 5.18 LAB GF3BR >60 mL/min eGFR 13.4 LAB GF3WR >60 mL/min eGFR OTHER 11.1 Result Comment: Source- MDRD equation with creatinine calibration to IDMS(NKDEP) eGFR not recommended for drug dose adjustment LAB CA3 8.4-10.4 mg/dL Normal Calcium 9.2 Performed By: #### HEMOG, BMP3M, PHOS3, LFT3 #### [facility] [address] [place] [phone] PHOSPHORUS Collected: 09/05/2018 Status: F Source: [facility] 5:51 AM SYSTEM REPOSITORY TYPE CODE TESTS RESULT OUT OF REFERENCE UNITS RANGE LAB PHOS3 2.5-4.5 mg/dL High Phosphorus 6.3 Performed By: #### HEMOG, BMP3M, PHOS3, LFT3 #### [facility] [address] [place] [phone] HEPATIC FUNCTION Collected: 09/05/2018 Status: F Source: [facility] 5:51 AM SYSTEM REPOSITORY TYPE CODE TESTS RESULT OUT OF RANGE REFERENCE UNITS LAB ALB3 3.5-5.0 g/dL Albumin, Normal Serum 3.7 LAB TP3 6.3-8.2 g/dL Total Normal Protein 6.6 LAB BILT3 0.2-1.3 mg/dL Normal Bilirubin,Total 1.1 LAB BILD3 0.0-0.3 mg/dL Normal Bilirubin,Direct 0.0 LAB ALKP3 38-126 U/L High Alkaline Phosphatase 194 LAB ALT3 13-69 U/L High ALT (SGPT) 120 LAB AST3 15-46 U/L High AST (SGOT) 165 Performed By: #### HEMOG, BMP3M, PHOS3, LFT3 #### [facility] [address] [place] [address] MYCOPLASMA PNEUMO, IGM Collected: 09/05/2018 Status: F Source: [facility] 5:51 AM SYSTEM REPOSITORY TYPE CODE TESTS RESULT OUT OF REFERENCE UNITS RANGE LAB MYCMR <=0.76 U/L Mycoplasma 0.56 pneumo, IgM Ab Result Comment: INTERPRETIVE INFORMATION: Mycoplasma pneumoniae Ab, IgM 0.76 U/L or less .......... Negative: No clinically significant amount of M. pneumoniae IgM antibody detected. 0.77 - 0.95 U/L ........... Low Positive: M. pneumoniae- specific IgM presumptively detected. Collection of a follow-up sample in 1-2 weeks is recommended to assure reactivity. 0.96 U/L or greater ....... Positive: Highly significant amount of M. pneumoniae- specific IgM antibody detected. However, low levels of IgM antibodies may occasionally persist for more than 12 months post-infection. Performed by [employer], [address] [place] [id number] [email or web address] Mateus Guerrero MD - Lab. Director Performed By: #### MYCMO #### The performing lab is in the report. GLUCOSE,BEDSIDE Collected: 09/04/2018 Status: F Source: [facility] 8:27 PM SYSTEM REPOSITORY TYPE CODE TESTS RESULT OUT OF RANGE REFERENCE UNITS LAB BGLU 70-100 mg/dL High 282 Glucose,Beds gaby Result Comment: Test performed by glucose meter. Results may be 10%-15% lower than serum/plasma values. (CLIA ID [id number]) Performed By: #### BGLU #### [facility] [address] [place] [address] GLUCOSE,BEDSIDE Collected: 09/04/2018 Status: F Source: [facility] 5:24 PM SYSTEM REPOSITORY TYPE CODE TESTS RESULT OUT OF RANGE REFERENCE UNITS LAB BGLU 70-100 mg/dL High 269 Glucose,Beds gaby Result Comment: Test performed by glucose meter. Results may be 10%-15% lower than serum/plasma values. (CLIA ID [id number]) Performed By: #### BGLU #### [facility] [address] [place] [address] GLUCOSE,BEDSIDE Collected: 09/04/2018 Status: F Source: [facility] 3:15 PM SYSTEM REPOSITORY TYPE CODE TESTS RESULT OUT OF RANGE REFERENCE UNITS LAB BGLU 70-100 mg/dL High 262 Glucose,Beds gaby Result Comment: Test performed by glucose meter. Results may be 10%-15% lower than serum/plasma values. (CLIA ID [id number]) Performed By: #### BGLU #### [facility] [address] [place] [address] GLUCOSE,BEDSIDE Collected: 09/04/2018 Status: F Source: [facility] 12:33 PM SYSTEM REPOSITORY TYPE CODE TESTS RESULT OUT OF RANGE REFERENCE UNITS LAB BGLU 70-100 mg/dL High 284 Glucose,Beds gaby Result Comment: Test performed by glucose meter. Results may be 10%-15% lower than serum/plasma values. (CLIA ID [id number]) Performed By: #### BGLU #### [facility] [address] [place] [address] GLUCOSE,BEDSIDE Collected: 09/04/2018 Status: F Source: [facility] 7:42 AM SYSTEM REPOSITORY TYPE CODE TESTS RESULT OUT OF RANGE REFERENCE UNITS LAB BGLU 70-100 mg/dL High 141 Glucose,Beds gaby Result Comment: Test performed by glucose meter. Results may be 10%-15% lower than serum/plasma values. (CLIA ID [id number]) Performed By: #### BGLU #### [facility] [address] [place] [phone] BASIC METABOLIC PANEL Collected: 09/04/2018 Status: F Source: [facility] 4:18 AM SYSTEM REPOSITORY TYPE CODE TESTS RESULT OUT OF RANGE REFERENCE UNITS LAB NA3 135-145 mmol/L Normal Sodium 138 Result Comment: NOTE: New Sodium Reference Range effective 2018 @ 10:00 LAB K3 3.5-5.1 mmol/L Normal Potassium 4.4 LAB CL3 98-107 mmol/L Normal Chloride 101 LAB CO23 22-30 mmol/L Normal Carbon Dioxide 23 LAB ANIN3 NA Anion Gap 14 LAB GLUC3 70-100 mg/dL High Glucose 159 LAB BUN3 7-20 mg/dL High Urea Nitrogen 68 LAB CRET3 0.52-1.25 mg/dL High Creatinine 4.70 LAB GF3BR >60 mL/min eGFR 15.0 LAB GF3WR >60 mL/min eGFR OTHER 12.4 Result Comment: Source- MDRD equation with creatinine calibration to IDMS(NKDEP) eGFR not recommended for drug dose adjustment LAB CA3 8.4-10.4 mg/dL Normal Calcium 9.1 Performed By: #### BMP3M, PHOS3, LFT3 #### [facility] [address] [place] [phone] PHOSPHORUS Collected: 09/04/2018 Status: F Source: [facility] 4:18 AM SYSTEM REPOSITORY TYPE CODE TESTS RESULT OUT OF REFERENCE UNITS RANGE LAB PHOS3 2.5-4.5 mg/dL High Phosphorus 5.3 Performed By: #### BMP3M, PHOS3, LFT3 #### [facility] [address] [place] [phone] HEPATIC FUNCTION Collected: 09/04/2018 Status: F Source: [facility] 4:18 AM SYSTEM REPOSITORY TYPE CODE TESTS RESULT OUT OF RANGE REFERENCE UNITS LAB ALB3 3.5-5.0 g/dL Albumin, Normal Serum 3.8 LAB TP3 6.3-8.2 g/dL Total Normal Protein 6.6 LAB BILT3 0.2-1.3 mg/dL Normal Bilirubin,Total 1.1 LAB BILD3 0.0-0.3 mg/dL Normal Bilirubin,Direct 0.0 LAB ALKP3 38-126 U/L High Alkaline Phosphatase 157 LAB ALT3 13-69 U/L ALT (SGPT) Normal 42 LAB AST3 15-46 U/L AST (SGOT) Normal 25 Performed By: #### BMP3M, PHOS3, LFT3 #### [facility] [address] [place] [phone] GLUCOSE,BEDSIDE Collected: 09/03/2018 Status: F Source: [facility] 8:27 PM SYSTEM REPOSITORY TYPE CODE TESTS RESULT OUT OF RANGE REFERENCE UNITS LAB BGLU 70-100 mg/dL High 208 Glucose,Beds gaby Result Comment: Test performed by glucose meter. Results may be 10%-15% lower than serum/plasma values. (CLIA ID [id number]) Performed By: #### BGLU #### [facility] [address], [place] GLUCOSE,BEDSIDE Collected: 09/03/2018 Status: F Source: [facility] 10:43 AM SYSTEM REPOSITORY TYPE CODE TESTS RESULT OUT OF RANGE REFERENCE UNITS LAB BGLU 70-100 mg/dL High 149 Glucose,Beds gaby Result Comment: Test performed by glucose meter. Results may be 10%-15% lower than serum/plasma values. (CLIA ID [id number]) Performed By: #### BGLU #### [facility] [address] [place], [place] ADD ON TEST FROM Collected: 09/03/2018 Status: F Source: [facility] 9:29 AM SYSTEM REPOSITORY TYPE CODE TESTS RESULT OUT OF REFERENCE UNITS RANGE LAB ADDON NA Add Accepted on test from [facility] Result Comment: Specimen available & acceptable for analysis. Performed By: #### ADDON #### [facility] [address] [place], [place] CR CHEST PORTABLE Observed: 09/03/2018 Status: F Source: [facility] 7:44 AM SYSTEM REPOSITORY Patient Name: CEFERINO PIÑA Diagnostic Radiology Exam Date/Time 09/03/2018 06:52:57 EST Exam CR Chest Portable Ordering Physician MD COMBS STEPHEN JOHN Accession Number [id number] CPT4 Codes 48769 () Reason For Exam cough Report Portable chest 09/03/2018: Clinical Information: Cough. Findings: A single AP portable view of the chest was obtained at 626 hours. Comparison was made to the prior study 08/26/2018. The large bore right-sided dialysis catheter is unchanged. The left-sided cardiac pacemaker is unchanged. There is now a patchy infiltrate in the right lung base. There may be small bilateral pleural effusions. Report Dictated on Final Dictated: 09/03/2018 7:44 am Dictating Physician: MD BOLAÑOS RISA Signed Date and Time: 09/03/2018 7:46 am Signed by: BOLAÑOS, MD, DORY Transcribed Date and Time: 09/03/2018 7:44 GLUCOSE,BEDSIDE Collected: 09/03/2018 Status: F Source: [facility] 7:13 AM SYSTEM REPOSITORY TYPE CODE TESTS RESULT OUT OF RANGE REFERENCE UNITS LAB BGLU 70-100 mg/dL High 208 Glucose,Beds gaby Result Comment: Test performed by glucose meter. Results may be 10%-15% lower than serum/plasma values. (CLIA ID [id number]) Performed By: #### BGLU #### [facility] [address] [place] [phone] TROPONIN I Collected: 09/03/2018 Status: F Source: [facility] 5:45 AM SYSTEM REPOSITORY TYPE CODE TESTS RESULT OUT OF REFERENCE UNITS RANGE LAB TROP4 0.000-0.034 ng/mL High Troponin I 0.155 Result Comment: 0.046 - 0.400 = Indeterminate > 0.400 = Consider Myocardial Injury Performed By: #### TROPN, MG3, PHOS3, LFT3, PCAL #### [facility] [address] MAGNESIUM Collected: 09/03/2018 Status: F Source: [facility] 5:45 AM SYSTEM REPOSITORY TYPE CODE TESTS RESULT OUT OF RANGE REFERENCE UNITS LAB MG3 1.6-2.3 mg/dL Normal Magnesium 2.2 Performed By: #### TROPN, MG3, PHOS3, LFT3, PCAL #### [facility] [address] [place] [address] PHOSPHORUS Collected: 09/03/2018 Status: F Source: [facility] 5:45 AM SYSTEM REPOSITORY TYPE CODE TESTS RESULT OUT OF REFERENCE UNITS RANGE LAB PHOS3 2.5-4.5 mg/dL High Phosphorus 5.7 Performed By: #### TROPN, MG3, PHOS3, LFT3, PCAL #### [facility] [address] HEPATIC FUNCTION Collected: 09/03/2018 Status: F Source: [facility] 5:45 AM SYSTEM REPOSITORY TYPE CODE TESTS RESULT OUT OF RANGE REFERENCE UNITS LAB ALB3 3.5-5.0 g/dL Albumin, Normal Serum 4.0 LAB TP3 6.3-8.2 g/dL Total Normal Protein 6.7 LAB BILT3 0.2-1.3 mg/dL Normal Bilirubin,Total 0.8 LAB BILD3 0.0-0.3 mg/dL Normal Bilirubin,Direct 0.0 LAB ALKP3 38-126 U/L High Alkaline Phosphatase 161 LAB ALT3 13-69 U/L ALT (SGPT) Normal 44 LAB AST3 15-46 U/L AST (SGOT) Normal 28 Performed By: #### TROPN, MG3, PHOS3, LFT3, PCAL #### [facility] [address] [place] [phone] PROCALCITONIN Collected: 09/03/2018 Status: F Source: [facility] 5:45 AM SYSTEM REPOSITORY TYPE CODE TESTS RESULT OUT OF RANGE REFERENCE UNITS LAB PRO <0.10 ng/mL Procalcitonin Abnormal 0.41 LAB INT3 NA Interpretation See Below Result Comment: PCT <0.50 = Low risk of severe sepsis and/or septic shock. PCT >2.00 = High risk of severe sepsis and/or septic shock. Performed By: #### TROPN, MG3, PHOS3, LFT3, PCAL #### [facility] [address] [place] [phone] HEMOGRAM Collected: 09/03/2018 Status: F Source: [facility] 12:59 AM SYSTEM REPOSITORY TYPE CODE TESTS RESULT OUT OF RANGE REFERENCE UNITS LAB IWBC 3.6-10.7 10*3/uL WBC Normal 7.3 LAB RBC 4.40-5.90 10*6/uL Low RBC 3.91 LAB HGB 13.0-18.0 g/dL Low Hemoglobin 10.7 LAB HCT 40.0-52.0 % Low Hematocrit 32.9 LAB MCV 80.0-98.0 fL MCV Normal 84.1 LAB MCH 26.0-34.0 pg MCH Normal 27.3 LAB MCHC 32.0-36.0 % MCHC Normal 32.5 LAB RDW 11.5-14.5 % High RDW 16.3 LAB PLT 140-440 10*3/uL Platelet Normal 198 LAB MPV 7.4-10.4 fL MPV Normal 10.0 Performed By: #### HEMOG, BMP3M, TROPN, HA1C2 #### [facility] [address] [phone] BASIC METABOLIC PANEL Collected: 09/03/2018 Status: F Source: [facility] 12:59 AM SYSTEM REPOSITORY TYPE CODE TESTS RESULT OUT OF RANGE REFERENCE UNITS LAB NA3 135-145 mmol/L Normal Sodium 140 Result Comment: NOTE: New Sodium Reference Range effective 2018 @ 10:00 LAB K3 3.5-5.1 mmol/L Normal Potassium 4.5 LAB CL3 98-107 mmol/L Normal Chloride 101 LAB CO23 22-30 mmol/L Normal Carbon Dioxide 23 LAB ANIN3 NA Anion Gap 16 LAB GLUC3 70-100 mg/dL High Glucose 235 LAB BUN3 7-20 mg/dL High Urea Nitrogen 73 LAB CRET3 0.52-1.25 mg/dL High Creatinine 5.44 LAB GF3BR >60 mL/min eGFR 12.7 LAB GF3WR >60 mL/min eGFR OTHER 10.5 Result Comment: Source- MDRD equation with creatinine calibration to IDMS(NKDEP) eGFR not recommended for drug dose adjustment LAB CA3 8.4-10.4 mg/dL Normal Calcium 9.1 Performed By: #### HEMOG, BMP3M, TROPN, HA1C2 #### [facility] [address] [place] [phone] TROPONIN I Collected: 09/03/2018 Status: F Source: [facility] 12:59 AM SYSTEM REPOSITORY TYPE CODE TESTS RESULT OUT OF REFERENCE UNITS RANGE LAB TROP4 0.000-0.034 ng/mL High Troponin I 0.145 Result Comment: 0.046 - 0.400 = Indeterminate > 0.400 = Consider Myocardial Injury Performed By: #### HEMOG, BMP3M, TROPN, HA1C2 #### [facility] [address] [place] [phone] HEMOGLOBIN A1C Collected: 09/03/2018 Status: F Source: [facility] 12:59 AM SYSTEM REPOSITORY TYPE CODE TESTS RESULT OUT OF REFERENCE UNITS RANGE LAB A1C2 4.0-5.7 % High Hemoglobin A1C 8.2 Result Comment: --HgbA1C levels may not be accurate in patients who have renal disease, received recent blood transfusions, are anemic, or who have dyshemoglobinemia. LAB EAG2 mg/dL Estimated Avg Glucose 189 Performed By: #### HEMOG, BMP3M, TROPN, HA1C2 #### [facility] [address] [place] [address] GLUCOSE,BEDSIDE Collected: 09/02/2018 Status: F Source: [facility] 11:46 PM SYSTEM REPOSITORY TYPE CODE TESTS RESULT OUT OF RANGE REFERENCE UNITS LAB BGLU 70-100 mg/dL High 234 Glucose,Beds gaby Result Comment: Test performed by glucose meter. Results may be 10%-15% lower than serum/plasma values. (CLIA ID [id number]) Performed By: #### BGLU #### [facility] [address] [place] [address] EMERGENCY DEPARTMENT Observed: 09/02/2018 Status: F Source: [facility] SUMMARY 11:00 PM [facility] REPOSITORY [facility] Medical Records Department [address] [place] [address] Emergency Department Summary 09/02/18 1605 MR#: [id number] Acct: [id number] Name: CEFERINO PIÑA Patti Rep #: [id number] : 1950 67 From: Darlin Montanez MD PCP: OUT OF TOWN DOCTOR Status: DEP ER - ER Visit Summary Date of Service: 09/02/18 Chief Complaint: [] A. fib RVR shortness of breath end-stage renal disease malfunctioning dialysis catheter History of Present Illness: The patient is a 67 M [] history of A. fib RVR, cardiac pacemaker, renal failure, right chest dialysis catheter dialysis Sunday, he indicates that basically he has been going in and out of A. fib RVR for months he is scheduled to be seen at [facility] by Dr. Li to have his cardiac pacemaker change to he describes a 3-lead cardiac pacemaker that will blunt the effects of his A. fib RVR, that procedure is to be done later this month, in addition he is dialyzed Sunday via right chest dialysis catheter, the catheter was placed , dialysis unit today was unable to dialyzing the catheter would not function he was given some type of medication through the catheter and told to return Sunday he indicates he is too short of breath to be at home, he presents with a heart rate of 130 irregular he has no fever cough or other complaints he was in the emergency room about a week ago and was cardioverted he is taking amiodarone only for his A. fib Physical Examination: [] Heart rate 130 A. fib RVR pulse ox 97% on oxygen General, no distress resting comfortably HEENT is generally unremarkable The neck is supple no adenopathy Cardiovascular, irregular rate and rhythm Lungs, clear bilateral Abdomen, soft nontender Extremities, 3-4 edema bilaterally able Neurologic, awake alert answering questions appropriately moving all 4 extremities To establish IV access within screening labs All the above will obtain IV access screening labs, discussed with Dr. cline on-call for [facility] service arrange for transfer to [facility] for all the above Test Results: [] Emergency Department Course and Treatment: [] EKG shows irregular rhythm some components wide-complex some narrow consistent with history of A. fib rate 127, troponin returns at 0.104 creatinine elevated 6, the rest of the chemistry panel and CBC were unremarkable chest x-ray was unremarkable per radiology [facility] transfer service they spoke with the physician team there, they have accepted him in transfer with Cardizem to slow down his heart rate, he remains very stable here in the department he agrees to the transfer, and I explained to the [facility] team that he would need to be seen by cardiology and dialysis and would require urgent dialysis on arrival and they would arrange for that Treatment Plan: [] Disposition: [] Transfer to [facility] to be seen by patient subspecialty physicians Impression: [] A. fib RVR with history of same, end-stage renal disease, malfunctioning dialysis catheter This note was generated with [employer] dictation software. It may contain incorrect words, spelling, and punctuation that were not noted in review of the chart prior to signing ED Disposition - Plan for ED Patient: Chief Complaint: Shortness of Breath Referrals: Care Physician,No Primary [NON-STAFF] - What to do if you have Problems For any increased pain, shortness of breath, bleeding, nausea or vomiting, chest pain, or any unexpected problems, contact your Primary Care Provider. Call [facility] ([phone]) or report to the closest Emergency Room. Call 911 if necessary. 09/02/18 2300 <Electronically signed by Darlin Montanez MD> Date Darlin Moise Signature (If Indicated): Date CC: OUT OF TOWN DOCTOR HEMOGRAM W/ AUTODIFF Collected: 09/02/2018 Status: F Source: [facility] 9:10 PM SYSTEM REPOSITORY TYPE CODE TESTS RESULT OUT OF REFERENCE UNITS RANGE LAB IWBC 3.6-10.7 10*3/uL WBC Normal 8.2 LAB RBC 4.40-5.90 10*6/uL Low RBC 3.97 LAB HGB 13.0-18.0 g/dL Low Hemoglobin 10.9 LAB HCT 40.0-52.0 % Low Hematocrit 33.5 LAB MCV 80.0-98.0 fL MCV Normal 84.5 LAB MCH 26.0-34.0 pg MCH Normal 27.5 LAB MCHC 32.0-36.0 % MCHC Normal 32.6 LAB RDW 11.5-14.5 % RDW High 16.4 LAB PLT 140-440 10*3/uL Platelet Normal 197 LAB MPV 7.4-10.4 fL MPV Normal 10.2 LAB GRAN% 40.0-80.0 % Granulocytes Normal 73.2 LAB LYMP% 20.0-40.0 % Low Lymphocytes 15.5 LAB MONO% 2.0-10.0 % Monocytes Normal 9.6 LAB EOS% 1.0-6.0 % Low Eosinophils 0.6 LAB BAS% 0.0-2.0 % Basophils Normal 1.1 LAB ANC 1.8-7.0 10*3/uL Abs Normal Neutrophile Cnt 6.0 LAB ALC 1.0-4.3 10*3/uL Abs Lymph Cnt Normal 1.3 LAB AMC 0.0-0.8 10*3/uL Abs Monocyte Normal Cnt 0.8 LAB AEC 0.0-0.5 10*3/uL Abs Eosin Cnt Normal 0.0 LAB ABC 0.0-0.2 10*3/uL Abs Baso Cnt Normal 0.1 Performed By: #### HEMDF, CMP3, MG3, TROPN #### [facility] [address] [place] [address] COMP METABOLIC PANEL Collected: 09/02/2018 Status: F Source: [facility] 9:10 PM SYSTEM REPOSITORY TYPE CODE TESTS RESULT OUT OF RANGE REFERENCE UNITS LAB NA3 135-145 mmol/L Normal Sodium 137 Result Comment: NOTE: New Sodium Reference Range effective 2018 @ 10:00 LAB K3 3.5-5.1 mmol/L Normal Potassium 4.9 LAB CL3 98-107 mmol/L Normal Chloride 99 LAB CO23 22-30 mmol/L Normal Carbon Dioxide 24 LAB ANIN3 NA Anion Gap 15 LAB GLUC3 70-100 mg/dL High Glucose 202 LAB BUN3 7-20 mg/dL High Urea Nitrogen 75 LAB CRET3 0.52-1.25 mg/dL High Creatinine 5.49 LAB GF3BR >60 mL/min eGFR 12.6 LAB GF3WR >60 mL/min eGFR OTHER 10.4 Result Comment: Source- MDRD equation with creatinine calibration to IDMS(NKDEP) eGFR not recommended for drug dose adjustment LAB CA3 8.4-10.4 mg/dL Calcium Normal 9.3 LAB ALB3 3.5-5.0 g/dL Albumin, Serum Normal 3.9 LAB TP3 6.3-8.2 g/dL Total Protein Normal 6.6 LAB BILT3 0.2-1.3 mg/dL Normal Bilirubin,Total 0.9 LAB ALKP3 38-126 U/L High Alkaline Phosphatase 145 LAB ALT3 13-69 U/L ALT (SGPT) Normal 49 LAB AST3 15-46 U/L AST (SGOT) Normal 32 Performed By: #### HEMDF, CMP3, MG3, TROPN #### [facility] [address] [place] [phone] MAGNESIUM Collected: 09/02/2018 Status: F Source: [facility] 9:10 PM SYSTEM REPOSITORY TYPE CODE TESTS RESULT OUT OF RANGE REFERENCE UNITS LAB MG3 1.6-2.3 mg/dL Normal Magnesium 2.3 Performed By: #### HEMDF, CMP3, MG3, TROPN #### [facility] [address] [place] [phone] TROPONIN I Collected: 09/02/2018 Status: F Source: [facility] 9:10 PM SYSTEM REPOSITORY TYPE CODE TESTS RESULT OUT OF REFERENCE UNITS RANGE LAB TROP4 0.000-0.034 ng/mL High Troponin I 0.139 Result Comment: 0.046 - 0.400 = Indeterminate > 0.400 = Consider Myocardial Injury Performed By: #### HEMDF, CMP3, MG3, TROPN #### [facility] [address] [place] [address] ED PROVIDER NOTE Observed: 09/02/2018 Status: F Source: [facility] 7:35 PM SYSTEM REPOSITORY [facility] EMERGENCY DEPT eMERGENCY dEPARTMENT eNCOUnter Pt Name: Ceferino Piña Birthdate 1950 Date of evaluation: 09/02/2018 Provider: Payton Sher MD CHIEF COMPLAINT Chief Complaint Patient presents with ? Atrial Fibrillation patient from [place] ER. Patient having trouble with pacemaker. Patient was cardioverted 2 weeks ago. Patient recieved 10mg cardizem at [place] ED. HISTORY OF PRESENT ILLNESS (Location/Symptom, Timing/Onset,Context/Setting, Quality, Duration, Modifying Factors, Severity) Note limiting factors. HPI Ceferino Piña is a 67 y.o. male who presents to the emergency department for the evaluation of Atrial fibrillation. The patient presented to [facility]. Transferred here. He has a past nuchal history of atrial fibrillation and uses amiodarone at home. On Eliquis. He is having 3 days' worth of worsening shortness of breath, exertional at home. No chest pain. No abdominal pain. No exacerbating or relieving factors. Symptoms have been worsening. He was given Cardizem bolus at the outside Emergency Department. He was not placed on a drip. Heart rate is currently 120. Nursing Notes were reviewed. REVIEW OF SYSTEMS (2+ for level 4; 10+ for level 5) Review of Systems 10 system review of systems negative except as perhistory of present illness. PAST MEDICAL HISTORY Past Medical History: Diagnosis Date ? Atrial flutter (HCC) CHADS2 score = 3 (CHF, HTN, DM); HAS-BLED score = 4 (renal, age, ASA, previous cerebral hemorrhage) ? CAD (coronary artery disease) s/p stents, CABG ? Cardiac defibrillator in place ? Cerebral hemorrhage (HCC) 09/10/96 ? CHF (congestive heart failure) (HCC) EF 20%, Aug 2015 ? ESRD (end stage renal disease) (HCC) ON HD VIA RIGHT CHEST WALL CATHETER , , AND SUNDAY ? Foot drop, left ? Hemiparesis (HCC) ? Hemodialysis patient (HCC) M, W AND F ? Hyperlipidemia ? Hypertension ? Ischemic dilated cardiomyopathy (HCC) ? Paroxysmal atrial fibrillation (HCC) ? Rheumatoid arthritis (HCC) ? 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 Stroke (HCC) ? Type II or unspecified type diabetes mellitus without mention of complication, not stated as uncontrolled SURGICAL HISTORY Past Surgical History: Procedure Laterality Date ? ABLATION OF DYSRHYTHMIC FOCUS 09/2015 ? APPENDECTOMY ? CARDIAC CATHETERIZATION Bilateral 06/18/2018 no intervention ? CARDIAC DEFIBRILLATOR PLACEMENT ? CATARACT REMOVAL ? CORONARY ANGIOPLASTY WITH STENT PLACEMENT 09/14/2014 FIDENCIO to mid Cx artery ? CORONARY ARTERY BYPASS GRAFT ? HAND SURGERY Right 09/26/2016 CURRENT MEDICATIONS Previous Medications ALLOPURINOL (ZYLOPRIM) 100 MG TABLET Take 2 tablets by mouth daily AMIODARONE (CORDARONE) 200 MG TABLET Take 1 tablet by mouth every morning APIXABAN (ELIQUIS) 2.5 MG TABS TABLET Take 1 tablet by mouth 2 times daily ATORVASTATIN (LIPITOR) 80 MG TABLET Take 1 tablet by mouth daily BLOOD GLUCOSE MONITOR STRIPS Test twice daily. Brand: accucheck H2Mob or patient/insurance preference. Dx: E11.9. BLOOD GLUCOSE MONITORING SUPPL ERIKA Test twice daily. Brand: accuchDexrex Gear or patient/insurance preference. Dx: E11.9. CALCITRIOL (ROCALTROL) 0.25 MCG CAPSULE Take 1 capsule by mouth daily INSULIN DETEMIR (LEVEMIR FLEXTOUCH) 100 UNIT/ML INJECTION PEN Inject 21 Units into the skin nightly INSULIN PEN NEEDLE 30G X 8 MM MISC 1 each by Does not apply route 4 times daily LANCETS MISC Test twice daily. Brand: patient/insurance preference. Dx: E11.9. METOPROLOL SUCCINATE (TOPROL XL) 100 MG EXTENDED RELEASE TABLET Take 1 tablet by mouth daily PREDNISONE (DELTASONE) 20 MG TABLET Take 1/2 tablet (10 mg daily). May increase to 1 tablet daily (20 mg) if needed. SPACER/AERO-HOLDING CHAMBERS (E-Z SPACER) ERIKA 1 Device by Does not apply route daily as needed (Wheezing) Use TID PRN wheeze. DX: R06.2 ALLERGIES Patient has no known allergies. FAMILY HISTORY Family History Problem Relation Age of Onset ? No Known Problems Mother ? No Known Problems Father SOCIALHISTORY Social History Social History ? Marital status: Spouse name: N/A ? Number of children: N/A ? Years of education: N/A Social History Main Topics ? Smoking status: Never Smoker ? Smokeless tobacco: Never Used ? Alcohol use No ? Drug use: No Comment: caffeine 2 coffees daily ? Sexual activity: Not Asked Other Topics Concern ? None Social History Narrative ? None SCREENINGS [place] Coma Scale Eye Opening: Spontaneous Best Verbal Response: Oriented Best Motor Response: Obeys commands [place] Coma Scale Score: 15 PHYSICAL EXAM (up to 7 for level 4, 8 or more for level 5) ED Triage Vitals [09/02/181938] BP Temp Temp Source Pulse Resp SpO2 Height Weight 99/74 98.3 ?F (36.8 ?C) Oral 121 18 98 % 5' 11 (1.803 m) 242 lb (109.8 kg) Physical Exam General Appearance: Alert, cooperative, no distress, appears stated age. Head: Normocephalic, without obvious abnormality, atraumatic. Eyes: conjunctiva/corneas clear, EOM's intact. Sclera anicteric. ENT: Mucous membranes moist. Neck: Supple, symmetrical, trachea midline, no adenopathy. No jugular venous distention. Lungs: No Respiratory Distress. Chest Wall: Nontender Heart: A. fib with RVR, irregularly irregular, good peripheral pulses Abdomen: Soft, non-distended, no rebound or guarding, non-tender Extremities: Full range of motion.No lower extremity edema Pulses: Equal bilaterally in Upper extremities Skin: No rashes or lesions to exposed skin. Neurologic: Alert and oriented X 3. Motor grossly normal. Speech clear. DIAGNOSTIC RESULTS EKG (Per Emergency Physician): Atrial fibrillation, heart rate 116. Right bundle-branch pathology. No ST segment changes or T-wave inversions concerning for ischemia RADIOLOGY (Per EmergencyPhysician): Interpretation per the Radiologist below, if available at the time of this note: No results found. ED BEDSIDE ULTRASOUND: Performed by ED Physician - none LABS: Labs Reviewed - No data to display All otherlabs were within normal range or not returned as of this dictation. EMERGENCY DEPARTMENT COURSE and DIFFERENTIAL DIAGNOSIS/MDM: Vitals: Vitals: 09/02/18 1939 BP: 99/74 Pulse: 121 Resp: 18 Temp: 98.3 ?F (36.8 ?C) TempSrc: Oral SpO2: 98% Weight: 109.8 kg (242 lb) Height: 5' 11 (1.803 m) Medications diltiazem 125 mg in dextrose 5 % 125 mL infusion (not administered) MDM. Presents as transfer for atrial fibrillation. His teacher dramatics is a teacher dramatics here and wants him admitted to this facility. Patient is asymptomatic currently. Heart rate is in the 120s to 110s. I have ordered Cardizem drip to have on hand if his heart rate continues to be above 120. Goal the titration will be for heart rate less than 120. Hold her blood pressure less than 90. He did take his amiodarone today. REVAL: Pt will be admitted for rate control and further workup. CRITICAL CARE TIME Total Critical Care time was 35 minutes, excluding separately reportable procedures. There was a high probability of clinically significant/life threatening deterioration in thepatient's condition which required my urgent intervention. CONSULTS: None PROCEDURES: Unless otherwise noted below, none Procedures FINAL IMPRESSION 1. Atrial fibrillation with RVR (HCC) DISPOSITION/PLAN DISPOSITION Decision To Admit 09/02/2018 08:10:16 PM PATIENT REFERRED TO: No follow-up provider specified. DISCHARGE MEDICATIONS: New Prescriptions No medications on file (Please note: Portions of this note were completed with a voicerecognition program. Efforts were made to edit the dictations but occasionally words and phrases are mis-transcribed.) Form [id number] Payton Sher MD (electronically signed) Emergency Medicine Provider Payton Sher MD 09/22/18 0608 CHEST 1 VIEW Observed: 09/02/2018 Status: F Source: [place] (PORTABLE) 4:03 PM [facility] REPOSITORY [facility] Imaging Services [address] [place] [address] Chest 1 View (Portable) MR#: [id number] Acct: [id number] Name: CEFERINO PIÑA Rep #: [id number] : 1950 M 67 From: Jose Elias Malone MD PCP: OUT OF TOWN DOCTOR Status: REG ER Study: Chest 1 View (Portable) Date of Exam: 09/02/18 Exam# [id number] Ordering Dr: Darlin Montanez MD STUDY: X-RAY CHEST REASON FOR EXAM: Male, 67 years old. Shortness of breath TECHNIQUE: Frontal view of the chest COMPARISON: 08/28/2018 FINDINGS: The lungs are clear. There are no pleural effusions. There is no pneumothorax. The heart is enlarged, but stable. Again noted is a pacemaker and a right-sided central catheter with its tip in the superior vena cava. The patient is status post sternotomy. RAD/Chest 1 View (Portable) IMPRESSION: Stable cardiomegaly. No acute thoracic pathology. Electronically Signed: Jose Elias Kira, at 16:22 EST Tel , Service support , CC: MD eMrt Montanez; OUT OF TOWN DOCTOR Freight Car Cleaner: Signed BASIC METABOLIC Collected: 09/02/2018 Status: F Source: [place] PROFILE (BMP) 3:50 PM [facility] REPOSITORY TYPE CODE TESTS RESULT OUT OF RANGE REFERENCE UNITS LAB L501.0100 74-106 mg/dL High GLU 238 Result Comment: Glucose result greater than or equal to 200 mg/dL suggests DIABETES MELLITUS per A.D.A. criteria. Please note revised GLUCOSE reference range effective 2017. LAB L501.1000 7-18 mg/dL High BUN 73 LAB L501.1100 0.70-1.30 mg/dL High CREAT,SERUM 5.84 Result Comment: The validity of the calculated GFR AND GFRAA in patients over 70 years has not been determined. Clinical correlation is essential. LAB L501.1110 >60 mL/min Low EST GFR 10 Result Comment: Non- GFR Calc LAB L501.1115 >60 mL/min Low EST GFR - AA 12 Result Comment: GFR Calc LAB L501.1255 ml/min Normal Estimated CRCL 12.71 LAB L501.1300 10-20 RATIO Normal BUN/CRE 12.5 LAB L501.2200 8.5-10 mg/dL Normal .1 CA 9.3 LAB L501.5300 136-14 mmol/L Normal 5 NA 137 LAB L501.5600 3.5-5. mmol/L Normal 1 K 4.7 LAB L501.5900 98-107 mmol/L Normal CL 99 LAB L501.6100 21.0-3 mmol/L Normal 2.0 CO2 25.0 LAB L501.6200 5-15 Normal GAP 13 Performed By: #### L500.2500, L501.4010 #### [facility] Laboratory [address]. [place], [place], [id number] TROPONIN-I Collected: 09/02/2018 Status: F Source: [place] 3:50 PM [facility] REPOSITORY TYPE CODE TESTS RESULT OUT OF RANGE REFERENCE UNITS LAB L501.4010 <0.045 ng/mL High 0.104 TROPONIN-I Result Comment: TROPONIN-I EXPECTED VALUES <0.045 Negative 0.045 - 0.590 Consistent with Cardiac Damage > OR = 0.600 Critical Value Not every elevated troponin is indicative of NE. These values should be used with clinical judgement in examining the patient's clinical picture for diagnosis. To establish a diagnosis of NE versus myocardial injury, there must be a demonstrated rise and/or fall in the troponin values, in addition to ischemic symptoms, EKG changes, new regional wall motion abnormality, and/or angiographical evidence. PLEASE NOTE: REFERENCE RANGES EDITED 18 Performed By: #### L500.2500, L501.4010 #### [facility] [address]. [place], [place], [address] CBC W/DIFF, AUTOMATED Collected: 09/02/2018 Status: F Source: [place] 3:50 PM [facility] REPOSITORY TYPE CODE TESTS RESULT OUT OF RANGE REFERENCE UNITS LAB L100.1000 4.4-11.0 K/mm3 Normal WBC 8.9 LAB L100.1200 4.6-6.2 M/mm3 Low RBC 4.02 LAB L100.1300 13.0-16.5 g/dl Low HGB 10.8 LAB L100.1400 40-54 % Low HCT 34.8 LAB L100.1500 80-94 fL Normal MCV 86.6 LAB L100.1600 27.0-32.0 pg Low MCH 26.9 LAB L100.1700 32-36 g/gl Low MCHC 31.0 LAB L100.1810 11.6-14.6 % High RDW CV 16.3 LAB L100.1820 35.1-43.9 fl High RDW SD 50.0 LAB L100.1900 150-450 K/mm3 Normal PLT 214 LAB L100.2000 6.2-12.0 fl Normal MPV 11.8 LAB L100.2100 47-70 % Normal NEUT% 67.9 LAB L100.2200 19-41 % Normal LY% 22.3 LAB L100.2300 0-10 % Normal MONO% 9.0 LAB L100.2400 0-5 % Normal EO% 0.1 LAB L100.2500 0-1 % Normal BASO% 0.2 LAB L100.2550 0.0-0.9 % Normal IM GRAN % 0.500 Result Comment: IG% - Immature Granulocytes (promyelocytes, myelocytes and metamyelocytes) > 1% indicates that a LEFT SHIFT is Present. LAB L100.2620 2.0-7.7 X10 3/uL Normal Absolute Neut 6.0 LAB L100.2720 0.83-4.51 X10 3/ul Normal Absolute Lymph 1.98 Performed By: #### L100.0100 #### [facility] [address] [place], [address] 12 LEAD ELECTROCARDIOGRAM Observed: 08/30/2018 Status: F Source: [place] 2:45 PM [facility] REPOSITORY [facility] Cardiovascular Services [address] [place] [address] 12 Lead EKG 08/29/18 0113 MR#: [id number] Acct: [id number] Name: CEFERINO PIÑA Rep #: [id number] : 1950 67 From: Don Bowie MD Attending Dr: Status: DEP ER Ordering Dr: Suhas Womack MD Date: 08/29/18 Location: ED Sex: M C Admitted: Test Reason : REPEAT Blood Pressure : / mmHG Vent. Rate : 078 BPM Atrial Rate : 078 BPM P-R Int : 168 ms QRS Dur : 148 ms QT Int : 512 ms P-R-T Axes : 081 255 017 degrees QTc Int : 583 ms Normal sinus rhythm Right bundle branch block Abnormal ECG Confirmed by DON BOWIE MD ([id number]), assistant editor NANI REA ([id number]) on 08/30/2018 2:44:52 PM Referred By: HERNANDO Confirmed By:DON BOWIE MD 08/30/18 1444 Date Don Bowie MD CC: No Primary Care Physician; Suhas Womack MD Signed 12 LEAD ELECTROCARDIOGRAM Observed: 08/30/2018 Status: F Source: [place] 2:43 PM [facility] REPOSITORY [facility] Cardiovascular Services [address] [place] [address] 12 Lead EKG 08/28/18 2235 MR#: [id number] Acct: [id number] Name: CEFERINO PIÑA Rep #: [id number] : 1950 67 From: Don Bowie MD Attending Dr: Status: DEP ER Ordering Dr: Suhas Womack MD Date: 08/28/18 Location: ED Sex: M C Admitted: Test Reason : Blood Pressure : / mmHG Vent. Rate : 127 BPM Atrial Rate : 127 BPM P-R Int : 000 ms QRS Dur : 168 ms QT Int : 432 ms P-R-T Axes : 000 258 088 degrees QTc Int : 627 ms Atrial fibrillation with rapid ventricular response with occasional ventricular-paced complexes Right bundle branch block Septal infarct , age undetermined Possible Lateral infarct , age undetermined Inferior infarct , age undetermined Abnormal ECG Confirmed by DON BOWIE MD ([id number]), assistant editor NANI REA ([id number]) on 08/30/2018 2:43:21 PM Referred By: PATY Confirmed By:DON BOWIE MD 08/30/18 1443 Date Don Bowie MD CC: No Primary Care Physician; Suhas Womack MD Signed XA SPECIAL ANGIOGRAPHY Observed: 08/29/2018 Status: F Source: [facility] PROCEDURE 1:37 PM SYSTEM REPOSITORY Patient Name: CEFERINO PIÑA Special Procedures Exam Date/Time 08/29/2018 13:22:18 EST Exam XA Special Angiography Procedure Ordering Physician MD PORRAS RICHARD Accession Number [id number] Reason For Exam HD catheter exchange. Poor blood flows Report CLINICAL HISTORY: Renal failure. Malfunctioning catheter. PROCEDURE: Fluoroscopic guided left tunneled dialysis check and exchange. Physicians: Dr. Zepeda. MEDICATIONS: Local lidocaine EBL: Minimal. Specimen sent: None. Complications None. Fluoroscopy time: Less than one minute Angiographic runs: 0 Fluoroscopic spot images: 0 Fluoroscopic saved images were obtained. These images do NOT add additional exposure to ionizing radiation and were captured electronically from the imaging chain. Procedural details: All of the risks, benefits, alternatives of the procedure were explained to the patient and all of the patient's questions were answered. The patient was brought into the interventional radiology suite and placed supine on the table. A timeout was performed. A spot image was obtained over the patient's chest. Based on diagnostic images, the patient's left neck and chest and indwelling catheter were prepped and draped in the usual sterile fashion. Maximal sterile barrier technique was utilized. All elements of maximal sterile barrier technique including a mask, hat, sterile gown, sterile gloves, and large sterile sheet were utilized. 2% Chlorhexidine antiseptic was utilized for skin sterilization. The subcutaneous tissues were anesthetized using 2 percent lidocaine. A 0.035 stiff Glidewire was advanced through the venous lumen of the indwelling catheter and positioned within the right atrium. The cuff of the indwelling tunneled dialysis catheter was then liberated via blunt dissection. Exchange was then made for a new 14 Kitt[place] by 27 cm Split Cath III dialysis catheter. Postplacement imaging showed proper positioning of the tunneled dialysis catheter with the tip terminating in the caudal aspect of the right atrium. Both lumens of the catheter flushed and aspirated appropriately. The catheter was then sutured to the patient's skin using 2-0 silk suture. The patient tolerated the procedure well. FINDINGS: Tip of tunneled dialysis catheter terminates within the caudal aspect of the right atrium. IMPRESSION: Successful uncomplicated fluoroscopic guided replacement of a right sided tunneled dialysis catheter. The catheter is ready for immediate use. The sutures should not be removed for two weeks. The patient was then transferred to recovery in stable condition. Report Dictated on Final Dictating Physician: MD ZEPEDA KEVIN Signed Date and Time: 08/29/2018 1:39 pm Signed by: MD ZEPEDA KEVIN Transcribed Date and Time: 08/29/2018 1:40 DISCHARGE INSTRUCTION Observed: 08/29/2018 Status: F Source: [place] 2:50 AM [facility] Medical Records Department [address] [place] [address] Discharge Instruction 08/29/18 0121 MR#: [id number] Acct: [id number] Name: CEFERINO PIÑA Rep #: [id number] : 1950 67 From: Suhas Womack MD PCP: Care Physician, No Primary Status: DEP ER ED Disposition - Plan for ED Patient: Chief Complaint: Shortness of Breath Instructions: ED Cardioversion Electrical Additional Instructions: 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 Call tomorrow. What to do if you have Problems For any increased pain, shortness of breath, bleeding, nausea or vomiting, chest pain, or any unexpected problems, contact your Primary Care Provider. Call [facility] ([phone]) or report to the closest Emergency Room. Call 911 if necessary. 08/29/18 0250 <Electronically signed by Suhas Womack MD> Date Suhas Womack MD Cosigner Signature (If Indicated): Date CC: No Primary Care Physician EMERGENCY DEPARTMENT Observed: 08/29/2018 Status: F Source: [place] SUMMARY 2:50 AM [facility] REPOSITORY [facility] Medical Records Department [address] [place] [address] Emergency Department Summary 08/28/18 2251 MR#: [id number] Acct: [id number] Name: CEFERINO PIÑA Rep #: [id number] : 1950 67 From: Suhas Womack MD PCP: Care Physician, No Primary Status: DEP ER - ER Visit Summary Date of Service: 08/28/18 Chief Complaint: Serious flutter History of Present Illness: The patient is a 67 M with a history of atrial fibrillation. He presents today for heart racing and palpitations. This has been going on for over a week. Symptoms are worse with ambulation and they were worse at bedtime tonight, so he came in to be evaluated. He has a history of ablation, but continues to have issues with atrial fibrillation. He had synchronized cardioversion in the past, and he returned to atrial fibrillation. He is waiting on a repeat ablation and some type of 3 wire device to be placed at [facility]. He is denying chest pain but does get short of breath with walking. He has also had some chest congestion. He recently started hemodialysis, and he thinks that his session today made his symptoms worse. He was told that hemodialysis should make his heart better. He is on Eliquis and compliant. Physical Examination: Afebrile. Heart rate 122. Blood pressure 112/76. 99% on room air. The patient is sitting upright in no apparent distress. Speaking in full sentences and breathing comfortably. Heart is irregularly irregular. Lungs are clear. Skin appears normal. Test Results: EKG shows atrial fibrillation at a rate of 127 with right bundle branch block. Laboratory studies and chest x-ray pending. Emergency Department Course and Treatment: Patient was placed on a monitor. He is having some symptomatic shortness of breath and palpitations but is otherwise stable. He was treated with Cardizem. We will check basic labs, EKG, and chest x-ray. X-rays show degenerative changes and postoperative changes. Nothing acute. Troponin normal. Hemoglobin 10.9. BUN 25 and creatinine 3.47, consistent with his end-stage renal disease. On reevaluation, the patient remained tachycardic and in atrial fibrillation after the Cardizem. His pressure dropped to the 80s systolic. He had no new or worsening of his symptoms. At this point, we consented him for synchronized cardioversion. Risks were discussed. He had this before 3 weeks ago. He had propofol before. He received a total of 70 mg of propofol and was cardioverted with 150 J, synchronized. Patient tolerated the procedure well. Sinus rhythm rate of 78. Pressures stable for him. Feeling better. Patient will be discharged to follow-up with his teacher dramatics tomorrow. Treatment Plan: As above Disposition: Discharge Impression: 1. Atrial fibrillation with RVR This note was generated with [employer] software. It may contain incorrect words, spelling, and punctuation that were not noted in review of the chart prior to signing ED Disposition - Plan for ED Patient: Chief Complaint: Shortness of Breath Referrals: NOT,DEFINED [NON-STAFF] - What to do if you have Problems For any increased pain, shortness of breath, bleeding, nausea or vomiting, chest pain, or any unexpected problems, contact your Primary Care Provider. Call [facility] ([phone]) or report to the closest Emergency Room. Call 911 if necessary. 08/29/18 0250 <Electronically signed by Suhas Womack MD> Date Suhas Womack MD Cosigner Signature (If Indicated): Date CC: No Primary Care Physician CBC W/DIFF, AUTOMATED Collected: 08/28/2018 Status: F Source: [place] 10:53 PM [facility] REPOSITORY TYPE CODE TESTS RESULT OUT OF RANGE REFERENCE UNITS LAB L100.1000 4.4-11.0 K/mm3 Normal WBC 6.3 LAB L100.1200 4.6-6.2 M/mm3 Low RBC 3.91 LAB L100.1300 13.0-16.5 g/dl Low HGB 10.9 LAB L100.1400 40-54 % Low HCT 34.4 LAB L100.1500 80-94 fL Normal MCV 88.0 LAB L100.1600 27.0-32.0 pg Normal MCH 27.9 LAB L100.1700 32-36 g/gl Low MCHC 31.7 LAB L100.1810 11.6-14.6 % High RDW CV 15.5 LAB L100.1820 35.1-43.9 fl High RDW SD 48.8 LAB L100.1900 150-450 K/mm3 Normal PLT 176 LAB L100.2000 6.2-12.0 fl Normal MPV 11.5 LAB L100.2100 47-70 % Normal NEUT% 68.8 LAB L100.2200 19-41 % Normal LY% 19.5 LAB L100.2300 0-10 % Normal MONO% 9.4 LAB L100.2400 0-5 % Normal EO% 1.4 LAB L100.2500 0-1 % Normal BASO% 0.3 LAB L100.2550 0.0-0.9 % Normal IM GRAN % 0.600 Result Comment: IG% - Immature Granulocytes (promyelocytes, myelocytes and metamyelocytes) > 1% indicates that a LEFT SHIFT is Present. LAB L100.2620 2.0-7.7 X10 3/uL Normal Absolute Neut 4.3 LAB L100.2720 0.83-4.51 X10 3/ul Normal Absolute Lymph 1.22 Performed By: #### L100.0100 #### [facility] [address] [place], [address] BASIC METABOLIC Collected: 08/28/2018 Status: F Source: [place] PROFILE ([facility]) 10:53 PM [facility] REPOSITORY TYPE CODE TESTS RESULT OUT OF RANGE REFERENCE UNITS LAB L501.0100 74-106 mg/dL High GLU 217 Result Comment: Glucose result greater than or equal to 200 mg/dL suggests DIABETES MELLITUS per A.D.A. criteria. Please note revised GLUCOSE reference range effective 2017. LAB L501.1000 7-18 mg/dL High BUN 25 LAB L501.1100 0.70-1.30 mg/dL High CREAT,SERUM 3.47 Result Comment: The validity of the calculated GFR AND GFRAA in patients over 70 years has not been determined. Clinical correlation is essential. LAB L501.1110 >60 mL/min Low EST GFR 19 Result Comment: Non- GFR Calc LAB L501.1115 >60 mL/min Low EST GFR - AA 23 Result Comment: GFR Calc LAB L501.1255 ml/min Normal Estimated CRCL 21.40 LAB L501.1300 10-20 RATIO Low BUN/CRE 7.2 LAB L501.2200 8.5-10 mg/dL Low .1 CA 8.3 LAB L501.5300 136-14 mmol/L Normal 5 NA 136 LAB L501.5600 3.5-5. mmol/L Normal 1 K 4.0 LAB L501.5900 98-107 mmol/L Low CL 97 LAB L501.6100 21.0-3 mmol/L Normal 2.0 CO2 28.0 LAB L501.6200 5-15 Normal GAP 11 Performed By: #### L500.2500, L501.4010 #### [facility] [address] [place], [place], [address] TROPONIN-I Collected: 08/28/2018 Status: F Source: [place] 10:53 PM [facility] REPOSITORY TYPE CODE TESTS RESULT OUT OF RANGE REFERENCE UNITS LAB L501.4010 <0.045 ng/mL Normal 0.034 TROPONIN-I Result Comment: TROPONIN-I EXPECTED VALUES <0.045 Negative 0.045 - 0.590 Consistent with Cardiac Damage > OR = 0.600 Critical Value Not every elevated troponin is indicative of NE. These values should be used with clinical judgement in examining the patient's clinical picture for diagnosis. To establish a diagnosis of NE versus myocardial injury, there must be a demonstrated rise and/or fall in the troponin values, in addition to ischemic symptoms, EKG changes, new regional wall motion abnormality, and/or angiographical evidence. PLEASE NOTE: REFERENCE RANGES EDITED 18 Performed By: #### L500.2500, L501.4010 #### [facility] [address] [facility] [place], [place], [id number] CHEST 1 VIEW Observed: 08/28/2018 Status: F Source: [place] (PORTABLE) 10:44 PM [facility] REPOSITORY [facility] Imaging Services [address] [place] [address] Chest 1 View (Portable) MR#: [id number] Acct: [id number] Name: CEFERINO PIÑA Rep #: [id number] : 1950 M 67 From: Corey Staley MD PCP: NOT, DEFINED Status: PRE ER Study: Chest 1 View (Portable) Date of Exam: 08/28/18 Exam# [id number] Ordering Dr: Suhas Womack MD STUDY: X-RAY CHEST REASON FOR EXAM: Male, 67 years old. Patient felt a flutter in this chest TECHNIQUE: Single AP portable view of the chest. COMPARISON: None. FINDINGS: Central catheter on the right extending to the right atrium. Pacemaker device on the left. There are monitoring devices The lungs are clear and expanded. There is no demonstrated pleural abnormality. Sternal cerclage wires are present from a prior sternotomy. There is cardiac enlargement. Normal mediastinum and elle. Normal visualized pulmonary arteries. Normal visualized aortic arch and descending thoracic aorta. There are diffuse degenerative changes of the visualized thoracic spine. Normal visualized ribs, clavicles, and shoulders. There is no demonstrated abnormality of the visualized soft tissue structures of the upper abdomen. RAD/Chest 1 View (Portable) IMPRESSION: Cardiac enlargement. Electronically Signed: Corey Staley MD at 23:06 EST , Service support , CC: DEFINED NOT; Suhas Womack MD Freight Car Cleaner: Signed CR CHEST PA/LAT Observed: 08/26/2018 Status: F Source: [facility] 9:38 PM SYSTEM REPOSITORY Patient Name: CEFERINO PIÑA Diagnostic Radiology Exam Date/Time 08/26/2018 15:29:04 EST Exam CR Chest PA/LAT Ordering Physician MD PORTILLO, DARRYL SUNG Accession Number [id number] CPT4 Codes 60381 () Reason For Exam Cough Report Examination: PA and lateral chest Clinical Indication: Cough and shortness of breath Comparison: 08/15/2018 Findings: Right-sided dual-lumen dialysis catheter terminates at the mid right atrium. Left-sided pacemaker extends leads to the right atrium and right ventricle. Persistent cardiomegaly unchanged. Slight interstitial coarsening possibly mild pulmonary edema or chronic change and similar to previous exam. Sternotomy wires are present. Degenerative changes visualized right shoulder and spine. Lateral view limited due to patient's arm at his side, overlapping the [id number]. Impression: Cardiomegaly. Mild diffuse interstitial disease possibly acute or chronic. Findings could represent a mild pulmonary edema/CHF, findings similar to comparison exam. Report Dictated on Final Dictated: 08/26/2018 9:38 pm Dictating Physician: MD MONAE ANTHONY J Signed Date and Time: 08/26/2018 9:39 pm Signed by: MD MONAE ANTHONY J Transcribed Date and Time: 08/26/2018 9:38 CR CHEST PORTABLE Observed: 08/15/2018 Status: F Source: [facility] 5:50 PM SYSTEM REPOSITORY Patient Name: CEFERINO PIÑA Diagnostic Radiology Exam Date/Time 08/15/2018 17:25:08 EST Exam CR Chest Portable Ordering Physician FRANKY DEL VALLE NICOLE A Accession Number [id number] CPT4 Codes 06138 () Reason For Exam sob Report PORTABLE CHEST X-RAY CLINICAL INDICATION: Shortness of breath A portable frontal view of the chest was obtained. COMPARISON: 08/03/2018 FINDINGS: The heart size is mildly enlarged, similar to the prior examination. Sternotomy wires and left-sided pacemaker device are unchanged. There has been placement of a right jugular dialysis catheter which terminates in the expected location of the right atrium. No focal consolidation is seen within the lungs. There is no large pleural effusion or pneumothorax. Bony structures are unremarkable. IMPRESSION: Mild cardiomegaly, similar to the prior examination. No focal consolidation seen within the lungs. Right jugular dialysis catheter terminates in the expected location of the right atrium. Report Dictated on Final Dictated: 08/15/2018 5:50 pm Dictating Physician: MD ADHIKARI JONATHAN R Signed Date and Time: 08/15/2018 5:51 pm Signed by: MD ADHIKARI JONATHAN R Transcribed Date and Time: 08/15/2018 5:50 HEMOGRAM W/ AUTODIFF Collected: 08/15/2018 Status: F Source: [facility] 5:16 PM SYSTEM REPOSITORY TYPE CODE TESTS RESULT OUT OF REFERENCE UNITS RANGE LAB IWBC 3.6-10.7 10*3/uL WBC Normal 8.0 LAB RBC 4.40-5.90 10*6/uL RBC Normal 4.50 LAB HGB 13.0-18.0 g/dL Low Hemoglobin 12.4 LAB HCT 40.0-52.0 % Low Hematocrit 38.5 LAB MCV 80.0-98.0 fL MCV Normal 85.4 LAB MCH 26.0-34.0 pg MCH Normal 27.6 LAB MCHC 32.0-36.0 % MCHC Normal 32.3 LAB RDW 11.5-14.5 % RDW High 15.6 LAB PLT 140-440 10*3/uL Platelet Normal 209 LAB MPV 7.4-10.4 fL MPV Normal 10.4 LAB GRAN% 40.0-80.0 % Granulocytes High 84.6 LAB LYMP% 20.0-40.0 % Low Lymphocytes 10.8 LAB MONO% 2.0-10.0 % Monocytes Normal 4.3 LAB EOS% 1.0-6.0 % Low Eosinophils 0.1 LAB BAS% 0.0-2.0 % Basophils Normal 0.2 LAB ANC 1.8-7.0 10*3/uL Abs Normal Neutrophile Cnt 6.8 LAB ALC 1.0-4.3 10*3/uL Low Abs Lymph Cnt 0.9 LAB AMC 0.0-0.8 10*3/uL Abs Monocyte Normal Cnt 0.3 LAB AEC 0.0-0.5 10*3/uL Abs Eosin Cnt Normal 0.0 LAB ABC 0.0-0.2 10*3/uL Abs Baso Cnt Normal 0.0 Performed By: #### HEMDF, PT/AP, BMP3, TROPN #### [facility] [address] [place] [id number] PROTIME AND APTT Collected: 08/15/2018 Status: F Source: [facility] 5:16 PM SYSTEM REPOSITORY TYPE CODE TESTS RESULT OUT OF REFERENCE UNITS RANGE LAB PROTM 9.0-12.0 s Prothrombin Normal Time 11.2 Result Comment: . LAB INR 0.9-1.1 NA Normal INR 1.1 Result Comment: Recommended Anticoagulant Therapy: SEE BELOW ----- INR of 2.0 - 3.0 : - Prophylaxis of Venous Thrombosis (high-risk surgery) - Treatment of Venous Thrombosis - Treatment of Pulmonary Embolism (Includes tissue heart valves, Acute Myocardial Infarction to prevent systemic embolism, Valvular Heart Disease, and Atrial Fibrillation) ----- INR of 2.5 - 3.5 : - Mechanical Prosthetic Valves (high risk) - If oral anticoagulant therapy is used to prevent Myocardial Infarction LAB PTTA 20.0-30.5 s Normal APTT 23.2 Result Comment: NOTE: The therapeutic time for Heparin anticoagulation, based on Xa activity inhibition, is an APTT of 46-80 seconds. Performed By: #### HEMDF, PT/AP, BMP3, TROPN #### [facility] [address] [place] [id number] BASIC METABOLIC PANEL Collected: 08/15/2018 Status: F Source: [facility] 5:16 PM SYSTEM REPOSITORY TYPE CODE TESTS RESULT OUT OF REFERENCE UNITS RANGE LAB NA3 137-145 mmol/L Low Sodium 136 LAB K3 3.5-5.1 mmol/L High Potassium 5.4 Result Comment: Slightly hemolysed, interpret with caution. LAB CL3 98-107 mmol/L Low Chloride 96 LAB CO23 22-30 mmol/L Normal Carbon Dioxide 26 LAB ANIN3 NA Anion Gap 14 LAB GLUC3 70-100 mg/dL High Glucose 318 LAB BUN3 7-20 mg/dL High Urea Nitrogen 57 LAB CRET3 0.52-1.25 mg/dL High Creatinine 4.55 LAB GF3BR >60 mL/min eGFR 15.6 LAB GF3WR >60 mL/min eGFR OTHER 12.9 Result Comment: Source- MDRD equation with creatinine calibration to IDMS(NKDEP) eGFR not recommended for drug dose adjustment LAB CA3 8.4-10.4 mg/dL Normal Calcium 9.2 Performed By: #### HEMDF, PT/AP, BMP3, TROPN #### [facility] [address] [place] [phone] TROPONIN I Collected: 08/15/2018 Status: F Source: [facility] 5:16 PM SYSTEM REPOSITORY TYPE CODE TESTS RESULT OUT OF REFERENCE UNITS RANGE LAB TROP4 0.000-0.034 ng/mL High Troponin I 0.090 Result Comment: 0.046 - 0.400 = Indeterminate > 0.400 = Consider Myocardial Injury Performed By: #### HEMDF, PT/AP, BMP3, TROPN #### [facility] [address] [place] [address] ED PROVIDER NOTE Observed: 08/15/2018 Status: F Source: [facility] 4:49 PM SYSTEM REPOSITORY Emergency Department Encounter [facility] EMERGENCY DEPT Patient: Ceferino Piña : 1950 Date of Evaluation: 08/15/2018 ED Provider: FABBY Hsu CNP I saw the patient as the Clinician in Triage and performed a brief history and physical exam, established acuity, and ordered appropriate tests to develop basic plan of care. Patient will be seen by MEGHAN and/or my physician partner who will evaluate the patient. Brief HPI: In brief, Ceferino Piña is a 67 y.o. male that presents for palpitations and concern for a-flutter. The patient denies any pain. Focused Physical exam: General: NAD Lungs: CTAB No use of accessory muscles. Heart: Tachycardic and irregular. No obvious murmur Plan: Labs/diagnostics ordered. Pt to be transferred to an ER bed for further medical evaluation and care. Please see subsequent provider note for further details and disposition Comment: Please note this report has been produced using speech recognition software and may contain errors related to that system including errors in grammar, punctuation, and spelling as well as words and phrases that may be inappropriate. If there are any questions or concerns please feel free to contact the dictating provider for clarification FABBY Hsu CNP [facility] FABBY Hsu CNP 08/15/18 1656 ED PROVIDER NOTE Observed: 08/15/2018 Status: F Source: [facility] 4:49 PM SYSTEM REPOSITORY Emergency Department Encounter [facility] EMERGENCY DEPT Patient: Ceferino Piña : 1950 Date of Evaluation: 08/15/2018 ED Supervising Physician: Jagdish Lopes DO I independently examined and evaluated Ceferino Piña. In brief, Ceferino Piña is a 67 y.o. male that presents stating the short of breath. The patient stated that he has been progressively short of breath for weeks to months now. Patient does have a history of end-stage renal disease and stated that he went to dialysis yesterday. He also has a history of atrial flutter or atrial fibrillation proximally with a pacemaker in place. Patient plans undergone ablation a currently he does not have one scheduled. 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 The patient was informed to go to dialysis to see if the shortness of breath is improved and then to follow up with his director work. He states his shortness of breath is not improved currently. His is in the emergency apart. He stated he he is actively anticoagulated. Denies any fever, sweats, chills. Focused exam: Tachycardic rate without any murmurs appreciated. Regular. Speaking in full sentences. No accessory muscle use. Clear to auscultation bilaterally. Left lower extremity with some atrophy but does have increased girth compared to the right. Patient states this is chronic. No tenderness to palpation. Brief ED course/MDM: Patient's a 67-year-old male presents for the above. Initial concerns her for pneumonia, volume overload as well as coronary syndrome. Patient was evaluated complete blood count, a metabolic panel, chest x-ray and troponin. Troponin is patient's baseline of 0.09. Electrocardiogram similar to patient's previous without any signs of ischemia. Chest x-ray without any signs overload. Patient was ambulated and his pulse oximetry only went to the low to mid 90s. As the patient appears to be at his baseline except for subjectivity, I do not believe the patient warrants admission at this time. The patient was encouraged to follow up with his previous establish appointment. Patient was understanding. The patient was informed if they were to develop any new or concerning symptoms they should return to the emergency department immediately. They had no questions at the time of discharge and they were discharged in fair and stable condition. Electrocardiogram reveals a sinus tachycardia with ventricular paced complex's. The rate is 110 bpm. Ears encounter ago. QS duration is prolonged at 142 ms, QTC of [address] depressions in V1 and V2. There is no ST elevations. By my interpretation, this is a history of flutter with ventricular paced complexes with a regular sinus rhythm prime pattern in V1 and V2 indicative of a bundle branch block with ST depressions in the V1 and V2 situation. The ST depressions are discordant with the QRS complexes. A comparison the patient's previous electrocardiogram dated 08/03/2018, and the morphology is unchanged and therefore less concerned for any signs of acute ischemia. All diagnostic, treatment, and disposition decisions were made by myself in conjunction with the MEGHAN/Resident. For all further details of the patient's emergency department visit, please see their documentation. (Please note that portions of this note may have been completed with a voice recognition program. Efforts were made to edit the dictations but occasionally words are mis-transcribed.) Jagdish Lopes DO [facility] Jagdish Lopes DO 08/15/18 [id number] ED PROVIDER NOTE Observed: 08/15/2018 Status: F Source: [facility] 4:49 PM SYSTEM REPOSITORY [facility] EMERGENCY DEPT eMERGENCY dEPARTMENT eNCOUnter Pt Name: Ceferino Piña Birthdate 1950 Date of evaluation: 08/15/2018 Provider: Gabriela Bauer PA-C CHIEF COMPLAINT Chief Complaint Patient presents with ? Shortness of Breath Pt has been SOB for the past several days with worsening of SOB today. pt states I am in aflutter pt was just released this past week after a cardioversion. pt states I need an ablation HISTORY OF PRESENT ILLNESS (Location/Symptom, Timing/Onset, Context/Setting, Quality, Duration, Modifying Factors, Severity) Note limiting factors. HPI Ceferino Piña is a 67 y.o. male who presents to theemergency department with complaint of Shortness of breath. Patient with a history of persistent atrial fibrillation and cardioversion states that he was recently hospitalized 2 weeks ago and ever since has had gradually worsened dyspnea at rest and with exertion. He denies any associated chest pain. He states that the dyspnea is worsened with exertion. Somewhat alleviated at rest although still present. He does have occasional orthopnea and does mention stable swelling in his bilateral legs. Denies any calf pain. No history of PE or DVT. No recent surgeries or prolonged immobilization. No paresthesias or weakness. No syncope. 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 He takes Eliquis currently. Patient has a past medical history significant for hyperlipidemia, hypertension, type 2 diabetes, history of stroke, hemiparesis, chronic kidney disease on dialysis Sunday/Sunday/Sunday, atrial flutter and paroxysmal atrial fibrillation, CHF with defibrillator in place, CAD with stents and CABG, rheumatoid arthritis. Patient is a nonsmoker, denies IV or illicit drug abuse. Nursing Notes were reviewed and confirmed as correct. REVIEW OF SYSTEMS (2+ for level 4; 10+ for level5) Review of Systems This patient's personal and family past medical history as stated in HPI and otherwise negative. ROS as stated in HPI otherwise negative, a total of 10 systems reviewed. PAST MEDICAL HISTORY Past Medical History: Diagnosis Date ? Atrial flutter (HCC) CHADS2 score = 3 (CHF, HTN, DM); HAS-BLED score = 4 (renal, age, ASA, previous cerebral hemorrhage) ? CAD (coronary artery disease) s/p stents, CABG ? Cardiac defibrillator in place ? Cerebral hemorrhage (HCC) 09/10/96 ? CHF (congestive heart failure) (HCC) EF 20%, Aug 2015 ? CKD (chronic kidney disease) stage 4 ? Foot drop, left ? Hemiparesis (HCC) ? Hyperlipidemia ? Hypertension ? Ischemic dilated cardiomyopathy (HCC) ? Paroxysmal atrial fibrillation (HCC) ? Rheumatoid arthritis (HCC) ? 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 Stroke (HCC) ? Type II or unspecified type diabetes mellitus without mention of complication, not stated as uncontrolled SURGICAL HISTORY Past Surgical History: Procedure Laterality Date ? ABLATION OF DYSRHYTHMIC FOCUS 09/2015 ? APPENDECTOMY ? CARDIAC CATHETERIZATION 06/18/2018 no intervention ? CARDIAC DEFIBRILLATOR PLACEMENT ? CATARACT REMOVAL ? CORONARY ANGIOPLASTY WITH STENT PLACEMENT 09/14/2014 FIDENCIO to mid Cx artery ? CORONARY ARTERY BYPASS GRAFT ? HAND SURGERY Right 09/26/2016 CURRENTMEDICATIONS Discharge Medication List as of 08/15/2018 8:51 PM CONTINUE these medications which have NOT CHANGED Details b teeuxmh-S-dtlqk acid (NEPHROCAPS) 1 MG capsule Take 1 capsule by mouth daily, Disp-30 capsule, R-3Normal !! metoprolol succinate (TOPROL XL) 100 MG extended release tablet Take 1 tablet by mouth daily, Disp-30 tablet, R-2Normal !! sevelamer (RENVELA) 800 MG tablet Take 1 tablet by mouth 3 times daily (with meals), Disp-90 tablet, R-3Normal !! allopurinol (ZYLOPRIM) 100 MG tablet Take 2 tablets by mouth daily, Disp-30 tablet, R-3Normal !! allopurinol (ZYLOPRIM) 100 MG tablet Take 2 tablets by mouth daily, Disp-60 tablet, R-0Normal B Vykwbrd-Z-Fuqmys-D-FA (NEPHROCAPS QT) 1 MG TBDP Take 1 capsule by mouth daily, Disp-30 tablet, R-0Normal !! sevelamer (RENVELA) 800 MG tablet Take 1 tablet by mouth 3 times daily (with meals), Disp-90 tablet, R-0Normal !! metoprolol succinate (TOPROL XL) 100 MG extended release tablet Take 1 tablet by mouth daily, Disp-30 tablet, R-0Normal sacubitril-valsartan (ENTRESTO) 24-26 MG per tablet Take 1 tablet by mouth 2 times daily, Disp-180 tablet, R-3Normal predniSONE (DELTASONE) 20 MG tablet Take 1/2 tablet (10 mg daily). May increase to 1 tablet daily (20 mg) if needed., Disp-30 tablet, R-3Normal blood glucose monitor strips Test twice daily. Brand: accuchDexrex Gear or patient/insurance preference. Dx: E11.9., Disp-100 strip, R-11, Normal amiodarone (CORDARONE) 200 MG tablet Take 1 tablet by mouth every morning, Disp-90 tablet, R-3Normal Blood Glucose Monitoring Suppl ERIKA Disp-1 Device, R-0, NormalTest twice daily. Brand: accucheck esperanza or patient/insurance preference. Dx: E11.9. Lancets MISC Disp-100 each, R-11, NormalTest twice daily. Brand: patient/insurance preference. Dx: E11.9. insulin detemir (LEVEMIR FLEXTOUCH) 100 UNIT/ML injection pen Inject 21 Units into the skin nightly, Disp-5 Pen, R-3Normal apixaban (ELIQUIS) 2.5 MG TABS tablet Take 1 tablet by mouth 2 times daily, Disp-30 tablet, R-0NO PRINT Spacer/Aero-Holding Chambers (E-Z SPACER) ERIKA DAILY PRN Starting 01/15/2017, Until Discontinued, Disp-1 Device, R-0, NormalUse TID PRN wheeze. DX: R06.2 Insulin Pen Needle 30G X 8 MM MISC 4 TIMES DAILY Starting 06/26/2016, Until Discontinued, Disp-100 each, R-3, Normal atorvastatin (LIPITOR) 80 MG tablet Take 1 tablet by mouth daily calcitRIOL (ROCALTROL) 0.25 MCG capsule Take 1 capsule by mouth daily !! - Potential duplicate medications found. Please discuss with provider. ALLERGIES Patient has no known allergies. FAMILY HISTORY Family History Problem Relation Age of Onset ? No Known Problems Mother ? No Known Problems Father SOCIAL HISTORY Social History Social History ? Marital status: Spouse name: N/A ? Number of children: N/A ? Years of education: N/A Social History Main Topics ? Smoking status: Never Smoker ? Smokeless tobacco: Never Used ? Alcohol use No ? Drug use: No Comment: caffeine 2 coffees daily ? Sexual activity: Not Asked Other Topics Concern ? None Social History Narrative ? None SCREENINGS PHYSICAL EXAM (up to 7 for level 4, 8 or more for level 5) ED Triage Vitals [08/15/18 1653] BP Temp Temp Source Pulse Resp SpO2 Height Weight 96/73 98.1 ?F (36.7 ?C) Oral 119 16 100 % 5' 11 (1.803 m) 247 lb (112 kg) Physical Exam Constitutional: Patient is AAO x3, appears to be well-nourished and hydrated. Patient is resting comfortably in bed. No acute distress. Nontoxic in appearance. Vitals as stated above. Psych: Appropriate mood and affect forchief complaint. Integumentary: Skin intact, no erythema, no ecchymosis, no soft tissue swelling, skin is warm and dry. Neuro: Patient has sensation to all areas, cranial nerves IIthrough XII are grossly intact, cerebella function is normal, no gross sensory or motor deficit. Vascular: Good ulnar and radial pulses bilaterally. Good dorsal pedis and posterior tibialpulses bilaterally.Capillary refill is less than 2 seconds. Cardiac: Irregularly irregular rhythm and slightly tachycardic rate, S1-S2 are both audible. No murmurs rubs or gallops. No JVD. Respiratory: LEFT lung base is slightly diminished, otherwise RIGHT lung clear, no wheezes, rales or rhonchi. No tachypnea. Patient speaks in full sentences. No accessory muscle use. Musculoskeletal: Muscle grading in bilateral upper and lower extremities is 5/5. No bony tenderness. Patient ambulates without difficulty. GI:Abdomen is soft, non-tender. : No CVA tenderness or suprapubic pain. Extremities: Skin is warm and dry. 2+ pitting edema to the bilateral lower extremities. Homans sign is negative and there is no pain along the deepvenous system. HEENT: Head appears atraumatic and normocephalic. Trachea midline. Neck is supple. Throat, oral and nasal mucosa is moist and pink. Uvula and trachea are midline. Eyes: Conjunctivae are clear. Fullextraocular eye movements intact. PERRL. LABS: Labs Reviewed CBC WITH AUTO DIFFERENTIAL - Abnormal; Notable for the following: Result Value Hemoglobin 12.4 (*) Hematocrit 38.5 (*) RDW 15.6 (*) Granulocytes % 84.6 (*) Lymphocyte % 10.8 (*) Eosinophils 0.1 (*) Absolute Lymph # 0.9 (*) All other components within normal limits Narrative: [place] [address] BASIC METABOLIC PANEL - Abnormal; Notable for the following: Sodium 136 (*) Potassium 5.4 (*) Chloride 96 (*) Glucose 318 (*) BUN 57 (*) CREATININE 4.55 (*) All other components within normal limits Narrative: Test [place] [address] TROPONIN - Abnormal; Notable for the following: Troponin I 0.090 (*) All other components within normal limits Narrative: Test [place] [address] PROTIME/INR & PTT Narrative: Test [place] [address] Radiographs: Xr Chest Portable Result Date: 08/15/2018 Patient Name: CEFERINO PIÑA ---Diagnostic Radiology--- Exam Date/Time 08/15/2018 17:25:08 EST Exam CR Chest Portable Ordering Physician FRANKY DEL VALLE NICOLE A Accession Number [id number] CPT4 Codes 93963 () Reason For Exam sob Report PORTABLE CHEST X-RAY CLINICAL INDICATION: Shortness of breath A portable frontal view of the chest was obtained. COMPARISON: 08/03/2018 FINDINGS: The heart size is mildly enlarged, similar to the prior examination. Sternotomy wires and left-sided pacemaker device are unchanged. There has been placement of a right jugular dialysis catheter which terminates in the expected location of the right atrium. No focal consolidation is seen within the lungs. There is no large pleural effusion or pneumothorax. Bony structures are unremarkable. IMPRESSION: Mild cardiomegaly, similar to the prior examination. No focal consolidation seen within the lungs. Right jugular dialysis catheter terminates in the expected location of the right atrium. Report Dictated on --- Final --- Dictated: 08/15/2018 5:50 pm Dictating Physician: MD ADHIKARI JONATHAN R Signed Date and Time: 08/15/2018 5:51 pm Signed by: MD ADHIKARI JONATHAN R Transcribed Date and Time: 08/15/2018 5:50 EKG: All EKG's are interpreted by the Emergency Department Physician in the absence of a teacher dramatics.? Please see their note for interpretation of EKG. All other labs were within normal range ornot returned as of this dictation. EMERGENCY DEPARTMENT COURSE and DIFFERENTIAL DIAGNOSIS/MDM: Vitals: Vitals: 08/15/18 1653 08/15/18 1729 08/15/18 1859 08/15/18 2039 BP: 96/73 92/78 97/76 101/71 Pulse: 119 115 114 99 Resp: 16 20 Temp: 98.1 ?F (36.7 ?C) TempSrc: Oral SpO2: 100% 99% 100% 98% Weight: 112 kg (247 lb) Height: 5' 11 (1.803 m) Medications 0.9 % sodium chloride bolus (0 mLs Intravenous Stopped 08/15/182041) MDM This is a 67-year-old male presenting for evaluation of shortness of breath. Patient presents 92/78, tachycardic with a rate fluctuating between mid 90s and low 100s, otherwise no tachypnea or hypoxia on room air. On exam heart is irregularly irregular with a slightly tachycardic rate, LEFT lung base with slightly diminished, otherwise no respiratory distress, he did have 2+ chronic stable pitting edema to his bilateral lower extremities, otherwise patient looks well in appearance. Medical records were reviewed. Patient was recently hospitalized on 08/04/18 for dyspnea at that time and patient was found to be fluid overloaded with an unsuccessful diuresis therefore was hospitalized for further hemodialysis. His most recent echocardiogram was in June 2018, had an EF of 15 percent at that time. Most recent diagnostic cardiac catheterization inSept2017, found to have stable severe 3 vessel CAD with no progression of previously stented segments at that time. Risk factors significant for hyperlipidemia, hypertension, type 2 diabetes, history of stroke, hemiparesis, chronic kidney disease on dialysis Sunday/Sunday/Sunday, atrial flutter and paroxysmal atrial fibrillation, CHF with defibrillator in place, CAD with stents and CABG, rheumatoid arthritis. Today we obtained basic medical screening labs, cardiac workup. IV was established and patient was placed on cardiac specialist. Labs were ordered and reviewed. No leukocytosis. Chronic stable anemia with a hemoglobin of 12.4. Sodium 136. Potassium 5.4, slightly hemolyzed. Creatinine 4.55 consistent with his chronic kidney disease. Troponin 0.090, appears to be chronic and stable. Coags unremarkable. ECG interpreted by ED attending. Radiology were ordered and reviewed. Chest x-ray interpreted by radiologist and myself reveals mild cardiomegaly similar to prior exam, no evidence of focal consolidation, infiltrate, pulmonary edema, pleural effusion or pneumothorax. No evidence of pneumonia. Patient saturated 98-95 percent on ambulatory pulse ox on room air with no significant dyspnea. On reevaluation, patient continues to be hemodynamically stable, tachycardia has actually improved and at this time there is no reason for hospitalization and patient will be discharged. Patient is discharged with appropriate instructions, told to follow up with his teacher dramatics and PCP and otherwise return to emergency department for any new or worsening symptoms. Patient being discharged is in stable condition and is agreeable to the plan. Patient has been evaluated in conjunction with ED attending who agrees with patient plan and disposition. I estimate there is LOW risk for (including but not limited to) ACUTE CORONARY SYNDROME, PULMONARY EMBOLISM, PNEUMOTHORAX, RUPTURED ESOPHAGUS OR THORACIC AORTIC DISSECTION, thus I consider the discharge disposition reasonable. Ceferino Piña (or their surrogate) and I have discussed the diagnosis and risks, and we agree with discharging home with close follow-up. We also discussed returning to the Emergency Department immediately if new or worsening symptoms occur. We have discussed the symptoms which are most concerning that necessitate immediate return. This patient does notappear to be septic or toxic. No evidence of focal deficits or weakness. REVAL: Upon reevaluation, remains hemodynamically stable, no hypoxia on ambulatory trail, no respiratory distress, ready for discharge. PROCEDURES: Unless otherwise noted below, none Procedures FINAL IMPRESSION 1. Dyspnea, unspecified type DISPOSITION/PLAN DISPOSITION Decision To Discharge 08/15/2018 08:50:48 PM PATIENT REFERRED TO: Darryl Kennedy MD [address] [place] [id number] DISCHARGE MEDICATIONS: Discharge Medication List as of 08/15/2018 8:51 PM (Please note: Portions of this note werecompleted with a voice recognition program. Efforts were made to edit the dictations but occasionally words and phrases are mis-transcribed.) Form [id number] Gabriela Bauer PA-C (electronically signed) Emergency Medicine Provider Gabriela Bauer PA-C 08/16/18 0315 DISCHARGE SUMMARY Observed: 08/12/2018 Status: F Source: [facility] 5:40 PM SYSTEM REPOSITORY [facility] Discharge Summary with Discharge DayProgress Note and Transition Note Ceferino Piña : 1950 ADMIT DATE: 08/04/2018 DISCHARGE DATE: 08/12/2018 PRIMARYCARE PHYSICIAN: Darryl Kennedy MD VISIT STATUS: Admission CODE STATUS: Full Code DISCHARGE DIAGNOSES: Principal Problem: Acute on chronic systolic heart failure (HCC) Active Problems: Persistent atrial fibrillation (HCC) Acute renal failure superimposed on stage 5 chronic kidney disease, not on chronic dialysis (HCC) Type 2 diabetes mellitus with hyperglycemia, with long-term current use of insulin (HCC) ESRD on hemodialysis (HCC) Resolved Problems: * No resolved hospital problems. * HOSPITAL COURSE: 67 yo male with complex medical history including chronic systolic HF with LVEF 15% and CKD IV presents to the ED complaining of SOB. Labs showed worsening renal function. He was volume overloaded. Attempt to diurese was unsuccessful. He underwent placement of TDC and HD was initiated. His volume status improved and he felt improved. HD will be continued indefinitely. Cardiology stopped isordil, hydralazine and diuretics due to low BP. He is discharged to home in improved condition and will need continued follow up with cardiology as well as vascular surgery for potential fistula placement. DAY OF DISCHARGE: Review of Systems Respiratory: Negative for shortness of breath and wheezing. Cardiovascular: Negative for chest pain and palpitations. Patient Vitals for the past 24 hrs: BP Temp Temp src Pulse Resp SpO2 Weight 08/12/18 0843 100/78 97.9 ?F (36.6 ?C) Temporal 96 16 96 % - 08/12/18 0516 (!) 110/59 98.4 ?F (36.9 ?C) Temporal 85 18 98 % 247 lb (112 kg) 08/12/18 0016 111/78 98 ?F (36.7 ?C) Temporal 111 18 97 % - 08/11/18 2020 84/63 97.5 ?F (36.4 ?C) Temporal 96 18 97 % - Average, Min, and Max forlast 24 hours Vitals: TEMPERATURE: Temp Av ?F (36.7 ?C) Min: 97.5 ?F (36.4 ?C) Max: 98.4 ?F (36.9 ?C) RESPIRATIONS RANGE: Resp Av.5 Min: 16 Max: 18 PULSE RANGE: Pulse Av Min: 85 Max: 111 BLOOD PRESSURE RANGE: Systolic (24hrs), Av , Min:84 , Max:111 ; Diastolic (24hrs), Av, Min:59, Max:78 PULSE OXIMETRYRANGE: SpO2 Av % Min: 96 % Max: 98 % I/O last 3 completed shifts: In: 600 [P.O.:600] Out: 200 [Urine:200] Physical Exam Constitutional: He is oriented to person, place, and time. He appears well-developed and well-nourished. HENT: Head: Normocephalic. Mouth/Throat: Oropharynx is clear and moist. Eyes: Conjunctivae are normal. No scleral icterus. Neck: Neck supple. No JVD present. Cardiovascular: Normal rate and regular rhythm. Exam reveals no gallop. No murmur heard. Pulmonary/Chest: Effort normal. He has no wheezes. He has no rales. He exhibits no tenderness. Abdominal: Soft. Bowel sounds are normal. He exhibits no distension. There is no tenderness. Musculoskeletal: He exhibits no edema or tenderness. Neurological: He is alert and oriented to person, place, and time. No cranial nerve deficit. Coordination normal. Skin: Skin is warm and dry. Psychiatric: He has a normal mood and affect. Judgment normal. PROCEDURES: Tunneled HD catheter CONSULTANTS: Nephrology - Dr. Cao Cardiology - Dr. Wang DISCHARGE MEDICATIONS: Ceferino Piña Home Medication Instructions [place]:[id number] Printed on:08/12/18 8704 Medication Information allopurinol (ZYLOPRIM) 100 MG tablet Take 2 tablets by mouth daily allopurinol (ZYLOPRIM) 100 MG tablet Take 2 tablets by mouth daily amiodarone (CORDARONE) 200 MG tablet Take 1 tablet by mouth every morning apixaban (ELIQUIS) 2.5 MG TABS tablet Take 1 tablet by mouth 2 times daily atorvastatin (LIPITOR) 80 MG tablet Take 1 tablet by mouth daily B Mufjshr-S-Uumpgm-D-FA (NEPHROCAPS QT) 1 MG TBDP Take 1 capsule by mouth daily b etdvcjy-S-acetb acid (NEPHROCAPS) 1 MG capsule Take 1 capsule by mouth daily blood glucose monitor strips Test twice daily. Brand: Nexterra or patient/insurance preference. Dx: E11.9. Blood Glucose Monitoring Suppl ERIKA Test twice daily. Brand: Nexterra or patient/insurance preference. Dx: E11.9. calcitRIOL (ROCALTROL) 0.25 MCG capsule Take 1 capsule by mouth daily insulin detemir (LEVEMIR FLEXTOUCH) 100 UNIT/ML injection pen Inject 21 Units into the skin nightly Insulin Pen Needle 30G X 8 MM MISC 1 each by Does not apply route 4 times daily Lancets MISC Test twice daily. Brand: patient/insurance preference. Dx: E11.9. metoprolol succinate (TOPROL XL) 100 MG extended release tablet Take 1 tablet by mouth daily metoprolol succinate (TOPROL XL) 100 MG extended release tablet Take 1 tablet by mouth daily predniSONE (DELTASONE) 20 MG tablet Take 1/2 tablet (10 mg daily). May increase to 1 tablet daily (20 mg) if needed. sacubitril-valsartan (ENTRESTO) 24-26 MG per tablet Take 1 tablet by mouth 2 times daily sevelamer (RENVELA) 800 MG tablet Take 1 tablet by mouth 3 times daily (with meals) sevelamer (RENVELA) 800 MG tablet Take 1 tablet by mouth 3 times daily (with meals) Spacer/Aero-Holding Chambers (E-Z SPACER) ERIKA 1 Device by Does not apply route daily as needed (Wheezing) Use TID PRN wheeze. DX: R06.2 DIET: cardiac ACTIVITY: resume regular activity SIGNIFICANT DIAGNOSTIC STUDIES: n/a COMPLEXITY OF FOLLOW UP: [x] Moderate Complexity: follow up within 7-14 calendar days (29082) [] Severe Complexity: follow up within 7 calendar days (09856) FOLLOW UP TESTING, PENDING RESULTS ORREFERRALS AT TRANSITIONAL CARE VISIT: [] Yes [x] No DISPOSITION: Home FACILITY/HOME CARE AGENCY NAME: n/a Follow up with Darryl Kennedy MD scheduled Notification (telephone encounter) to PCP initiated: [x] Yes [] No INSTRUCTIONS TO MA/SW: Please call patient on day after discharge (must document patient contacted within 2 business days of discharge). FOLLOW UP QUESTIONS FOR MA/SW: 1. Did you get medications filled and takingthem as instructed from discharge? 2. Are you following your discharge instructions from your hospital stay? 3. Please confirm patient is scheduled for a follow up appointment within the above time frame. DISCHARGE TIME: > 30 minutes OSE,BEDSIDE Collected: 08/12/2018 Status: F Source: [facility] 3:27 PM SYSTEM REPOSITORY TYPE CODE TESTS RESULT OUT OF RANGE REFERENCE UNITS LAB BGLU 70-100 mg/dL High 194 Glucose,Beds gaby Result Comment: Test performed by glucose meter. Results may be 10%-15% lower than serum/plasma values. (CLIA ID [id number]) Performed By: #### BGLU #### [facility] [address] [place] [address] GLUCOSE,BEDSIDE Collected: 08/12/2018 Status: F Source: [facility] 6:42 AM SYSTEM REPOSITORY TYPE CODE TESTS RESULT OUT OF RANGE REFERENCE UNITS LAB BGLU 70-100 mg/dL High 184 Glucose,Beds gaby Result Comment: Test performed by glucose meter. Results may be 10%-15% lower than serum/plasma values. (CLIA ID [id number]) Performed By: #### BGLU #### [address] [address] HEMOGRAM Collected: 08/12/2018 Status: F Source: [facility] 5:20 AM SYSTEM REPOSITORY TYPE CODE TESTS RESULT OUT OF RANGE REFERENCE UNITS LAB IWBC 3.6-10.7 10*3/uL WBC Normal 7.3 LAB RBC 4.40-5.90 10*6/uL Low RBC 4.21 LAB HGB 13.0-18.0 g/dL Low Hemoglobin 11.9 LAB HCT 40.0-52.0 % Low Hematocrit 35.5 LAB MCV 80.0-98.0 fL MCV Normal 84.5 LAB MCH 26.0-34.0 pg MCH Normal 28.3 LAB MCHC 32.0-36.0 % MCHC Normal 33.4 LAB RDW 11.5-14.5 % High RDW 15.8 LAB PLT 140-440 10*3/uL Platelet Normal 170 LAB MPV 7.4-10.4 fL MPV Normal 9.8 Performed By: #### HEMOG, RENL3 #### [address] [address] RENAL FUNCTION Collected: 08/12/2018 Status: F Source: [facility] 5:20 AM SYSTEM REPOSITORY TYPE CODE TESTS RESULT OUT OF RANGE REFERENCE UNITS LAB NA3 137-145 mmol/L Low Sodium 133 LAB K3 3.5-5.1 mmol/L Normal Potassium 4.8 LAB CL3 98-107 mmol/L Low Chloride 94 LAB CO23 22-30 mmol/L Carbon Normal Dioxide 22 LAB ANIN3 NA Anion Gap 16 LAB GLUC3 70-100 mg/dL High Glucose 181 LAB BUN3 7-20 mg/dL High Urea Nitrogen 79 LAB CRET3 0.52-1.25 mg/dL High Creatinine 5.65 LAB GF3BR >60 mL/min eGFR 12.1 LAB GF3WR >60 mL/min eGFR OTHER 10.0 Result Comment: Source- MDRD equation with creatinine calibration to IDMS(NKDEP) eGFR not recommended for drug dose adjustment LAB CA3 8.4-10.4 mg/dL Normal Calcium 9.3 LAB ALB3 3.5-5.0 g/dL Normal Albumin, Serum 3.9 LAB PHOS3 2.5-4.5 mg/dL High Phosphorus 6.5 Performed By: #### HEMOG, RENL3 #### [facility] [address] [place] [address] GLUCOSE,BEDSIDE Collected: 08/11/2018 Status: F Source: [facility] 8:16 PM SYSTEM REPOSITORY TYPE CODE TESTS RESULT OUT OF RANGE REFERENCE UNITS LAB BGLU 70-100 mg/dL High 328 Glucose,Beds gaby Result Comment: Test performed by glucose meter. Results may be 10%-15% lower than serum/plasma values. (CLIA ID [id number]) Performed By: #### BGLU #### [facility] [address] [address] GLUCOSE,BEDSIDE Collected: 08/11/2018 Status: F Source: [facility] 4:50 PM SYSTEM REPOSITORY TYPE CODE TESTS RESULT OUT OF RANGE REFERENCE UNITS LAB BGLU 70-100 mg/dL High 244 Glucose,Beds gaby Result Comment: Test performed by glucose meter. Results may be 10%-15% lower than serum/plasma values. (CLIA ID [id number]) Performed By: #### BGLU #### [facility] [address] [address] GLUCOSE,BEDSIDE Collected: 08/11/2018 Status: F Source: [facility] 11:10 AM SYSTEM REPOSITORY TYPE CODE TESTS RESULT OUT OF RANGE REFERENCE UNITS LAB BGLU 70-100 mg/dL High 171 Glucose,Beds gaby Result Comment: Test performed by glucose meter. Results may be 10%-15% lower than serum/plasma values. (CLIA ID [id number]) Performed By: #### BGLU #### [facility] [address] [place] [address] GLUCOSE,BEDSIDE Collected: 08/11/2018 Status: F Source: [facility] 6:52 AM SYSTEM REPOSITORY TYPE CODE TESTS RESULT OUT OF RANGE REFERENCE UNITS LAB BGLU 70-100 mg/dL High 128 Glucose,Beds gaby Result Comment: Test performed by glucose meter. Results may be 10%-15% lower than serum/plasma values. (CLIA ID [id number]) Performed By: #### BGLU #### [facility] [address] [address] HEMOGRAM Collected: 08/11/2018 Status: F Source: [facility] 4:21 AM SYSTEM REPOSITORY TYPE CODE TESTS RESULT OUT OF RANGE REFERENCE UNITS LAB IWBC 3.6-10.7 10*3/uL WBC Normal 7.4 LAB RBC 4.40-5.90 10*6/uL Low RBC 4.21 LAB HGB 13.0-18.0 g/dL Low Hemoglobin 11.7 LAB HCT 40.0-52.0 % Low Hematocrit 35.4 LAB MCV 80.0-98.0 fL MCV Normal 84.2 LAB MCH 26.0-34.0 pg MCH Normal 27.8 LAB MCHC 32.0-36.0 % MCHC Normal 33.1 LAB RDW 11.5-14.5 % High RDW 15.5 LAB PLT 140-440 10*3/uL Platelet Normal 159 LAB MPV 7.4-10.4 fL MPV Normal 10.4 Performed By: #### HEMOG, RENL3 #### [facility] [address] [address] RENAL FUNCTION Collected: 08/11/2018 Status: F Source: [facility] 4:21 AM SYSTEM REPOSITORY TYPE CODE TESTS RESULT OUT OF RANGE REFERENCE UNITS LAB NA3 137-145 mmol/L Low Sodium 136 LAB K3 3.5-5.1 mmol/L Normal Potassium 4.4 LAB CL3 98-107 mmol/L Low Chloride 96 LAB CO23 22-30 mmol/L Carbon Normal Dioxide 26 LAB ANIN3 NA Anion Gap 14 LAB GLUC3 70-100 mg/dL High Glucose 121 LAB BUN3 7-20 mg/dL High Urea Nitrogen 59 LAB CRET3 0.52-1.25 mg/dL High Creatinine 4.86 LAB GF3BR >60 mL/min eGFR 14.5 LAB GF3WR >60 mL/min eGFR OTHER 11.9 Result Comment: Source- MDRD equation with creatinine calibration to IDMS(NKDEP) eGFR not recommended for drug dose adjustment LAB CA3 8.4-10.4 mg/dL Normal Calcium 9.3 LAB ALB3 3.5-5.0 g/dL Normal Albumin, Serum 3.7 LAB PHOS3 2.5-4.5 mg/dL High Phosphorus 5.6 Performed By: #### HEMOG, RENL3 #### [facility] [address] [place] [address] GLUCOSE,BEDSIDE Collected: 08/10/2018 Status: F Source: [facility] 7:44 PM SYSTEM REPOSITORY TYPE CODE TESTS RESULT OUT OF RANGE REFERENCE UNITS LAB BGLU 70-100 mg/dL High 297 Glucose,Beds gaby Result Comment: Test performed by glucose meter. Results may be 10%-15% lower than serum/plasma values. (CLIA ID [id number]) Performed By: #### BGLU #### [facility] [address] [place] [address] GLUCOSE,BEDSIDE Collected: 08/10/2018 Status: F Source: [facility] 5:06 PM SYSTEM REPOSITORY TYPE CODE TESTS RESULT OUT OF RANGE REFERENCE UNITS LAB BGLU 70-100 mg/dL High 320 Glucose,Beds gaby Result Comment: Test performed by glucose meter. Results may be 10%-15% lower than serum/plasma values. (CLIA ID [id number]) Performed By: #### BGLU #### [facility] [address] [place] [address] GLUCOSE,BEDSIDE Collected: 08/10/2018 Status: F Source: [facility] 2:08 PM SYSTEM REPOSITORY TYPE CODE TESTS RESULT OUT OF RANGE REFERENCE UNITS LAB BGLU 70-100 mg/dL High 147 Glucose,Beds gaby Result Comment: Test performed by glucose meter. Results may be 10%-15% lower than serum/plasma values. (CLIA ID [id number]) Performed By: #### BGLU #### [facility] [address] [place] [address] GLUCOSE,BEDSIDE Collected: 08/10/2018 Status: F Source: [facility] 6:48 AM SYSTEM REPOSITORY TYPE CODE TESTS RESULT OUT OF RANGE REFERENCE UNITS LAB BGLU 70-100 mg/dL High 191 Glucose,Beds gaby Result Comment: Test performed by glucose meter. Results may be 10%-15% lower than serum/plasma values. (CLIA ID [id number]) Performed By: #### BGLU #### [facility] [address] [address] HEMOGRAM Collected: 08/10/2018 Status: F Source: [facility] 5:42 AM SYSTEM REPOSITORY TYPE CODE TESTS RESULT OUT OF RANGE REFERENCE UNITS LAB IWBC 3.6-10.7 10*3/uL WBC Normal 6.0 LAB RBC 4.40-5.90 10*6/uL Low RBC 4.01 LAB HGB 13.0-18.0 g/dL Low Hemoglobin 11.0 LAB HCT 40.0-52.0 % Low Hematocrit 33.8 LAB MCV 80.0-98.0 fL MCV Normal 84.3 LAB MCH 26.0-34.0 pg MCH Normal 27.4 LAB MCHC 32.0-36.0 % MCHC Normal 32.5 LAB RDW 11.5-14.5 % High RDW 15.5 LAB PLT 140-440 10*3/uL Platelet Normal 157 LAB MPV 7.4-10.4 fL MPV Normal 10.1 Performed By: #### HEMOG, RENL3 #### [facility] [address] [address] RENAL FUNCTION Collected: 08/10/2018 Status: F Source: [facility] 5:42 AM SYSTEM REPOSITORY TYPE CODE TESTS RESULT OUT OF RANGE REFERENCE UNITS LAB NA3 137-145 mmol/L Low Sodium 136 LAB K3 3.5-5.1 mmol/L Normal Potassium 4.8 LAB CL3 98-107 mmol/L Chloride Normal 100 LAB CO23 22-30 mmol/L Carbon Normal Dioxide 23 LAB ANIN3 NA Anion Gap 13 LAB GLUC3 70-100 mg/dL High Glucose 193 LAB BUN3 7-20 mg/dL High Urea Nitrogen 79 LAB CRET3 0.52-1.25 mg/dL High Creatinine 5.56 LAB GF3BR >60 mL/min eGFR 12.4 LAB GF3WR >60 mL/min eGFR OTHER 10.2 Result Comment: Source- MDRD equation with creatinine calibration to IDMS(NKDEP) eGFR not recommended for drug dose adjustment LAB CA3 8.4-10.4 mg/dL Normal Calcium 9.1 LAB ALB3 3.5-5.0 g/dL Normal Albumin, Serum 3.5 LAB PHOS3 2.5-4.5 mg/dL High Phosphorus 6.9 Performed By: #### HEMOG, RENL3 #### [facility] [address] [place], [place] GLUCOSE,BEDSIDE Collected: 08/09/2018 Status: F Source: [facility] 7:50 PM SYSTEM REPOSITORY TYPE CODE TESTS RESULT OUT OF RANGE REFERENCE UNITS LAB BGLU 70-100 mg/dL High 244 Glucose,Beds gaby Result Comment: Test performed by glucose meter. Results may be 10%-15% lower than serum/plasma values. (CLIA ID [id number]) Performed By: #### BGLU #### [facility] [address] [place], [place] GLUCOSE,BEDSIDE Collected: 08/09/2018 Status: F Source: [facility] 4:37 PM SYSTEM REPOSITORY TYPE CODE TESTS RESULT OUT OF RANGE REFERENCE UNITS LAB BGLU 70-100 mg/dL High 179 Glucose,Beds gaby Result Comment: Test performed by glucose meter. Results may be 10%-15% lower than serum/plasma values. (CLIA ID [id number]) Performed By: #### BGLU #### [facility] [address] [place], [place] GLUCOSE,BEDSIDE Collected: 08/09/2018 Status: F Source: [facility] 12:15 PM SYSTEM REPOSITORY TYPE CODE TESTS RESULT OUT OF RANGE REFERENCE UNITS LAB BGLU 70-100 mg/dL High 185 Glucose,Beds gaby Result Comment: Test performed by glucose meter. Results may be 10%-15% lower than serum/plasma values. (CLIA ID [id number]) Performed By: #### BGLU #### [facility] [address] [place], [place] ADD ON TEST FROM Collected: 08/09/2018 Status: F Source: [facility] 8:40 AM SYSTEM REPOSITORY TYPE CODE TESTS RESULT OUT OF REFERENCE UNITS RANGE LAB ADDON NA Add Accepted on test from [facility] Result Comment: Specimen available & acceptable for analysis. Performed By: #### ADDON #### [facility] [address] [place], [place] VL VEIN MAPPING FOR Observed: 08/09/2018 Status: F Source: [facility] PREOP FISTULA UPPER 7:46 AM SYSTEM REPOSITORY Patient Name: CEFERINO PIÑA Ultrasound Exam Date/Time 08/09/2018 09:55:35 EST Exam VL Vein Map for Preop Fistula Upper Ext Ordering Physician MD ELEANOR, SHELLIE MEDEIROS Accession Number [id number] CPT4 Codes G0365 () Reason For Exam fistula creation planning Report [facility] --- Vein Mapping For Dialysis Access Evaluation Patient Name: Ceferino Piña : 1950 Study Date: 08/09/2018 J (67yrs) Age: 67 Account: [id number] Gender: M Loc: 1539 BP: Ordering: Shellie Andujar Technologist: Ordering Physician: Shellie Andujar Mapping Supervisor: Ann Thompson RVT, RDMS Suha Ochoa RDMS, RVT Interpreting Physician: Naresh Ewing --- Location: [facility] --- INDICATIONS: Fistula creation planning --- CONCLUSIONS 1. Vein mapping as below --- IMPRESSIONS: - Normal arterial inflow involving the right upper extremity and the left upper extremity - Normal venous outflow bilateral - Vein measurements as below --- STUDY DATA: Upper extremity evaluation for hemodialysis access. Birthdate: Patient birthdate: 1950. Age: Patient is 67 yr old. Sex: Gender: male. Ethnicity: Ethnicity: white. Height: Height: 0 cm. Weight: Weight: 0 kg. Duplex scan and vessel mapping. Patient status: Inpatient. Objective: Evaluation prior to dialysis access surgery. Procedure: A vascular evaluation was performed. The images were obtained using a Clinc! E9 vascular ultrasound machine. --- VENOUS FLOW AND IMAGING: + + -+ !Location !Flow properties ! + + -+ !Right !Spontaneous; normal augmentation ! !innominate ! ! + + -+ !Right !Normal phasicity; spontaneous; normal augmentation; ! !subclavian !compressible ! + + -+ !Right basilic !Compressible ! + + -+ !Right cephalic !Compressible ! + + -+ !Left innominate!Spontaneous; normal augmentation ! + + -+ !Left subclavian!Normal phasicity; spontaneous; normal augmentation; ! ! !compressible ! + + -+ !Left basilic !Compressible ! + + -+ !Left cephalic !Compressible ! + + -+ Vein measurement table: +--------+ +-------+-------+ + !Vein !Location !AP !Depth !Comments ! +--------+ +-------+-------+ + !Cephalic!Proximal right upper arm!3.11 mm!-------! ! +--------+ +-------+-------+ + !Cephalic!Mid right upper arm !3.68 mm!2.07 mm! ! +--------+ +-------+-------+ + !Cephalic!Distal right upper arm !3.94 mm!-------! ! +--------+ +-------+-------+ + !Cephalic!Proximal right forearm !2.23 mm!-------! ! +--------+ +-------+-------+ + !Cephalic!Mid right forearm !2.13 mm!-------! ! +--------+ +-------+-------+ + !Cephalic!Distal right forearm !2.02 mm!-------! ! +--------+ +-------+-------+ + !Basilic !Proximal right upper arm!7.10 mm!-------! ! +--------+ +-------+-------+ + !Basilic !Mid right upper arm !5.88 mm!-------! ! +--------+ +-------+-------+ + !Basilic !Distal right upper arm !5.95 mm!-------! ! +--------+ +-------+-------+ + !Basilic !Proximal right forearm !-------!-------!IV in place.! +--------+ +-------+-------+ + !Basilic !Mid right forearm !2.11 mm!-------! ! +--------+ +-------+-------+ + !Basilic !Distal right forearm !2.11 mm!-------! ! +--------+ +-------+-------+ + !Cephalic!Proximal left upper arm !3.37 mm!-------!branching. ! +--------+ +-------+-------+ + !Cephalic!Mid left upper arm !4.67 mm!2.70 mm! ! +--------+ +-------+-------+ + !Cephalic!Distal left upper arm !5.03 mm!-------!branchiing. ! +--------+ +-------+-------+ + !Cephalic!Proximal left forearm !3.84 mm!-------! ! +--------+ +-------+-------+ + !Cephalic!Mid left forearm !3.32 mm!-------! ! +--------+ +-------+-------+ + !Cephalic!Distal left forearm !2.44 mm!-------! ! +--------+ +-------+-------+ + !Basilic !Proximal left upper arm !2.92 mm!-------! ! +--------+ +-------+-------+ + !Basilic !Mid left upper arm !4.22 mm!-------!branching. ! +--------+ +-------+-------+ + !Basilic !Distal left upper arm !2.79 mm!-------!branching. ! +--------+ +-------+-------+ + !Basilic !Proximal left forearm !2.17 mm!-------! ! +--------+ +-------+-------+ + !Basilic !Mid left forearm !2.29 mm!-------! ! +--------+ +-------+-------+ + !Basilic !Distal left forearm !1.80 mm!-------!branching ! +--------+ +-------+-------+ + PVR / Doppler waveforms: + +---------+-----+ !Segment !Pressure !Index! + +---------+-----+ !R brachial!86 mm Hg !-----! + +---------+-----+ !R radial !91 mm Hg !1.02 ! + +---------+-----+ !R ulnar !124 mm Hg!1.39 ! + +---------+-----+ !L brachial!89 mm Hg !-----! + +---------+-----+ !L radial !81 mm Hg !0.91 ! + +---------+-----+ !L ulnar !97 mm Hg !1.09 ! + +---------+-----+ Electronically signed by: Naresh Ewing [id number] Final Dictated: 08/12/2018 9:04 am Dictating Physician: NARESH EWING Signed Date and Time: 08/09/2018 9:51 am Signed by: NARESH EWING GLUCOSE,BEDSIDE Collected: 08/09/2018 Status: F Source: [facility] 7:17 AM SYSTEM REPOSITORY TYPE CODE TESTS RESULT OUT OF RANGE REFERENCE UNITS LAB BGLU 70-100 mg/dL High 124 Glucose,Beds gaby Result Comment: Test performed by glucose meter. Results may be 10%-15% lower than serum/plasma values. (CLIA ID [id number]) Performed By: #### BGLU #### [facility] [address] [place] [address] VL AORTA ILIAC Observed: 08/09/2018 Status: F Source: [facility] DUPLEX 7:10 AM SYSTEM REPOSITORY Patient Name: CEFERINO PIÑA Ultrasound Exam Date/Time 08/09/2018 09:55:26 EST Exam VL Aorta Iliac Duplex Ordering Physician MD ELEANOR, SHELLIE MEDEIROS Accession Number [id number] CPT4 Codes 66464 () Reason For Exam screen for AAA [facility] --- Abdominal Aortic Duplex Report Patient Name: Ceferino Piña : 1950 Study Date: 08/09/2018 Patti (67yrs) Age: 67 Account: [id number] Gender: M Loc: 1539 BP: Ordering: Shellie Andujar Technologist: Ordering Physician: Shellie Andujar Mapping Supervisor: Suha Ochoa RDCA, T Interpreting Physician: Prashanth Bautista MD --- Location: [facility] --- INDICATIONS: screening for AAA. --- CONCLUSIONS 1. This is a normal study. --- IMPRESSIONS: This is a normal study. --- HISTORY: Risk factors: Nonsmoker. Hypertension. --- STUDY DATA: Abdominal aorta duplex. Birthdate: Patient birthdate: 1950. Age: Patient is 67 yr old. Sex: Gender: male. Ethnicity: Ethnicity: white. Doppler flow study including spectral analysis, color and gaines scale imaging. Patient status: Inpatient. Procedure: A vascular evaluation was performed. The images were obtained using a [employer]! E9 vascular ultrasound machine. The study was technically limited due to body habitus and bowel gas. --- Arterial flow: + +---------+---------+-------+ + !Location !V sys !V ed !AP cm !Transverse! + +---------+---------+-------+ + !Abd aorta - prox !36.4 cm/s!17.9 cm/s!2.41 cm!2.44 cm ! + +---------+---------+-------+ + !Abd aorta - mid !59.7 cm/s!14.2 cm/s!1.9 cm !2.37 cm ! + +---------+---------+-------+ + !Abd aorta - distal!52.3 cm/s!14.2 cm/s!1.67 cm!2.22 cm ! + +---------+---------+-------+ + !Right common iliac!76.9 cm/s!14.2 cm/s!1.11 cm!1.71 cm ! + +---------+---------+-------+ + !Left common iliac !70.7 cm/s!15.5 cm/s!0.9 cm !1.7 cm ! + +---------+---------+-------+ + Electronically signed by: Prashanth Bautista MD [id number]:47 Final Dictated: 08/09/2018 1:02 pm Dictating Physician: PRASHANTH BAUTISTA Signed Date and Time: 08/09/2018 1:01 pm Signed by: PRASHANTH BAUTISTA HEMOGRAM Collected: 08/09/2018 Status: F Source: [facility] 3:32 AM SYSTEM REPOSITORY TYPE CODE TESTS RESULT OUT OF RANGE REFERENCE UNITS LAB IWBC 3.6-10.7 10*3/uL WBC Normal 6.1 LAB RBC 4.40-5.90 10*6/uL Low RBC 4.01 LAB HGB 13.0-18.0 g/dL Low Hemoglobin 11.0 LAB HCT 40.0-52.0 % Low Hematocrit 33.6 LAB MCV 80.0-98.0 fL MCV Normal 83.8 LAB MCH 26.0-34.0 pg MCH Normal 27.5 LAB MCHC 32.0-36.0 % MCHC Normal 32.9 LAB RDW 11.5-14.5 % High RDW 15.7 LAB PLT 140-440 10*3/uL Platelet Normal 152 LAB MPV 7.4-10.4 fL MPV Normal 10.3 Performed By: #### HEMROSALBA, RENL3, CORTL #### [facility] [address] [place] [phone] RENAL FUNCTION Collected: 08/09/2018 Status: F Source: [facility] 3:32 AM SYSTEM REPOSITORY TYPE CODE TESTS RESULT OUT OF RANGE REFERENCE UNITS LAB NA3 137-145 mmol/L Low Sodium 135 LAB K3 3.5-5.1 mmol/L Normal Potassium 4.2 LAB CL3 98-107 mmol/L Chloride Normal 101 LAB CO23 22-30 mmol/L Carbon Normal Dioxide 24 LAB ANIN3 NA Anion Gap 10 LAB GLUC3 70-100 mg/dL High Glucose 145 LAB BUN3 7-20 mg/dL High Urea Nitrogen 64 LAB CRET3 0.52-1.25 mg/dL High Creatinine 4.71 LAB GF3BR >60 mL/min eGFR 15.0 LAB GF3WR >60 mL/min eGFR OTHER 12.4 Result Comment: Source- MDRD equation with creatinine calibration to IDMS(NKDEP) eGFR not recommended for drug dose adjustment LAB CA3 8.4-10.4 mg/dL Normal Calcium 9.1 LAB ALB3 3.5-5.0 g/dL Low Albumin, Serum 3.4 LAB PHOS3 2.5-4.5 mg/dL High Phosphorus 5.3 Performed By: #### HEMROSALBA, RENL3, CORTL #### [facility] [address] [place] [phone] CORTISOL Collected: 08/09/2018 Status: F Source: [facility] 3:32 AM SYSTEM REPOSITORY TYPE CODE TESTS RESULT OUT OF REFERENCE UNITS RANGE LAB CRTS4 ug/dL Cortisol 18.0 Result Comment: Before 10am 4.5-22.7 ug/dL After 5pm 1.7-14.1 ug/dL Performed By: #### HEMOG, RENL3, CORTL #### [facility] [address] [place] [address] GLUCOSE,BEDSIDE Collected: 08/08/2018 Status: F Source: [facility] 9:30 PM SYSTEM REPOSITORY TYPE CODE TESTS RESULT OUT OF RANGE REFERENCE UNITS LAB BGLU 70-100 mg/dL High 197 Glucose,Beds gaby Result Comment: Test performed by glucose meter. Results may be 10%-15% lower than serum/plasma values. (CLIA ID [id number]) Performed By: #### BGLU #### [facility] [address] [place] [address] GLUCOSE,BEDSIDE Collected: 08/08/2018 Status: F Source: [facility] 6:34 PM SYSTEM REPOSITORY TYPE CODE TESTS RESULT OUT OF RANGE REFERENCE UNITS LAB BGLU 70-100 mg/dL High 168 Glucose,Beds gaby Result Comment: Test performed by glucose meter. Results may be 10%-15% lower than serum/plasma values. (CLIA ID [id number]) Performed By: #### BGLU #### [facility] [place] [address] GLUCOSE,BEDSIDE Collected: 08/08/2018 Status: F Source: [facility] 1:40 PM SYSTEM REPOSITORY TYPE CODE TESTS RESULT OUT OF RANGE REFERENCE UNITS LAB BGLU 70-100 mg/dL High 146 Glucose,Beds gaby Result Comment: Test performed by glucose meter. Results may be 10%-15% lower than serum/plasma values. (CLIA ID [id number]) Performed By: #### BGLU #### [facility] [place] [address] APTT Collected: 08/08/2018 Status: F Source: [facility] 8:33 AM SYSTEM REPOSITORY TYPE CODE TESTS RESULT OUT OF RANGE REFERENCE UNITS LAB PTTA 20.0-30.5 s High APTT 95.1 Result Comment: Repeated NOTE: The therapeutic time for Heparin anticoagulation, based on Xa activity inhibition, is an APTT of 46-80 seconds. Performed By: #### APTT #### [facility] [place] [address] [place] [address] GLUCOSE,BEDSIDE Collected: 08/08/2018 Status: F Source: [facility] 7:20 AM SYSTEM REPOSITORY TYPE CODE TESTS RESULT OUT OF RANGE REFERENCE UNITS LAB BGLU 70-100 mg/dL High 144 Glucose,Beds gaby Result Comment: Test performed by glucose meter. Results may be 10%-15% lower than serum/plasma values. (CLIA ID [id number]) Performed By: #### BGLU #### [facility] [address] [place] [phone] HEMOGRAM Collected: 08/08/2018 Status: F Source: [facility] 12:40 AM SYSTEM REPOSITORY TYPE CODE TESTS RESULT OUT OF RANGE REFERENCE UNITS LAB IWBC 3.6-10.7 10*3/uL WBC Normal 5.4 LAB RBC 4.40-5.90 10*6/uL Low RBC 4.08 LAB HGB 13.0-18.0 g/dL Low Hemoglobin 11.3 LAB HCT 40.0-52.0 % Low Hematocrit 33.8 LAB MCV 80.0-98.0 fL MCV Normal 83.0 LAB MCH 26.0-34.0 pg MCH Normal 27.6 LAB MCHC 32.0-36.0 % MCHC Normal 33.3 LAB RDW 11.5-14.5 % High RDW 15.6 LAB PLT 140-440 10*3/uL Platelet Normal 158 LAB MPV 7.4-10.4 fL MPV Normal 10.1 Performed By: #### HEMOG, MG3, RENL3, APTT #### [facility] [address] [place] [phone] MAGNESIUM Collected: 08/08/2018 Status: F Source: [facility] 12:40 AM SYSTEM REPOSITORY TYPE CODE TESTS RESULT OUT OF RANGE REFERENCE UNITS LAB MG3 1.6-2.3 mg/dL Normal Magnesium 2.0 Performed By: #### HEMOG, MG3, RENL3, APTT #### [facility] [address] [place] [address] RENAL FUNCTION Collected: 08/08/2018 Status: F Source: [facility] 12:40 AM SYSTEM REPOSITORY TYPE CODE TESTS RESULT OUT OF RANGE REFERENCE UNITS LAB NA3 137-145 mmol/L Sodium Normal 137 LAB K3 3.5-5.1 mmol/L Normal Potassium 3.8 LAB CL3 98-107 mmol/L Chloride Normal 101 LAB CO23 22-30 mmol/L Carbon Normal Dioxide 24 LAB ANIN3 NA Anion Gap 12 LAB GLUC3 70-100 mg/dL High Glucose 146 LAB BUN3 7-20 mg/dL High Urea Nitrogen 86 LAB CRET3 0.52-1.25 mg/dL High Creatinine 4.71 LAB GF3BR >60 mL/min eGFR 15.0 LAB GF3WR >60 mL/min eGFR OTHER 12.4 Result Comment: Source- MDRD equation with creatinine calibration to IDMS(NKDEP) eGFR not recommended for drug dose adjustment LAB CA3 8.4-10.4 mg/dL Normal Calcium 8.7 LAB ALB3 3.5-5.0 g/dL Normal Albumin, Serum 3.6 LAB PHOS3 2.5-4.5 mg/dL High Phosphorus 5.7 Performed By: #### HEMOG, MG3, RENL3, APTT #### [facility] [address] [place] [address] APTT Collected: 08/08/2018 Status: F Source: [facility] 12:40 AM SYSTEM REPOSITORY TYPE CODE TESTS RESULT OUT OF RANGE REFERENCE UNITS LAB PTTA 20.0-30.5 s High APTT 36.5 Result Comment: NOTE: The therapeutic time for Heparin anticoagulation, based on Xa activity inhibition, is an APTT of 46-80 seconds. Performed By: #### HEMOG, MG3, RENL3, APTT #### [facility] [address] [place] [address] GLUCOSE,BEDSIDE Collected: 08/07/2018 Status: F Source: [facility] 9:00 PM SYSTEM REPOSITORY TYPE CODE TESTS RESULT OUT OF RANGE REFERENCE UNITS LAB BGLU 70-100 mg/dL Normal 89 Glucose,Beds gaby Result Comment: Test performed by glucose meter. Results may be 10%-15% lower than serum/plasma values. (CLIA ID [id number]) Performed By: #### BGLU #### [facility] [address] [place] [phone] XA SPECIAL ANGIOGRAPHY Observed: 08/07/2018 Status: F Source: [facility] PROCEDURE 5:28 PM SYSTEM REPOSITORY Patient Name: CEFERINO PIÑA Special Procedures Exam Date/Time 08/07/2018 16:59:57 EST Exam XA Special Angiography Procedure Ordering Physician LI LUNA MATTHEW R. Accession Number [id number] Reason For Exam Needs Dialysis Tunneled Dialysis Catheter Report FLUOROSCOPIC AND ULTRASOUND-GUIDED TUNNELED DIALYSIS CATHETER PLACEMENT. 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 Procedural details: The benefits and risks of the procedure were explained to the patient including bleeding, infection, pneumothorax, and arrhythmia. All of the patient's questions were answered and the patient signed informed consent. The patient was brought into the interventional radiology suite and placed supine on the table. An audible timeout was performed. The patient's right internal jugular vein was interrogated with ultrasound and found to be widely patent. A permanent ultrasound image was stored to the patient's record. The patient's right neck and chest were prepped and draped in the usual sterile fashion. Maximal sterile barrier technique was utilized. All elements of maximal sterile barrier technique including a mask, hat, sterile gown, sterile gloves, and large sterile sheet were utilized. 2% Chlorhexidine antiseptic was utilized for skin sterilization. Sterile ultrasound gel and a sterile ultrasound probe cover were also used. The subcutaneous tissues were anesthetized using 1 % lidocaine. Under direct ultrasound visualization, a 21-gauge micropuncture needle was advanced into the right internal jugular vein. A 0.018 micro puncture wire was then advanced through the needle and into the SVC under fluoroscopic guidance and the access needle was exchanged for a peel-away sheath over the wire. Attention was then directed to the patient's right chest. A subcutaneous tract was created in the right chest to the venotomy site after subcutaneous anesthesia using 1% lidocaine. A hemodialysis catheter with subcutaneous cuff was then pulled through the tunnel and out the venotomy site. The catheter was placed through the peel-away sheath. Postplacement imaging showed proper positioning of the tunneled hemodialysis catheter with the tip terminating in the proximal right atrium. Both lumens of the catheter flushed and aspirated appropriately. The catheter was then sutured to the patient's skin using 2-0 silk suture. The venotomy site was closed using 4-0 Vicryl as well a skin glue. The patient tolerated the procedure well and suffered no immediate complication. The patient was transferred to the recovery area in stable condition. IMPRESSION: 1. Successful uncomplicated ultrasound and fluoroscopic guided placement of a right internal jugular tunneled hemodialysis catheter. The catheter is ready for use. Report Dictated on Final Dictated: 08/07/2018 5:28 pm Dictating Physician: MD GIFTY, QUINCY NASSAR Signed Date and Time: 08/07/2018 5:30 pm Signed by: MD DURBIN GEORGE RICHARD Transcribed Date and Time: 08/07/2018 5:28 HEP B SURFACE AG Collected: 08/07/2018 Status: F Source: [facility] 2:57 PM SYSTEM REPOSITORY TYPE CODE TESTS RESULT OUT OF RANGE REFERENCE UNITS LAB HBSAG Not-Detected NA Normal Hep B Surface NOT DETECTED Ag Performed By: #### HBSAG, HBSA, BCORE #### [facility] [place], [place] HEP B SURFACE AB Collected: 08/07/2018 Status: F Source: [facility] 2:57 PM SYSTEM REPOSITORY TYPE CODE TESTS RESULT OUT OF REFERENCE UNITS RANGE LAB HBSA1 m[IU]/mL Hep B Surface < 8.0 Ab Result Comment: Interpretation: <8.0 Non-Reactive 8.0-11.9 Equivocal >= 12.0 Ab Detected Performed By: #### HBSAG, HBSA, BCORE #### [facility] [place] [address] HEP B CORE IGM Collected: 08/07/2018 Status: F Source: [facility] 2:57 PM SYSTEM REPOSITORY TYPE CODE TESTS RESULT OUT OF RANGE REFERENCE UNITS LAB BCORE Not-Detected NA Normal Hep B NOT DETECTED Core IgM Performed By: #### HBSAG, HBSA, BCORE #### [facility] [place] [address] GLUCOSE,BEDSIDE Collected: 08/07/2018 Status: F Source: [facility] 12:14 PM SYSTEM REPOSITORY TYPE CODE TESTS RESULT OUT OF RANGE REFERENCE UNITS LAB BGLU 70-100 mg/dL High 122 Glucose,Beds gaby Result Comment: Test performed by glucose meter. Results may be 10%-15% lower than serum/plasma values. (CLIA ID [id number]) Performed By: #### BGLU #### [facility] [address] [place] [address] APTT Collected: 08/07/2018 Status: F Source: [facility] 11:37 AM SYSTEM REPOSITORY TYPE CODE TESTS RESULT OUT OF RANGE REFERENCE UNITS LAB PTTA 20.0-30.5 s High APTT 57.5 Result Comment: NOTE: The therapeutic time for Heparin anticoagulation, based on Xa activity inhibition, is an APTT of 46-80 seconds. Performed By: #### APTT, PT #### [facility] [address] [place] [phone] PROTHROMBIN TIME Collected: 08/07/2018 Status: F Source: [facility] 11:37 AM SYSTEM REPOSITORY TYPE CODE TESTS RESULT OUT OF REFERENCE UNITS RANGE LAB PROTM 9.0-12.0 s Prothrombin Normal Time 10.5 Result Comment: . LAB INR 0.9-1.1 NA Normal INR 1.0 Result Comment: Recommended Anticoagulant Therapy: SEE BELOW ----- INR of 2.0 - 3.0 : - Prophylaxis of Venous Thrombosis (high-risk surgery) - Treatment of Venous Thrombosis - Treatment of Pulmonary Embolism (Includes tissue heart valves, Acute Myocardial Infarction to prevent systemic embolism, Valvular Heart Disease, and Atrial Fibrillation) ----- INR of 2.5 - 3.5 : - Mechanical Prosthetic Valves (high risk) - If oral anticoagulant therapy is used to prevent Myocardial Infarction Performed By: #### APTT, PT #### [facility] [address] [place] [phone] GLUCOSE,BEDSIDE Collected: 08/07/2018 Status: F Source: [facility] 7:34 AM SYSTEM REPOSITORY TYPE CODE TESTS RESULT OUT OF RANGE REFERENCE UNITS LAB BGLU 70-100 mg/dL Normal 87 Glucose,Beds gaby Result Comment: Test performed by glucose meter. Results may be 10%-15% lower than serum/plasma values. (CLIA ID [id number]) Performed By: #### BGLU #### [facility] [address] [place] [phone] HEMOGRAM Collected: 08/07/2018 Status: F Source: [facility] 1:36 AM SYSTEM REPOSITORY TYPE CODE TESTS RESULT OUT OF RANGE REFERENCE UNITS LAB IWBC 3.6-10.7 10*3/uL WBC Normal 6.1 LAB RBC 4.40-5.90 10*6/uL Low RBC 4.16 LAB HGB 13.0-18.0 g/dL Low Hemoglobin 11.5 LAB HCT 40.0-52.0 % Low Hematocrit 35.3 LAB MCV 80.0-98.0 fL MCV Normal 85.0 LAB MCH 26.0-34.0 pg MCH Normal 27.6 LAB MCHC 32.0-36.0 % MCHC Normal 32.5 LAB RDW 11.5-14.5 % High RDW 16.0 LAB PLT 140-440 10*3/uL Platelet Normal 166 LAB MPV 7.4-10.4 fL High MPV 11.0 Performed By: #### HEMOG, MG3, RENL3 #### [facility] [address] [place] [phone] MAGNESIUM Collected: 08/07/2018 Status: F Source: [facility] 1:36 AM SYSTEM REPOSITORY TYPE CODE TESTS RESULT OUT OF RANGE REFERENCE UNITS LAB MG3 1.6-2.3 mg/dL Normal Magnesium 2.3 Performed By: #### HEMOG, MG3, RENL3 #### [facility] [address] [place] [phone] RENAL FUNCTION Collected: 08/07/2018 Status: F Source: [facility] 1:36 AM SYSTEM REPOSITORY TYPE CODE TESTS RESULT OUT OF RANGE REFERENCE UNITS LAB NA3 137-145 mmol/L Sodium Normal 138 LAB K3 3.5-5.1 mmol/L Normal Potassium 4.3 LAB CL3 98-107 mmol/L Chloride Normal 104 LAB CO23 22-30 mmol/L Low Carbon Dioxide 21 LAB ANIN3 NA Anion Gap 12 LAB GLUC3 70-100 mg/dL High Glucose 104 LAB BUN3 7-20 mg/dL High Urea Nitrogen 105 LAB CRET3 0.52-1.25 mg/dL High Creatinine 5.44 LAB GF3BR >60 mL/min eGFR 12.7 LAB GF3WR >60 mL/min eGFR OTHER 10.5 Result Comment: Source- MDRD equation with creatinine calibration to IDMS(NKDEP) eGFR not recommended for drug dose adjustment LAB CA3 8.4-10.4 mg/dL Normal Calcium 9.5 LAB ALB3 3.5-5.0 g/dL Normal Albumin, Serum 3.8 LAB PHOS3 2.5-4.5 mg/dL High Phosphorus 7.0 Performed By: #### HEMOG, MG3, RENL3 #### [facility] [address] [place] [address] APTT Collected: 08/07/2018 Status: F Source: [facility] 1:36 AM SYSTEM REPOSITORY TYPE CODE TESTS RESULT OUT OF RANGE REFERENCE UNITS LAB PTTA 20.0-30.5 s High APTT 45.2 Result Comment: NOTE: The therapeutic time for Heparin anticoagulation, based on Xa activity inhibition, is an APTT of 46-80 seconds. Performed By: #### APTT #### [facility] [address] [place] [address] GLUCOSE,BEDSIDE Collected: 08/06/2018 Status: F Source: [facility] 8:56 PM SYSTEM REPOSITORY TYPE CODE TESTS RESULT OUT OF RANGE REFERENCE UNITS LAB BGLU 70-100 mg/dL High 211 Glucose,Beds gaby Result Comment: Test performed by glucose meter. Results may be 10%-15% lower than serum/plasma values. (CLIA ID [id number]) Performed By: #### BGLU #### [facility] [address] [place] [address] APTT Collected: 08/06/2018 Status: F Source: [facility] 6:35 PM SYSTEM REPOSITORY TYPE CODE TESTS RESULT OUT OF RANGE REFERENCE UNITS LAB PTTA 20.0-30.5 s High APTT 44.3 Result Comment: NOTE: The therapeutic time for Heparin anticoagulation, based on Xa activity inhibition, is an APTT of 46-80 seconds. Performed By: #### HEMOG, MG3, RENL3, APTT #### [facility] [place], [place] GLUCOSE,BEDSIDE Collected: 08/06/2018 Status: F Source: [facility] 6:17 PM SYSTEM REPOSITORY TYPE CODE TESTS RESULT OUT OF RANGE REFERENCE UNITS LAB BGLU 70-100 mg/dL High 173 Glucose,Beds gaby Result Comment: Test performed by glucose meter. Results may be 10%-15% lower than serum/plasma values. (CLIA ID [id number]) Performed By: #### BGLU #### [facility] [address] [place], [place] GLUCOSE,BEDSIDE Collected: 08/06/2018 Status: F Source: [facility] 2:21 PM SYSTEM REPOSITORY TYPE CODE TESTS RESULT OUT OF RANGE REFERENCE UNITS LAB BGLU 70-100 mg/dL High 102 Glucose,Beds gaby Result Comment: Test performed by glucose meter. Results may be 10%-15% lower than serum/plasma values. (CLIA ID [id number]) Performed By: #### BGLU #### [facility] [place], [place] GLUCOSE,BEDSIDE Collected: 08/06/2018 Status: F Source: [facility] 7:33 AM SYSTEM REPOSITORY TYPE CODE TESTS RESULT OUT OF RANGE REFERENCE UNITS LAB BGLU 70-100 mg/dL Normal 84 Glucose,Beds gaby Result Comment: Test performed by glucose meter. Results may be 10%-15% lower than serum/plasma values. (CLIA ID [id number]) Performed By: #### BGLU #### [facility] [address] [place] [address] APTT Collected: 08/06/2018 Status: F Source: [facility] 6:37 AM SYSTEM REPOSITORY TYPE CODE TESTS RESULT OUT OF RANGE REFERENCE UNITS LAB PTTA 20.0-30.5 s High APTT 51.1 Result Comment: NOTE: The therapeutic time for Heparin anticoagulation, based on Xa activity inhibition, is an APTT of 46-80 seconds. Performed By: #### APTT #### [facility] [address] [place] [address] APTT Collected: 08/06/2018 Status: F Source: [facility] 12:56 AM SYSTEM REPOSITORY TYPE CODE TESTS RESULT OUT OF RANGE REFERENCE UNITS LAB PTTA 20.0-30.5 s High APTT 46.9 Result Comment: NOTE: The therapeutic time for Heparin anticoagulation, based on Xa activity inhibition, is an APTT of 46-80 seconds. Performed By: #### HEMOG, MG3, RENL3, APTT #### [facility] [address] [place] [address] HEMOGRAM Collected: 08/06/2018 Status: F Source: [facility] 12:56 AM SYSTEM REPOSITORY TYPE CODE TESTS RESULT OUT OF RANGE REFERENCE UNITS LAB IWBC 3.6-10.7 10*3/uL WBC Normal 6.9 LAB RBC 4.40-5.90 10*6/uL Low RBC 4.07 LAB HGB 13.0-18.0 g/dL Low Hemoglobin 11.4 LAB HCT 40.0-52.0 % Low Hematocrit 34.6 LAB MCV 80.0-98.0 fL MCV Normal 84.8 LAB MCH 26.0-34.0 pg MCH Normal 27.9 LAB MCHC 32.0-36.0 % MCHC Normal 32.9 LAB RDW 11.5-14.5 % High RDW 15.4 LAB PLT 140-440 10*3/uL Platelet Normal 170 LAB MPV 7.4-10.4 fL High MPV 10.6 Performed By: #### HEMOG, MG3, RENL3, APTT #### [facility] [address] [address] MAGNESIUM Collected: 08/06/2018 Status: F Source: [facility] 12:56 AM SYSTEM REPOSITORY TYPE CODE TESTS RESULT OUT OF RANGE REFERENCE UNITS LAB MG3 1.6-2.3 mg/dL Normal Magnesium 2.2 Performed By: #### HEMOG, MG3, RENL3, APTT #### [facility] [address] [place] [phone] RENAL FUNCTION Collected: 08/06/2018 Status: F Source: [facility] 12:56 AM SYSTEM REPOSITORY TYPE CODE TESTS RESULT OUT OF RANGE REFERENCE UNITS LAB NA3 137-145 mmol/L Normal Sodium 139 LAB K3 3.5-5.1 mmol/L Normal Potassium 5.0 Result Comment: Slightly hemolysed, interpret with caution. LAB CL3 98-107 mmol/L Normal Chloride 107 LAB CO23 22-30 mmol/L Low Carbon Dioxide 19 LAB ANIN3 NA Anion Gap 12 LAB GLUC3 70-100 mg/dL High Glucose 143 LAB BUN3 7-20 mg/dL High Urea Nitrogen 102 LAB CRET3 0.52-1.25 mg/dL High Creatinine 4.85 LAB GF3BR >60 mL/min eGFR 14.5 LAB GF3WR >60 mL/min eGFR OTHER 12.0 Result Comment: Source- MDRD equation with creatinine calibration to IDMS(NKDEP) eGFR not recommended for drug dose adjustment LAB CA3 8.4-10.4 mg/dL Normal Calcium 8.5 LAB ALB3 3.5-5.0 g/dL Normal Albumin, Serum 3.7 LAB PHOS3 2.5-4.5 mg/dL High Phosphorus 6.1 Performed By: #### HEMOG, MG3, RENL3, APTT #### [facility] [address] [place], [place] GLUCOSE,BEDSIDE Collected: 08/05/2018 Status: F Source: [facility] 8:52 PM SYSTEM REPOSITORY TYPE CODE TESTS RESULT OUT OF RANGE REFERENCE UNITS LAB BGLU 70-100 mg/dL High 180 Glucose,Beds gaby Result Comment: Test performed by glucose meter. Results may be 10%-15% lower than serum/plasma values. (CLIA ID [id number]) Performed By: #### BGLU #### [facility] [address] GLUCOSE,BEDSIDE Collected: 08/05/2018 Status: F Source: [facility] 5:39 PM SYSTEM REPOSITORY TYPE CODE TESTS RESULT OUT OF RANGE REFERENCE UNITS LAB BGLU 70-100 mg/dL High 164 Glucose,Beds gaby Result Comment: Test performed by glucose meter. Results may be 10%-15% lower than serum/plasma values. (CLIA ID [id number]) Performed By: #### BGLU #### [facility] [address] [place] [address] APTT Collected: 08/05/2018 Status: F Source: [facility] 5:35 PM SYSTEM REPOSITORY TYPE CODE TESTS RESULT OUT OF RANGE REFERENCE UNITS LAB PTTA 20.0-30.5 s High APTT 36.8 Result Comment: NOTE: The therapeutic time for Heparin anticoagulation, based on Xa activity inhibition, is an APTT of 46-80 seconds. Performed By: #### APTT #### [facility] [address] [place] [address] GLUCOSE,BEDSIDE Collected: 08/05/2018 Status: F Source: [facility] 11:38 AM SYSTEM REPOSITORY TYPE CODE TESTS RESULT OUT OF RANGE REFERENCE UNITS LAB BGLU 70-100 mg/dL High 160 Glucose,Beds gaby Result Comment: Test performed by glucose meter. Results may be 10%-15% lower than serum/plasma values. (CLIA ID [id number]) Performed By: #### BGLU #### [facility] [address] APTT Collected: 08/05/2018 Status: F Source: [facility] 10:15 AM SYSTEM REPOSITORY TYPE CODE TESTS RESULT OUT OF RANGE REFERENCE UNITS LAB PTTA 20.0-30.5 s High APTT 30.8 Result Comment: NOTE: The therapeutic time for Heparin anticoagulation, based on Xa activity inhibition, is an APTT of 46-80 seconds. Performed By: #### APTT #### [facility] [address] [place] [address] GLUCOSE,BEDSIDE Collected: 08/05/2018 Status: F Source: [facility] 6:50 AM SYSTEM REPOSITORY TYPE CODE TESTS RESULT OUT OF RANGE REFERENCE UNITS LAB BGLU 70-100 mg/dL Normal 94 Glucose,Beds gaby Result Comment: Test performed by glucose meter. Results may be 10%-15% lower than serum/plasma values. (CLIA ID [id number]) Performed By: #### BGLU #### [facility] [address] [place] [address] MAGNESIUM Collected: 08/05/2018 Status: F Source: [facility] 4:09 AM SYSTEM REPOSITORY TYPE CODE TESTS RESULT OUT OF REFERENCE UNITS RANGE LAB MG3 1.6-2.3 mg/dL High Magnesium 2.4 Performed By: #### HEMOG, MG3, RENL3, APTT #### [facility] [address] [place] [address] RENAL FUNCTION Collected: 08/05/2018 Status: F Source: [facility] 4:09 AM SYSTEM REPOSITORY TYPE CODE TESTS RESULT OUT OF RANGE REFERENCE UNITS LAB NA3 137-145 mmol/L Sodium Normal 139 LAB K3 3.5-5.1 mmol/L Normal Potassium 4.5 LAB CL3 98-107 mmol/L High Chloride 108 LAB CO23 22-30 mmol/L Low Carbon Dioxide 21 LAB ANIN3 NA Anion Gap 11 LAB GLUC3 70-100 mg/dL High Glucose 103 LAB BUN3 7-20 mg/dL High Urea Nitrogen 100 LAB CRET3 0.52-1.25 mg/dL High Creatinine 4.88 LAB GF3BR >60 mL/min eGFR 14.4 LAB GF3WR >60 mL/min eGFR OTHER 11.9 Result Comment: Source- MDRD equation with creatinine calibration to IDMS(NKDEP) eGFR not recommended for drug dose adjustment LAB CA3 8.4-10.4 mg/dL Normal Calcium 8.5 LAB ALB3 3.5-5.0 g/dL Normal Albumin, Serum 3.5 LAB PHOS3 2.5-4.5 mg/dL High Phosphorus 5.8 Performed By: #### HEMOG, MG3, RENL3, APTT #### [facility] [address] [place] [phone] APTT Collected: 08/05/2018 Status: F Source: [facility] 4:09 AM SYSTEM REPOSITORY TYPE CODE TESTS RESULT OUT OF RANGE REFERENCE UNITS LAB PTTA 20.0-30.5 s Normal APTT 28.8 Result Comment: NOTE: The therapeutic time for Heparin anticoagulation, based on Xa activity inhibition, is an APTT of 46-80 seconds. Performed By: #### APTT #### [facility] [address] [address] HEMOGRAM Collected: 08/05/2018 Status: F Source: [facility] 4:08 AM SYSTEM REPOSITORY TYPE CODE TESTS RESULT OUT OF RANGE REFERENCE UNITS LAB IWBC 3.6-10.7 10*3/uL WBC Normal 6.6 LAB RBC 4.40-5.90 10*6/uL Low RBC 3.98 LAB HGB 13.0-18.0 g/dL Low Hemoglobin 11.1 LAB HCT 40.0-52.0 % Low Hematocrit 33.8 LAB MCV 80.0-98.0 fL MCV Normal 84.9 LAB MCH 26.0-34.0 pg MCH Normal 27.9 LAB MCHC 32.0-36.0 % MCHC Normal 32.9 LAB RDW 11.5-14.5 % High RDW 15.7 LAB PLT 140-440 10*3/uL Platelet Normal 153 LAB MPV 7.4-10.4 fL High MPV 10.5 Performed By: #### HEMOG, MG3, RENL3, APTT #### [facility] [address] [address] GLUCOSE,BEDSIDE Collected: 08/04/2018 Status: F Source: [facility] 8:09 PM SYSTEM REPOSITORY TYPE CODE TESTS RESULT OUT OF RANGE REFERENCE UNITS LAB BGLU 70-100 mg/dL High 226 Glucose,Beds gaby Result Comment: Test performed by glucose meter. Results may be 10%-15% lower than serum/plasma values. (CLIA ID [id number]) Performed By: #### BGLU #### [facility] [address] [place], [place] GLUCOSE,BEDSIDE Collected: 08/04/2018 Status: F Source: [facility] 5:47 PM SYSTEM REPOSITORY TYPE CODE TESTS RESULT OUT OF RANGE REFERENCE UNITS LAB BGLU 70-100 mg/dL High 153 Glucose,Beds gaby Result Comment: Test performed by glucose meter. Results may be 10%-15% lower than serum/plasma values. (CLIA ID [id number]) Performed By: #### BGLU #### [facility] [address] [place] [address] APTT Collected: 08/04/2018 Status: F Source: [facility] 3:43 PM SYSTEM REPOSITORY TYPE CODE TESTS RESULT OUT OF RANGE REFERENCE UNITS LAB PTTA 20.0-30.5 s Normal APTT 24.8 Result Comment: NOTE: The therapeutic time for Heparin anticoagulation, based on Xa activity inhibition, is an APTT of 46-80 seconds. Performed By: #### APTT, PT #### [facility] [address] [place] [address] PROTHROMBIN TIME Collected: 08/04/2018 Status: F Source: [facility] 3:43 PM SYSTEM REPOSITORY TYPE CODE TESTS RESULT OUT OF REFERENCE UNITS RANGE LAB PROTM 9.0-12.0 s Prothrombin Normal Time 10.6 Result Comment: . LAB INR 0.9-1.1 NA Normal INR 1.0 Result Comment: Recommended Anticoagulant Therapy: SEE BELOW ----- INR of 2.0 - 3.0 : - Prophylaxis of Venous Thrombosis (high-risk surgery) - Treatment of Venous Thrombosis - Treatment of Pulmonary Embolism (Includes tissue heart valves, Acute Myocardial Infarction to prevent systemic embolism, Valvular Heart Disease, and Atrial Fibrillation) ----- INR of 2.5 - 3.5 : - Mechanical Prosthetic Valves (high risk) - If oral anticoagulant therapy is used to prevent Myocardial Infarction Performed By: #### APTT, PT #### [facility] [address] [place], [place] GLUCOSE,BEDSIDE Collected: 08/04/2018 Status: F Source: [facility] 2:38 PM SYSTEM REPOSITORY TYPE CODE TESTS RESULT OUT OF RANGE REFERENCE UNITS LAB BGLU 70-100 mg/dL High 251 Glucose,Beds gaby Result Comment: Test performed by glucose meter. Results may be 10%-15% lower than serum/plasma values. (CLIA ID [id number]) Performed By: #### BGLU #### [facility] [address] [place] [address] GLUCOSE,BEDSIDE Collected: 08/04/2018 Status: F Source: [facility] 6:39 AM SYSTEM REPOSITORY TYPE CODE TESTS RESULT OUT OF RANGE REFERENCE UNITS LAB BGLU 70-100 mg/dL High 160 Glucose,Beds gaby Result Comment: Test performed by glucose meter. Results may be 10%-15% lower than serum/plasma values. (CLIA ID [id number]) Performed By: #### BGLU #### [facility] [place] [address] HEMOGRAM Collected: 08/04/2018 Status: F Source: [facility] 2:22 AM SYSTEM REPOSITORY TYPE CODE TESTS RESULT OUT OF RANGE REFERENCE UNITS LAB IWBC 3.6-10.7 10*3/uL WBC Normal 8.0 LAB RBC 4.40-5.90 10*6/uL Low RBC 4.36 LAB HGB 13.0-18.0 g/dL Low Hemoglobin 12.2 LAB HCT 40.0-52.0 % Low Hematocrit 37.5 LAB MCV 80.0-98.0 fL MCV Normal 86.1 LAB MCH 26.0-34.0 pg MCH Normal 28.1 LAB MCHC 32.0-36.0 % MCHC Normal 32.6 LAB RDW 11.5-14.5 % High RDW 16.0 LAB PLT 140-440 10*3/uL Platelet Normal 188 LAB MPV 7.4-10.4 fL MPV Normal 10.4 Performed By: #### HEMOG, MG3, RENL3, TROPN, HA1C2 #### [facility] [place] [address] MAGNESIUM Collected: 08/04/2018 Status: F Source: [facility] 2:22 AM SYSTEM REPOSITORY TYPE CODE TESTS RESULT OUT OF REFERENCE UNITS RANGE LAB MG3 1.6-2.3 mg/dL High Magnesium 2.5 Performed By: #### HEMOG, MG3, RENL3, TROPN, HA1C2 #### [employer] [address] [place] [phone] RENAL FUNCTION Collected: 08/04/2018 Status: F Source: [facility] 2:22 AM SYSTEM REPOSITORY TYPE CODE TESTS RESULT OUT OF RANGE REFERENCE UNITS LAB NA3 137-145 mmol/L Sodium Normal 142 LAB K3 3.5-5.1 mmol/L Normal Potassium 4.7 LAB CL3 98-107 mmol/L Chloride Normal 105 LAB CO23 22-30 mmol/L Carbon Normal Dioxide 22 LAB ANIN3 NA Anion Gap 14 LAB GLUC3 70-100 mg/dL High Glucose 169 LAB BUN3 7-20 mg/dL High Urea Nitrogen 99 LAB CRET3 0.52-1.25 mg/dL High Creatinine 5.06 LAB GF3BR >60 mL/min eGFR 13.8 LAB GF3WR >60 mL/min eGFR OTHER 11.4 Result Comment: Source- MDRD equation with creatinine calibration to IDMS(NKDEP) eGFR not recommended for drug dose adjustment LAB CA3 8.4-10.4 mg/dL Normal Calcium 9.4 LAB ALB3 3.5-5.0 g/dL Normal Albumin, Serum 4.4 LAB PHOS3 2.5-4.5 mg/dL High Phosphorus 5.4 Performed By: #### HEMOG, MG3, RENL3, TROPN, HA1C2 #### [facility] [address] [place] [phone] TROPONIN I Collected: 08/04/2018 Status: F Source: [facility] 2:22 AM SYSTEM REPOSITORY TYPE CODE TESTS RESULT OUT OF REFERENCE UNITS RANGE LAB TROP4 0.000-0.034 ng/mL High Troponin I 0.091 Result Comment: 0.046 - 0.400 = Indeterminate > 0.400 = Consider Myocardial Injury Performed By: #### HEMOG, MG3, RENL3, TROPN, HA1C2 #### [facility] [address] [place] [phone] HEMOGLOBIN A1C Collected: 08/04/2018 Status: F Source: [facility] 2:22 AM SYSTEM REPOSITORY TYPE CODE TESTS RESULT OUT OF REFERENCE UNITS RANGE LAB A1C2 4.0-5.7 % High Hemoglobin A1C 8.2 Result Comment: --HgbA1C levels may not be accurate in patients who have renal disease, received recent blood transfusions, are anemic, or who have dyshemoglobinemia. LAB EAG2 mg/dL Estimated Avg Glucose 189 Performed By: #### HEMOG, MG3, RENL3, TROPN, HA1C2 #### [facility] [employer] [address] [phone] URINALYSIS,MACRO Collected: 08/04/2018 Status: F Source: [facility] 2:22 AM SYSTEM REPOSITORY TYPE CODE TESTS RESULT OUT OF REFERENCE UNITS RANGE LAB APPUR Clear NA Appearance Clear LAB COLUR Lt. Yellow NA Color Yellow LAB USG 1.005-1.030 NA Specific Normal [place],Urine 1.015 LAB UPH 5.0-8.0 NA pH,Urine Normal 5.0 LAB ULUK Negative NA Leukocytes NEG LAB UNIT Negative NA Nitrites NEG LAB UPRO Negative mg/dL Total Protein,Urine 75 LAB UGLU Negative mg/dL Glucose,Urine NORM LAB UKET Negative mg/dL Ketone,Urine NEG LAB UURO 0-1 mg/dL Urobilinogen NORM LAB UBIL Negative NA Bilirubin,Ur NEG LAB UBLD Negative {RBC}/uL Occult Blood,Ur NEG Performed By: #### UAMAC, UAMIC #### [facility] [employer] [address] [phone] URINALYSIS,MICROSCOPIC Collected: Status: F Source: [facility] 08/04/2018 2:22 AM [facility]ALTH SYSTEM REPOSITORY TYPE CODE TESTS RESULT OUT OF REFERENCE UNITS RANGE LAB WBCU 0-5 /[HPF] WBC,Urine Negative LAB RBCU 0-2 /[HPF] RBC,Urine Negative LAB EPIU 3-5 /[HPF] Epithelial Cells Negative LAB VALERIE Negative NA Bacteria Negative Performed By: #### UAMAC, UAMIC #### [facility] [employer] [address] [phone] GLUCOSE,BEDSIDE Collected: 08/04/2018 Status: F Source: [facility] 12:44 AM SYSTEM REPOSITORY TYPE CODE TESTS RESULT OUT OF RANGE REFERENCE UNITS LAB BGLU 70-100 mg/dL High 130 Glucose,Beds gaby Result Comment: Test performed by glucose meter. Results may be 10%-15% lower than serum/plasma values. (CLIA ID [id number]) Performed By: #### BGLU #### [facility] [address] [place] [phone] TROPONIN I Collected: 08/03/2018 Status: F Source: [facility] 10:27 PM SYSTEM REPOSITORY TYPE CODE TESTS RESULT OUT OF REFERENCE UNITS RANGE LAB TROP4 0.000-0.034 ng/mL High Troponin I 0.091 Result Comment: 0.046 - 0.400 = Indeterminate > 0.400 = Consider Myocardial Injury Performed By: #### TROPN #### [facility] [address] [place] [phone] CR CHEST PORTABLE Observed: 08/03/2018 Status: F Source: [facility] 7:18 PM SYSTEM REPOSITORY Patient Name: CEFERINO PIÑA Diagnostic Radiology Exam Date/Time 08/03/2018 18:56:05 EST Exam CR Chest Portable Ordering Physician FRANKY DEL VALLE, BUZZ Snell Accession Number [id number] CPT4 Codes 54376 () Reason For Exam cp/sob Report SINGLE FRONTAL VIEW OF THE CHEST CLINICAL INDICATION: cp/sob TECHNIQUE: Single frontal view of the chest COMPARISON: 04/14/2017 FINDINGS: 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 Status post sternotomy. Normal heart size. Lung volumes are low. Given this limitation, no significant consolidation or vascular congestion seen. IMPRESSION: 1. No acute finding given low lung volumes. Report Dictated on Final Dictated: 08/03/2018 7:18 pm Dictating Physician: MD CEE JOHN R Signed Date and Time: 08/03/2018 7:19 pm Signed by: MD CEE JOHN R Transcribed Date and Time: 08/03/2018 7:18 HEMOGRAM W/ AUTODIFF Collected: 08/03/2018 Status: F Source: [facility] 6:25 PM SYSTEM REPOSITORY TYPE CODE TESTS RESULT OUT OF REFERENCE UNITS RANGE LAB IWBC 3.6-10.7 10*3/uL WBC Normal 6.8 LAB RBC 4.40-5.90 10*6/uL Low RBC 4.30 LAB HGB 13.0-18.0 g/dL Low Hemoglobin 12.0 LAB HCT 40.0-52.0 % Low Hematocrit 36.7 LAB MCV 80.0-98.0 fL MCV Normal 85.4 LAB MCH 26.0-34.0 pg MCH Normal 27.9 LAB MCHC 32.0-36.0 % MCHC Normal 32.6 LAB RDW 11.5-14.5 % RDW High 16.0 LAB PLT 140-440 10*3/uL Platelet Normal 179 LAB MPV 7.4-10.4 fL MPV High 10.7 LAB GRAN% 40.0-80.0 % Granulocytes Normal 66.6 LAB LYMP% 20.0-40.0 % Lymphocytes Normal 21.3 LAB MONO% 2.0-10.0 % Monocytes Normal 8.5 LAB EOS% 1.0-6.0 % Eosinophils Normal 2.3 LAB BAS% 0.0-2.0 % Basophils Normal 1.3 LAB ANC 1.8-7.0 10*3/uL Abs Normal Neutrophile Cnt 4.6 LAB ALC 1.0-4.3 10*3/uL Abs Lymph Cnt Normal 1.5 LAB AMC 0.0-0.8 10*3/uL Abs Monocyte Normal Cnt 0.6 LAB AEC 0.0-0.5 10*3/uL Abs Eosin Cnt Normal 0.2 LAB ABC 0.0-0.2 10*3/uL Abs Baso Cnt Normal 0.1 Performed By: #### HEMDF, PT/AP, CMP3, TROPN #### [facility] [address] [place] [phone] PROTIME AND APTT Collected: 08/03/2018 Status: F Source: [facility] 6:25 PM SYSTEM REPOSITORY TYPE CODE TESTS RESULT OUT OF REFERENCE UNITS RANGE LAB PROTM 9.0-12.0 s Prothrombin Normal Time 10.5 Result Comment: . LAB INR 0.9-1.1 NA Normal INR 1.0 Result Comment: Recommended Anticoagulant Therapy: SEE BELOW ----- INR of 2.0 - 3.0 : - Prophylaxis of Venous Thrombosis (high-risk surgery) - Treatment of Venous Thrombosis - Treatment of Pulmonary Embolism (Includes tissue heart valves, Acute Myocardial Infarction to prevent systemic embolism, Valvular Heart Disease, and Atrial Fibrillation) ----- INR of 2.5 - 3.5 : - Mechanical Prosthetic Valves (high risk) - If oral anticoagulant therapy is used to prevent Myocardial Infarction LAB PTTA 20.0-30.5 s Normal APTT 23.9 Result Comment: NOTE: The therapeutic time for Heparin anticoagulation, based on Xa activity inhibition, is an APTT of 46-80 seconds. Performed By: #### HEMDF, PT/AP, CMP3, TROPN #### [facility] [address] [place] [phone] COMP METABOLIC PANEL Collected: 08/03/2018 Status: F Source: [facility] 6:25 PM SYSTEM REPOSITORY TYPE CODE TESTS RESULT OUT OF RANGE REFERENCE UNITS LAB NA3 137-145 mmol/L Sodium Normal 142 LAB K3 3.5-5.1 mmol/L Normal Potassium 5.1 LAB CL3 98-107 mmol/L Chloride Normal 107 LAB CO23 22-30 mmol/L Carbon Normal Dioxide 22 LAB ANIN3 NA Anion Gap 14 LAB GLUC3 70-100 mg/dL High Glucose 173 LAB BUN3 7-20 mg/dL High Urea Nitrogen 100 LAB CRET3 0.52-1.25 mg/dL High Creatinine 5.02 LAB GF3BR >60 mL/min eGFR 13.9 LAB GF3WR >60 mL/min eGFR OTHER 11.5 Result Comment: Source- MDRD equation with creatinine calibration to IDMS(NKDEP) eGFR not recommended for drug dose adjustment LAB CA3 8.4-10.4 mg/dL Calcium Normal 9.2 LAB ALB3 3.5-5.0 g/dL Albumin, Serum Normal 4.4 LAB TP3 6.3-8.2 g/dL Total Protein Normal 7.0 LAB BILT3 0.2-1.3 mg/dL Normal Bilirubin,Total 0.8 LAB ALKP3 38-126 U/L Alkaline Normal Phosphatase 120 LAB ALT3 13-69 U/L ALT (SGPT) Normal 35 LAB AST3 15-46 U/L AST (SGOT) Normal 29 Performed By: #### HEMDF, PT/AP, CMP3, TROPN #### [facility] [address] [place] [phone] TROPONIN I Collected: 08/03/2018 Status: F Source: [facility] 6:25 PM SYSTEM REPOSITORY TYPE CODE TESTS RESULT OUT OF REFERENCE UNITS RANGE LAB TROP4 0.000-0.034 ng/mL High Troponin I 0.091 Result Comment: 0.046 - 0.400 = Indeterminate > 0.400 = Consider Myocardial Injury Performed By: #### HEMDF, PT/AP, CMP3, TROPN #### [facility] [address] [place] [address] ED PROVIDER NOTE Observed: 08/03/2018 Status: F Source: [facility] 6:02 PM SYSTEM REPOSITORY Chief Complaint Patient presents with ? Irregular Heart Beat Although initial hx and physical exam information was obtained by MINDY Cortés, who also dictated a record of this visit. I independently examined and evaluated this patient and made all diagnostic, treatment and disposition decisions. Ceferino Piña is a 67 y.o. male presenting with shortness of breath. Patient has a known history of atrial fibrillation with an automatic implantable cardiac defibrillator. States that he has been having worsening dyspnea on exertion. 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 He also has been having worsening kidney failure and is planned for a dialysis port. He denies any shortness of breath right now at rest. Denies any chest pain to me. He does state that he has felt intermittent palpitations but denies any at this moment. On exam: Vital Signs: Reviewed Constitutional: comfortable, no acute distress Head: normocephalic, atraumatic Eyes: no scleral injection, no scleral icterus, no conjunctival erythema ENT: oropharynx clear, MMM Neck: supple, trachea midline Cardiovascular: Irregularly irregular, no m/r/g Pulmonary: no evidence of labored breathing, clear to auscultation bilaterally Abdominal: soft, nontender, nondistended Extremities: warm, well perfused, no edema Neurological: AAO x 3, nonfocal Skin: warm, dry, no rash Psych: no suicidal ideation EKG (08/03/18, 18:14): Rate: 110, Rhythm: Ventricular paced, Eight[place]: normal, Intervals: NM 126, QRS 173, QTc 562, Interpretation: no acute ischemic changes, right bundle branch block with secondary T-wave changes, similar to prior, Old: 07/29/18 Labs do show mild troponin leak of 0.091. Creatinine is slightly worse than prior at 5.02. Electrocardiogram is similar to prior. X- ray was unremarkable. I have low suspicion that this is necessary congestive heart failure exasperation but wonder if this is more symptomatic issue with his atrial fibrillation. Given this we feel that he requires further cardiac workup may need cardiology consult to determine if this cardiac ablation needs to happen earlier. Case was discussed with [facility] and patient was accepted for admission. Clinical Impression: Dyspnea on exertion, acute, initial visit Please note this report has been produced using speech recognition software and may contain errors related to that system including errors in grammar, punctuation, and spelling, as well as words and phrases that may be inappropriate. If there are questions or concerns please feel free to contact the dictating provider for clarification. Caitlyn Edwards MD 08/03/182058 ED PROVIDER NOTE Observed: 08/03/2018 Status: F Source: [facility] 6:02 PM SYSTEM REPOSITORY Emergency Department Encounter [facility] EMERGENCY DEPT Patient: Ceferino Piña : 1950 Date of Evaluation: 08/03/2018 ED Provider: FABBY Hsu CNP I saw the patient as the Clinician in Triage and performed a brief history and physical exam, established acuity, and ordered appropriate tests to develop basic plan of care. Patient will be seen by MEGHAN and/or my physician partner who will evaluate the patient. Brief HPI: In brief, Ceferino Piña is a 67 y.o. male that presents for chest pain, shortness of breath and fluttering. The patient reports a history of A. fib and states he is experiencing similar symptoms. He also reports a history of kidney disease and states the toxins are building up. He states that he needs dialysis. Patient states that he has not started treatment yet. Focused Physical exam: General: NAD Lungs: CTAB No use of accessory muscles. Heart: Tachycardic and irregular. No obvious murmur Plan: Labs/diagnostics ordered. Pt to be transferred to an ER bed for further medical evaluation and care. Please see subsequent provider note for further details and disposition Comment: Please note this report has been produced using speech recognition software and may contain errors related to that system including errors in grammar, punctuation, and spelling as well as words and phrases that may be inappropriate. If there are any questions or concerns please feel free to contact the dictating provider for clarification FABBY Hsu CNP [employer] FABBY Hsu CNP 08/03/18 1811 ED PROVIDER NOTE Observed: 08/03/2018 Status: F Source: [facility] 6:02 PM SYSTEM [facility] Patient: Ceferino Piña : 1950 Date of Evaluation: 08/03/2018 ED MEGHAN Provider: CHI CORTÉS APRN - [facility] was supervised by Dr. Edwards who independently examined and evaluated the patient. Please see their attestation note for further details. Chief Complaint Chief Complaint Patient presents with ? Irregular Heart Beat TAKOTNA Ceferino Piña is a 67 y.o. male whopresents to the emergency department For complaints of an irregular heart rate. He elicits that he has a history of atrial fibrillation and atrial flutter, coronary artery disease, ischemic dilated cardiomyopathy and congestive heart failure. Elicits that he is a patient of Dr. Wang. Elicits that he had an ablation 2 years ago. He has followed up with Dr. Wang for this including an attempt at heart cardioversion Without success. Elicits that over the past 24 hours the amount of hear fluttering and palpitations has increased. +dyspnea. Denies cough. Denies URI symptoms. Denies fever or chills. Denies diaphoresis. Denies abdominal pain. Denies N/V/D. Denies factors that seem to alleviate. Elicits activity seems to exacerbate. Rates current pain level 0/10. ROS: Review of Systems GENERAL: Denies weight change, fatigue, weakness, fever HEENT: Denies trauma, headache, dizziness, visual change, ear pain, hearing change, tinnitus, rhinorrhea CARDIAC: +heart fluttering. +palpitations. Denies hypertension, murmur, angina, palpations, dyspnea on exertion, edema RESPIRATORY: +shortness of breath with exertion.Denies wheezing, cough, sputum, asthma, COPD GI: Denies nausea, vomiting, change in bowels, abdominal pain URINARY: Denies changes in frequency/urgency, hematuria, incontinence, flank pain MUSCULOSKELETAL: Denies weakness, pain, change in ROM, redness, swelling NEURO: Denies loss in sensation, tingling, tremors, weakness, fainting or seizures ENDO: Denies heat/cold intolerance, polyuria, polydipsia, or swelling around neck PSYCH: Denies changes in mood, anxiety, depression, tension, memory Past History Past Medical History: Diagnosis Date ? Atrial flutter (HCC) CHADS2 score = 3 (CHF, HTN, DM); HAS-BLED score = 4 (renal, age, ASA, previous cerebral hemorrhage) ? CAD (coronary artery disease) s/p stents, CABG ? Cardiac defibrillator in place ? Cerebral hemorrhage (HCC) 09/10/96 ? CHF (congestive heart failure) ([facility]) EF 20%, Aug 2015 ? CKD (chronic kidney disease) stage 4 ? Foot drop, left ? Hemiparesis (HCC) ? Hyperlipidemia ? Hypertension ? Ischemic dilated cardiomyopathy (HCC) ? Paroxysmal atrial fibrillation (HCC) ? Rheumatoid arthritis (HCC) ? 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 Stroke (HCC) ? Type II or unspecified type diabetes mellitus without mention of complication, not stated as uncontrolled Past Surgical History: Procedure Laterality Date ? ABLATION OF DYSRHYTHMIC FOCUS 09/2015 ? APPENDECTOMY ? CARDIAC CATHETERIZATION Bilateral 06/18/2018 no intervention ? CARDIAC DEFIBRILLATOR PLACEMENT ? CATARACT REMOVAL ? CORONARY ANGIOPLASTY WITH STENT PLACEMENT 09/14/2014 FIDENCIO to mid Cx artery ? CORONARY ARTERY BYPASS GRAFT ? HAND SURGERY Right 09/26/2016 Social History Social History ? Marital status: Spouse name: N/A ? Number of children: N/A ? Years of education: N/A Social History Main Topics ? Smoking status: Never Smoker ? Smokeless tobacco: Never Used ? Alcohol use No ? Drug use: No Comment: caffeine 2 coffees daily ? Sexual activity: Not Asked Other Topics Concern ? None Social History Narrative ? None Medications/Allergies Discharge Medication List as of 08/12/2018 3:57 PM CONTINUE these medications which have NOT CHANGED Details sacubitril-valsartan (ENTRESTO) 24-26 MG per tablet Take 1 tablet by mouth 2 times daily, Disp-180 tablet, R-3Normal predniSONE (DELTASONE) 20 MG tablet Take 1/2 tablet (10 mg daily). May increase to 1 tablet daily (20 mg) if needed., Disp-30 tablet, R-3Normal blood glucose monitor strips Test twice daily. Brand: Nexterra or patient/insurance preference. Dx: E11.9., Disp-100 strip, R-11, Normal amiodarone (CORDARONE) 200 MG tablet Take 1 tablet by mouth every morning, Disp-90 tablet, R-3Normal Blood Glucose Monitoring Suppl ERIKA Disp-1 Device, R-0, NormalTest twice daily. Brand: accuchTiger Pistolva or patient/insurance preference. Dx: E11.9. Lancets MISC Disp-100 each, R-11, NormalTest twice daily. Brand: patient/insurance preference. Dx: E11.9. insulin detemir (LEVEMIR FLEXTOUCH) 100 UNIT/ML injection pen Inject 21 Units into the skin nightly, Disp-5 Pen, R-3Normal apixaban (ELIQUIS) 2.5 MG TABS tablet Take 1 tablet by mouth 2 times daily, Disp-30 tablet, R-0NO PRINT Spacer/Aero-Holding Chambers (E-Z SPACER) ERIKA DAILY PRN Starting 01/15/2017, Until Discontinued, Disp-1 Device, R-0, NormalUse TID PRN wheeze. DX: R06.2 Insulin Pen Needle 30G X 8 MM MISC 4 TIMES DAILY Starting 06/26/2016, Until Discontinued, Disp-100 each, R-3, Normal atorvastatin (LIPITOR) 80 MG tablet Take 1 tablet by mouth daily calcitRIOL (ROCALTROL) 0.25 MCG capsule Take 1 capsule by mouth daily No Known Allergies Physical Exam ED Triage Vitals [08/03/18 1806] BP Temp Temp Source Pulse Resp SpO2 Height Weight 115/87 97.8 ?F (36.6 ?C) Oral 104 18 99 % 6' (1.829 m) 252 lb (114.3 kg) Physical Exam GENERAL: The patient appears older than stated age and chronically ill. Vital signs as documented. EYES: Head exam is unremarkable. No scleral icterus or orbital trauma noted. HEENT: Mucous membranes moist. Nares patent without copious rhinorrhea. No enlarged lymphadenopathy. Mild JVD is present LUNGS: Lungs are clear to auscultation, without any respiratory distress. CARDIAC: Irregularly irregular rhythm. S1 and S2 are normal. There is tachycardia. Positive S3 and distant heart sounds noted. ABDOMEN: Nontender with no obvious masses, and no peritoneal signs. EXTREMITIES: Nonedematous, with no obvious deformities. Scant pedal edema. Chronic venous stasis present. SKIN: Good color, with no significant rashes. No pallor. NEURO: Patient is cognitive and alert and oriented x3. Conversive. Cranial nerves II-XII are grossly intact. Patient appears to have normal 5 out of 5 strength. No obvious sensory deficits. DTRs are preserved and equal bilaterally. Patient moves without difficulty, and does not display any ataxia or cerebellar deficits. Diagnostics Labs: Results for orders placed or performed during the hospital encounter of 08/04/18 Hemogram (CBC) w/Auto Diff Result Value Ref Range WBC 6.8 3.6 - 10.7 10*3/uL RBC 4.30 (L) 4.40 - 5.90 10*6/uL Hemoglobin 12.0 (L) 13.0 - 18.0 g/dL Hematocrit 36.7 (L) 40.0 - 52.0 % MCV 85.4 80.0 - 98.0 fL MCH 27.9 26.0 - 34.0 pg MCHC 32.6 32.0 - 36.0 % RDW 16.0 (H) 11.5 - 14.5 % Platelets 179 140 - 440 10*3/uL MPV 10.7 (H) 7.4 - 10.4 fL Granulocytes % 66.6 40.0 - 80.0 % Lymphocyte % 21.3 20.0 - 40.0 % Monocytes 8.5 2.0 - 10.0 % Eosinophils 2.3 1.0 - 6.0 % Basophils 1.3 0.0 - 2.0 % Absolute Neut # 4.6 1.8 - 7.0 10*3/uL Absolute Lymph # 1.5 1.0 - 4.3 10*3/uL Absolute [place] # 0.6 0.0 - 0.8 10*3/uL Absolute Eos # 0.2 0.0 - 0.5 10*3/uL Absolute Baso # 0.1 0.0 - 0.2 10*3/uL Comprehensive Metabolic Panel Result Value Ref Range Sodium 142 137 - 145 mmol/L Potassium 5.1 3.5 - 5.1 mmol/L Chloride 107 98 - 107 mmol/L CO2 22 22 - 30 mmol/L Anion Gap 14 NA Glucose 173 (H) 70 - 100 mg/dL BUN 100 (H) 7 - 20 mg/dL CREATININE 5.02 (H) 0.52 - 1.25 mg/dL eGFR 13.9 >60 mL/min EGFR IF NonAfrican Malaysian 11.5 >60 mL/min Calcium 9.2 8.4 - 10.4 mg/dL Albumin,Serum 4.4 3.5 - 5.0 g/dL Total Protein 7.0 6.3 - 8.2 g/dL Total Bilirubin 0.8 0.2 - 1.3 mg/dL Alkaline Phosphatase 120 38 - 126 U/L ALT 35 13 - 69 U/L AST 29 15 - 46 U/L Troponin x1 Result Value Ref Range Troponin I 0.091 (H) 0.000 - 0.034 ng/mL Urinalysis Result Value Ref Range Appearance Clear Clear NA Color, UA Yellow Lt. Yellow NA Specific [place], Urine 1.015 1.005 - 1.030 NA pH, Urine 5.0 5.0 - 8.0 NA LEUKOCYTES, UA NEG Negative NA Nitrite, Urine NEG Negative NA Total Protein, Urine 75 Negative mg/dL Glucose, Ur NORM Negative mg/dL Ketones, Urine NEG Negative mg/dL Urobilinogen, Urine NORM 0 - 1 mg/dL Bilirubin, Urine NEG Negative NA Occult Blood,Urine NEG Negative [RBC]/uL PROTIME/INR & PTT Result Value Ref Range Protime 10.5 9.0 - 12.0 s INR 1.0 0.9 - 1.1 NA aPTT 23.9 20.0 - 30.5 s Troponin Result Value Ref Range Troponin I 0.091 (H) 0.000 - 0.034 ng/mL Magnesium Result Value Ref Range Magnesium 2.5 (H) 1.6 - 2.3 mg/dL Hemoglobin A1c Result Value Ref Range Hemoglobin A1C 8.2 (H) 4.0 - 5.7 % eAG 189 mg/dL Troponin Result Value Ref Range Troponin I 0.091 (H) 0.000 - 0.034 ng/mL Renal Function Panel Result Value Ref Range Sodium 142 137 - 145 mmol/L Potassium 4.7 3.5 - 5.1 mmol/L Chloride 105 98 - 107 mmol/L CO2 22 22 - 30 mmol/L Anion Gap 14 NA Glucose 169 (H) 70 - 100 mg/dL BUN 99 (H) 7 - 20 mg/dL CREATININE 5.06 (H) 0.52 - 1.25 mg/dL eGFR 13.8 >60 mL/min EGFR IF NonAfrican Malaysian 11.4 >60 mL/min Calcium 9.4 8.4 - 10.4 mg/dL Albumin,Serum 4.4 3.5 - 5.0 g/dL Phosphorus 5.4 (H) 2.5 - 4.5 mg/dL CBC Result Value Ref Range WBC 8.0 3.6 - 10.7 10*3/uL RBC 4.36 (L) 4.40 - 5.90 10*6/uL Hemoglobin 12.2 (L) 13.0 - 18.0 g/dL Hematocrit 37.5 (L) 40.0 - 52.0 % MCV 86.1 80.0 - 98.0 fL MCH 28.1 26.0 - 34.0 pg MCHC 32.6 32.0 - 36.0 % RDW 16.0 (H) 11.5 - 14.5 % Platelets 188 140 - 440 10*3/uL MPV 10.4 7.4 - 10.4 fL Urinalysis with Microscopic Result Value Ref Range WBC, UA Negative 0 - 5 /[HPF] RBC, UA Negative 0 - 2 /[HPF] Epithelial Cells Negative 3 - 5 /[HPF] Bacteria, UA Negative Negative NA APTT Result Value Ref Range aPTT 24.8 20.0 - 30.5 s APTT Result Value Ref Range aPTT 28.8 20.0 - 30.5 s APTT Result Value Ref Range aPTT 46.9 (H) 20.0 - 30.5 s Protime-INR Result Value Ref Range Protime 10.6 9.0 - 12.0 s INR 1.0 0.9 - 1.1 NA Magnesium Result Value Ref Range Magnesium 2.4 (H) 1.6 - 2.3 mg/dL Renal Function Panel Result Value Ref Range Sodium 139 137 - 145 mmol/L Potassium 4.5 3.5 - 5.1 mmol/L Chloride 108 (H) 98 - 107 mmol/L CO2 21 (L) 22 - 30 mmol/L Anion Gap 11 NA Glucose 103 (H) 70 - 100 mg/dL BUN 100 (H) 7 - 20 mg/dL CREATININE 4.88 (H) 0.52 - 1.25 mg/dL eGFR 14.4 >60 mL/min EGFR IF NonAfrican Malaysian 11.9 >60 mL/min Calcium 8.5 8.4 - 10.4 mg/dL Albumin,Serum 3.5 3.5 - 5.0 g/dL Phosphorus 5.8 (H) 2.5 - 4.5 mg/dL CBC Result Value Ref Range WBC 6.6 3.6 - 10.7 10*3/uL RBC 3.98 (L) 4.40 - 5.90 10*6/uL Hemoglobin 11.1 (L) 13.0 - 18.0 g/dL Hematocrit 33.8 (L) 40.0 - 52.0 % MCV 84.9 80.0 - 98.0 fL MCH 27.9 26.0 - 34.0 pg MCHC 32.9 32.0 - 36.0 % RDW 15.7 (H) 11.5 - 14.5 % Platelets 153 140 - 440 10*3/uL MPV 10.5 (H) 7.4 - 10.4 fL APTT Result Value Ref Range aPTT 51.1 (H) 20.0 - 30.5 s APTT Result Value Ref Range aPTT 36.8 (H) 20.0 - 30.5 s APTT Result Value Ref Range aPTT 30.8 (H) 20.0 - 30.5 s APTT Result Value Ref Range aPTT 44.3 (H) 20.0 - 30.5 s Magnesium Result Value Ref Range Magnesium 2.2 1.6 - 2.3 mg/dL Renal Function Panel Result Value Ref Range Sodium 139 137 - 145 mmol/L Potassium 5.0 3.5 - 5.1 mmol/L Chloride 107 98 - 107 mmol/L CO2 19 (L) 22 - 30 mmol/L Anion Gap 12 NA Glucose 143 (H) 70 - 100 mg/dL BUN 102 (H) 7 - 20 mg/dL CREATININE 4.85 (H) 0.52 - 1.25 mg/dL eGFR 14.5 >60 mL/min EGFR IF NonAfrican Malaysian 12.0 >60 mL/min Calcium 8.5 8.4 - 10.4 mg/dL Albumin,Serum 3.7 3.5 - 5.0 g/dL Phosphorus 6.1 (H) 2.5 - 4.5 mg/dL CBC Result Value Ref Range WBC 6.9 3.6 - 10.7 10*3/uL RBC 4.07 (L) 4.40 - 5.90 10*6/uL Hemoglobin 11.4 (L) 13.0 - 18.0 g/dL Hematocrit 34.6 (L) 40.0 - 52.0 % MCV 84.8 80.0 - 98.0 fL MCH 27.9 26.0 - 34.0 pg MCHC 32.9 32.0 - 36.0 % RDW 15.4 (H) 11.5 - 14.5 % Platelets 170 140 - 440 10*3/uL MPV 10.6 (H) 7.4 - 10.4 fL Magnesium Result Value Ref Range Magnesium 2.3 1.6 - 2.3 mg/dL Renal Function Panel Result Value Ref Range Sodium 138 137 - 145 mmol/L Potassium 4.3 3.5 - 5.1 mmol/L Chloride 104 98 - 107 mmol/L CO2 21 (L) 22 - 30 mmol/L Anion Gap 12 NA Glucose 104 (H) 70 - 100 mg/dL BUN 105 (H) 7 - 20 mg/dL CREATININE 5.44 (H) 0.52 - 1.25 mg/dL eGFR 12.7 >60 mL/min EGFR IF NonAfrican Malaysian 10.5 >60 mL/min Calcium 9.5 8.4 - 10.4 mg/dL Albumin,Serum 3.8 3.5 - 5.0 g/dL Phosphorus 7.0 (H) 2.5 - 4.5 mg/dL CBC Result Value Ref Range WBC 6.1 3.6 - 10.7 10*3/uL RBC 4.16 (L) 4.40 - 5.90 10*6/uL Hemoglobin 11.5 (L) 13.0 - 18.0 g/dL Hematocrit 35.3 (L) 40.0 - 52.0 % MCV 85.0 80.0 - 98.0 fL MCH 27.6 26.0 - 34.0 pg MCHC 32.5 32.0 - 36.0 % RDW 16.0 (H) 11.5 - 14.5 % Platelets 166 140 - 440 10*3/uL MPV 11.0 (H) 7.4 - 10.4 fL APTT Result Value Ref Range aPTT 45.2 (H) 20.0 - 30.5 s APTT Result Value Ref Range aPTT 57.5 (H) 20.0 - 30.5 s Protime-INR Result Value Ref Range Protime 10.5 9.0 - 12.0 s INR 1.0 0.9 - 1.1 NA HEPATITIS B SURFACE ANTIGEN Result Value Ref Range Hepatitis B Surface Ag NOT DETECTED Not-Detected NA Hepatitis B Surface Antibody Result Value Ref Range Hep B S Ab <8.0 m[IU]/mL HEPATITIS B CORE ANTIBODY, IGM Result Value Ref Range Hep B Core Ab, IgM NOT DETECTED Not-Detected NA APTT Result Value Ref Range aPTT 36.5 (H) 20.0 - 30.5 s Magnesium Result Value Ref Range Magnesium 2.0 1.6 - 2.3 mg/dL Renal Function Panel Result Value Ref Range Sodium 137 137 - 145 mmol/L Potassium 3.8 3.5 - 5.1 mmol/L Chloride 101 98 - 107 mmol/L CO2 24 22 - 30 mmol/L Anion Gap 12 NA Glucose 146 (H) 70 - 100 mg/dL BUN 86 (H) 7 - 20 mg/dL CREATININE 4.71 (H) 0.52 - 1.25 mg/dL eGFR 15.0 >60 mL/min EGFR IF NonAfrican Malaysian 12.4 >60 mL/min Calcium 8.7 8.4 - 10.4 mg/dL Albumin,Serum 3.6 3.5 - 5.0 g/dL Phosphorus 5.7 (H) 2.5 - 4.5 mg/dL CBC Result Value Ref Range WBC 5.4 3.6 - 10.7 10*3/uL RBC 4.08 (L) 4.40 - 5.90 10*6/uL Hemoglobin 11.3 (L) 13.0 - 18.0 g/dL Hematocrit 33.8 (L) 40.0 - 52.0 % MCV 83.0 80.0 - 98.0 fL MCH 27.6 26.0 - 34.0 pg MCHC 33.3 32.0 - 36.0 % RDW 15.6 (H) 11.5 - 14.5 % Platelets 158 140 - 440 10*3/uL MPV 10.1 7.4 - 10.4 fL APTT Result Value Ref Range aPTT 95.1 (H) 20.0 - 30.5 s Renal Function Panel Result Value Ref Range Sodium 135 (L) 137 - 145 mmol/L Potassium 4.2 3.5 - 5.1 mmol/L Chloride 101 98 - 107 mmol/L CO2 24 22 - 30 mmol/L Anion Gap 10 NA Glucose 145 (H) 70 - 100 mg/dL BUN 64 (H) 7 - 20 mg/dL CREATININE 4.71 (H) 0.52 - 1.25 mg/dL eGFR 15.0 >60 mL/min EGFR IF NonAfrican Malaysian 12.4 >60 mL/min Calcium 9.1 8.4 - 10.4 mg/dL Albumin,Serum 3.4 (L) 3.5 - 5.0 g/dL Phosphorus 5.3 (H) 2.5 - 4.5 mg/dL CBC Result Value Ref Range WBC 6.1 3.6 - 10.7 10*3/uL RBC 4.01 (L) 4.40 - 5.90 10*6/uL Hemoglobin 11.0 (L) 13.0 - 18.0 g/dL Hematocrit 33.6 (L) 40.0 - 52.0 % MCV 83.8 80.0 - 98.0 fL MCH 27.5 26.0 - 34.0 pg MCHC 32.9 32.0 - 36.0 % RDW 15.7 (H) 11.5 - 14.5 % Platelets 152 140 - 440 10*3/uL MPV 10.3 7.4 - 10.4 fL Add On Lab Test Result Value Ref Range Add On Accepted NA Cortisol Total Result Value Ref Range Cortisol 18.0 ug/dL Renal Function Panel Result Value Ref Range Sodium 136 (L) 137 - 145 mmol/L Potassium 4.8 3.5 - 5.1 mmol/L Chloride 100 98 - 107 mmol/L CO2 23 22 - 30 mmol/L Anion Gap 13 NA Glucose 193 (H) 70 - 100 mg/dL BUN 79 (H) 7 - 20 mg/dL CREATININE 5.56 (H) 0.52 - 1.25 mg/dL eGFR 12.4 >60 mL/min EGFR IF NonAfrican Malaysian 10.2 >60 mL/min Calcium 9.1 8.4 - 10.4 mg/dL Albumin,Serum 3.5 3.5 - 5.0 g/dL Phosphorus 6.9 (H) 2.5 - 4.5 mg/dL CBC Result Value Ref Range WBC 6.0 3.6 - 10.7 10*3/uL RBC 4.01 (L) 4.40 - 5.90 10*6/uL Hemoglobin 11.0 (L) 13.0 - 18.0 g/dL Hematocrit 33.8 (L) 40.0 - 52.0 % MCV 84.3 80.0 - 98.0 fL MCH 27.4 26.0 - 34.0 pg MCHC 32.5 32.0 - 36.0 % RDW 15.5 (H) 11.5 - 14.5 % Platelets 157 140 - 440 10*3/uL MPV 10.1 7.4 - 10.4 fL Renal Function Panel Result Value Ref Range Sodium 136 (L) 137 - 145 mmol/L Potassium 4.4 3.5 - 5.1 mmol/L Chloride 96 (L) 98 - 107 mmol/L CO2 26 22 - 30 mmol/L Anion Gap 14 NA Glucose 121 (H) 70 - 100 mg/dL BUN 59 (H) 7 - 20 mg/dL CREATININE 4.86 (H) 0.52 - 1.25 mg/dL eGFR 14.5 >60 mL/min EGFR IF NonAfrican Malaysian 11.9 >60 mL/min Calcium 9.3 8.4 - 10.4 mg/dL Albumin,Serum 3.7 3.5 - 5.0 g/dL Phosphorus 5.6 (H) 2.5 - 4.5 mg/dL CBC Result Value Ref Range WBC 7.4 3.6 - 10.7 10*3/uL RBC 4.21 (L) 4.40 - 5.90 10*6/uL Hemoglobin 11.7 (L) 13.0 - 18.0 g/dL Hematocrit 35.4 (L) 40.0 - 52.0 % MCV 84.2 80.0 - 98.0 fL MCH 27.8 26.0 - 34.0 pg MCHC 33.1 32.0 - 36.0 % RDW 15.5 (H) 11.5 - 14.5 % Platelets 159 140 - 440 10*3/uL MPV 10.4 7.4 - 10.4 fL Renal Function Panel Result Value Ref Range Sodium 133 (L) 137 - 145 mmol/L Potassium 4.8 3.5 - 5.1 mmol/L Chloride 94 (L) 98 - 107 mmol/L CO2 22 22 - 30 mmol/L Anion Gap 16 NA Glucose 181 (H) 70 - 100 mg/dL BUN 79 (H) 7 - 20 mg/dL CREATININE 5.65 (H) 0.52 - 1.25 mg/dL eGFR 12.1 >60 mL/min EGFR IF NonAfrican Malaysian 10.0 >60 mL/min Calcium 9.3 8.4 - 10.4 mg/dL Albumin,Serum 3.9 3.5 - 5.0 g/dL Phosphorus 6.5 (H) 2.5 - 4.5 mg/dL CBC Result Value Ref Range WBC 7.3 3.6 - 10.7 10*3/uL RBC 4.21 (L) 4.40 - 5.90 10*6/uL Hemoglobin 11.9 (L) 13.0 - 18.0 g/dL Hematocrit 35.5 (L) 40.0 - 52.0 % MCV 84.5 80.0 - 98.0 fL MCH 28.3 26.0 - 34.0 pg MCHC 33.4 32.0 - 36.0 % RDW 15.8 (H) 11.5 - 14.5 % Platelets 170 140 - 440 10*3/uL MPV 9.8 7.4 - 10.4 fL POCT Glucose Result Value Ref Range POC Glucose 130 (H) 70 - 100 mg/dL POCT Glucose Result Value Ref Range POC Glucose 160 (H) 70 - 100 mg/dL POCT Glucose Result Value Ref Range POC Glucose 251 (H) 70 - 100 mg/dL POCT Glucose Result Value Ref Range POC Glucose 153 (H) 70 - 100 mg/dL POCT Glucose Result Value Ref Range POC Glucose 226 (H) 70 - 100 mg/dL POCT Glucose Result Value Ref Range POC Glucose 94 70 - 100 mg/dL POCT Glucose Result Value Ref Range POC Glucose 160 (H) 70 - 100 mg/dL POCT Glucose Result Value Ref Range POC Glucose 164 (H) 70 - 100 mg/dL POCT Glucose Result Value Ref Range POC Glucose 180 (H) 70 - 100 mg/dL POCT Glucose Result Value Ref Range POC Glucose 84 70 - 100 mg/dL POCT Glucose Result Value Ref Range POC Glucose 102 (H) 70 - 100 mg/dL POCT Glucose Result Value Ref Range POC Glucose 173 (H) 70 - 100 mg/dL POCT Glucose Result Value Ref Range POC Glucose 211 (H) 70 - 100 mg/dL POCT Glucose Result Value Ref Range POC Glucose 87 70 - 100 mg/dL POCT Glucose Result Value Ref Range POC Glucose 122 (H) 70 - 100 mg/dL POCT Glucose Result Value Ref Range POC Glucose 89 70 - 100 mg/dL POCT Glucose Result Value Ref Range POC Glucose 144 (H) 70 - 100 mg/dL POCT Glucose Result Value Ref Range POC Glucose 146 (H) 70 - 100 mg/dL POCT Glucose Result Value Ref Range POC Glucose 168 (H) 70 - 100 mg/dL POCT Glucose Result Value Ref Range POC Glucose 197 (H) 70 - 100 mg/dL POCT Glucose Result Value Ref Range POC Glucose 124 (H) 70 - 100 mg/dL POCT Glucose Result Value Ref Range POC Glucose 185 (H) 70 - 100 mg/dL POCT Glucose Result Value Ref Range POC Glucose 179 (H) 70 - 100 mg/dL POCT Glucose Result Value Ref Range POC Glucose 244 (H) 70 - 100 mg/dL POCT Glucose Result Value Ref Range POC Glucose 191 (H) 70 - 100 mg/dL POCT Glucose Result Value Ref Range POC Glucose 147 (H) 70 - 100 mg/dL POCT Glucose Result Value Ref Range POC Glucose 320 (H) 70 - 100 mg/dL POCT Glucose Result Value Ref Range POC Glucose 297 (H) 70 - 100 mg/dL POCT Glucose Result Value Ref Range POC Glucose 128 (H) 70 - 100 mg/dL POCT Glucose Result Value Ref Range POC Glucose 171 (H) 70 - 100 mg/dL POCT Glucose Result Value Ref Range POC Glucose 244 (H) 70 - 100 mg/dL POCT Glucose Result Value Ref Range POC Glucose 328 (H) 70 - 100 mg/dL POCT Glucose Result Value Ref Range POC Glucose 184 (H) 70 - 100 mg/dL POCT Glucose Result Value Ref Range POC Glucose 194 (H) 70 - 100 mg/dL Radiographs: No results found. Procedures: EKG: All EKG's areinterpreted by the Emergency Department Physician in the absence of a teacher dramatics.?Please see their note for interpretation of EKG. ED Course and MDM [place] Coma Scale Eye Opening: Spontaneous Best Verbal Response: Oriented Best Motor Response: Obeys commands [place] Coma Scale Score: 15 In brief, Ceferino Piña bryn 67 y.o. male who presented to the emergency department For complaints of an irregular heart rate. Please see history of present illness, review of systems and physical examination for further details. This patient was seen in collaboration with Dr. Edwards 67 year old female with known history of afib. Twelve-lead EKG reveals a paced rhythm. No acute ST elevations or depressions. Troponin 0.091. Creatinine at 5.02 which is worse than prior treatments. Chest x-ray unremarkable. I have discussed Ceferino Piña's ED presentation and ED course with Dr. Hudson from the [facility] service. Based on that discussion we have decided to admit Ceferino Piña to their service (under Dr. Hudson name) for further evaluation and care. ED Medication Orders Start Ordered Status Ordering Provider 08/10/18 1016 08/10/18 1016 heparin (porcine) 1000 UNIT/ML injection Comments: Venessa Fitzgerald: cabinet override Ordered 08/08/18 1054 08/08/18 1054 heparin (porcine) 1000 UNIT/ML injection Comments: Shayla Howard RN: cabinet override Ordered 08/07/18 1815 08/07/18 1750 doxercalciferol (HECTOROL) injection 2 mcg ONCE Last NOV action: Given - by MAE IZAGUIRRE on 08/07/18 at 2122 OSMANI CAO 08/07/18 1655 08/07/18 1655 lidocaine-EPINEPHrine 1 percent- [id number] injection ONCE PRN Last NOV action: Given - by QUINCY DURBIN on 08/07/18 at 1655 QUINCY DURBIN 08/07/18 1651 08/07/18 1651 lidocaine PF 1 % injection ONCE PRN Last NOV action: Given - by QUINCY DURBIN on 08/07/18 at 1651 QUINCY DURBIN 08/05/18 0900 08/04/18 0048 influenza quadrivalent split vaccine (FLUZONE;FLUARIX;FLULAVAL;AFLURIA) injection 0.5 mL ONCE Last NOV action: Given - by YOLANDE HERNANDEZ on 08/05/18 at 1025 Naomi HUDSON Final Impression 1. Dyspnea on exertion 2. Essential hypertension DISPOSITION (Please note that portions of this note may have been completed with a voice recognition program. Efforts were made to edit the dictations but occasionally words aremis-transcribed.) CHI CORTÉS APRN - [employer] FABBY Slaughter CNP 08/24/181918 FABBY Slaughter CNP 08/24/181920 HEPATIC FUNCTION Collected: 07/29/2018 Status: F Source: [facility] 1:46 PM SYSTEM REPOSITORY TYPE CODE TESTS RESULT OUT OF RANGE REFERENCE UNITS LAB ALB3 3.5-5.0 g/dL Albumin, Normal Serum 4.1 LAB TP3 6.3-8.2 g/dL Total Normal Protein 6.7 LAB BILT3 0.2-1.3 mg/dL Normal Bilirubin,Total 0.6 LAB BILD3 0.0-0.3 mg/dL Normal Bilirubin,Direct 0.0 LAB ALKP3 38-126 U/L Alkaline Normal Phosphatase 104 LAB ALT3 13-69 U/L ALT (SGPT) Normal 31 LAB AST3 15-46 U/L AST (SGOT) Normal 18 Performed By: #### LFT3 #### [facility] [address] [place] [id number] DISCHARGE SUMMARY Observed: 07/19/2018 Status: F Source: [facility] 8:53 AM SYSTEM REPOSITORY Attestation signed by Prashanth Wang DO at 07/19/2018 11:10 AM This patient was seen and personally examined by me on 07/19/18 Labs, imaging studies and electronic medical record reviewed. See [x]progress note []H&P []Consult documented by [x]MEGHAN which reflects my hpi, pmh, psh, ros, fh, sh as well with my additions, as I discussed with the [x]MEGHAN. For my exam, assessment and plan see below. PHYSICAL EXAM: General Appearance: [x]WDWN []Obese []Cachectic []Thin []ill Neck: Jvd []Present [x]Absent Lungs: [x]Clear []Crackles []Wheezes []Rhonchi / Respiratory effort []Labored []Non-Labored Heart: [x]RRR []Irregularly Irregular []murmur present []murmur absent/ Peripheral Edema []Absent [x]Present Trace to 1+ bilaterally Assessment/Plan 1. Remains in NSR A-Paced. For DC today. Follow-up 2-4 weeks and reassess his symptoms. Continue OAC and amiodarome. Prashanth Wang, DO Name: Ceferino Piña Date of : 1950 Date of Admission: 07/18/2018 Date of Discharge: 07/19/2018 Admitting physician: No admitting provider for patient encounter. Discharge Attending: Eryn Bolaños Primary Care Physician: Darryl Kennedy MD Review of Systems: Review of Systems Constitutional: Negative for chills, diaphoresis and fever. HENT: Negative for nosebleeds. Eyes: Negative for visual disturbance. Respiratory: Positive for cough and shortness of breath. Negative for wheezing. Cardiovascular: Positive for leg swelling. Negative for chest pain and palpitations. Gastrointestinal: Negative for abdominal pain, blood in stool, constipation, diarrhea, nausea and vomiting. Genitourinary: Negative for hematuria. Musculoskeletal: Negative for myalgias. Skin: Negative for rash. Neurological: Negative for dizziness and syncope. Hematological: Does not bruise/bleed easily. Psychiatric/Behavioral: Negative for confusion. Denies Depression PhysicalExam: Physical Exam Constitutional: He is oriented to person, place, and time. He appears well-developed and well-nourished. No distress. HENT: Mouth/Throat: No oropharyngeal exudate. Eyes: Right eye exhibits no discharge. Left eye exhibits no discharge. No scleral icterus. Neck: No JVD present. No thyromegaly present. Cardiovascular: Normal rate, regular rhythm, normal heart sounds and normal pulses. PMI is not displaced. Exam reveals no gallop. No murmur heard. Pulmonary/Chest: Breath sounds normal. No accessory muscle usage. No respiratory distress. Abdominal: Soft. Normal appearance and bowel sounds are normal. He exhibits no shifting dullness, no distension, no abdominal bruit and no ascites. There is no hepatomegaly. There is no tenderness. obese Musculoskeletal: Normal range of motion. Edema: bilateral 1+ nonpitting. Brace to left foot Neurological: He is alert and oriented to person, place, and time. Skin: Skin is warm, dry and intact. He is not diaphoretic. Chronic venous stasis changes bilaterally Vitals: 07/18/18 1557 07/18/18201007/19/18 0357 07/19/18 0705 BP: 91/62 108/73 113/81 106/62 Pulse: 70 71 72 71 Resp: 16 Temp: 96.2 ?F (35.7 ?C) 97.4 ?F (36.3 ?C) 97.8 ?F (36.6 ?C) 96.8 ?F (36 ?C) TempSrc: Temporal Temporal Temporal Temporal SpO2: 95% 97% 100% 99% Weight: 253 lb 11.2 oz (115.1 kg) 255 lb (115.7 kg) Height: Reason for Admission: [facility] ADMISSION PROBLEM LIST: Patient Active Problem List Diagnosis ? Hyperlipidemia ? Foot drop, left ? Paroxysmal atrial fibrillation (HCC) ? Type 2 diabetes mellitus with hyperglycemia, with long-term current use of insulin (HCC) ? Essential hypertension ? Dyslipidemia ? CKD (chronic kidney disease) stage 4, GFR 15-29 ml/min ([facility]) ? History of stroke with residual deficit ? Chronic systolic congestive heart failure (HCC) ? Atrial flutter (HCC) ? CAD (coronary artery disease) ? 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 Seropositive rheumatoid arthritis of multiple sites (HCC)- +RF,no erosions, high vectra ? Secondary hyperparathyroidism (HCC) ? Ischemic dilated cardiomyopathy (HCC) ? CKD (chronic kidney disease) ? Hypertension ? PAF (paroxysmal atrial fibrillation) ([facility]) Procedures: TJ Summary: 1. Left ventricle: The estimated ejection fraction is 15%. Diffuse hypokinesis with distinct regional wall motion abnormalities. Akinesis of the entireinferolateral myocardium; consistent with infarction. 2. Right ventricle: The cavity size is severely dilated. Systolic function is severely decreased. 3. Left atrium: There is severe continuous spontaneous echo contrast (quot;smokequot;) in the cavity and the appendage. No thombus seen in appendage or atrium. The appendage is well visualized and of normal size. Emptying velocity is mildly reduced. 4. Right atrium: The atrium is moderately dilated. 5. Atrial septum: The interatrial septum is normal. 6. Mitral valve: There is mild-moderate, 1-2+ regurgitation. 7. Tricuspid valve: There is mild-moderate, 1-2+ regurgitation. 8. Aorta: Tortuous, mild atherosclerosis. RECOMMENDATIONS: ?Proceed with DCC Blood cultures. HOSPITAL COURSE : This is a 67 y.o. male?has a history of an ischemic cardio myopathy with EF about 20%. ?He has a history of PAF and atrial flutter. He had a flutter ablation a number of years ago. He's had paroxysms of atrial fibrillation and with his increasing renal disease, and he was started on amiodarone. He also has a history of worsening CKD and is estimated to be on dialysis within the next 6 months. He was recently seen in the office by Dr. Wang with complaints of increasing dyspnea on exertion. He underwent a heart cath and was found to have stable CAD and severe generalized LV dysfunction with moderately elevated filling pressures. At his last OV he was found to be in AF with RVR. A TJ and cardioversion were scheduled. He presented yesterday for his outpatient TJ and DCC. Please note TJ report as above. He underwent successful DCC yesterday. On day of dicharge, he remains atrial paced. He will be discharged home on his previous medications. Per DCC note, a small filamentous echo density was noted on his device wire. Blood cultures x 2 were ordered. ? Last Labs: Lab Results Component Value Date WBC 8.7 05/28/2018 HGB 13.0 05/28/2018 HCT 39.5 (L) 05/28/2018 MCV 86.9 05/28/2018 PLT 197 05/28/2018 Lab Results Component Value Date NA 142 06/20/2018 K 5.1 06/20/2018 CL 108 06/20/2018 CO2 22 06/20/2018 BUN 84 06/20/2018 CREATININE 4.22 06/20/2018 GLUCOSE 213 06/20/2018 CALCIUM 9.4 06/20/2018 Lab Results Component Value Date CHOL 139 10/04/2015 Lab Results Component Value Date TRIG 108 10/04/2015 Lab Results Component Value Date HDL 27 (A) 10/04/2015 No results found for: LDLCALC, LDLCHOLESTEROL Final Principle DischargeDiagnosis: 1. PAF with RVR s/p successful DCC on 07/18/18. Continue BB and Amio as at home. Patient on Eliquis, renal dose Secondary Discharge diagnosis: 2. Severe LVD-compensated. Continue Bumex, Hydralzine, Imdur, Entresto and metoprolol succinate. 3. filamentous echo density noted on pacer lead on Echo-blood cultures x 2 drawn. Patient remains afebrile and denies chills/night sweats. 4. CKD progressing to ESRD Discharge Medications: Ceferino Piña Home Medication Instructions [place]:[id number] Printed on:07/19/18 0476 Medication Information allopurinol (ZYLOPRIM) 300 MG tablet Take 1 tablet by mouth daily amiodarone (CORDARONE) 200 MG tablet Take 1 tablet by mouth every morning apixaban (ELIQUIS) 2.5 MG TABS tablet Take 1 tablet by mouth 2 times daily atorvastatin (LIPITOR) 80 MG tablet Take 1 tablet by mouth daily blood glucose monitor strips Test twice daily. Brand: Nexterra or patient/insurance preference. Dx: E11.9. Blood Glucose Monitoring Suppl ERIKA Test twice daily. Brand: accuchDexrex Gear or patient/insurance preference. Dx: E11.9. bumetanide (BUMEX) 2 MG tablet Take 1 tablet by mouth daily calcitRIOL (ROCALTROL) 0.25 MCG capsule Take 1 capsule by mouth daily hydrALAZINE (APRESOLINE) 10 MG tablet Take 1 tablet by mouth 3 times daily insulin detemir (LEVEMIR FLEXTOUCH) 100 UNIT/ML injection pen Inject 21 Units into the skin nightly Insulin Pen Needle 30G X 8 MM MISC 1 each by Does not apply route 4 times daily isosorbide mononitrate (IMDUR) 30 MG CR tablet Take 1 tablet by mouth daily Lancets MISC Test twice daily. Brand: patient/insurance preference. Dx: E11.9. metoprolol succinate (TOPROL XL) 100 MG extended release tablet Take 1 tablet by mouth 2 times daily predniSONE (DELTASONE) 20 MG tablet Take 1/2 tablet (10 mg daily). May increase to 1 tablet daily (20 mg) if needed. sacubitril-valsartan (ENTRESTO) 24-26 MG per tablet Take 1 tablet by mouth 2 times daily Spacer/Aero-Holding Chambers (E-Z SPACER) ERIKA 1 Device by Does not apply route daily as needed (Wheezing) Use TID PRN wheeze. DX: R06.2 ICD Registry Information/AMI Registry Information NYHA Functional Classification: Class II-III Medical Therapy ? Aspirin: No If NO reason for omission on Apixaban ? ? SONJA/ARB: Yes If NO reason for omission ? ? Statin:Yes If NO reason for omission ? ? Beta Jaden:Yes If NO reason for omission ? ? P2Y12 Inhibitors :No If NO reason for omission not indicated ? ? Aldosterone inhibitor :No If NO reason for omission renal dysfunction ? ? Cardiac rehab No If NO reason for omission not indicated DIET: A lowfat, low cholesterol diet was discussed with the patient. Discharge to Home Condition at Discharge: good Follow up with cardiology Dr. Wang 07/29/18 at 11:15 am If any questions call [employer] office [phone] Total time spent for Discharge time greater than 31 minutes OSE,BEDSIDE Collected: 07/19/2018 Status: F Source: [facility] 6:53 AM SYSTEM REPOSITORY TYPE CODE TESTS RESULT OUT OF RANGE REFERENCE UNITS LAB BGLU 70-100 mg/dL High 187 Glucose,Beds gaby Result Comment: Test performed by glucose meter. Results may be 10%-15% lower than serum/plasma values. (CLIA ID [id number]) Performed By: #### BGLU #### [facility] [address] [place] [id number] GLUCOSE,BEDSIDE Collected: 07/18/2018 Status: F Source: [facility] 8:48 PM SYSTEM REPOSITORY TYPE CODE TESTS RESULT OUT OF RANGE REFERENCE UNITS LAB BGLU 70-100 mg/dL High 271 Glucose,Beds gaby Result Comment: Test performed by glucose meter. Results may be 10%-15% lower than serum/plasma values. (CLIA ID [id number]) Performed By: #### BGLU #### [facility] [address] [place] [id number] Observed: 07/18/2018 Status: F Source: [facility] CULTURE BLOOD 8:18 PM SYSTEM REPOSITORY Order Comment: Specimen Source Comment:Blood CULTURE BLOOD --> Status: F No growth at 5 days. Performed By: #### C/BLD #### [facility] [address] [place] [address] Observed: 07/18/2018 Status: F Source: [facility] CULTURE BLOOD (TWO) 8:09 PM SYSTEM REPOSITORY Order Comment: Specimen Source Comment:Blood CULTURE BLOOD (Two) --> Status: F No growth at 5 days. Performed By: #### C/BLT #### [facility] [address] [place] [address] GLUCOSE,BEDSIDE Collected: 07/18/2018 Status: F Source: [facility] 5:32 PM SYSTEM REPOSITORY TYPE CODE TESTS RESULT OUT OF RANGE REFERENCE UNITS LAB BGLU 70-100 mg/dL High 199 Glucose,Beds gaby Result Comment: Test performed by glucose meter. Results may be 10%-15% lower than serum/plasma values. (CLIA ID [id number]) Performed By: #### BGLU #### [facility] [place] [address] ECHO 2D/3D TJ W/WO Observed: 07/18/2018 Status: F Source: [facility] CONTRAST 2:08 PM SYSTEM REPOSITORY Patient Name: CEFERINO PIÑA Ultrasound Exam Date/Time 07/18/2018 15:15:16 EDT Exam Echo 2D/3D TJ w/wo Contrast Ordering Physician DO WANG JOSEPH Accession Number [id number] Reason For Exam A-fib Report TRANSESOPHAGEAL ECHOCARDIOGRAM PATIENT: Ceferino Piña STUDY DATE: 07/18/2018 : 1950 AGE: 67 HT/WT: 180.3 cm (71 115.9 kg (255 in) lb) GENDER: M BP: 105 / 85 LOCATION: [facility] PATIENT Outpatient [facility] STATUS: *ORDERING PHYSICIAN: * Prashanth Wang DO, [place], [facility] *READING PHYSICIAN: * Prashanth Wang DO, *DIRECTOR AERONAUTICS COMMISSION: * Shital MEREDITH, [facility] --- INDICATIONS: Atrial Fibrillation. --- CONCLUSIONS SUMMARY: 1. Left ventricle: The estimated ejection fraction is 15%. Diffuse hypokinesis with distinct regional wall motion abnormalities. Akinesis of the entireinferolateral myocardium; consistent with infarction. 2. Right ventricle: The cavity size is severely dilated. Systolic function is severely decreased. 3. Left atrium: There is severe continuous spontaneous echo contrast (quot;smokequot;) in the cavity and the appendage. No thombus seen in appendage or atrium. The appendage is well visualized and of normal size. Emptying velocity is mildly reduced. 4. Right atrium: The atrium is moderately dilated. 5. Atrial septum: The interatrial septum is normal. 6. Mitral valve: There is mild-moderate, 1-2+ regurgitation. 7. Tricuspid valve: There is mild-moderate, 1-2+ regurgitation. 8. Aorta: Tortuous, mild atherosclerosis. RECOMMENDATIONS: Proceed with DCC Blood cultures. --- STUDY DATA: Transesophageal echocardiography was performed. Procedure: Initial setup. Surface ECG leads, blood pressure measurements, and pulse oximetric signals were monitored. Image quality was goodA transesophageal probe was inserted by the attending cardiologistwithout difficulty. Complete 2D, complete spectral Doppler, and color flow Doppler images were acquired and archived for permanent storage and are available for subsequent review. Study status: Routine. Patient status: Outpatient. Location: [facility] laboratory. Consent: The risks, benefits, and alternatives to the procedure were explained to the patient and informed consent was obtained. Administered medications: Propofol. ECG RHYTHM: Atrial fibrillation --- FINDINGS LEFT VENTRICLE: The cavity size is severely dilated. Wall thickness is normal. There is no hypertrophy. The estimated ejection fraction is 15%. Diffuse hypokinesis with distinct regional wall motion abnormalities. Regional wall motion abnormalities: Akinesis of the entireinferolateral myocardium; consistent with infarction. RIGHT VENTRICLE: The cavity size is severely dilated. Pacer wire noted in the right ventricle. There is a asmll filamentous, mobile echo density on the wire. Fibrin, thrombin likely, vegetation not excluded. Systolic function is severely decreased. LEFT ATRIUM: The atrium is severely dilated. There is severe continuous spontaneous echo contrast (quot;smokequot;) in the cavity and the appendage. No thombus seen in appendage or atrium. The appendage is well visualized and of normal size. Emptying velocity is mildly reduced. RIGHT ATRIUM: The atrium is moderately dilated. ATRIAL SEPTUM: The interatrial septum is normal. No evidence of patent foramen ovale or atrial septal defect. No evidence of interatrial shunt by color Doppler or with injection of agitated saline contrast. MITRAL VALVE: Mildly to moderately calcified annulus. Mildly thickened leaflets. Doppler: There is mild-moderate, 1-2+ regurgitation. AORTIC VALVE: Thickening, consistent with sclerosis. Doppler: There is no stenosis. TRICUSPID VALVE: Mildly thickened leaflets. Doppler: There is mild-moderate, 1-2+ regurgitation. PULMONIC VALVE: Structurally normal valve. Doppler: There is trivial, less than 1+ regurgitation. AORTA: Tortuous, mild atherosclerosis. Electronically signed by Prashanth Wang DO, FS, [facility] 07/18/2018 15:58 Final Dictated: 07/18/2018 3:58 pm Dictating Physician: DO WANG JOSEPH Signed Date and Time: 07/18/2018 3:58 pm Signed by: DO WANG JOSEPH BASIC METABOLIC PANEL Collected: 06/20/2018 Status: F Source: [facility] 11:23 AM SYSTEM REPOSITORY TYPE CODE TESTS RESULT OUT OF RANGE REFERENCE UNITS LAB NA3 137-145 mmol/L Sodium Normal 142 LAB K3 3.5-5.1 mmol/L Normal Potassium 5.1 LAB CL3 98-107 mmol/L High Chloride 108 LAB CO23 22-30 mmol/L Carbon Normal Dioxide 22 LAB ANIN3 NA Anion Gap 12 LAB GLUC3 70-100 mg/dL High Glucose 213 LAB BUN3 7-20 mg/dL High Urea Nitrogen 84 LAB CRET3 0.52-1.25 mg/dL High Creatinine 4.22 LAB GF3BR >60 mL/min eGFR 17.0 LAB GF3WR >60 mL/min eGFR OTHER 14.0 Result Comment: Source- MDRD equation with creatinine calibration to IDMS(NKDEP) eGFR not recommended for drug dose adjustment LAB CA3 8.4-10.4 mg/dL Normal Calcium 9.4 Performed By: #### BMP3 #### [facility] [address] [place] [id number] DIAGNOSTIC CATHERIZATION Observed: 06/18/2018 Status: F Source: [facility] 1:14 PM SYSTEM REPOSITORY Patient Name: CEFERINO PIÑA [facility] Program Developer Exam Date/Time 06/18/2018 12:29:24 EDT Exam Diagnostic Catherization Ordering Physician DO WANG JOSEPH Accession Number [id number] Report [facility] CARDIOVASCULAR CELESTE --- CARDIAC CATHETERIZATION Patient: Ceferino Piña Procedure Date: 06/18/2018 : 1950 Age: 67 Gender: M Patient Type: Outpatient Procedure physician: Prashanth Wang DO, FSVM, FACC Fellow: Homar Hawkins Referring Physician: Prashanth Wang DO, FSVM, FACC --- INDICATIONS: Cardiomyopathy. Shortness of breath. --- Procedures performed: - Right heart catheterization. - Left coronary angiography. - Right coronary angiography. - LAROSE graft angiography. - Left heart catheterization. --- SUMMARY: 1. Left main: Prior intervention: stent in the proximal left main. The stented segment is patent. 2. LAD: Prior intervention: stent in the ostial LAD. The stented segment is patent. 3. Left circumflex: Prior intervention: stent in the mid left circumflex. The stented segment is patent. 4. 1st obtuse marginal: Ostial lesion: There is a 100% stenosis. 5. 2nd obtuse marginal: Proximal vessel lesion: There is a 70% stenosis. 6. Right coronary: Prior intervention: stent in the proximal RCA. The stented segment is patent. 7. LAROSE graft to the proximal LAD: Normal. 8. Saphenous vein graft to the proximal 1st diagonal, from the aorta: Proximal graft lesion: There is a 100% stenosis. 9. Saphenous vein graft to the mid 1st obtuse marginal, from the aorta: Proximal graft lesion: There is a 100% stenosis. IMPRESSIONS: 1. Stable severe 3 vessel CAD. No progression in the previously stented segments and the LAROSE graft and LAD beyound the SMITH insertion are widely patent without much progression. There has been moderate progression in the RCA, but no flow limiting lesion have been identified. 2. Elevated filling pressures are responsible for the progressive THOMPSON. I suspect due to the progressing renal insufficiency. 3. Moderate post capillary pulmonary HTN 4. Known severe LV systolic impairment. 5. ICD visualized. RECOMMENDATIONS: Continue with medical therapy. Consider renal replacement therapy. --- HISTORY: Cerebrovascular disease. PMH: Myocardial infarction. Peripheral arterial disease. Functional status: Renal failure; prior history of congest alejandro heart failure. Risk factors: Hypertension. Diabetes mellitus; on therapy with insulin. Dyslipidemia. Allergies: No known allergies. --- LABS, PRIOR TESTS, PROCEDURES, and SURGERY: Catheterization with coronary intervention. Coronary artery bypass grafting. --- PROCEDURE IN DETAIL: Study status: Cardiac cath: elective. Consent: The risks, benefits, and alternatives to the procedure and sedation were explained to the patient and informed consent was obtained. Fluoroscopy time: Fluorosco py time: 14.2 min. Fluoroscopy dose: Fluoroscopy dose: 173.5 cGy. Locatio n: Catheterization laboratory. PROCEDURE: 1. Initial setup. The patient was brought to the laboratory. A baseline ECG was recorded. Intravenous access was obtained. Surface ECG leads, blood pressure measurements, and pulse oximetric signals were monitored. 2. Skin preparation. The planned puncture sites were prepped and draped in the usual sterile manner. 3. Local anesthesia. 1% Lidocaine was administered to the right groin. 4. Right femoral artery access. A 5Fr x 23cm Brite Tip sheath was advanced into the vessel. 5. Right femoral vein access. A 7Fr/12cm Engage sheath was advanced into the vessel. 6. Right heart catheterization. A 7Fr SWAN-DYLAN TD catheter was advanced to the right ventricle under fluoroscopic guidance. 7. Selective left coronary angiography. A 5FR/100cm DxTerity JL 4.0 catheter was advanced into the left coronary vessel ostium under fluoroscopic guidance. Contrast was injected. Images were obtained in multiple projections. 8. Selective right coronary angiography. A 5Fr x 100cm JR4 catheter was advanced into the right coronary vessel ostium under fluoroscopic guidance. Contrast was injected. Images were obtained in multiple projections. 9. Selective angiography of the left internal mammary graft to the LAD. A 5FR/100cm DxTerity SMIHT catheter was advanced into the left internal mammary graft ostium under fluoroscopic guidance. Contrast was injected. Images were obtained in multiple projections. 10. Left heart catheterization. A 5Fr x 110cm Angled Pigtail catheter was advanced across the aortic valve to the left ventricle under fluoroscopic guidance. 11. Right femoral artery hemostasis. The sheath was removed. Vessel closure was achieved with a 6Fr Perclose ProGlide device. 12. Right femoral vein hemostasis. The sheath was removed. Vessel closure was achieved with a 6Fr/7Fr Vascade device. STUDY COMPLETION: All catheters inserted during the procedure were removed. The patient tolerated the procedure well and was discharged from the lab. There were no complications. Contrast: 1. ISOVUE 300MG/CC 17 ml (total dose). --- CORONARY ARTERIES: The coronary circulation is right dominant. The left main bifurcates normally into the LAD and circumflex. Left main: Prior intervention: stent in the proximal left main. The stented segment is patent. LAD: Minor luminal irregularities. Prior intervention: stent in the ostial LAD. The stented segment is patent. 1st diagonal: Very large. Minor luminal irregularities. 2nd diagonal: Normal. Left circumflex: Prior intervention: stent in the mid left circumflex. The stented segment is patent. 1st obtuse marginal: Minor luminal irregularities. Ostial lesion: There is a 100% stenosis. 2nd obtuse marginal: Medium-sized. Proximal vessel lesion: There is a 70% stenosis. 3rd obtuse marginal: Bifurcation vessel supplying the posterolateral wall. Minor luminal irregularities. Right coronary: Mild diffuse disease. Prior intervention: stent in the proximal RCA. The stented segment is patent. Proximal vessel lesion: There is a 40% stenosis. Mid-vessel lesion: There is a 30% stenosis. Proximal vessel l esion: There is a 40% stenosis. Right posterior descending: The proximal vessel has moderate diffuse disease. RCA posterolateral extension: Moderate diffuse disease. CORONARY GRAFTS: LAROSE graft to the proximal LAD: Normal. Saphenous vein graft to the proximal 1st diagonal, from the aorta: Proximal graft lesion: Not visulaized, known to be totally occluded from prior cath. The re is a 100% stenosis. Saphenous vein graft to the mid 1st obtuse marginal, from the aorta: Not visulaized, known to be totally occluded from prior cath. Prior intervention: s tent, in the proximal third of the graft. Proximal graft lesion: There is a 10 0% stenosis. LEFT VENTRICLE: Ventriculography was not performed due to preexisting renal insufficiency. AORTIC VALVE: There is no stenosis. HEMODYNAMICS: + + + --+ !Stage description !Condition1:Room Air - Javier!Condition1:Room Air - ! ! ! !Thermo ! + + + --+ !Venous saturation !SVC: 44.5%, PA: 46% ! --! + + + --+ !Arterial saturation !94% ! --! + + + --+ !O2 uptake, hemoglobin!Hgb: 13 g/dl !Hgb: 13 g/dl ! + + + --+ !Systemic cardiac !3.4 L/min, 1.47 !4.4 L/min, 1.92 L/(min- m2)! !output (Qs) !L/(min-m2) ! ! + + + --+ !HR, R-R, stroke !104 bpm !104 bpm, 43 ml ! !volume ! ! ! + + + --+ !Venous pressure !SVC: 13 !SVC: 13 ! + + + --+ !RA pressure a/v (m) ! () ! () ! + + + --+ !RV pressure s/d !46/14 ! ! + + + --+ !PA pressure s/d (m) ! (36) ! () ! + + + --+ !PA wedge a/v (m) !35/31 (28) !3531 (28) ! + + + --+ !LV pressure s/ed !111/21 !111 ! + + + --+ !Arterial pressure s/d!121/82 (98) !12182 (98) ! !(m) ! ! ! + + + --+ !Systemic vascular !2006 dyn-sec/cm5 !1539 dyn-sec/cm5 ! !resistance ! ! ! + + + --+ !Total systemic !2291 dyn-sec/cm5 !1756 dyn-sec/cm5 ! !resistance ! ! ! + + + --+ !Pulmonary vascular !189 dyn-sec/cm5 !145 dyn-sec/cm5 ! !resistance ! ! ! + + + --+ Prepared and electronically signed by Prashanth Wang DO, [facility], [facility] 06/18/2018 17:43 Final Dictated: 06/18/2018 5:44 pm Dictating Physician: DO WANG JOSEPH Signed Date and Time: 06/18/2018 5:44 pm Signed by: DO WANG JOSEPH GLUCOSE,BEDSIDE Collected: 06/18/2018 Status: F Source: [facility] 9:09 AM SYSTEM REPOSITORY TYPE CODE TESTS RESULT OUT OF RANGE REFERENCE UNITS LAB BGLU 70-100 mg/dL High 128 Glucose,Beds gaby Result Comment: Test performed by glucose meter. Results may be 10%-15% lower than serum/plasma values. (CLIA ID [id number]) Performed By: #### BGLU #### [facility] [address] [place] [address] ALLERGIES ALLERGIES DATE TYPE / CODE NAME / CODE REACTION SEVERITY SOURCE 09/30/2018 Drug No Known Unknown [facility] Allergy/4160 Allergies/F00 Hospital 06966(SNOMED 8626267(RXNOR Repository CT) M) ENCOUNTERS ENCOUNTERS ADMIT/DISCHARGE ACCOUNT NUMBER ADMITTING ENCOUNTER LOCATION SOURCE CLASS 10/10/2018 [id number] Ambulatory [facility] Repository 09/30/2018/09/30/19 [id number] [place] [facility] [place] 19 Naresh Encounter [facility] ding:ICURoom Repository : RUC48Qmg: 1 09/30/2018 [id number] Torsten Rose BMSBuilding: [place] Naresh BMS.[facility] Repository 09/30/2018 [id number] [place], Ambulatory BMSBuilding: [place] Singh BMS.CF.[facility] Repository 09/30/2018 [id number] Ambulatory [facility] Repository 09/28/2018 [id number] Ambulatory [facility] ding:OLS.AVE Repository B 09/27/2018 [id number] Ambulatory [facility] ding:OLS.AVE Repository B 09/23/2018 [id number] Ambulatory [facility] ding:OLS.AVE Repository B 09/20/2018 [id number] Ambulatory [facility] ding:OLS.AVE Repository B 09/12/2018 [id number] Ambulatory [facility] Repository 09/02/2018 [id number] [facility]patient [facility] Encounter 5WRoom: System [id number]: Repository [id number] 09/02/2018/09/02/20 [id number] Emergency [address] ding:ED Repository 08/29/2018 [id number] Ambulatory [facility] CATHRoom: 2A System CATHBed: Repository [id number] 08/28/2018/08/29/20 [id number] Emergency [address] ding:ED Repository 08/26/2018 [id number] Ambulatory [facility] Repository 08/15/2018 [id number] Emergency [facility] ERRoom: System [id number]: Repository [id number] 08/04/2018 [id number] [facility]patient [facility] Encounter 5WRoom: System [id number]: Repository [id number] 07/29/2018 [id number] Ambulatory [facility] Repository 07/18/2018 [id number] Ambulatory [facility] 5WRoom: System [id number]: Repository [id number] 07/17/2018 [id number] Ambulatory [facility] Repository 06/20/2018 [id number] Ambulatory [facility] Repository 06/18/2018 [id number] Ambulatory [facility] CATHRoom: System [id number]: Repository [id number] 06/14/2018 [id number] Ambulatory [address] [place], [place] [address]Room: System 0I0YB7Rqy: Repository [id number] 10/16/2017 [id number] Ambulatory [facility] Repository PAYERS PAYERS ENCOUNTER GUARANTOR PAYER SUBSCRIBER SOURCE 10/10/2018 Ceferino J Primary Ceferino J [facility] ReynoldsDOB: Insurance:HumanaPoli ReynoldsDOB: System [id number] [place] Number: Effective [id number] Repository [place] Date: [address]Ski: (HP) 09/30/2018 CEFERINO J Primary CEFERINO J [place] [address] Insurance:HUMANA REYNOLDSDOB: Community [id number] MEDICARE [id number] [place] Number: Repository [place] [id number]: (330) Date:9874-74-07KT [phone] () [address] [place] [address]ZR: 09/30/2018 Secondary CEFERINO J [place] Insurance:MEDICAIDPo REYNOLDSDOB: Community licy Number: [id number] Hospital [id number] Repository e Date:2018-09-30 09/30/2018 Tertiary NOT GIVENUNK [place] Insurance:SELF PAY [facility] Number: Effective Repository Date:2018-09-30 09/30/2018 CEFERINO J Primary CEFERINO J [place] [address] Insurance:HUMANA REYNOLDSDOB: Community [id number] MEDICARE [facility] [id number] [place] Number: Repository [place] [id number]: (330) Date:3429-68-02VN [phone] () [address] [place] [address]TA: 09/30/2018 Secondary CEFERINO J [place] Insurance:MEDICAIDPo REYNOLDSDOB: Community licy Number: [id number] Hospital [id number] Repository e Date:2018-09-30 09/30/2018 Tertiary NOT GIVENUNK [place] Insurance:SELF PAY Community [facility] Number: Effective Repository Date:2018-09-30 09/30/2018 CEFERINO J Primary CEFERINO J [place] [address] Insurance:HUMANA REYNOLDSDOB: Community [id number] MEDICARE PPOPolicy [id number] [place] Number: Repository [place], [place] [id number]: (330) Date:6573-08-03MD [phone] () [address] [address]RF: 09/30/2018 Secondary CEFERINO J [place] Insurance:MEDICAIDPo REYNOLDSDOB: Community licy Number: [id number] Hospital [id number] Repository e Date:2018-09-30 09/30/2018 Tertiary NOT GIVENUNK [place] Insurance:SELF PAY [facility] Number: Effective Repository Date:2018-09-30 09/30/2018 Ceferino J Primary Ceferino J [facility] ReynoldsDOB: Insurance:HumanaPoli ReynoldsDOB: System [id number] [place] Number: Effective [id number] Repository [place], [place] Date: [address]Psg: () 09/30/2018 Secondary Ceferino J [facility] Insurance:MedicaidPo ReynoldsDOB: System licy Number: [id number] Repository Effective Date: 09/28/2018 CEFERINO J Primary CEFERINO J [place] [id number] CAMP Insurance:HUMANA REYNOLDSDOB: [place] PPOPolicy [id number] Hospital [address]Hyo: (330) Number: Repository [phone] () [id number] Date:7647-87-39BJ [address] [place] [address]IU: 09/28/2018 Secondary CEFERINO J [place] Insurance:MEDICAIDPo REYNOLDSDOB: Community licy Number: [id number] Hospital [id number] Repository e Date:2018-09-28 09/28/2018 Tertiary NOT GIVENUNK [place] Insurance:SELF PAY [facility] Number: Effective Repository Date:2018-09-28 09/27/2018 CEFERINO J Primary CEFERINO J [place] [id number] C[address] Insurance:HUMANA REYNOLDSDOB: Community [place] MEDICARE [facility] [id number] Hospital [address]Wlb: (330) Number: Repository [phone] () [id number] Date:[id number] [address]EU: 09/27/2018 Secondary CEFERINO J [place] Insurance:MEDICAIDPo REYNOLDSDOB: [facility] Number: [id number] Hospital [id number] Repository e Date:2018-09-27 09/27/2018 Tertiary NOT GIVENUNK [place] Insurance:SELF PAY [facility] Number: Effective Repository Date:2018-09-27 09/23/2018 CEFERINO J Primary CEFERINO J [place] [id number] [address] Insurance:HUMANA REYNOLDSDOB: [place] MEDICARE [facility] [id number] Hospital [address]Cts: (330) Number: Repository [phone] () [id number] Date:6286-75-69LT [address] [address]JH: 09/23/2018 Secondary NOT GIVENUNK [place] Insurance:SELF PAY [facility] Number: Effective Repository Date:2018-09-23 09/20/2018 CEFERINO J Primary NOT GIVENUNK [place] [id number] [address] Insurance:SELF PAY [facility] [address]Cgu: (330) Number: Effective Repository [phone] () Date:2018-09-20 09/12/2018 Ceferino J Primary Ceferino J [facility] ReynoldsDOB: Insurance:HumanaPoli ReynoldsDOB: System [id number] [place] Number: Effective [id number] Repository [place], [place] Date: [address]Cxa: (HP) 09/02/2018 Ceferino J Primary Ceferino J [facility] ReynoldsDOB: Insurance:HumanaPoli ReynoldsDOB: System [id number] [place] Number: Effective [id number] Repository [place], [place] Date: [address]Utk: () 09/02/2018 Secondary Ceferino J [facility] Insurance:MedicarePo ReynoldsDOB: System licy Number: [id number] Repository Effective Date: 09/02/2018 Tertiary Ceferino J [facility] Insurance:MedicaidPo ReynoldsDOB: System licy Number: [id number] Repository Effective Date: 09/02/2018 CEFERINO J Primary CEFERINO J [place] [id number] [address] Insurance:HUMANA REYNOLDSDOB: Community [place] MEDICARE PPOPolicy [id number] Hospital [address]Nlz: (330) Number: Repository [phone] () [id number] Date:8366-44-60MA [address] [place] [address]LV: 09/02/2018 Secondary CEFERINO J [place] Insurance:MEDICAIDPo REYNOLDSDOB: Community licy Number: [id number] Hospital [id number] Repository e Date:2018-09-02 09/02/2018 Tertiary NOT GIVENUNK [place] Insurance:SELF PAY [facility] Number: Effective Repository Date:2018-09-02 08/29/2018 Ceferino J Primary Ceferino J [facility] ReynoldsDOB: Insurance:HumanaPoli ReynoldsDOB: System [id number] [place] Number: Effective [id number] Repository [place], [place] Date: [address]Yfs: () 08/29/2018 Secondary Ceferino J [facility] Insurance:MedicaidPo ReynoldsDOB: System licy Number: [id number] Repository Effective Date: 08/28/2018 CEFERINO J Primary CEFERINO J [place] [id number] [address] Insurance:HUMANA REYNOLDSDOB: Community [place] MEDICARE PPOPolicy [id number] Hospital [address]Jkm: (330) Number: Repository [phone] () [id number] Date:0319-35-68SU [address] [address]XM: 08/28/2018 Secondary NOT GIVENUNK [place] Insurance:SELF PAY [facility] Number: Effective Repository Date:2018-08-28 08/26/2018 Ceferino J Primary Ceferino J [facility] ReynoldsDOB: Insurance:HumanaPoli ReynoldsDOB: System [place] Number: Effective [id number] Repository [place], [place] Date: [address]Vvd: (HP) 08/15/2018 Ceferino J Primary Ceferino J [facility] ReynoldsDOB: Insurance:HumanaPoli ReynoldsDOB: System [place] Number: Effective [id number] Repository RdWest [place], [place] Date: [address]Skk: (HP) 08/15/[address] [facility] Insurance:MedicaidPo ReynoldsDOB: System licy Number: [id number] Repository Effective Date: 08/04/2018 Ceferino J Primary Ceferino J [facility] ReynoldsDOB: Insurance:HumanaPoli ReynoldsDOB: System [place] Number: Effective [id number] Repository RdWest [place], [place] Date: [address]Czy: (HP) 08/04/[address] [facility] Insurance:MedicarePo ReynoldsDOB: System licy Number: [id number] Repository Effective Date: 08/04/[address] [facility] Insurance:MedicaidPo ReynoldsDOB: System licy Number: [id number] Repository Effective Date: 07/29/2018 Ceferino J Primary [facility] ReynoldsDOB: Insurance:HumanaPoli ReynoldsDOB: System [place] Number: Effective [id number] Repository RdWest [place], [place] Date: [address]Cuf: (HP) 07/18/2018 Ceferino J Primary [facility] Health ReynoldsDOB: Insurance:HumanaPoli ReynoldsDOB: System [place] Number: Effective [id number] [address] [place], [place] Date: [id number]: (HP) 07/18/[address] [facility] Insurance:MedicaidPo ReynoldsDOB: System licy Number: [id number] Repository Effective Date: 07/17/2018 [place] J Primary [facility]ef[facility] Health ReynoldsDOB: Insurance:HumanaPoli ReynoldsDOB: System [place] Number: Effective [id number] [address] [place], [place] Date: [id number]: (HP) 06/20/2018 [place] J Primary [facility] ReynoldsDOB: Insurance:HumanaPoli ReynoldsDOB: System [place] Number: Effective [id number] [address] [place], [place] Date: [id number]: (HP) 06/18/2018 [place] J Primary [facility] ReynoldsDOB: Insurance:HumanaPoli ReynoldsDOB: System [place] Number: Effective [id number] [address] [place], [place] Date: [id number]: (HP) 06/14/2018 [place] J Primary [facility] ReynoldsDOB: Insurance:HumanaPoli ReynoldsDOB: System [place] Number: Effective [id number] [address] [place], [place] Date: [id number]: (HP) 10/16/2017 [place] Primary [facility] ReynoldsDOB: Insurance:HumanaPoli ReynoldsDOB: System [place] Number: Effective [id number] [address] [place], [place] Date: [id number]: (HP)
== END 2018-09-02 18:40 | disposition short-term general hospital (02) ==
LOC: ED 16:21
PROVIDERS: Emergency Provider Emergency Medicine
DX: I48.91 Unspecified atrial fibrillation (principal); T82.41XA Breakdown (mechanical) of vascular dialysis catheter, initial encounter; N18.6 End stage renal disease; R06.02 Shortness of breath; Z99.2 Dependence on renal dialysis; Z95.810 Presence of automatic (implantable) cardiac defibrillator; Z79.01 Long term (current) use of anticoagulants; Z79.4 Long term (current) use of insulin; Z79.899 Other long term (current) drug therapy
CPT/HCPCS: 71045; 80048; 84484; 85025; 93005; 96374; 99285; A4216

== ENCOUNTER → 2018-09-23 04:00 | Outpatient (REF) | payer MEDICARE, SELFPAY ==
[2018-09-02 15:48] VITALS: BMI 34.7
[2018-09-23 07:30] LABS: Absolute Neutrophil Count 8.6 X10^3/uL (2.0-7.7); Basophil# 0.02 X10^3/uL; Basophil% 0.2 % (0-1); Eosinophil# 0.02 X10^3/uL; Eosinophils% 0.2 % (0-5); Hematocrit 37.6 % (40-54); Hemoglobin 11.8 g/dl (13.0-16.5); Mean Corp Hgb Conc 31.4 g/gl (32-36); Mean Corpuscular Hgb 27.1 pg (27.0-32.0); Mean Corpuscular Volume 86.2 fL (80-94); Mean Platelet Vol. 11.7 fl (6.2-12.0); Monocyte# 0.82 X10^3/uL; Monocyte% 7.2 % (0-10); Neutrophil # 8.56 X10^3/uL (2.7-7.7); Neutrophil % 75.4 % (47-70); Platelet Count 162 K/mm3 (150-450); RBC Distribution Width CV 18.5 % (11.6-14.6); RBC Distribution Width SD 55.4 fl (35.1-43.9); Red Blood Count 4.36 M/mm3 (4.6-6.2); White Blood Count 11.4 K/mm3 (4.4-11.0)
[2018-09-23 07:31] LABS: POSITIVE COUNT YES; POSITIVE DIFFERENTIAL NO; POSITIVE MORPHOLOGY YES
[2018-09-23 07:32] LABS: NRBC Flagged by Analyzer 0.9 % (0-5)
[2018-09-23 07:40] LABS: ALB/GLOB Ratio 0.7 RATIO (0.9-2.4); AST(SGOT) 25 U/L (15-37); Alanine Aminotransfer ALT/SGPT 87 U/L (16-61); Albumin, Serum 2.8 g/dL (3.2-5.0); Alkaline Phosphatase 203 U/L (45-117); Anion Gap 14 (5-15); BUN 68 mg/dL (7-18); BUN/Creat Ratio 19.7 RATIO (10-20); Calcium,Total 8.7 mg/dL (8.5-10.1); Chloride 96 mmol/L (98-107); Creatinine, Serum 3.46 mg/dL (0.70-1.30); EST Glomerular Filtration Rate 19 mL/min (>60); Est Glom Filt Rate - Afr Amer 23 mL/min (>60); Globulin 3.9 g/dL (2.2-4.2); Glucose 94 mg/dL (74-106); Potassium 4.8 mmol/L (3.5-5.1); Protein, Total 6.7 g/dL (6.4-8.2); Sodium Level 138 mmol/L (136-145)
[2018-09-25 13:20] LABS: Pathologist Review Reviewed
[2018-09-30 15:02] VITALS: BMI 34.0
== END ==
LOC: OLS.AVEB 04:00
PROVIDERS: Visit Provider Family Medicine
DX: I48.91 Unspecified atrial fibrillation (principal); E78.5 Hyperlipidemia, unspecified
CPT/HCPCS: 36415; 80053; 85025

== ENCOUNTER → 2018-09-27 05:00 | Outpatient (REF) | payer MEDICARE, MEDICAID, SELFPAY ==
[2018-09-02 15:48] VITALS: BMI 34.7
[2018-09-27 07:33] LABS: Absolute Lymphocyte Count 1.23 X10^3/ul (0.83-4.51); Absolute Neutrophil Count 6.9 X10^3/uL (2.0-7.7); Basophil# 0.02 X10^3/uL; Basophil% 0.2 % (0-1); Eosinophil# 0.04 X10^3/uL; Eosinophils% 0.5 % (0-5); Hematocrit 38.8 % (40-54); Hemoglobin 12.2 g/dl (13.0-16.5); Lymphocyte # 1.23 X10^3/ul (4.0); Lymphocyte % 14.1 % (19-41); Mean Corp Hgb Conc 31.4 g/gl (32-36); Mean Corpuscular Hgb 27.2 pg (27.0-32.0); Mean Corpuscular Volume 86.6 fL (80-94); Monocyte# 0.39 X10^3/uL; Monocyte% 4.5 % (0-10); Neutrophil # 6.87 X10^3/uL (2.7-7.7); Neutrophil % 78.5 % (47-70); POSITIVE COUNT YES; POSITIVE DIFFERENTIAL NO; POSITIVE MORPHOLOGY YES; Platelet Count 112 K/mm3 (150-450); RBC Distribution Width CV 19.3 % (11.6-14.6); RBC Distribution Width SD 58.3 fl (35.1-43.9); Red Blood Count 4.48 M/mm3 (4.6-6.2); White Blood Count 8.7 K/mm3 (4.4-11.0)
[2018-09-27 13:59] LABS: Pathologist Review Reviewed
[2018-09-30 15:02] VITALS: BMI 34.0
== END ==
LOC: OLS.AVEB 05:00
PROVIDERS: Visit Provider Family Medicine
DX: I48.91 Unspecified atrial fibrillation (principal)
CPT/HCPCS: 36415; 85025

== ENCOUNTER → 2018-09-27 21:55 | Outpatient (REF) | payer SELFPAY ==
[2018-09-27 23:15] LABS: Vancomycin, Trough Level 5.9 ug/mL (5.0-15.0)
== END ==
LOC: OLS.AVEB 21:55
PROVIDERS: Visit Provider Family Medicine
DX: Z79.2 Long term (current) use of antibiotics (principal)

== ENCOUNTER → 2018-09-28 07:55 | Outpatient (REF) | payer MEDICARE, MEDICAID, SELFPAY ==
[2018-09-02 15:48] VITALS: BMI 34.7
[2018-09-28 09:52] LABS: ALB/GLOB Ratio 0.8 RATIO (0.9-2.4); AST(SGOT) 28 U/L (15-37); Alanine Aminotransfer ALT/SGPT 65 U/L (16-61); Albumin, Serum 2.9 g/dL (3.2-5.0); Alkaline Phosphatase 159 U/L (45-117); Anion Gap 15 (5-15); BUN 96 mg/dL (7-18); BUN/Creat Ratio 23.1 RATIO (10-20); Calcium,Total 8.7 mg/dL (8.5-10.1); Chloride 98 mmol/L (98-107); Creatinine, Serum 4.16 mg/dL (0.70-1.30); EST Glomerular Filtration Rate 15 mL/min (>60); Est Glom Filt Rate - Afr Amer 18 mL/min (>60); Globulin 3.8 g/dL (2.2-4.2); Glucose 94 mg/dL (74-106); Potassium 4.5 mmol/L (3.5-5.1); Protein, Total 6.7 g/dL (6.4-8.2); Sodium Level 137 mmol/L (136-145)
[2018-09-30 15:02] VITALS: BMI 34.0
== END ==
LOC: OLS.AVEB 07:55
PROVIDERS: Visit Provider Family Medicine
DX: B99.9 Unspecified infectious disease (principal)
CPT/HCPCS: 36415; 80053

== ENCOUNTER 2018-09-30 10:41 | Inpatient (IN) | payer MEDICARE, MEDICAID, SELFPAY ==
[2018-09-30] VITALS (19 sets, daily range): BP systolic 52–97; BP diastolic 29–80; PULSE 77–137; RESP 14–33; TEMP 36.6–38.1; O2SAT 82–100; BMI 35.6; BMI 34.0
[2018-09-30] MEDS: Dextrose 50%-Water 25 GM/50 ML DISP.SYRIN IV ×2 (10:41→11:43)
--- NOTE | 2018-09-30 10:59 | EKG12_ITS ---
Test Reason : AFIB Blood Pressure : / mmHG Vent. Rate : 120 BPM Atrial Rate : 120 BPM P-R Int : 000 ms QRS Dur : 148 ms QT Int : 378 ms P-R-T Axes : 000 252 114 degrees QTc Int : 534 ms Atrial fibrillation with rapid ventricular response with frequent ventricular-paced complexes Right bundle branch block T wave abnormality, consider lateral ischemia Abnormal ECG Confirmed by SHAWNA MACK, DILIA ([id number]), newspaper editor NANI REA ([id number]) on 10/02/2018 2:38:27 PM Referred By: PATY Confirmed By:DILIA MATOS MD
--- NOTE | 2018-09-30 10:59 | RAD_ITS ---
STUDY: X-RAY CHEST REASON FOR EXAM: Male, 67 years old. Unresponsive. Hypoglycemic. Hypotensive. TECHNIQUE: Single AP portable view of the chest. COMPARISON: Comparison is made with prior study dated September 02, 2018. FINDINGS: A right-sided double-lumen catheter is seen with the tip at the junction of the superior vena cava and right atrium. There is evidence of vascular congestion and mild degree of CHF. There is no demonstrated pleural abnormality. Sternal cerclage wires and vascular clips are present from a prior sternotomy and coronary artery bypass graft procedure (CABG). Mild cardiomegaly. A left-sided dual-chamber pacemaker is seen. Normal mediastinum and elle. Normal visualized pulmonary arteries. Normal visualized aortic arch and descending thoracic aorta. Normal visualized thoracic spine. Normal visualized ribs, clavicles, and shoulders. There is no demonstrated abnormality of the visualized soft tissue structures of the upper abdomen. RAD/Chest 1 View (Portable) IMPRESSION: Findings in keeping with vascular congestion and mild CHF. Electronically Signed: Tyshawn Gleason MD at 11:25 EST Tel [phone], Service support ,
[2018-09-30] MEDS: 0.9% Normal Saline 1,000 ML IV.SOLN. 2000 ML IV (11:05)
--- NOTE | 2018-09-30 11:24 | CT_ITS ---
STUDY: CT BRAIN WITHOUT CONTRAST REASON FOR EXAM: Male, 67 years old. Altered mental status. Unresponsive. Hypotension. RADIATION DOSAGE (If Supplied By Facility): CTDIvol = ( 44.99 ) mGy, DLP = ( 812.98 ) mGycm TECHNIQUE: Transaxial CT imaging of the brain was performed without administration of intravenous contrast material. Individualized dose optimization techniques were used for this CT. COMPARISON: None. FINDINGS: Normal soft tissue structures. Normal calvarium. There is mild cerebral atrophy with widening of the extra-axial spaces and ventricular dilatation. Encephalomalacia is seen in the insular cortex of the right temporal lobe. Normal basal ganglia and thalami. Normal brainstem. Normal cerebellum. There is no intracranial hemorrhage. There are no findings of an acute ischemic infarction. Normal visualized paranasal sinuses. CT/Brain/Head without Contrast IMPRESSION: Chronic involutional changes of the brain. 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 Electronically Signed: Tyshawn Gleason MD at 14:48 EST Tel [phone], Service support ,
[2018-09-30 11:45] LABS: International Normalized Ratio 1.7; Prothrombin Time (Protime)PT. 20.1 SECONDS (11.7-14.9)
[2018-09-30 11:46] LABS: Partial Thromboplast Time 35.8 Seconds (24.1-36.2)
[2018-09-30 11:53] LABS: Absolute Lymphocyte Count 0.54 X10^3/ul (0.83-4.51); Absolute Neutrophil Count 1.1 X10^3/uL (2.0-7.7); Basophil# 0.01 X10^3/uL; Basophil% 0.6 % (0-1); Hematocrit 35.4 % (40-54); Lymphocyte # 0.54 X10^3/ul (4.0); Lymphocyte % 31.2 % (19-41); Mean Corp Hgb Conc 31.1 g/gl (32-36); Mean Corpuscular Hgb 26.7 pg (27.0-32.0); Mean Corpuscular Volume 85.9 fL (80-94); Mean Platelet Vol. 12.2 fl (6.2-12.0); Monocyte# 0.04 X10^3/uL; Monocyte% 2.3 % (0-10); Neutrophil # 1.13 X10^3/uL (2.7-7.7); Neutrophil % 65.3 % (47-70); Platelet Count 84 K/mm3 (150-450); RBC Distribution Width CV 19.8 % (11.6-14.6); RBC Distribution Width SD 59.9 fl (35.1-43.9); Red Blood Count 4.12 M/mm3 (4.6-6.2); White Blood Count 1.7 K/mm3 (4.4-11.0)
[2018-09-30 11:58] LABS: Differential Indicated SCAN CRITERIA MET; POSITIVE COUNT NO; POSITIVE DIFFERENTIAL YES; POSITIVE MORPHOLOGY YES
[2018-09-30 11:59] LABS: Absolute Nucleated RBC Count 0.27 10^3/uL (0-5); NRBC Flagged by Analyzer 15.6 % (0-5)
[2018-09-30 12:01] LABS: Color, Urine Yellow (Yellow); Glucose, Dipstick 100 mg/dl (Normal); Ketone-Dipstick Negative (Negative); Leukocyte Esterase-Dipstick 25 /ul (Negative); Nitrite-Dipstick Negative (Negative); Occult Blood-Urine 10 /ul (Negative); Protein-Dipstick 100 mg/dl (Negative); Specific Gravity, Urine 1.015 (1.002-1.030); Urine Bilirubin Dipstick Negative (Negative); Urine Clarity Sl. Cloudy (Clear); Urine Urobilinogen Normal (Normal)
--- NOTE | 2018-09-30 12:01 | ED.RN ---
CALLED PHARMACY REGARDING ATB. STATED THEY ARE WORKING ON IT.
[2018-09-30 12:07] LABS: ALB/GLOB Ratio 0.6 RATIO (0.9-2.4); AST(SGOT) 27 U/L (15-37); Alanine Aminotransfer ALT/SGPT 39 U/L (16-61); Albumin, Serum 1.9 g/dL (3.2-5.0); Alkaline Phosphatase 100 U/L (45-117); Anion Gap 19 (5-15); BUN 128 mg/dL (7-18); BUN/Creat Ratio 22.9 RATIO (10-20); Calcium,Total 7.9 mg/dL (8.5-10.1); Chloride 100 mmol/L (98-107); Creatinine, Serum 5.59 mg/dL (0.70-1.30); EST Glomerular Filtration Rate 11 mL/min (>60); Est Glom Filt Rate - Afr Amer 13 mL/min (>60); Estimated Creatinine Clearance 13.69 ml/min; Glucose 107 mg/dL (74-106); Potassium 4.8 mmol/L (3.5-5.1); Protein, Total 4.9 g/dL (6.4-8.2); Sodium Level 137 mmol/L (136-145)
[2018-09-30 12:09] LABS: Lactic Acid 8.1 mmol/L (0.4-2.0)
[2018-09-30 12:11] LABS: Bacteria 3+ /hpf (None Seen); Mucous, Urine 1+ /hpf (<or=2+); Red Blood Cells-Urine 0-5 SEEN /hpf (0-5); Squamous Epithelial Cells - UA 0-5 SEEN /hpf (0-5); White Blood Cells 0-5 SEEN /hpf (0-5)
[2018-09-30] MEDS: Sodium Chloride 19.25 MEQ in Dextrose 10%-Water 250 ML 100 MEQ IV (12:18)
[2018-09-30 12:31] LABS: Bedside Glucose 137 mg/dL (70-110)
[2018-09-30 12:31] LABS: Bedside Glucose 92 mg/dL (70-110)
[2018-09-30] MEDS: Etomidate 20 MG/10 ML Vial IV (12:31)
[2018-09-30] MEDS: Rocuronium Bromide 50 MG/5 ML Vial 20 MG IV (12:31)
[2018-09-30 12:40] LABS: Allen Test POS; Base Excess -14 mmol/L (-2 to +2); Bicarbonate 11.6 mmol/L (22-26); Blood Gas Specimen Type ART; O2 Delivery Device Nasal Can; PO2 42 mmHG (75-100); SITE R Radial; SO2 76 % (95-99); Time Given 1220; Total Carbon Dioxide 12 mmol/L; pCO2 21.9 mmHg (35-45); pH 7.33 (7.35-7.45)
[2018-09-30 12:47] LABS: Platelet Estimate MOD DEC (ADEQ)
[2018-09-30 12:48] LABS: Anisocytosis 1+; Red Cell Morphology N CHROM NORMAL (NORM C&C)
[2018-09-30] MEDS: 0.9% Normal Saline 1,000 ML 999 ML IV (12:49)
--- NOTE | 2018-09-30 12:54 | ED.RN ---
MULTIPLE ATTEMPTS BY THIS RN AND HELEN HENDRIX TO INSERT OG AND NG, UNSUCCESSFUL. MD AWARE. NO NEW ORDERS GIVEN.
--- NOTE | 2018-09-30 13:05 | RAD_ITS ---
STUDY: X-RAY CHEST REASON FOR EXAM: Male, 67 years old. Endotracheal tube and nasogastric tube placement. TECHNIQUE: Single AP portable view of the chest. COMPARISON: Comparison is made with prior study done earlier today. FINDINGS: An endotracheal tube is in situ. The tip is at 3.5 cm proximal to the caroline. An orogastric tube is seen with the tip below the left hemidiaphragm. A right-sided double-lumen catheter is seen with the tip at the junction of the superior vena cava and right atrium. Configuration at both lung bases secondary to poor inspiratory effort. Basket congestion and mild degree of CHF. Sternal cerclage wires and vascular clips are present from a prior sternotomy and coronary artery bypass graft procedure (CABG). A left-sided ventricular chamber pacemaker is seen. Cardiomegaly. Normal mediastinum and elle. Normal visualized pulmonary arteries. Normal visualized aortic arch and descending thoracic aorta. Normal visualized thoracic spine. Normal visualized ribs, clavicles, and shoulders. There is no demonstrated abnormality of the visualized soft tissue structures of the upper abdomen. RAD/Chest 1 View (Portable) IMPRESSION: The tip of the endotracheal tube is at 3.5 cm proximal to caroline. Findings incomplete with mild degree of CHF with bibasilar atelectasis. Electronically Signed: Tyshawn Gleason MD at 13:28 EST Tel [phone], Service support ,
[2018-09-30 13:10] LABS: Bedside Glucose 132 mg/dL (70-110)
--- NOTE | 2018-09-30 13:17 | ED.RN ---
OG PLACED BY HELEN SCOTT.
--- NOTE | 2018-09-30 13:49 | PCM.HP.STD ---
Problem List (1) Metabolic encephalopathy Status: Acute (2) Septic shock Status: Acute (3) Acute respiratory failure with hypoxia Status: Acute History of Present Illness Date of Admission: 09/30/18 Chief Complaint: unresponsive. The patient is a 67 year old M found unresponsive that is a half-way facility. Patient did have blood sugar that was noted to be in the 30s. EMS was contacted and per emergency room physician, patient did not receive D50 until he arrived. She did receive 2 ampoules of D50. Patient still remained unresponsive. Patient was intubated emergently. Patient was concerned to have a septic shock with a lactic acid of 8, white count of 1.7 and tachycardia and tachypnea. Patient received years of IV fluids and still remained hypotensive and started on levo fed. Patient was started on D10 to maintain his blood sugars. Patient was on Zosyn for osteomyelitis of his left foot. Patient did receive aztreonam and vancomycin in the emergency room. Patient is intubated and sedated and unable provide any history is obtained through the emergency room physician but also patient's family. Patient states that he has been at the half-way facility for the past 2weeks. Patient was in [facility] for atrial fibrillation with RVR and a left foot infection and osteomyelitis. The left foot infection has healed up well but there is no plans for any surgery for the osteomyelitis. Patient's family stated that he was doing well as night and other than being fatigued since being started on dialysis around [facility], there is been no new complaints. [] Past Medical History Past Medical History (Chronic Problems): Chronic Problems Left hemiparesis (Chronic) Coronary artery disease (Chronic) Chronic kidney disease (Chronic) Cerebral aneurysm (Chronic) Hypertension (Chronic) Hyperlipemia (Chronic) GERD (gastroesophageal reflux disease) (Chronic) Diabetes mellitus, type 2 (Chronic) Hx of CABG (Chronic) Medical History: Medical History (Last Updated 09/30/18 @ 13:54 by Francisco Rose DO) CAD (coronary artery disease) I25.10 CVA (cerebrovascular accident due to intracerebral hemorrhage) I61.9 DM2 (diabetes mellitus, type 2) E11.9 ESRD (end stage renal disease) N18.6 Hyperlipidemia E78.5 PAD (peripheral artery disease) I73.9 HTN (hypertension) I10 Allergies No Known Allergies Allergy (Verified 09/30/18 11:08) Home Medications: Ambulatory Orders Medication Instructions Recorded Allopurinol [Zyloprim] 100 mg PO DAILY 08/28/18 Amiodarone 200 mg PO DAILY 08/28/18 Apixaban [Eliquis] 2.5 mg PO BID 08/28/18 Insulin Detemir [Levemir FlexPen] 21 units SC DAILY 08/28/18 Lipitor 80 mg PO DAILY 08/28/18 Surgical History: Surgical History (Last Updated 09/30/18 @ 13:55 by Francisco Rose DO) History of appendectomy Z90.49 Hx of CABG Z95.1 Surgical History: angioplasty, appendectomy, coronary bypass surgery Lives: Long Term Smoking Status: Never smoker Tobacco Use: Non-smoker Alcohol: None Drugs: None - *Family History Maternal Family History: Family History (Last Updated 09/30/18 @ 13:55 by Francisco Rose DO) Other CAD (coronary artery disease) Review of Systems Comment: Patient intubated and sedated, therefore, unable to get any review of systems. VTE Information - Inpt Only VTE Present on Admission: No VTE Pharm Prophylaxis ordered?: Yes Patient Problems: Active and Suspected Problems Metabolic encephalopathy (Acute) Septic shock (Acute) Acute respiratory failure with hypoxia (Acute) - Physical Exam General: - - Weighted. Sedated. Afebrile. HEENT: Atraumatic, PERRLA, Normocephalic Oral: Moist Mucosa, No Gingival or Mucosal Lesions/ Ulcerations, - - The tracheal tube and orogastric tube in place Neck: No Nodes, Thyroid Normal Size and Texture Lungs: Diminished, - - Coarse breath sounds bilaterally Cardiovascular: No murmurs, Irregular Rate, Tachycardic Abdomen: Soft, Non Tender, Non-Distended, Hypoactive Bowel Sounds Extremities: - - 2+ right lower extremity edema. Diminished pulses bilaterally in lower extremities. Skin: - - Venous stasis dermatitis of the lower extremities bilaterally. Appears to be an unroofed bullae on the dorsum of the right foot. No surrounding erythema. Musculoskeletal: No Tenderness to Palpation of Joints or Extremities, No Muscle Wasting Lymphatic: No Cervical, Supraclavicular, or Inguinal Adenopathy Neurological: - - No clonus. Vital Signs Temp Pulse Resp BP Pulse Ox 38.1 C H 112 H 21 H 67/40 L 100 09/30/18 13:17 09/30/18 13:41 09/30/18 13:41 09/30/18 13:41 09/30/18 13:17 Oxygen Flow Rate (L/min) 4 Oxygen Delivery Method Mechanical Ventilator Weight: 119.1 kg Body Mass Index (BMI) 35.6 Finger Stick Blood Glucose 132 Laboratory Tests Past 24 Hrs 09/30/18 09/30/18 09/30/18 11:10 11:10 11:10 WBC 1.7 L RBC 4.12 L Hgb 11.0 L Hct 35.4 L MCV 85.9 MCH 26.7 L MCHC 31.1 L RDW 19.8 H RDW Differential 59.9 H Plt Count 84 L MPV 12.2 H Immature Gran % (Auto) 0.600 Neut % (Auto) 65.3 Lymph % (Auto) 31.2 [place] % (Auto) 2.3 Eos % (Auto) 0.0 Baso % (Auto) 0.6 Absolute Neuts (auto) 1.1 L Absolute Lymphs (auto) 0.54 L Total Counted Not Reportable Nucleated RBC % 15.6 H Differential Comment Diff Path Review May foll Platelet Estimate MOD DEC RBC Morphology N CHROM Anisocytosis 1+ Absolute Retic 0.27 PT 20.1 H INR 1.7 APTT 35.8 Specimen Type Sample Site pH Bicarbonate Actual POC Total CO2 Base Excess O2 Saturation ABG pCO2 ABG pO2 Delvis Test O2 Delivery Device Liter Flow Blood Gas Notified Whom Blood Gas Notified Time Sodium 137 Potassium 4.8 Chloride 100 Carbon Dioxide 18.0 L Anion Gap 19 H BUN 128 H* Creatinine 5.59 H Estim Creat Clear Calc 13.69 Est GFR (MDRD) Af Amer 13 L Est GFR (MDRD) Non-Af 11 L BUN/Creatinine Ratio 22.9 H Glucose 107 H Lactic Acid Calcium 7.9 L Total Bilirubin 1.00 AST 27 ALT 39 Alkaline Phosphatase 100 Troponin I 0.267 H Total Protein 4.9 L Albumin 1.9 L Globulin 3.0 Albumin/Globulin Ratio 0.6 L Urine Color Urine Clarity Urine pH Ur Specific [place] Urine Protein Urine Glucose (UA) Urine Ketones Urine Occult Blood Urine Nitrite Urine Bilirubin Urine Urobilinogen Ur Leukocyte Esterase Urine RBC Urine WBC Ur Squamous Epith Cells Urine Bacteria Urine Mucus 09/30/18 09/30/18 09/30/18 11:10 11:58 12:21 WBC RBC Hgb Hct MCV MCH MCHC RDW RDW Differential Plt Count MPV Immature Gran % (Auto) Neut % (Auto) Lymph % (Auto) [place] % (Auto) Eos % (Auto) Baso % (Auto) Absolute Neuts (auto) Absolute Lymphs (auto) Total Counted Nucleated RBC % Differential Comment Diff Path Review Platelet Estimate RBC Morphology Anisocytosis Absolute Retic PT INR APTT Specimen Type ART Sample Site R Radial pH 7.33 L Bicarbonate Actual 11.6 L POC Total CO2 12 Base Excess -14 L O2 Saturation 76 L ABG pCO2 21.9 L ABG pO2 42 L Delvis Test POS O2 Delivery Device Nasal Can Liter Flow 4.0 Blood Gas Notified Whom ED Blood Gas Notified Time 1220 Sodium Potassium Chloride Carbon Dioxide Anion Gap BUN Creatinine Estim Creat Clear Calc Est GFR (MDRD) Af Amer Est GFR (MDRD) Non-Af BUN/Creatinine Ratio Glucose Lactic Acid 8.1 H* Calcium Total Bilirubin AST ALT Alkaline Phosphatase Troponin I Total Protein Albumin Globulin Albumin/Globulin Ratio Urine Color Yellow Urine Clarity Sl. Cloudy Urine pH 5.0 Ur Specific [place] 1.015 Urine Protein 100 H Urine Glucose (UA) 100 H Urine Ketones Negative Urine Occult Blood 10 H Urine Nitrite Negative Urine Bilirubin Negative Urine Urobilinogen Normal Ur Leukocyte Esterase 25 H Urine RBC 0-5 SEEN Urine WBC 0-5 SEEN Ur Squamous Epith Cells 0-5 SEEN Urine Bacteria 3+ Urine Mucus 1+ POC Glucose 09/30/18 09/30/18 09/30/18 13:04 12:00 11:33 POC Glucose 132 H 137 H 92 Clinical Impression(s) from Imaging Studies Chest X-Ray 09/30/18 10:59 IMPRESSION: Findings in keeping with vascular congestion and mild CHF. Electronically Signed: Tyshawn Gleason MD at 11:25 EST Tel [phone], Service support , Chest X-Ray 09/30/18 13:05 IMPRESSION: The tip of the endotracheal tube is at 3.5 cm proximal to caroline. Findings incomplete with mild degree of CHF with bibasilar atelectasis. Electronically Signed: Tyshawn Gleason MD at 13:28 EST Tel [phone], Service support , Assessment/Plan All Active Problems Metabolic encephalopathy (Acute) Septic shock (Acute) Acute respiratory failure with hypoxia (Acute) 1. Septic shock Presumed with tachycardia, tachypnea, lactic acidosis and leukopenia. Continue with aztreonam and vancomycin Follow-up cultures Unclear source at this time Troponin slightly elevated and we will cycle another 1 and check an echocardiogram 2. Acute hypoxic respiratory failure PO2 on ABG was 42 and patient was tachypneic with respiratory rates in the 20s. Patient intubated and on vent Critical care medicine for ventilator management ABG consistent with metabolic acidosis and alkalosis 3. Metabolic encephalopathy Presumably due to hypoglycemia Unclear how long the patient was hypoglycemic and if there are any sequelae due to potential sustained hypoglycemic episode May need further evaluation and assessment depending on the patient's clinical course Head CT ordered and currently pending no mention of any head trauma, but given the patient being on Eliquis, will need to rule out intracranial hemorrhage before the patient can be admitted to this hospital 4. End-stage renal disease Patient's dialysis days every Sunday Has a right chest vascular catheter Nephrology on consultation Patient follows up with Dr. Monzon in [place] 5. diabetes mellitus type II Was hypoglycemic in the field Improved We will continue with D10 for now but will likely need to de-escalate depending on the patient's blood sugars 6. Atrial fibrillation Has been in RVR, but I feel that much of this is reactive with the patient clinical presentation Amiodarone is currently on the med list with patient's family denies that he is on this anymore said he was taken off during his most recent hospitalization in [facility] We will request the records from [facility] Patient follows up with Dr. Izaguirre for cardiology 7. DVT prophylaxis: Patient on Eliquis and we will add SCDs 8. Advanced care planning: Discussed with the patient's son and daughter. They confirmed that the patient has desire to be full CODE STATUS. Code Visit Inpatient E&M: 69973 Init Hosp L3
--- NOTE | 2018-09-30 13:53 | HP.PCM_ITS ---
Problem List (1) Metabolic encephalopathy Status: Acute (2) Septic shock Status: Acute (3) Acute respiratory failure with hypoxia Status: Acute History of Present Illness Date of Admission: 09/30/18 Chief Complaint: unresponsive. The patient is a 67 year old M found unresponsive that is a [facility] facility. Patient did have blood sugar that was noted to be in the 30s. EMS was contacted and per emergency room physician, patient did not receive D50 until he arrived. She did receive 2 ampoules of D50. Patient still remained unresponsive. Patient was intubated emergently. Patient was concerned to have a septic shock with a lactic acid of 8, white count of 1.7 and tachycardia and tachypnea. Patient received years of IV fluids and still remained hypotensive and started on levo fed. Patient was started on D10 to maintain his blood sugars. Patient was on Zosyn for osteomyelitis of his left foot. Patient did receive aztreonam and vancomycin in the emergency room. Patient is intubated and sedated and unable provide any history is obtained through the emergency room physician but also patient's family. Patient states that he has been at the [facility] facility for the past 2weeks. Patient was in [facility] for atrial fibrillation with RVR and a left foot infection and osteomyelitis. The left foot infection has healed up well but there is no plans for any surgery for the osteomyelitis. Patient's family stated that he was doing well as night and other than being fatigued since being started on dialysis around [facility], there is been no new complaints. [] Past Medical History Past Medical History (Chronic Problems): Chronic Problems Left hemiparesis (Chronic) Coronary artery disease (Chronic) Chronic kidney disease (Chronic) Cerebral aneurysm (Chronic) Hypertension (Chronic) Hyperlipemia (Chronic) GERD (gastroesophageal reflux disease) (Chronic) Diabetes mellitus, type 2 (Chronic) Hx of CABG (Chronic) Medical History: Medical History (Last Updated 09/30/18 @ 13:54 by Francisco Rose DO) CAD (coronary artery disease) I25.10 CVA (cerebrovascular accident due to intracerebral hemorrhage) I61.9 DM2 (diabetes mellitus, type 2) E11.9 ESRD (end stage renal disease) N18.6 Hyperlipidemia E78.5 PAD (peripheral artery disease) I73.9 HTN (hypertension) I10 Allergies No Known Allergies Allergy (Verified 09/30/18 11:08) Home Medications: Ambulatory Orders Medication Instructions Recorded Allopurinol [Zyloprim] 100 mg PO DAILY 08/28/18 Amiodarone 200 mg PO DAILY 08/28/18 Apixaban [Eliquis] 2.5 mg PO BID 08/28/18 Insulin Detemir [Levemir FlexPen] 21 units SC DAILY 08/28/18 Lipitor 80 mg PO DAILY 08/28/18 Surgical History: Surgical History (Last Updated 09/30/18 @ 13:55 by Francisco Rose DO) History of appendectomy Z90.49 Hx of CABG Z95.1 Surgical History: angioplasty, appendectomy, coronary bypass surgery Lives: Snf Smoking Status: Never smoker Tobacco Use: Non-smoker Alcohol: None Drugs: None - *Family History Maternal Family History: Family History (Last Updated 09/30/18 @ 13:55 by Francisco Rose DO) Other CAD (coronary artery disease) Review of Systems Comment: Patient intubated and sedated, therefore, unable to get any review of systems. VTE Information - Inpt Only VTE Present on Admission: No VTE Pharm Prophylaxis ordered?: Yes Patient Problems: Active and Suspected Problems Metabolic encephalopathy (Acute) Septic shock (Acute) Acute respiratory failure with hypoxia (Acute) - Physical Exam General: - - Weighted. Sedated. Afebrile. HEENT: Atraumatic, PERRLA, Normocephalic Oral: Moist Mucosa, No Gingival or Mucosal Lesions/ Ulcerations, - - The tracheal tube and orogastric tube in place Neck: No Nodes, Thyroid Normal Size and Texture Lungs: Diminished, - - Coarse breath sounds bilaterally Cardiovascular: No murmurs, Irregular Rate, Tachycardic Abdomen: Soft, Non Tender, Non-Distended, Hypoactive Bowel Sounds Extremities: - - 2+ right lower extremity edema. Diminished pulses bilaterally in lower extremities. Skin: - - Venous stasis dermatitis of the lower extremities bilaterally. Appears to be an unroofed bullae on the dorsum of the right foot. No surrounding erythema. Musculoskeletal: No Tenderness to Palpation of Joints or Extremities, No Muscle Wasting Lymphatic: No Cervical, Supraclavicular, or Inguinal Adenopathy Neurological: - - No clonus. Vital Signs Temp Pulse Resp BP Pulse Ox 38.1 C H 112 H 21 H 67/40 L 100 09/30/18 13:17 09/30/18 13:41 09/30/18 13:41 09/30/18 13:41 09/30/18 13:17 Oxygen Flow Rate (L/min) 4 Oxygen Delivery Method Mechanical Ventilator Weight: 119.1 kg Body Mass Index (BMI) 35.6 Finger Stick Blood Glucose 132 Laboratory Tests Past 24 Hrs 09/30/18 09/30/18 09/30/18 11:10 11:10 11:10 WBC 1.7 L RBC 4.12 L Hgb 11.0 L Hct 35.4 L MCV 85.9 MCH 26.7 L MCHC 31.1 L RDW 19.8 H RDW Differential 59.9 H Plt Count 84 L MPV 12.2 H Immature Gran % (Auto) 0.600 Neut % (Auto) 65.3 Lymph % (Auto) 31.2 [place] % (Auto) 2.3 Eos % (Auto) 0.0 Baso % (Auto) 0.6 Absolute Neuts (auto) 1.1 L Absolute Lymphs (auto) 0.54 L Total Counted Not Reportable Nucleated RBC % 15.6 H Differential Comment Diff Path Review May foll Platelet Estimate MOD DEC RBC Morphology N CHROM Anisocytosis 1+ Absolute Retic 0.27 PT 20.1 H INR 1.7 APTT 35.8 Specimen Type Sample Site pH Bicarbonate Actual POC Total CO2 Base Excess O2 Saturation ABG pCO2 ABG pO2 Delvis Test O2 Delivery Device Liter Flow Blood Gas Notified Whom Blood Gas Notified Time Sodium 137 Potassium 4.8 Chloride 100 Carbon Dioxide 18.0 L Anion Gap 19 H BUN 128 H* Creatinine 5.59 H Estim Creat Clear Calc 13.69 Est GFR (MDRD) Af Amer 13 L Est GFR (MDRD) Non-Af 11 L BUN/Creatinine Ratio 22.9 H Glucose 107 H Lactic Acid Calcium 7.9 L Total Bilirubin 1.00 AST 27 ALT 39 Alkaline Phosphatase 100 Troponin I 0.267 H Total Protein 4.9 L Albumin 1.9 L Globulin 3.0 Albumin/Globulin Ratio 0.6 L Urine Color Urine Clarity Urine pH Ur Specific [place] Urine Protein Urine Glucose (UA) Urine Ketones Urine Occult Blood Urine Nitrite Urine Bilirubin Urine Urobilinogen Ur Leukocyte Esterase Urine RBC Urine WBC Ur Squamous Epith Cells Urine Bacteria Urine Mucus 09/30/18 09/30/18 09/30/18 11:10 11:58 12:21 WBC RBC Hgb Hct MCV MCH MCHC RDW RDW Differential Plt Count MPV Immature Gran % (Auto) Neut % (Auto) Lymph % (Auto) [place] % (Auto) Eos % (Auto) Baso % (Auto) Absolute Neuts (auto) Absolute Lymphs (auto) Total Counted Nucleated RBC % Differential Comment Diff Path Review Platelet Estimate RBC Morphology Anisocytosis Absolute Retic PT INR APTT Specimen Type ART Sample Site R Radial pH 7.33 L Bicarbonate Actual 11.6 L POC Total CO2 12 Base Excess -14 L O2 Saturation 76 L ABG pCO2 21.9 L ABG pO2 42 L Delvis Test POS O2 Delivery Device Nasal Can Liter Flow 4.0 Blood Gas Notified Whom ED Blood Gas Notified Time 1220 Sodium Potassium Chloride Carbon Dioxide Anion Gap BUN Creatinine Estim Creat Clear Calc Est GFR (MDRD) Af Amer Est GFR (MDRD) Non-Af BUN/Creatinine Ratio Glucose Lactic Acid 8.1 H* Calcium Total Bilirubin AST ALT Alkaline Phosphatase Troponin I Total Protein Albumin Globulin Albumin/Globulin Ratio Urine Color Yellow Urine Clarity Sl. Cloudy Urine pH 5.0 Ur Specific [place] 1.015 Urine Protein 100 H Urine Glucose (UA) 100 H Urine Ketones Negative Urine Occult Blood 10 H Urine Nitrite Negative Urine Bilirubin Negative Urine Urobilinogen Normal Ur Leukocyte Esterase 25 H Urine RBC 0-5 SEEN Urine WBC 0-5 SEEN Ur Squamous Epith Cells 0-5 SEEN Urine Bacteria 3+ Urine Mucus 1+ POC Glucose 09/30/18 09/30/18 09/30/18 13:04 12:00 11:33 POC Glucose 132 H 137 H 92 Clinical Impression(s) from Imaging Studies Chest X-Ray 09/30/18 10:59 IMPRESSION: Findings in keeping with vascular congestion and mild CHF. Electronically Signed: Tyshawn Gleason MD at 11:25 EST Tel [phone], Service support , Chest X-Ray 09/30/18 13:05 IMPRESSION: The tip of the endotracheal tube is at 3.5 cm proximal to caroline. Findings incomplete with mild degree of CHF with bibasilar atelectasis. Electronically Signed: Tyshawn Gleason MD at 13:28 EST Tel [phone], Service support , Assessment/Plan All Active Problems Metabolic encephalopathy (Acute) Septic shock (Acute) Acute respiratory failure with hypoxia (Acute) 1. Septic shock Presumed with tachycardia, tachypnea, lactic acidosis and leukopenia. Continue with aztreonam and vancomycin Follow-up cultures Unclear source at this time Troponin slightly elevated and we will cycle another 1 and check an echocardiogram 2. Acute hypoxic respiratory failure PO2 on ABG was 42 and patient was tachypneic with respiratory rates in the 20s. Patient intubated and on vent Critical care medicine for ventilator management ABG consistent with metabolic acidosis and alkalosis 3. Metabolic encephalopathy Presumably due to hypoglycemia Unclear how long the patient was hypoglycemic and if there are any sequelae due to potential sustained hypoglycemic episode May need further evaluation and assessment depending on the patient's clinical course Head CT ordered and currently pending no mention of any head trauma, but given the patient being on Eliquis, will need to rule out intracranial hemorrhage before the patient can be admitted to this hospital 4. End-stage renal disease Patient's dialysis days every Sunday Has a right chest vascular catheter Nephrology on consultation Patient follows up with Dr. Monzon in [place] 5. diabetes mellitus type II Was hypoglycemic in the field Improved We will continue with D10 for now but will likely need to de-escalate depending on the patient's blood sugars 6. Atrial fibrillation Has been in RVR, but I feel that much of this is reactive with the patient clinical presentation Amiodarone is currently on the med list with patient's family denies that he is on this anymore said he was taken off during his most recent hospitalization in [facility] We will request the records from [facility] Patient follows up with Dr. Izaguirre for cardiology 7. DVT prophylaxis: Patient on Eliquis and we will add SCDs 8. Advanced care planning: Discussed with the patient's son and daughter. They confirmed that the patient has desire to be full CODE STATUS. Code Visit Inpatient E&M: 80047 Init Hosp L3
--- NOTE | 2018-09-30 13:58 | CM.ED ---
Social Work Note Referral from Dr. Womack for support to family. Introduced self and role to pt's daughter, Liyah. Other family is present as well. Liyah reports that the pt does not have any advanced directives and is a full code. He presently resides at [facility]. She expresses concerns with his treatment. Provided her with the contact information for the [facility] as well as the [place] [facility]. Anticipate that family will be requesting a transfer to another facility once pt is medically stable. Made aware that there is a social welfare research worker on their assigned unit. PLAN: SNF/ECF at discharge. IRENE De La Cruz, BREE
--- NOTE | 2018-09-30 14:04 | ED.RN ---
REPORT CALLED TO HELEN MERRITT
--- NOTE | 2018-09-30 14:25 | NURSING ---
In ICU 2 per cart from ER.
--- NOTE | 2018-09-30 14:25 | ECHOCS_ITS ---
Reason For Study: HYPOTENSION Procedure This was a 2D Doppler, Color Flow transthoracic echocardiogram. Contrast injection was performed. Exam performed portable in ICU/CCU. Left Ventricle Moderately dilated left ventricle. The estimated ejection fraction is 25 %. Severe segmental systolic dysfunction (see wall motion). There are regional wall motion abnormalities as specified. Right Ventricle Normal RV size. ICD or pacer leads identified within the right ventricle. Normal systolic function. Atria The left atrium is moderately enlarged. The right atrium is mildly enlarged. Mitral Valve Normal mitral valve. Mild (1+) eccentric mitral valve insufficiency. Tricuspid Valve Normal tricuspid valve. Mild tricuspid valve insufficiency. Aortic Valve Normal aortic valve. Pulmonic Valve Normal pulmonic valve. Great Vessels Normal aortic root. The pulmonary artery is normal size. Normal inferior vena cava. Pericardium/Pleural No pericardial effusion. Medication Diluted definity 2ml given slow IV push to enhance endocardial definition. MMode/2D Measurements & Calculations LVIDd: 6.1 cm IVSd: 1.2 cm Ao root diam: 3.5 cm LVIDs: 5.5 cm LVPWd: 1.2 cm FS: 9.7 % LAV(MOD-bp): 86.9 ml LA A4 area: 23.4 cm2 LA dimension(2D): 5.5 cm LAV(MOD-bp) Indexed: 36.3 ml/m2 LAV(MOD-sp2): 108.5 ml LAV(MOD-sp4): 65.4 ml RA A4 area: 20.5 cm2 Doppler Measurements & Calculations Ao V2 max: 123.6 cm/sec LV V1 max: 54.9 cm/sec TR max maximo: 204.1 cm/sec Ao max P.1 mmHg LV V1 max P.3 mmHg TR max P.7 mmHg Interpretation Summary Moderately dilated left ventricle. The estimated ejection fraction is 25 %. Severe segmental systolic dysfunction (see wall motion). Mild (1+) eccentric mitral valve insufficiency. Mild tricuspid valve insufficiency. Ordering Physician: Francisco Rose Referring Physician: DILIA HEALY Performed By: Liana Santiago, RDCS, RVT
--- NOTE | 2018-09-30 15:01 | PCM.CON.CC ---
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 Diabetes mellitus complication status: with kidney complications Diabetes mellitus complication detail: with chronic kidney disease Chronic kidney disease stage: on chronic dialysis Qualified Code(s): E11.22 - Type 2 diabetes mellitus with diabetic chronic kidney disease; N18.6 - End stage renal disease; Z79.4 - skilled nursing (current) use of insulin; Z99.2 - Dependence on renal dialysis (3) GERD (gastroesophageal reflux disease) Status: Chronic Qualifiers: Esophagitis presence: esophagitis presence not specified Qualified Code(s): K21.9 - Gastro-esophageal reflux disease without esophagitis (4) Hyperlipemia Status: Chronic Qualifiers: Hyperlipidemia type: pure hypercholesterolemia Qualified Code(s): E78.00 - Pure hypercholesterolemia, unspecified; E78.0 - Pure hypercholesterolemia (5) Hypertension Status: Chronic Qualifiers: Hypertension type: essential hypertension Qualified Code(s): I10 - Essential (primary) hypertension (6) Cerebral aneurysm Status: Chronic (7) Chronic kidney disease Status: Chronic (8) Coronary artery disease Status: Chronic Qualifiers: Coronary Disease-Associated Artery/Lesion type: [place] artery [place] vs. transplanted heart: [place] heart Associated angina: with unspecified angina Qualified Code(s): I25.119 - Atherosclerotic heart disease of [place] coronary artery with unspecified angina pectoris (9) Left hemiparesis Status: Chronic (10) Metabolic encephalopathy Status: Acute (11) Septic shock Status: Acute (12) Acute respiratory failure with hypoxia Status: Acute Reason for Consult Date of Consultation: 09/30/18 Reason for Consultation: Septic shock History of Present Illness: The patient is a 67 year old M, with past medical history listed below, who presented to [facility] on 09/30/2018 after being found unresponsive at a [facility] facility. At that time, patient reportedly had a blood sugar in the 30s and EMS was contacted and transported to the ER for evaluation. Patient reportedly did not receive any glucose therapy prior to that point. At that time, patient was given 2 A of D50 and still remained unresponsive. Patient was intubated emergently by ER staff. Patient did receive IV fluids given hypotension and was started on Levophed. Patient also was initiated on D10 secondary to blood sugars. Patient is reportedly on vancomycin and Zosyn secondary to osteomyelitis of his left foot. Patient reportedly has been at the fpc facility for 2 weeks, but has had multiple admissions at [facility] secondary to A. fib with RVR and osteomyelitis. Patient was evaluated in the ER, but had been intubated and paralyzed at that point. Discussion with family at the bedside states the patient was of his usual health until at least approximately 7 PM last night. The patient reportedly has had a very complicated course over the last 2-4 weeks. Did discuss with the family about CODE STATUS. After review of all options, patient will be made a DNR Comfort Care arrest with intubation. Family would like to initiate aggressive measures for at least 24-48 hours, but may choose palliative measures if patient is not responsive. Unable to perform a review of systems secondary to paralytic. Family thought he was of his baseline health yesterday. Past Medical History Past Medical History (Chronic Problems): Chronic Problems (Last Updated 09/30/18 @ 13:54 by Francisco Rose DO) Hx of CABG (Chronic) Diabetes mellitus, type 2 (Chronic) GERD (gastroesophageal reflux disease) (Chronic) Hyperlipemia (Chronic) Hypertension (Chronic) Cerebral aneurysm (Chronic) Chronic kidney disease (Chronic) Coronary artery disease (Chronic) Left hemiparesis (Chronic) Medical History: Medical History (Last Updated 09/30/18 @ 13:54 by Francisco Rose DO) CAD (coronary artery disease) I25.10 CVA (cerebrovascular accident due to intracerebral hemorrhage) I61.9 DM2 (diabetes mellitus, type 2) E11.9 ESRD (end stage renal disease) N18.6 Hyperlipidemia E78.5 PAD (peripheral artery disease) I73.9 HTN (hypertension) I10 Allergies No Known Allergies Allergy (Verified 09/30/18 11:08) Home Medications: Ambulatory Orders Medication Instructions Recorded Allopurinol [Zyloprim] 200 mg PO DAILY 08/28/18 Apixaban [Eliquis] 2.5 mg PO BID 08/28/18 Albuterol Aerosols [Ventolin 2.5 mg INHALATION Q4H PRN PRN 09/30/18 Aerosols] B Complex W-C No.20/Folic Acid 1 mg PO DAILY 09/30/18 [Nephrocaps Softgel] Bisacodyl [Laxative Suppository] 10 mg RC PRN PRN 09/30/18 Dextrose [Glucose Gel] 38 gm PO PRN PRN 09/30/18 Glucagon,Human Recombinant 1 mg IJ PRN PRN 09/30/18 [Glucagon Emergency Kit] Guaifenesin [Mucinex] 600 mg PO BID 09/30/18 Insulin Glargine,Hum.rec.anlog 21 unit SQ QHS 09/30/18 [Lantus Solostar] Insulin Lispro [Humalog KwikPen] See Protocol SQ TIDCM 09/30/18 Lorazepam [Ativan] 0.5 mg PO BID PRN PRN 09/30/18 Metoprolol Succinate [Toprol Xl] 200 mg PO DAILY 09/30/18 Piperacil/Tazobactam [Zosyn] 2.25 gm IV Q8 09/30/18 Prednisone 10 mg PO DAILY 09/30/18 Sevelamer Carbonate [Renvela] 1,600 mg PO TIDCM 09/30/18 Sodium Chloride 0.65% [[place] Nasal 1 spray NASAL Q4H PRN PRN 09/30/18 [place]] Vancomycin HCl in 5 % Dextrose 750 mg IV MOWEFR 09/30/18 [Vancomycin 750 mg/250 ml-D5w] Surgical History: Surgical History (Last Updated 09/30/18 @ 13:55 by Francisco Rose DO) History of appendectomy Z90.49 Hx of CABG Z95.1 Surgical History: angioplasty, appendectomy, coronary bypass surgery Lives: Long-Term Smoking Status: Never smoker Tobacco Use: Non-smoker Alcohol: None Drugs: None - *Family History Maternal Family History: Family History (Last Updated 09/30/18 @ 13:55 by Francisco Rose DO) Other CAD (coronary artery disease) Review of Systems Comment: See HPI Patient Problems: Active and Suspected Problems (Last Updated 09/30/18 @ 13:54 by Francisco Rose DO) Metabolic encephalopathy (Acute) Septic shock (Acute) Acute respiratory failure with hypoxia (Acute) Objective: CT of the head was personally reviewed and showed no acute bleed. Chest x-ray showed patchy bilateral infiltrates. - Physical Exam General: - - Intubated and paralyzed. Obese. Good chest rise with ventilation. HEENT: Atraumatic, Normocephalic, - - No pupillary response noted. Oral: No Gingival or Mucosal Lesions/ Ulcerations, Dry Mucosa, - - Crowded posterior pharynx Neck: Supple, No Nodes, Trachea Midline, JVD, Right Lungs: No rhonchi, No wheeze, No rales, Diminished, - - Hemodialysis catheter noted in right chest, tunneled PICC line noted in left chest. Cardiovascular: Normal S1, Normal S2, No murmurs, Irregular Rate, No rub noted, No Gallop, - - A. fib with aberrancy and occasional pacemaker overdrive noted on telemetry Abdomen: Bowel Sounds Present, Soft, Non Tender, Non-Distended, Obese Extremities: No cyanosis, Clubbing Skin: - - Erythema noted of the right flank. Significant venous stasis changes of bilateral lower extremities, left greater than right with superficial ulcers. Buttock appears to have multiple healed Musculoskeletal: No Tenderness to Palpation of Joints or Extremities, Muscle Wasting Lymphatic: No Cervical, Supraclavicular, or Inguinal Adenopathy Neurological: - - Currently paralyzed Psych/Mental Status: Flat Affect Vital Signs Temp Pulse Resp BP Pulse Ox 38.1 C H 105 H 17 56/29 L 100 09/30/18 13:17 09/30/18 14:38 09/30/18 14:38 09/30/18 14:03 09/30/18 14:38 Oxygen Flow Rate (L/min) 4 Oxygen Delivery Method Mechanical Ventilator Weight: 119.1 kg Body Mass Index (BMI) 35.6 Finger Stick Blood Glucose 132 Laboratory Tests Past 24 Hrs 09/30/18 09/30/18 09/30/18 11:10 11:10 11:10 WBC 1.7 L RBC 4.12 L Hgb 11.0 L Hct 35.4 L MCV 85.9 MCH 26.7 L MCHC 31.1 L RDW 19.8 H RDW Differential 59.9 H Plt Count 84 L MPV 12.2 H Immature Gran % (Auto) 0.600 Neut % (Auto) 65.3 Lymph % (Auto) 31.2 [place] % (Auto) 2.3 Eos % (Auto) 0.0 Baso % (Auto) 0.6 Absolute Neuts (auto) 1.1 L Absolute Lymphs (auto) 0.54 L Total Counted Not Reportable Nucleated RBC % 15.6 H Differential Comment Diff Path Review May foll Platelet Estimate MOD DEC RBC Morphology N CHROM Anisocytosis 1+ Absolute Retic 0.27 PT 20.1 H INR 1.7 APTT 35.8 Specimen Type Sample Site pH Bicarbonate Actual POC Total CO2 Base Excess O2 Saturation ABG pCO2 ABG pO2 Delvis Test O2 Delivery Device Liter Flow Blood Gas Notified Whom Blood Gas Notified Time Sodium 137 Potassium 4.8 Chloride 100 Carbon Dioxide 18.0 L Anion Gap 19 H BUN 128 H* Creatinine 5.59 H Estim Creat Clear Calc 13.69 Est GFR (MDRD) Af Amer 13 L Est GFR (MDRD) Non-Af 11 L BUN/Creatinine Ratio 22.9 H Glucose 107 H Lactic Acid Calcium 7.9 L Total Bilirubin 1.00 AST 27 ALT 39 Alkaline Phosphatase 100 Troponin I 0.267 H Total Protein 4.9 L Albumin 1.9 L Globulin 3.0 Albumin/Globulin Ratio 0.6 L Urine Color Urine Clarity Urine pH Ur Specific [place] Urine Protein Urine Glucose (UA) Urine Ketones Urine Occult Blood Urine Nitrite Urine Bilirubin Urine Urobilinogen Ur Leukocyte Esterase Urine RBC Urine WBC Ur Squamous Epith Cells Urine Bacteria Urine Mucus 09/30/18 09/30/18 09/30/18 11:10 11:58 12:21 WBC RBC Hgb Hct MCV MCH MCHC RDW RDW Differential Plt Count MPV Immature Gran % (Auto) Neut % (Auto) Lymph % (Auto) [place] % (Auto) Eos % (Auto) Baso % (Auto) Absolute Neuts (auto) Absolute Lymphs (auto) Total Counted Nucleated RBC % Differential Comment Diff Path Review Platelet Estimate RBC Morphology Anisocytosis Absolute Retic PT INR APTT Specimen Type ART Sample Site R Radial pH 7.33 L Bicarbonate Actual 11.6 L POC Total CO2 12 Base Excess -14 L O2 Saturation 76 L ABG pCO2 21.9 L ABG pO2 42 L Delvis Test POS O2 Delivery Device Nasal Can Liter Flow 4.0 Blood Gas Notified Whom ED Blood Gas Notified Time 1220 Sodium Potassium Chloride Carbon Dioxide Anion Gap BUN Creatinine Estim Creat Clear Calc Est GFR (MDRD) Af Amer Est GFR (MDRD) Non-Af BUN/Creatinine Ratio Glucose Lactic Acid 8.1 H* Calcium Total Bilirubin AST ALT Alkaline Phosphatase Troponin I Total Protein Albumin Globulin Albumin/Globulin Ratio Urine Color Yellow Urine Clarity Sl. Cloudy Urine pH 5.0 Ur Specific [place] 1.015 Urine Protein 100 H Urine Glucose (UA) 100 H Urine Ketones Negative Urine Occult Blood 10 H Urine Nitrite Negative Urine Bilirubin Negative Urine Urobilinogen Normal Ur Leukocyte Esterase 25 H Urine RBC 0-5 SEEN Urine WBC 0-5 SEEN Ur Squamous Epith Cells 0-5 SEEN Urine Bacteria 3+ Urine Mucus 1+ POC Glucose 09/30/18 09/30/18 09/30/18 13:04 12:00 11:33 POC Glucose 132 H 137 H 92 Clinical Impression(s) from Imaging Studies Chest X-Ray 09/30/18 10:59 IMPRESSION: Findings in keeping with vascular congestion and mild CHF. Electronically Signed: Tyshawn Gleason MD at 11:25 EST Tel [phone], Service support , Brain CT 09/30/18 11:24 IMPRESSION: Chronic involutional changes of the brain. 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 Electronically Signed: Tyshawn Gleason MD at 14:48 EST Tel [phone], Service support , Chest X-Ray 09/30/18 13:05 IMPRESSION: The tip of the endotracheal tube is at 3.5 cm proximal to caroline. Findings incomplete with mild degree of CHF with bibasilar atelectasis. Electronically Signed: Tyshawn Gleason MD at 13:28 EST Tel [phone], Service support , Assessment/Plan Active and Suspected Problems (Last Updated 09/30/18 @ 13:54 by Francisco Rose DO) Metabolic encephalopathy (Acute) Septic shock (Acute) Acute respiratory failure with hypoxia (Acute) RECOMMENDATIONS: 1. Transition antibiotics to meropenem and vancomycin 2. Initiate stress dose steroids, vasopressin if needed 3. Wean FiO2 and PEEP as tolerated 4. Initiate sedation 5. Change CODE STATUS to DNR Comfort Care arrest 6. Transition to D10 water, wean as tolerated 7. Discontinue allopurinol and Eliquis IMPRESSIONS: 1. 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 Patient should have random vancomycin level obtained. Echocardiogram has been ordered. Pressors will be transition to central access. Zepeda cultures are currently pending. Another possible etiology would be line sepsis. The patient have an element of adrenal insufficiency as he is reportedly on 10 mg of prednisone at baseline. Patient will be placed on stress dose steroids for relative adrenal insufficiency area 2. Acute hypoxic respiratory failure Unclear etiology at this time. Differential diagnosis would include ARDS versus congestive heart failure. Patient with significant PEEP requirements at this time, but this may have a perfusion component. We will continue to wean FiO2 and PEEP as tolerated. Possibly repeat chest x-ray tomorrow for evaluation if not improving. Doubt pneumonia given lack of reported prodromal symptoms unless embolic in nature 3. Reported metabolic encephalopathy secondary to hypoglycemia Patient currently paralyzed, so evaluation of mental status is severely limited. Patient was significantly hypoglycemic initially, but this has been normalized. We will continue to wean D10 as tolerated. 4. End-stage renal disease Patient is reportedly receiving dialysis every Sunday, Sunday and Sunday. Patient has tunneled access. Nephrology has been consulted. Unclear if patient would be able to tolerate hemodialysis at this time given blood pressure requirements. Patient does have significant uremia at this time. May tolerate 24 hours until hemodynamic stability can be obtained. 5. Diabetes mellitus type 2 Patient is on Lantus and Levemir at baseline. Patient was significantly hypoglycemic earlier today. Patient currently on D10. We will continue to wean D10 as tolerated. 6. A. fib with RVR status post pacemaker Likely secondary to #1. We will continue to monitor with telemetry. Patient does have serial troponins. Initial elevation may be secondary to supply demand mismatch. 7. History of cerebral aneurysm/hypertension/hyperlipidemia/GERD/history of CABG/obesity/debility Complicates care, management, recovery and prognosis. Patient reportedly has a history of left-sided hemiparesis. This cannot be verified at this time. Reasonable to continue with PPI. ADDENDUM 4:12 PM: Called to patient's bedside at the end of patient's echocardiogram. Patient was not having definitive pass through the left side of the heart. Patient was evaluated and thought to have a thready pulse. Patient was given 2 A of bicarbonate with no improvement. Family was brought to the bedside. Patient was pronounced at 4:10 PM by myself after no heart sounds could be auscultated. No spontaneous breathing was noted. No CPR was performed given patient's CODE STATUS. TIME: 145 minutes of critical care time spent addressing patient's septic shock, respiratory failure, metabolic encephalopathy, hypoglycemia, review of all data and collaboration with care team (1:45 PM to 4:10 PM) Code Visit Procedures: 68560 Critial Care Addl 30 Min - [id number] x 3. 145 total time of critical care time. 9xxxx: [id number] Critical care first hour
--- NOTE | 2018-09-30 15:02 | CHAPLAIN ---
Type of Pastoral Visit _x__ Initial Visit ___ Follow-up Visit ___ On-call Visit ___ General Patient Visit ___ Spiritual Assessment ___ Family Conference ___ Bereavement ___ Rapid Response ___ Code Blue ___ Other (describe below) Pastoral Care Referral From ___ Patient ___ Family _x__ Nurse _x__ Physician ___ Youth Advocate ___ Glass Unloading Equipment Tender ___ Other (describe below) Sacrament/Intervention ___ Active listening ___ Anointing ___ Restorationist ___ Bereavement ___ Communion ___ Ana exploration ___ ___ Life review _x__ Prayer ___ Reconciliation ___ Sacrament of Sick _x__ Supportive presence ___ Wedding _x__ Other (describe below) Pastoral Comments during rounds in ICU this trust vault custodian was made aware by DR and 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 of pt that was being moved from ED to ICU and recommended the support be offered; found pt and four family members in ED; introduced self and role to family; offered to be present for pt and family and sought information about possible spiritual support desire; family welcomed prayer for the patient; according to family the pt does not have any current affiliation with any gnosticism or ana group; at time of transfer this trust vault custodian escorted family to ICU and gave information about next steps and made contact for them with assigned RN; brought water and gave time for family; family appeared calm at this time and settled as they waited for opportunity to see patient who has been intubated and accepted into ICU;
--- NOTE | 2018-09-30 15:08 | CON.PCM_ITS ---
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 Diabetes mellitus complication status: with kidney complications Diabetes mellitus complication detail: with chronic kidney disease Chronic kidney disease stage: on chronic dialysis Qualified Code(s): E11.22 - Type 2 diabetes mellitus with diabetic chronic kidney disease; N18.6 - End stage renal disease; Z79.4 - snf (current) use of insulin; Z99.2 - Dependence on renal dialysis (3) GERD (gastroesophageal reflux disease) Status: Chronic Qualifiers: Esophagitis presence: esophagitis presence not specified Qualified Code(s): K21.9 - Gastro-esophageal reflux disease without esophagitis (4) Hyperlipemia Status: Chronic Qualifiers: Hyperlipidemia type: pure hypercholesterolemia Qualified Code(s): E78.00 - Pure hypercholesterolemia, unspecified; E78.0 - Pure hypercholesterolemia (5) Hypertension Status: Chronic Qualifiers: Hypertension type: essential hypertension Qualified Code(s): I10 - Essential (primary) hypertension (6) Cerebral aneurysm Status: Chronic (7) Chronic kidney disease Status: Chronic (8) Coronary artery disease Status: Chronic Qualifiers: Coronary Disease-Associated Artery/Lesion type: [place] artery [place] vs. transplanted heart: [place] heart Associated angina: with unspecified angina Qualified Code(s): I25.119 - Atherosclerotic heart disease of [place] coronary artery with unspecified angina pectoris (9) Left hemiparesis Status: Chronic (10) Metabolic encephalopathy Status: Acute (11) Septic shock Status: Acute (12) Acute respiratory failure with hypoxia Status: Acute Reason for Consult Date of Consultation: 09/30/18 Reason for Consultation: Septic shock History of Present Illness: The patient is a 67 year old M, with past medical history listed below, who presented to [facility] on 09/30/2018 after being found unre sponsive at a [facility] facility. At that time, patient reportedly had a blood sugar in the 30s and EMS was contacted and transported to the ER for evaluation. Patient reportedly did not receive any glucose therapy prior to that point. At that time, patient was given 2 A of D50 and still remained unresponsive. Patient was intubated emergently by ER staff. Patient did receive IV fluids given hypotension and was started on Levophed. Patient also was initiated on D10 secondary to blood sugars. Patient is reportedly on vancomycin and Zosyn secondary to osteomyelitis of his left foot. Patient reportedly has been at the [facility] facility for 2 weeks, but has had multiple admissions at [facility] secondary to A. fib with RVR and osteomyelitis. Patient was evaluated in the ER, but had been intubated and paralyzed at that point. Discussion with family at the bedside states the patient was of his usual health until at least approximately 7 PM last night. The patient reportedly has had a very complicated course over the last 2-4 weeks. Did discuss with the family about CODE STATUS. After review of all options, patient will be made a DNR Comfort Care arrest with intubation. Family would like to initiate aggressive measures for at least 24-48 hours, but may choose palliative measures if patient is not responsive. Unable to perform a review of systems secondary to paralytic. Family thought he was of his baseline health yesterday. Past Medical History Past Medical History (Chronic Problems): Chronic Problems (Last Updated 09/30/18 @ 13:54 by Francisco Rose DO) Hx of CABG (Chronic) Diabetes mellitus, type 2 (Chronic) GERD (gastroesophageal reflux disease) (Chronic) Hyperlipemia (Chronic) Hypertension (Chronic) Cerebral aneurysm (Chronic) Chronic kidney disease (Chronic) Coronary artery disease (Chronic) Left hemiparesis (Chronic) Medical History: Medical History (Last Updated 09/30/18 @ 13:54 by Francisco Rose DO) CAD (coronary artery disease) I25.10 CVA (cerebrovascular accident due to intracerebral hemorrhage) I61.9 DM2 (diabetes mellitus, type 2) E11.9 ESRD (end stage renal disease) N18.6 Hyperlipidemia E78.5 PAD (peripheral artery disease) I73.9 HTN (hypertension) I10 Allergies No Known Allergies Allergy (Verified 09/30/18 11:08) Home Medications: Ambulatory Orders Medication Instructions Recorded Allopurinol [Zyloprim] 200 mg PO DAILY 08/28/18 Apixaban [Eliquis] 2.5 mg PO BID 08/28/18 Albuterol Aerosols [Ventolin 2.5 mg INHALATION Q4H PRN PRN 09/30/18 Aerosols] B Complex W-C No.20/Folic Acid 1 mg PO DAILY 09/30/18 [Nephrocaps Softgel] Bisacodyl [Laxative Suppository] 10 mg RC PRN PRN 09/30/18 Dextrose [Glucose Gel] 38 gm PO PRN PRN 09/30/18 Glucagon,Human Recombinant 1 mg IJ PRN PRN 09/30/18 [Glucagon Emergency Kit] Guaifenesin [Mucinex] 600 mg PO BID 09/30/18 Insulin Glargine,Hum.rec.anlog 21 unit SQ QHS 09/30/18 [Lantus Solostar] Insulin Lispro [Humalog KwikPen] See Protocol SQ TIDCM 09/30/18 Lorazepam [Ativan] 0.5 mg PO BID PRN PRN 09/30/18 Metoprolol Succinate [Toprol Xl] 200 mg PO DAILY 09/30/18 Piperacil/Tazobactam [Zosyn] 2.25 gm IV Q8 09/30/18 Prednisone 10 mg PO DAILY 09/30/18 Sevelamer Carbonate [Renvela] 1,600 mg PO TIDCM 09/30/18 Sodium Chloride 0.65% [[place] Nasal 1 spray NASAL Q4H PRN PRN 09/30/18 [place]] Vancomycin HCl in 5 % Dextrose 750 mg IV MOWEFR 09/30/18 [Vancomycin 750 mg/250 ml-D5w] Surgical History: Surgical History (Last Updated 09/30/18 @ 13:55 by Francisco Rose DO) History of appendectomy Z90.49 Hx of CABG Z95.1 Surgical History: angioplasty, appendectomy, coronary bypass surgery Lives: Alf Smoking Status: Never smoker Tobacco Use: Non-smoker Alcohol: None Drugs: None - *Family History Maternal Family History: Family History (Last Updated 09/30/18 @ 13:55 by Francisco Rose DO) Other CAD (coronary artery disease) Review of Systems Comment: See HPI Patient Problems: Active and Suspected Problems (Last Updated 09/30/18 @ 13:54 by Francisco Rose DO) Metabolic encephalopathy (Acute) Septic shock (Acute) Acute respiratory failure with hypoxia (Acute) Objective: CT of the head was personally reviewed and showed no acute bleed. Chest x-ray showed patchy bilateral infiltrates. - Physical Exam General: - - Intubated and paralyzed. Obese. Good chest rise with ventilation. HEENT: Atraumatic, Normocephalic, - - No pupillary response noted. Oral: No Gingival or Mucosal Lesions/ Ulcerations, Dry Mucosa, - - Crowded posterior pharynx Neck: Supple, No Nodes, Trachea Midline, JVD, Right Lungs: No rhonchi, No wheeze, No rales, Diminished, - - Hemodialysis catheter noted in right chest, tunneled PICC line noted in left chest. Cardiovascular: Normal S1, Normal S2, No murmurs, Irregular Rate, No rub noted, No Gallop, - - A. fib with aberrancy and occasional pacemaker overdrive noted on telemetry Abdomen: Bowel Sounds Present, Soft, Non Tender, Non-Distended, Obese Extremities: No cyanosis, Clubbing Skin: - - Erythema noted of the right flank. Significant venous stasis changes of bilateral lower extremities, left greater than right with superficial ulcers. Buttock appears to have multiple healed Musculoskeletal: No Tenderness to Palpation of Joints or Extremities, Muscle Wasting Lymphatic: No Cervical, Supraclavicular, or Inguinal Adenopathy Neurological: - - Currently paralyzed Psych/Mental Status: Flat Affect Vital Signs Temp Pulse Resp BP Pulse Ox 38.1 C H 105 H 17 56/29 L 100 09/30/18 13:17 09/30/18 14:38 09/30/18 14:38 09/30/18 14:03 09/30/18 14:38 Oxygen Flow Rate (L/min) 4 Oxygen Delivery Method Mechanical Ventilator Weight: 119.1 kg Body Mass Index (BMI) 35.6 Finger Stick Blood Glucose 132 Laboratory Tests Past 24 Hrs 09/30/18 09/30/18 09/30/18 11:10 11:10 11:10 WBC 1.7 L RBC 4.12 L Hgb 11.0 L Hct 35.4 L MCV 85.9 MCH 26.7 L MCHC 31.1 L RDW 19.8 H RDW Differential 59.9 H Plt Count 84 L MPV 12.2 H Immature Gran % (Auto) 0.600 Neut % (Auto) 65.3 Lymph % (Auto) 31.2 Pratt % (Auto) 2.3 Eos % (Auto) 0.0 Baso % (Auto) 0.6 Absolute Neuts (auto) 1.1 L Absolute Lymphs (auto) 0.54 L Total Counted Not Reportable Nucleated RBC % 15.6 H Differential Comment Diff Path Review May foll Platelet Estimate MOD DEC RBC Morphology N CHROM Anisocytosis 1+ Absolute Retic 0.27 PT 20.1 H INR 1.7 APTT 35.8 Specimen Type Sample Site pH Bicarbonate Actual POC Total CO2 Base Excess O2 Saturation ABG pCO2 ABG pO2 Delvis Test O2 Delivery Device Liter Flow Blood Gas Notified Whom Blood Gas Notified Time Sodium 137 Potassium 4.8 Chloride 100 Carbon Dioxide 18.0 L Anion Gap 19 H BUN 128 H* Creatinine 5.59 H Estim Creat Clear Calc 13.69 Est GFR (MDRD) Af Amer 13 L Est GFR (MDRD) Non-Af 11 L BUN/Creatinine Ratio 22.9 H Glucose 107 H Lactic Acid Calcium 7.9 L Total Bilirubin 1.00 AST 27 ALT 39 Alkaline Phosphatase 100 Troponin I 0.267 H Total Protein 4.9 L Albumin 1.9 L Globulin 3.0 Albumin/Globulin Ratio 0.6 L Urine Color Urine Clarity Urine pH Ur Specific [place] Urine Protein Urine Glucose (UA) Urine Ketones Urine Occult Blood Urine Nitrite Urine Bilirubin Urine Urobilinogen Ur Leukocyte Esterase Urine RBC Urine WBC Ur Squamous Epith Cells Urine Bacteria Urine Mucus 09/30/18 09/30/18 09/30/18 11:10 11:58 12:21 WBC RBC Hgb Hct MCV MCH MCHC RDW RDW Differential Plt Count MPV Immature Gran % (Auto) Neut % (Auto) Lymph % (Auto) Pratt % (Auto) Eos % (Auto) Baso % (Auto) Absolute Neuts (auto) Absolute Lymphs (auto) Total Counted Nucleated RBC % Differential Comment Diff Path Review Platelet Estimate RBC Morphology Anisocytosis Absolute Retic PT INR APTT Specimen Type ART Sample Site R Radial pH 7.33 L Bicarbonate Actual 11.6 L POC Total CO2 12 Base Excess -14 L O2 Saturation 76 L ABG pCO2 21.9 L ABG pO2 42 L Delvis Test POS O2 Delivery Device Nasal Can Liter Flow 4.0 Blood Gas Notified Whom ED Blood Gas Notified Time 1220 Sodium Potassium Chloride Carbon Dioxide Anion Gap BUN Creatinine Estim Creat Clear Calc Est GFR (MDRD) Af Amer Est GFR (MDRD) Non-Af BUN/Creatinine Ratio Glucose Lactic Acid 8.1 H* Calcium Total Bilirubin AST ALT Alkaline Phosphatase Troponin I Total Protein Albumin Globulin Albumin/Globulin Ratio Urine Color Yellow Urine Clarity Sl. Cloudy Urine pH 5.0 Ur Specific [place] 1.015 Urine Protein 100 H Urine Glucose (UA) 100 H Urine Ketones Negative Urine Occult Blood 10 H Urine Nitrite Negative Urine Bilirubin Negative Urine Urobilinogen Normal Ur Leukocyte Esterase 25 H Urine RBC 0-5 SEEN Urine WBC 0-5 SEEN Ur Squamous Epith Cells 0-5 SEEN Urine Bacteria 3+ Urine Mucus 1+ POC Glucose 09/30/18 09/30/18 09/30/18 13:04 12:00 11:33 POC Glucose 132 H 137 H 92 Clinical Impression(s) from Imaging Studies Chest X-Ray 09/30/18 10:59 IMPRESSION: Findings in keeping with vascular congestion and mild CHF. Electronically Signed: Tyshawn Gleason MD at 11:25 EST Tel [phone], Service support , Brain CT 09/30/18 11:24 IMPRESSION: Chronic involutional changes of the brain. 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 Electronically Signed: Tyshawn Gleason MD at 14:48 EST Tel [phone], Service support , Chest X-Ray 09/30/18 13:05 IMPRESSION: The tip of the endotracheal tube is at 3.5 cm proximal to caroline. Findings incomplete with mild degree of CHF with bibasilar atelectasis. Electronically Signed: Tyshawn Gleason MD at 13:28 EST Tel [phone], Service support , Assessment/Plan Active and Suspected Problems (Last Updated 09/30/18 @ 13:54 by Francisco Rose DO) Metabolic encephalopathy (Acute) Septic shock (Acute) Acute respiratory failure with hypoxia (Acute) RECOMMENDATIONS: 1. Transition antibiotics to meropenem and vancomycin 2. Initiate stress dose steroids, vasopressin if needed 3. Wean FiO2 and PEEP as tolerated 4. Initiate sedation 5. Change CODE STATUS to DNR Comfort Care arrest 6. Transition to D10 water, wean as tolerated 7. Discontinue allopurinol and Eliquis IMPRESSIONS: 1. 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 Patient should have random vancomycin level obtained. Echocardiogram has been ordered. Pressors will be transition to central access. Zepeda cultures are currently pending. Another possible etiology would be line sepsis. The patient have an element of adrenal insufficiency as he is reportedly on 10 mg of prednisone at baseline. Patient will be placed on stress dose steroids for relative adrenal insufficiency area 2. Acute hypoxic respiratory failure Unclear etiology at this time. Differential diagnosis would include ARDS versus congestive heart failure. Patient with significant PEEP requirements at this time, but this may have a perfusion component. We will continue to wean FiO2 and PEEP as tolerated. Possibly repeat chest x-ray tomorrow for evaluation if not improving. Doubt pneumonia given lack of reported prodromal symptoms unless embolic in nature 3. Reported metabolic encephalopathy secondary to hypoglycemia Patient currently paralyzed, so evaluation of mental status is severely limited. Patient was significantly hypoglycemic initially, but this has been normalized. We will continue to wean D10 as tolerated. 4. End-stage renal disease Patient is reportedly receiving dialysis every Sunday, Sunday and Sunday. Patient has tunneled access. Nephrology has been consulted. Unclear if patient would be able to tolerate hemodialysis at this time given blood pressure requirements. Patient does have significant uremia at this time. May tolerate 24 hours until hemodynamic stability can be obtained. 5. Diabetes mellitus type 2 Patient is on Lantus and Levemir at baseline. Patient was significantly hypoglycemic earlier today. Patient currently on D10. We will continue to wean D10 as tolerated. 6. A. fib with RVR status post pacemaker Likely secondary to #1. We will continue to monitor with telemetry. Patient does have serial troponins. Initial elevation may be secondary to s upply demand mismatch. 7. History of cerebral aneurysm/hypertension/hyperlipidemia/GERD/history of CABG/obesity/debility Complicates care, management, recovery and prognosis. Patient reportedly has a history of left-sided hemiparesis. This cannot be verified at this time. Reasonable to continue with PPI. ADDENDUM 4:12 PM: Called to patient's bedside at the end of patient's echocardiogram. Patient was not having definitive pass through the left side of the heart. Patient was evaluated and thought to have a thready pulse. Patient was given 2 A of bicarbonate with no improvement. Family was brought to the bedside. Patient was pronounced at 4:10 PM by myself after no heart sounds could be auscultated. No spontaneous breathing was noted. No CPR was performed given patient's CODE STATUS. TIME: 145 minutes of critical care time spent addressing patient's septic shock, respiratory failure, metabolic encephalopathy, hypoglycemia, review of all data and collaboration with care team (1:45 PM to 4:10 PM) Code Visit Procedures: 64171 Critial Care Addl 30 Min - 54403 x 3. 145 total time of critical care time. 9xxxx: [id number] Critical care first hour
[2018-09-30 15:32] LABS: Reflex Lactate? Y
[2018-09-30] MEDS: Hydrocortisone Sod Succinate 100 MG/2 ML Vial IV (15:55)
[2018-09-30] MEDS: Dextrose 10%-Water 250 ML 100 ML IV (15:55)
[2018-09-30] MEDS: Sodium Bicarbonate 8.4% 50 ML Syringe 50 MEQ IV ×2 (16:05)
[2018-09-30 16:12] LABS: Lactic Acid 6.9 mmol/L (0.4-2.0)
--- NOTE | 2018-09-30 16:20 | NURSING ---
1600 pt w/out pulse, Call to Dr. Welsh. pt [id number] 1602 Dr. Welsh present in pt room. 1605 2 amps bicarb levo increase to 50mcq/min still no pulse family at bedside 1610 lethal exodus
--- NOTE | 2018-09-30 16:51 | ED.VISSUMM ---
- ER Visit Summary Date of Service: 09/30/18 Chief Complaint: Unresponsive History of Present Illness: The patient is a 67 M who presents for a change in mental status. History is obtained through EMS and family. He has been residing at a rehab facility, trying to get his strength back. He is being treated for a bone infection in his left foot and is on Zosyn. He has multiple medical issues including but not limited to atrial fibrillation and he is on Eliquis, diabetes, end-stage renal disease on dialysis, CHF, stroke. Per family, the patient was altered at the rehab facility for 2 hours. He was found to have a blood sugar of 50. He was treated with glucose gel and then glucagon. EMS was contacted. EMS noted that his blood sugar was 38 and they apparently treated with bicarb instead of D50. Patient responds to verbal and gives very short responses. He is denying any focal pain. Denies any shortness of breath. Denying any other recent symptoms or new issues. History is extremely limited. He is full code. Physical Examination: Tachycardic at 126 and respiratory rate 31. Blood pressure 67/47. 95% on nasal cannula. Temperature is 98 degrees. Head and neck are atraumatic. He has moist mucous membranes. Heart is irregularly irregular and tachycardic. Lung sounds are diminished in all walker. Abdomen is soft and nontender. He has bilateral lower extremity wounds that are wrapped. He is responding to verbal and gives only very short responses. GCS is 13. Test Results: EKG showed atrial fibrillation at a rate of 120 with a right bundle branch block pattern and T wave changes laterally, possibly rate related or related to ischemia. Blood sugar was 33 on arrival here and he was treated with D50. Repeat blood sugar was normal. See below for the remainder of his results. Emergency Department Course and Treatment: Patient presents in shock. I was concerned for septic shock primarily, but other causes of shock were considered. Fluid resuscitation started and shock orders were placed. Patient was altered, but he was maintaining his airway and had good oxygenation. He was placed on a nasal cannula. I wanted to see if he would respond to glucose and fluids. Patient had a liter of fluids, and he continued to be hypotensive. His lab work showed a white count of 1.7, hemoglobin 11, platelets 84, CO2 18, anion gap 19, glucose 107, BUN 128, and creatinine 5.59. INR 1.7. Urinalysis fairly unremarkable after a Alme[place] catheter was placed. Troponin was 0.267 and lactate was 8.1. I continued fluid resuscitation, but his labs indicated shock. He began to spike a fever, and I suspect this was septic shock. He was cultured. Started on Azactam and vancomycin for broad-spectrum coverage. Patient was not responding to fluids and did not improve with correction of his hypoglycemia. He was becoming less responsive. His oxygen was dropping into the low 90s on nasal cannula. He was prepared for intubation. Patient was treated with etomidate and rocuronium. He was bagged on 100% oxygen. First attempt with the direct visualization was unsuccessful. He was rebagged without oxygen desaturation, and then the second attempt with the glidescope was successful. Tube was visualized passing through the cords. He had good color change. Good chest rise. Equal breath sounds. Quiet stomach. Confirmed on chest x-ray which also showed findings concerning for CHF. A third liter of fluids was ordered, but the patient continued to be hypotensive. Levophed was ordered. I suspect the patient is in septic shock from his wounds. His glucose is improved. I did check a head CT which showed chronic changes. The hospitalist and practice advisor were contacted. They both evaluated the patient in the emergency department. Patient was continued on fluids and pressors. Continued on antibiotics. His family made him DNR Comfort Care arrest. He was admitted to the ICU. See template for additional notes. Treatment Plan: As above Disposition: Admission to ICU Impression: 1. Septic shock 2. Respiratory failure 3. Hypoglycemia 4. End-stage renal disease 5. Elevated troponin This note was generated with [employer] dictation software. It may contain incorrect words, spelling, and punctuation that were not noted in review of the chart prior to signing ED Disposition - Plan for ED Patient: Disposition: Acute Care Hospital [facility] Chief Complaint: Hypoglycemia
--- NOTE | 2018-09-30 17:00 | PCM.DEATH ---
Preliminary Cause of septic shock Date of Admission: 09/30/18 Date of : 09/30/18 - Principle Diagnosis septic shock Problem List: Active and Suspected Problems (Last Updated 09/30/18 @ 13:54 by Francisco Rose DO) Metabolic encephalopathy (Acute) Septic shock (Acute) Acute respiratory failure with hypoxia (Acute) Hospital Course 67-year was noted to be hypoglycemic with micro-blood sugar in the 30s. Patient did receive D50 and serum. Patient continued to be unresponsive. Patient was intubated in the emergency room. Patient was hypotensive throughout. Patient did receive IV fluids as well as levo fed. Patient was admitted to the ICU. In the ICU, patient remained hypotensive despite Levophed and vasopressin. Stress dose steroids were also initiated. Patient received 2 A of bicarbonate. Patient was pronounced at 1610. Patient's CODE STATUS was changed to DNR Comfort Care arrest. Cause of appeared to be related with his septic shock, source of which was not clearly evident. Greater than 45 minutes spent on H+P, family discussion. Code Visit OBSV E&M: 54434 Observ/hosp same date L3
--- NOTE | 2018-09-30 17:05 | ED.DCSUM_ITS ---
- ER Visit Summary Date of Service: 09/30/18 Chief Complaint: Unresponsive History of Present Illness: The patient is a 67 M who presents for a change in mental status. History is obtained through EMS and family. He has been residing at a rehab facility, trying to get his strength back. He is being treated for a bone infection in his left foot and is on Zosyn. He has multiple medical issues including but not limited to atrial fibrillation and he is on Eliquis, diabetes, end-stage renal disease on dialysis, CHF, stroke. Per family, the patient was altered at the rehab facility for 2 hours. He was found to have a blood sugar of 50. He was treated with glucose gel and then glucagon. EMS was contacted. EMS noted that his blood sugar was 38 and they apparently treated with bicarb instead of D50. Patient responds to verbal and gives very short responses. He is denying any focal pain. Denies any shortness of breath. Denying any other recent symptoms or new issues. History is extremely limited. He is full code. Physical Examination: Tachycardic at 126 and respiratory rate 31. Blood pressure 67/47. 95% on nasal cannula. Temperature is 98 degrees. Head and neck are atraumatic. He has moist mucous membranes. Heart is irregularly irregular and tachycardic. Lung sounds are diminished in all walker. Abdomen is soft and nontender. He has bilateral lower extremity wounds that are wrapped. He is responding to verbal and gives only very short responses. GCS is 13. Test Results: EKG showed atrial fibrillation at a rate of 120 with a right bundle branch block pattern and T wave changes laterally, possibly rate related or related to ischemia. Blood sugar was 33 on arrival here and he was treated with D50. Repeat blood sugar was normal. See below for the remainder of his results. Emergency Department Course and Treatment: Patient presents in shock. I was concerned for septic shock primarily, but other causes of shock were considered. Fluid resuscitation started and shock orders were placed. Patient was altered, but he was maintaining his airway and had good oxygenation. He was placed on a nasal cannula. I wanted to see if he would respond to glucose and fluids. Patient had a liter of fluids, and he continued to be hypotensive. His lab work showed a white count of 1.7, hemoglobin 11, platelets 84, CO2 18, anion gap 19, glucose 107, BUN 128, and creatinine 5.59. INR 1.7. Urinalysis fairly unremarkable after a Almeida catheter was placed. Troponin was 0.267 and lactate was 8.1. I continued fluid resuscitation, but his labs indicated shock. He began to spike a fever, and I suspect this was septic shock. He was cultured. Started on Azactam and vancomycin for broad-spectrum coverage. Patient was not responding to fluids and did not improve with correction of his hypoglycemia. He was becoming less responsive. His oxygen was dropping into the low 90s on nasal cannula. He was prepared for intubation. Patient was treated with etomidate and rocuronium. He was bagged on 100% oxygen. First attempt with the direct visualization was unsuccessful. He was rebagged without oxygen desaturation, and then the second attempt with the glidescope was success ful. Tube was visualized passing through the cords. He had good color change. Good chest rise. Equal breath sounds. Quiet stomach. Confirmed on chest x-ray which also showed findings concerning for CHF. A third liter of fluids was ordered, but the patient continued to be hypotensive. Levophed was ordered. I suspect the patient is in septic shock from his wounds. His glucose is improved. I did check a head CT which showed chronic changes. The hospitalist and inside sales account representative were contacted. They both evaluated the patient in the emergency department. Patient was continued on fluids and pressors. Continued on antibiotics. His family made him DNR [facility] arrest. He was admitted to the ICU. See template for additional notes. Treatment Plan: As above Disposition: Admission to ICU Impression: 1. Septic shock 2. Respiratory failure 3. Hypoglycemia 4. End-stage renal disease 5. Elevated troponin This note was generated with [employer] dictation software. It may contain incorrect words, spelling, and punctuation that were not noted in review of the chart prior to signing ED Disposition - Plan for ED Patient: Disposition: Acute Care Hospital [facility] Chief Complaint: Hypoglycemia
[2018-09-30 17:21] LABS: Bedside Glucose 123 mg/dL (70-110)
[2018-09-30 19:19] LABS: Reflex Lactate? Y
[2018-10-01 08:46] LABS: Bedside Glucose 136 mg/dL (70-110)
[2018-10-01 08:46] LABS: Bedside Glucose 33 mg/dL (70-110)
[2018-10-01 08:46] LABS: Bedside Glucose 132 mg/dL (70-110)
[2018-10-01 13:34] LABS: Pathologist Review Reviewed
== END 2018-09-30 19:20 | DRG 871 ==
LOC: ED 12:14 → ICU 13:56
PROVIDERS: Emergency Provider Emergency Medicine; Family Provider Family Medicine; PCP Family Medicine
DX: A41.9 Sepsis, unspecified organism (principal); R65.21 Severe sepsis with septic shock; G93.41 Metabolic encephalopathy; J96.01 Acute respiratory failure with hypoxia; N18.6 End stage renal disease; I12.0 Hypertensive chronic kidney disease with stage 5 chronic kidney disease or end stage renal disease; M86.8X7 Other osteomyelitis, ankle and foot; I48.91 Unspecified atrial fibrillation; E11.649 Type 2 diabetes mellitus with hypoglycemia without coma; Z66 Do not resuscitate; E11.22 Type 2 diabetes mellitus with diabetic chronic kidney disease; Z99.2 Dependence on renal dialysis; E11.69 Type 2 diabetes mellitus with other specified complication; I25.10 Atherosclerotic heart disease of native coronary artery without angina pectoris; Z79.4 Long term (current) use of insulin; E78.5 Hyperlipidemia, unspecified; Z95.1 Presence of aortocoronary bypass graft
CPT/HCPCS: 31500; 31720; 36415; 36600; 51702; 70450; 71045; 80053; 81001; 82803; 82962; 83605; 84484; 85025; 85610; 85730; 87040; 87077; 87086; 87186; 93005; 93306; 94002; 99251; 99285; J2185; J7030; J7040; Q9957; A4216; C8929; G0463; J3490